=== PATIENT | female | born 1955 | race Caucasian/White ===

== ENCOUNTER → 2017-10-23 18:24 | Outpatient (CLI) | payer OTHER, SELFPAY ==
--- NOTE | 2017-10-23 18:32 | RAD_ITS ---
STUDY: X-RAY - RIGHT ANKLE REASON FOR EXAM: Female, 61 years old. Dropped Piece of wood on right ankle with pain TECHNIQUE: 3 view(s) of the ankle. COMPARISON: None. FINDINGS: Normal visualized distal tibia and fibula. Normal medial and lateral malleoli. Normal tibiotalar articulation and ankle mortise. Normal visualized talus and calcaneus. The visualized subtalar, talonavicular, calcaneocuboid and tarsal articulations are normal. The soft tissue structures are unremarkable. RAD/Ankle min 3 Views IMPRESSION: Normal x-ray examination of the ankle. Electronically Signed: Conner Charlton DO at 19:22 EST Tel , Service support ,
== END ==
PROVIDERS: Family Provider Nurse Practitioner; PCP Nurse Practitioner; Visit Provider Emergency Medicine
DX: M25.571 Pain in right ankle and joints of right foot (principal)
CPT/HCPCS: 73610

== ENCOUNTER → 2017-11-22 12:32 | Outpatient (CLI) | payer OTHER, SELFPAY ==
[2017-11-22 12:58] LABS: D-Dimer Quantitative (DVT/PE) 0.46 FEU/ug/m (0.27-0.49)
== END ==
PROVIDERS: Family Provider Nurse Practitioner; PCP Nurse Practitioner; Visit Provider Nurse Practitioner
DX: R07.9 Chest pain, unspecified (principal)
CPT/HCPCS: 36415; 85379

== ENCOUNTER → 2018-03-08 09:12 | Outpatient (CLI) | payer OTHER, SELFPAY ==
[2018-03-08 10:22] LABS: ALB/GLOB Ratio 1.2 RATIO (0.9-2.4); AST(SGOT) 30 U/L (15-37); Alanine Aminotransfer ALT/SGPT 28 U/L (13-56); Albumin, Serum 3.9 g/dL (3.2-5.0); Alkaline Phosphatase 103 U/L (45-117); Anion Gap 6 (5-15); BUN 16 mg/dL (7-18); BUN/Creat Ratio 21.9 RATIO (10-20); Calcium,Total 8.4 mg/dL (8.5-10.1); Chloride 105 mmol/L (98-107); Creatinine, Serum 0.73 mg/dL (0.55-1.02); EST Glomerular Filtration Rate 86 mL/min (>60); Est Glom Filt Rate - Afr Amer 104 mL/min (>60); Globulin 3.2 g/dL (2.2-4.2); Glucose 64 mg/dL (74-106); Potassium 3.8 mmol/L (3.5-5.1); Protein, Total 7.1 g/dL (6.4-8.2); Sodium Level 139 mmol/L (136-145)
[2018-03-10 14:36] LABS: Creatine Kinase MB 0 % (0-3); Creatine Kinase MM 97 % (97-100); Creatine Kinase,Total,Serum 235 U/L (24-173); Macro II 0 % (Not Observed)
[2018-03-10 15:47] LABS: Creatine Kinase BB 0 % (0); Macro I 3 % (Not Observed)
== END ==
PROVIDERS: Family Provider Nurse Practitioner; PCP Nurse Practitioner; Visit Provider Nurse Practitioner Gerontology
DX: R94.31 Abnormal electrocardiogram [ECG] [EKG] (principal); E86.0 Dehydration
CPT/HCPCS: 36415; 80053; 82550; 82552

== ENCOUNTER 2018-03-13 10:06 | Emergency (ER) | payer OTHER, SELFPAY ==
[2018-03-13 10:07] VITALS: BP 123/68; PULSE 67; RESP 18; TEMP 36.9; O2SAT 98; BMI 18.7
--- NOTE | 2018-03-13 10:22 | MRI_ITS ---
STUDY: MRI BRAIN WITHOUT CONTRAST REASON FOR EXAM: Female, 62 years old. Vertigo. Spinning x 1 month,dizzy TECHNIQUE: Standardized multiplanar fat and water weighted pulse sequences were obtained. COMPARISON: None. FINDINGS: Normal size of the ventricles and extra-axial spaces for the patient's age. There are a limited number of small white matter hyperintensities, distributed throughout the deep white matter tracts of the cerebral hemispheres, consistent with mild chronic white matter ischemic changes. Normal bilateral basal ganglia. Normal thalami. There is no extra-axial fluid accumulation. Normal flow voids within the major intracranial circulation suggesting patency by spin echo criteria. Normal sella turcica, pituitary gland, infundibular stalk, optic chiasm and hypothalamus. Normal tectal plate and pineal gland. Normal midbrain, asya and medulla. Normal cerebellum. Normal basal cisterns. Normal bilateral temporal bones. Normal bilateral internal auditory canals. No demonstrated orbital abnormality, within the constraints of a routine brain study. Normal visualized paranasal sinuses. Normal calvarium and skull base. Normal visualized soft tissue structures. Normal visualized upper cervical spine. MRI/Brain without Contrast IMPRESSION: Involutional changes of the brain, as described above. Electronically Signed: Suad Ruiz MD at 13:13 EDT Tel , Service support ,
--- NOTE | 2018-03-13 13:51 | ED.DCSUM_ITS ---
- ER Visit Summary Date of Service: 03/13/18 Chief Complaint: Vertigo ?1 month History of Present Illness: The patient is a 62 F who presents with vertigo ?1 month. She states her head is continuously moving. She denies double vision, partial loss or loss of vision. She does complain of intermittent change in vision. She states she walks sometimes the right. There is no history of head trauma. She denies trouble with speech or swallowing. She denies paresthesia, anesthesia motor weeks. She denies clumsiness or falling. There is no history of prior head trauma. She does complain of nausea without vomiting diarrhea. She denies any cardiac respiratory symptoms. She denies any urologic symptoms. She had blood work obtained on March 07 and March 08 which were reviewed and not repeated. She states her motion does not improve with her eyes closed. Physical Examination: Vital signs are normal. Head is atraumatic normocephalic. Pupils are equal round reactive. Extraocular muscles are intact. TMs are pearly white with landmarks noted. Nares patent with no drainage. Posterior pharynx without erythema or exudate. Uvula is midline. There is no dysphonia or dysphasia. Trachea is midline. There is no stridor with auscultation of the neck. Heart is regular without murmur, gallop or rub. S1 and S2 are normal. Lungs are clear to auscultation with good movement of air bilaterally. Abdomen soft nontender. Patient is alert and oriented ?3. Motor is 5 over 5. Sensory is intact. DTRs are symmetric with no clonus or Babinski sign. Cranial 2 through 12 are intact. Cerebellar testing is normal. Jair-Hallpike maneuver caused her to feel nauseous to the right. There was no nystagmus. The eye askew test was negative. The H INT test was negative. Test Results: MRI of the brain reveals no acute pathology or any findings to explain patient's symptoms. Emergency Department Course and Treatment: Since patient has negative [place]- Hallpike maneuver and spinning sensation that is continuous for 1 month will obtain an MRI. Blood work was not repeated since she had blood work on the and 08 March. Treatment Plan: Outpatient follow-up with Dr. Moiz Fulton Disposition: Discharged to home Impression: 1. Vertigo of unknown etiology 2. History of hypercholesterolemia This note was generated with Dragon dictation software. It may contain incorrect words, spelling, and punctuation that were not noted in review of the chart prior to signing ED Disposition - Plan for ED Patient: Disposition: Home or Assisted Living Chief Complaint: Dizziness Instructions: ED Dizziness [facility] Referrals: Becka Gallagher [Primary Care Provider] - Moiz Fulton MD [STAFF PHYSICIAN] - 1 Week
[2018-03-13 14:15] VITALS: BP 125/86; PULSE 65; RESP 14; O2SAT 98
== END 2018-03-13 14:22 | disposition home or self-care (01) ==
PROVIDERS: Emergency Provider Emergency Medicine; Family Provider Nurse Practitioner; PCP Nurse Practitioner
DX: R42 Dizziness and giddiness (principal); E78.00 Pure hypercholesterolemia, unspecified; M54.9 Dorsalgia, unspecified; Z87.891 Personal history of nicotine dependence
CPT/HCPCS: 70551; 99283; A4216

== ENCOUNTER → 2018-03-14 11:02 | Outpatient (CLI) | payer OTHER, SELFPAY ==
[2018-03-14 12:35] LABS: Erythrocyte Sedimentation Rate < 1 mm/hr (0-30)
[2018-03-14 12:37] LABS: Alanine Aminotransfer ALT/SGPT 31 U/L (13-56); LDH 259 U/L (84-246)
[2018-03-15 14:07] LABS: Anti-Jo <0.2 AI (0.0-0.9)
[2018-03-15 14:51] LABS: ANTINUCLEAR ANTIBODIES DIRECT Negative (Negative)
[2018-03-16 15:14] LABS: Aldolase 4.4 U/L (3.3-10.3); Cytoplasmic Ab (C-ANCA) <1:20 titer (Neg:<1:20)
[2018-03-16 15:59] LABS: Myoglobin, Serum 45 ng/mL (25-58); Perinuclear Ab (P-ANCA) <1:20 titer (Neg:<1:20)
== END ==
PROVIDERS: Family Provider Nurse Practitioner; PCP Nurse Practitioner; Visit Provider Nurse Practitioner Gerontology
DX: R74.8 Abnormal levels of other serum enzymes (principal)
CPT/HCPCS: 36415; 82085; 83615; 83874; 84460; 85652; 86038; 86235; 86256

== ENCOUNTER → 2018-03-17 13:53 | Outpatient (CLI) | payer OTHER, SELFPAY ==
[2018-03-17 15:33] LABS: Free T3 2.7 pg/mL (2.18-3.98); LDH 280 U/L (84-246); T4 Free Direct 1.06 ng/dL (0.76-1.46); Thyroid Stim Hormone (TSH) 1.33 uIU/mL (0.358-3.74)
== END ==
PROVIDERS: Family Provider Nurse Practitioner; PCP Nurse Practitioner; Visit Provider Nurse Practitioner
DX: R79.9 Abnormal finding of blood chemistry, unspecified (principal)
CPT/HCPCS: 36415; 83615; 84439; 84443; 84481

== ENCOUNTER → 2018-03-20 11:23 | Outpatient (CLI) | payer OTHER, SELFPAY ==
--- NOTE | 2018-03-20 11:25 | CT_ITS ---
STUDY: CT ABDOMEN AND PELVIS WITH CONTRAST REASON FOR EXAM: Female, 62 years old. 3 day history of left lower quadrant pain. Diarrhea. RADIATION DOSAGE (If Supplied By Facility): CTDIvol = ( 10.33 ) mGy, DLP = ( 339.72 ) mGycm TECHNIQUE: Transaxial images were obtained from the dome of the diaphragm to the symphysis pubis with oral contrast. 75mL ml of Isovue 370 contrast was administered. Sagittal and coronal images were reconstructed. Individualized dose optimization techniques were used for this CT. COMPARISON: Comparison is made with prior study dated November 14, 2013. FINDINGS: Minimal degree of increased lung markings at the right lung base suggestive mild left basilar atelectasis. The visualized portions of the heart are within normal limits. Normal liver. The patient is status post cholecystectomy. Minimal degree of central intrahepatic biliary ductal dilatation in keeping with a prior cholecystectomy. Normal spleen. Normal pancreas. Normal bilateral adrenal glands. Normal right kidney. Normal left kidney. Normal visualized stomach. Normal small intestine. A large amount of fecal material is seen in the colon. Scattered sigmoid diverticula. The patient is status post appendectomy. There is scattered atherosclerotic calcification of the abdominal aorta, without a demonstrated aneurysm. Normal inferior vena cava. Normal retroperitoneum. Normal urinary bladder. There is absence of the uterus consistent with a prior hysterectomy. Normal abdominal wall. There are degenerative changes of the visualized lumbar spine. Minimal anterior listhesis of L4 on L5. CT/Abdomen/Pelvis WITH Contrast IMPRESSION: Large amount of fecal material is seen in the colon. Status post cholecystectomy and appendectomy. Electronically Signed: Milad Helms MD at 14:11 EDT Tel [phone], Service support ,
[2018-03-20 12:40] LABS: ALB/GLOB Ratio 1.2 RATIO (0.9-2.4); AST(SGOT) 34 U/L (15-37); Alanine Aminotransfer ALT/SGPT 28 U/L (13-56); Alkaline Phosphatase 108 U/L (45-117); Anion Gap 7 (5-15); BUN 17 mg/dL (7-18); BUN/Creat Ratio 22.3 RATIO (10-20); Calcium,Total 9.3 mg/dL (8.5-10.1); Chloride 106 mmol/L (98-107); Creatinine, Serum 0.76 mg/dL (0.55-1.02); EST Glomerular Filtration Rate 82 mL/min (>60); Est Glom Filt Rate - Afr Amer 99 mL/min (>60); Globulin 3.4 g/dL (2.2-4.2); Glucose 93 mg/dL (74-106); Potassium 3.9 mmol/L (3.5-5.1); Protein, Total 7.4 g/dL (6.4-8.2); Sodium Level 139 mmol/L (136-145)
== END ==
PROVIDERS: Family Provider Nurse Practitioner; PCP Nurse Practitioner; Visit Provider Nurse Practitioner Gerontology
DX: R10.32 Left lower quadrant pain (principal); R74.0 Nonspecific elevation of levels of transaminase and lactic acid dehydrogenase [LDH]
CPT/HCPCS: 36415; 74177; 80053; 83615; Q9967

== ENCOUNTER → 2018-03-24 16:35 | Outpatient (CLI) | payer OTHER, SELFPAY | LOC: OLS.ABSOLU 16:36 → LAB 16:39 | PROVIDERS: Family Provider Nurse Practitioner; PCP Nurse Practitioner; Visit Provider Nurse Practitioner | DX: R74.0 Nonspecific elevation of levels of transaminase and lactic acid dehydrogenase [LDH] (principal) ==

== ENCOUNTER → 2018-04-13 08:16 | Outpatient (CLI) | payer OTHER, SELFPAY | PROVIDERS: Family Provider Nurse Practitioner; PCP Nurse Practitioner; Visit Provider Nurse Practitioner | DX: Z12.31 Encounter for screening mammogram for malignant neoplasm of breast (principal) | CPT/HCPCS: 77063; 77067 ==

== ENCOUNTER 2018-04-13 10:00 | Outpatient (RCR) | payer OTHER, SELFPAY ==
--- NOTE | 2018-03-24 07:53 | HP.PTEVAL_ITS ---
Patient's Visit Information CHANTAL DELA CRUZ is a 62 year old F referred to Physical Therapy by Chantal Gallagher with a diagnosis of vertigo. Date of Evaluation: 03/24/18 Physical Therapist: Robreto Clark DPT, OC - Visit Plan Frequency: 1x/Week Duration: 4-6 Weeks Plan: Weekly x4-6 to progress adaptation exercises which I expect to be helpful. Monitor MSQ if needed. I have recommeneded patient continue with any testing doctor wants to do as well. - Subjective Subjective: February 19 started getting dizzy, Fairly constant, insidious onset. Worse with turning for a short duration. Always has a dizzy feeling. Needs to lean against something and then move on. It is a constant feeling. Lying is down, bending , looking up have not noticed a problem. No falls. No numbness or tingling in the legs. Sleep is OK. 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 Activities are normal at home but has to be careful and slow. - Objective FGA is good.VOR walking is slightly challenging. - B hallpike lesa. - roll test. Oculomotor: Pursuit and saccades are normal. eye convergence normal. - skew eye deviation. - head thrust. VOR causes symptoms slight increase for 30 seconds and worse with VORx2. Recovers within a minute to baseline. - Balance Scores Functional Gait Assessment Score: 29 % Disability: 3.3400 CATSIB Score (Max score 120 seconds): 120 - Goals Goal 1:: Abolish baseline dizzyness. Goal Time Frame: 4-6 Weeks Goal 2:: Pt feel 95% back to normal and be able to turn around without symptoms. Goal Time Frame: 4-6 Weeks Goal 3:: I approp HEPO to minimize future problems Goal Time Frame: 4-6 Weeks - Rehabilitation Potential Physical Therapy Diagnosis: vertigo, possibly vestibualr hypofunction. Rehabilitation Potential: Good - Anticipated Interventions Patient/Client Instruction: Educate patient on: Condition, Plan of Care For the Purpose of:: To improve ability of physical actions for home/community/ work/leisure Other: to decrease dizzyness. Comment: adaptation and habituation as needed. For the Purpose of:: To increase tolerance to activity/condition/position, To improve ability of physical actions for home/community/work/leisure Thank you for the opportunity to evaluate your patient. For Medicare and Medicare HMO plans, please review the plan of care and approve it. It will need to be FAXED BACK to us at [phone] for Medicare purposes. Please let me know if there are questions or concerns regarding this plan of care. Physician Signature: Date:
--- NOTE | 2018-04-13 10:24 | HP.PTDCSUM ---
HP - PT D/C Summary It has been my pleasure to treat CHANTAL DELA CRUZ under orders from Chantal Gallagher, for the diagnosis of vertigo for a total of 3 visit(s). Discharge Date: 04/13/18 Please see the following information for a summary of their discharge status. - Subjective Subjective: Moved last week the dining room table and walked into formerly named [facility] and fell to the floor. Only spun 2x/since then and did not last long. Feeling pretty good in the meantime. Will see doctor soon. Doing exercises but only a little bit becasue it gets to her neck. Exercises were not helping. Feels better despite moving houses for the last week. - Overall Improvement % Improvement: 90 - Objective Objective/Function: - hallpike. balance is good. Feeling good, Much better overall btu not sure our treatment had muich to do with it. - Goals Goal 1:: Abolish baseline dizzyness. Goal Progress: Goal Met Goal 2:: Pt feel 95% back to normal and be able to turn around without symptoms. Goal Progress: Progressing Goal 3:: I approp HEPO to minimize future problems Goal Progress: not needed - Plan Plan: D/C - D/C Information Discharge Comments: Pt has done ex at home but did not seem to be helping. [facility] and has had very little dizzyness since and is 90% better. No symptoms in 4 days. Will schedule with doctor, no more therapy reuired. If there are questions or concerns regarding this patient's physical therapy, please feel free to call me at [phone]. Thank you for the referral of this patient. Sincerely, Roberto Clark, DPT, OC
== END 2018-04-13 19:00 | disposition home or self-care (01) ==
LOC: PT 10:00
PROVIDERS: Family Provider Nurse Practitioner; PCP Nurse Practitioner; Visit Provider Nurse Practitioner
DX: R42 Dizziness and giddiness (principal)
CPT/HCPCS: 97162; 97530

== ENCOUNTER → 2018-04-13 14:39 | Outpatient (CLI) | payer OTHER, SELFPAY | PROVIDERS: Family Provider Nurse Practitioner; PCP Nurse Practitioner; Visit Provider Nurse Practitioner Gerontology | DX: M25.511 Pain in right shoulder (principal) | CPT/HCPCS: 73030 ==

== ENCOUNTER → 2018-05-10 11:10 | Outpatient (CLI) | payer OTHER, SELFPAY ==
[2018-05-10 11:16] LABS: Bacteria 0 SEEN /hpf (None Seen); Mucous, Urine 0 SEEN /hpf (<or=2+); Red Blood Cells-Urine 0 SEEN /hpf (0-5); Squamous Epithelial Cells - UA 0 SEEN /hpf (5-10)
[2018-05-10 12:07] LABS: Immature Platelet Fraction 1.3 % (1.0-7.9); RET-HE 31.5 pg (30-35); Reticulocyte Count 1.04 % (0.5-1.5)
[2018-05-10 12:28] LABS: Color, Urine Yellow (Yellow); Glucose, Dipstick Normal (Normal); Ketone-Dipstick Negative (Negative); Leukocyte Esterase-Dipstick 25 /ul (Negative); Nitrite-Dipstick Negative (Negative); Occult Blood-Urine Negative /ul (Negative); Protein-Dipstick Negative (Negative); Urine Bilirubin Dipstick Negative (Negative); Urine Clarity Sl. Cloudy (Clear); Urine Urobilinogen Normal (Normal)
[2018-05-10 12:34] LABS: White Blood Cells 0-5 SEEN /hpf (0-5)
[2018-05-10 12:50] LABS: Vitamin B12 633 pg/mL (211-911)
[2018-05-10 13:00] LABS: Ferritin 13 ng/mL (8-252); Iron 27 ug/dL (50-170); Iron Binding Capacity,Total 350 ug/dL (250-450); LDH 250 U/L (84-246); PERCENT IRON SATURATION 7.7 % (15.0-55.0)
== END ==
PROVIDERS: Family Provider Nurse Practitioner; PCP Nurse Practitioner; Visit Provider Nurse Practitioner
DX: D64.9 Anemia, unspecified (principal); R31.9 Hematuria, unspecified
CPT/HCPCS: 36415; 81001; 82607; 82728; 82746; 83540; 83550; 83615; 85045

== ENCOUNTER → 2018-05-31 06:35 | Outpatient (CLI) | payer OTHER, SELFPAY ==
[2018-05-31 07:04] LABS: Immature Platelet Fraction 2.2 % (1.0-7.9); RET-HE 33.4 pg (30-35); Reticulocyte Count 0.79 % (0.5-1.5)
[2018-05-31 07:19] LABS: Ferritin 21 ng/mL (8-252); Iron 118 ug/dL (50-170); Iron Binding Capacity,Total 328 ug/dL (250-450)
[2018-06-02 13:10] LABS: LDH 208 IU/L (119-226); LDH Fraction 1 25 % (17-32); LDH Fraction 2 31 % (25-40); LDH Fraction 3 22 % (17-27); LDH Fraction 4 12 % (5-13); LDH Fraction 5 10 % (4-20)
== END ==
PROVIDERS: Family Provider Nurse Practitioner; PCP Nurse Practitioner; Referring Provider Nurse Practitioner; Visit Provider Nurse Practitioner
DX: D50.9 Iron deficiency anemia, unspecified (principal); R74.0 Nonspecific elevation of levels of transaminase and lactic acid dehydrogenase [LDH]; R79.9 Abnormal finding of blood chemistry, unspecified
CPT/HCPCS: 36415; 82728; 83540; 83550; 83615; 83625; 85045

== ENCOUNTER 2018-07-05 17:24 | Emergency (ER) | payer OTHER, SELFPAY ==
[2018-07-05 17:25] VITALS: BP 130/80; PULSE 82; RESP 16; TEMP 36.7; O2SAT 97; BMI 20.2
--- NOTE | 2018-07-05 17:50 | RAD_ITS ---
STUDY: X-RAY - RIGHT KNEE REASON FOR EXAM: Female, 62 years old. Pain, decreased range of motion TECHNIQUE: 4 view(s) of the knee. COMPARISON: None. FINDINGS: Normal visualized distal femur. Normal visualized proximal tibia and fibula. Normal proximal tibiofibular articulation. Normal medial femorotibial compartment. Normal lateral femorotibial compartment. Normal patellofemoral articulation. The soft tissue structures are unremarkable. RAD/Knee 4 or More Views IMPRESSION: Normal x-ray examination of the knee. Electronically Signed: Vaibhav Diane MD at 18:18 EST , Service support ,
--- NOTE | 2018-07-05 17:53 | ED.DCSUM_ITS ---
- ER Visit Summary Date of Service: 07/05/18 Chief Complaint: Right knee injury History of Present Illness: The patient is a 62 F presenting for evaluation secondary to a right knee injury. Patient reports that at about 10:00 this morning she was moving a hospital bed. She reports that it pinned her knee anteriorly against a elevator door. She reports that this was associated with somewhat of a hyperextension injury. Patient now reports pain with ambulation, and some difficulty with completely straightening the knee. She denies any numbness or weakness. Physical Examination: Right lower extremity exam shows a minimal joint effusion of the knee. There is tenderness palpation over the medial portion of the patient's quadriceps tendon insertion on the patella. Patella is well placed, and nontender. There is tenderness to palpation additionally over the anterior medial portion of the tibial plateau. Patient has normal flexion of the knee, she does have an intact extensor mechanism but is not able to fully extend the knee secondary to some pain. Negative Lockman posterior drawer varus and valgus stress tests. Test Results: Bedside ultrasound shows no evidence of violation of the patient's quadriceps tendon. 4 view of the knee per radiology and my personal view is negative Emergency Department Course and Treatment: Patient presented for evaluation secondary to a knee injury. X-rays were negative, ultrasound shows no evidence of tendon rupture. Patient's mechanism seems consistent with a hyperextension injury. She has no evidence of ligamentous laxity. Patient was recommended on a compression sleeve, NSAID analgesia, and ice. Disposition: Discharge Impression: 1. Right knee sprain This note was generated with [employer] dictation software. It may contain incorrect words, spelling, and punctuation that were not noted in review of the chart prior to signing ED Disposition - Plan for ED Patient: Disposition: Home or Assisted Living Chief Complaint: Lower Extremity Injury Diagnosis: Right knee sprain Instructions: ED Sprain Knee Referrals: [facility], [place] [GROUP OF PHYSICIANS] - As Needed
[2018-07-05 18:48] VITALS: PULSE 84; RESP 14; O2SAT 98
== END 2018-07-05 18:49 | disposition home or self-care (01) ==
PROVIDERS: Emergency Provider Emergency Medicine; Family Provider Nurse Practitioner; PCP Nurse Practitioner
DX: S83.91XA Sprain of unspecified site of right knee, initial encounter (principal); X50.1XXA Overexertion from prolonged static or awkward postures, initial encounter; Y93.9 Activity, unspecified; Y92.9 Unspecified place or not applicable; E78.00 Pure hypercholesterolemia, unspecified; Z79.82 Long term (current) use of aspirin; Z79.899 Other long term (current) drug therapy
CPT/HCPCS: 73564; 99282

== ENCOUNTER → 2018-07-12 07:07 | Outpatient (CLI) | payer OTHER, SELFPAY ==
[2018-07-10 08:04] VITALS: BMI 20.2
[2018-07-12 08:31] LABS: Ferritin 17 ng/mL (8-252)
== END ==
PROVIDERS: Family Provider Nurse Practitioner; PCP Nurse Practitioner; Referring Provider Nurse Practitioner; Visit Provider Nurse Practitioner
DX: D50.9 Iron deficiency anemia, unspecified (principal)
CPT/HCPCS: 36415; 82728

== ENCOUNTER → 2018-07-22 07:23 | Outpatient (CLI) | payer OTHER, SELFPAY ==
[2018-07-18 07:58] VITALS: BMI 20.2
--- NOTE | 2018-07-22 07:29 | MRI_ITS ---
STUDY: MRI RIGHT KNEE REASON FOR EXAM: Female, 62 years old. Pain around patella. Hyperextension in May. TECHNIQUE: Standardized fat and water weighted pulse sequences were obtained in all 3 orthogonal planes. COMPARISON: None. FINDINGS: There is tearing of the posterior horn of the medial meniscus. There is intermediate grade cartilage degeneration in the medial joint compartment. There is focal bone marrow edema in the posterior medial tibial plateau posterior placenta and stress reaction although underlying microtrabecular fractures aren't excluded. Normal medial collateral ligamentous complex (MCL). Normal distal semimembranosus, gracilis and semitendinosus tendons. Normal lateral meniscus. Normal hyaline cartilage of the lateral femorotibial compartment. Normal lateral femoral condyle and tibial plateau. Normal proximal tibiofibular articulation. Normal lateral collateral (fibular) ligament. Normal popliteus tendon. Normal biceps femoris tendon. There is mild increased signal in the anterior cruciate ligament without definitive tear possibly representing a sprain. Normal posterior cruciate ligament (PCL). Patellofemoral joint appears within normal limits. Normal hyaline cartilage of the patellofemoral compartment. Normal medial and lateral patellar retinaculum. Normal quadriceps tendon. Normal patellar tendon. Normal Hoffa's fat pad. There is a small joint effusion. There is a small popliteal cyst. The soft tissues are unremarkable. The otherwise visualized osseous structures are unremarkable. MRI/Lower Ext Joint Only (Routine) IMPRESSION: There is tearing of the posterior horn of the medial meniscus. There is bone marrow edema in the posterior medial tibial plateau may represent stress reaction however underlying microtrabecular fractures aren't completely excluded although unlikely. Possible sprain of the anterior cruciate ligament. Small joint effusion and popliteal cyst. Electronically Signed: Remy Clifton, at 11:13 EST Tel , Service support ,
--- OUTSIDE RECORDS SUMMARY | 2018-09-15 18:51 | XMS RPT_ITS ---
:1955 Author Organization OHIP Support Name Relationship Address Phone DELRE, PHILOMENA Unavailable [address] + [place] [address] [facility] Unavailable [address] + [place] [address] DELRE, PHILOMENA Unavailable [address] + [place] [address] [facility] Unavailable [address] + [place] [address] DELRE, PHILOMENA Unavailable [address] + [place] [address] [facility] Unavailable [address] + [place] [address] DELRE, PHILOMENA Unavailable [address] + [place] [address] [facility] Unavailable [address] + [place] [address] DELRE, PHILOMENA Unavailable [address] + [place] [address] [facility] Unavailable [address] + [place] [address] DELRE, PHILOMENA Unavailable [address] + [place] [address] [facility] Unavailable [address] + [place] [address] DELRE, PHILOMENA Unavailable [address] + [place] [address] [facility] Unavailable [address] + [place] [address] DELRE, PHILOMENA Unavailable Unavailable + [facility] Unavailable [address] + [place] [address] DELRE, PHILOMENA Unavailable Unavailable + [facility] Unavailable [address] + [place] [address] DELRE, PHILOMENA Unavailable Unavailable + [facility] Unavailable [address] + [place] [address] DELRE, PHILOMENA Unavailable Unavailable + [facility] Unavailable [address] + [place] [address] DELRE, PHILOMENA Unavailable Unavailable + [facility] Unavailable [address] + [place] [address] DELRE, PHILOMENA Unavailable Unavailable + [facility] Unavailable [address] + [place] [address] DELRE, PHILOMENA Unavailable Unavailable + [facility] Unavailable [address] + [place] [address] DELRE, PHILOMENA Unavailable Unavailable + [facility] Unavailable [address] + [place] [address] DELRE, PHILOMENA Unavailable Unavailable + [facility] Unavailable [address] + [place] [address] DELRE, PHILOMENA Unavailable Unavailable + [facility] Unavailable [address] + [place] [address] DELRE, PHILOMENA Unavailable Unavailable + [facility] Unavailable [address] + [place] [address] DELRE, PHILOMENA Unavailable Unavailable + [facility] Unavailable [address] + [place] [address] DELRE, PHILOMENA Unavailable Unavailable + [facility] Unavailable [address] + [place] [address] DELRE, PHILOMENA Unavailable Unavailable + [facility] Unavailable [address] + [place] [address] DELRE, PHILOMENA Unavailable Unavailable + [facility] Unavailable [address] + [place] [address] DELRE, PHILOMENA Unavailable NA + [place], [place] [facility] Unavailable [address] + [place] [address] DELRE, PHILOMENA Unavailable [address] + [facility] Unavailable [address] + [place] [address] DELRE, PHILOMENA Unavailable [address] + [facility] Unavailable [address] + [place] [address] DELRE, PHILOMENA Unavailable [address] + [facility] Unavailable [address] + [place] [address] Care Team Providers Name Role Phone Jasmin Sow BOLTING MACHINE OPERATOR-C Attending Unavailable [facility] Unavailable Jasmin Sow BOLTING MACHINE OPERATOR-C Attending Unavailable [facility] Unavailable Jasmin Sow BOLTING MACHINE OPERATOR-Mabel Referring Unavailable Dave Fortune Attending Unavailable Anne Cortés Attending Unavailable [facility] Becka Referring Unavailable [facility] Unavailable Pineda Vences Attending Unavailable [facility] Unavailable [facility], Becka Attending Unavailable [facility] Becka Referring Unavailable [facility] Unavailable Jasmin Sow BOLTING MACHINE OPERATOR-C Attending Unavailable Jasmin Sow BOLTING MACHINE OPERATOR-Mabel Referring Unavailable [facility] Unavailable Jasmin Sow BOLTING MACHINE OPERATOR-Mabel Attending Unavailable Jasmin Sow BOLTING MACHINE OPERATOR-Mabel Referring Unavailable [facility] Unavailable [facility], [facility] Unavailable Jose Wren Attending Unavailable [facility] Becka Attending Unavailable [facility], Becka Referring Unavailable [facility] Unavailable Jasmin Sow BOLTING MACHINE OPERATOR-C Attending Unavailable Jasmin Sow BOLTING MACHINE OPERATOR-C Referring Unavailable Ciesa, Becka Primary Care Unavailable Ciesa, Becka Attending Unavailable Ciesa, Becka Referring Unavailable Ciesa, Becka Primary Care Unavailable Jasmin Sow BOLTING MACHINE OPERATOR-C Attending Unavailable Jasmin Sow BOLTING MACHINE OPERATOR-C Referring Unavailable Ciesa, Becka Primary Care Unavailable Ciesa, Becka Attending Unavailable Ciesa, Becka Referring Unavailable Ciesa, Becka Primary Care Unavailable Ciesa, Becka Attending Unavailable Ciesa, Becka Primary Care Unavailable Jasmin Sow BOLTING MACHINE OPERATOR-C Attending Unavailable Jasmin Sow BOLTING MACHINE OPERATOR-C Referring Unavailable Ciesa, Becka Primary Care Unavailable ASSESSMENT, HEALTH RISK Attending Unavailable ASSESSMENT, HEALTH RISK Referring Unavailable Ciesa, Becka Primary Care Unavailable Ciesa, Becka Attending Unavailable Ciesa, Becka Primary Care Unavailable Ciesa, Becka Attending Unavailable Ciesa, Becka Primary Care Unavailable Ciesa, Becka Referring Unavailable Ciesa, Becka Attending Unavailable Ciesa, Becka Primary Care Unavailable Ciesa, Becka Referring Unavailable Ciesa, Becka Primary Care Unavailable Juanito Cottrell Attending Unavailable Gerardo Bhatt Attending Unavailable Ciesa, Becka Referring Unavailable Ciesa, Becka Attending Unavailable Ciesa, Becka Primary Care Unavailable Gerardo Bhatt Attending Unavailable Ciesa, Becka Referring Unavailable Gerardo Bhatt Attending Unavailable Gerardo Bhatt Referring Unavailable Ciesa, Becka Primary Care Unavailable Gerardo Bhatt Attending Unavailable Ciesa, Becka Referring Unavailable PROBLEMS PROBLEMS DATE TYPE CONDITION / CODE ATTENDING STATUS SOURCE 08/08/2018 Unknown S83.91XA - Sprain Gerardo Bhatt Active [place] of unspecified site Community of right knee, Hospital initial encounter / Repository S83.91XA(ICD-10) 07/10/2018 Unknown S89.91XA - Juanito Cottrell Active [facility] Unspecified injury Community of right lower leg, Hospital initial encounter / Repository S89.91XA(ICD-10) 05/10/2018 Unknown D64.9 - Anemia, LeticiaesBecka michel Active [facility] unspecified / Community D64.9(ICD-10) Hospital Repository 04/14/2018 Unknown R42 - Dizziness and CiesaBecka Active [place] giddiness / Community R42(ICD-10) Hospital Repository 03/24/2018 Unknown R74.0 - Nonspecific Ciesa, Becka Active [facility] elevation of levels Community of transaminase and Hospital lactic acid Repository dehydrogenase [LDH] / R74.0(ICD-10) 04/06/2018 Unknown R10.32 - Left lower Jasmin Sow Active [place] quadrant pain / BOLTING MACHINE OPERATOR-C Community R10.32(ICD-10) Hospital Repository 03/17/2018 Unknown R79.9 - Abnormal Becka Gallagher Active [facility] finding of blood [facility] chemistry, Hospital unspecified / Repository R79.9(ICD-10) 03/14/2018 Unknown R74.8 - Abnormal Jasmin Sow Active [facility] levels of other BOLTING MACHINE OPERATOR-C Community serum enzymes / Hospital R74.8(ICD-10) Repository 11/25/2017 Unknown R07.9 - Chest pain, Becka Gallagher Active [place] unspecified / Community R07.9(ICD-10) Hospital Repository 09/30/2017 Unknown R00.2 - CortésAravind [facility] Palpitations / [facility] R00.2(ICD-10) Hospital Repository 09/30/2017 Unknown I34.1 - Moo Active [facility] Nonrheumatic mitral [facility] (valve) prolapse / Hospital I34.1(ICD-10) Repository 09/08/2017 Unknown M25.561 - Pain in Jasmin Sow Active [facility] right knee / BOLTING MACHINE OPERATOR-C [facility] M25.561(ICD-10) Hospital Repository PROCEDURES PROCEDURES No Procedure Records FoundRESULTS RESULTS URGENT CARE VISIT Observed: 07/25/2018 Status: F Source: [place] REPORT 5:55 PM [facility] REPOSITORY [facility] [address] [place], [place] [id number] OFFICE VISIT Date of Service: 07/25/18 MR#: [id number] Acct: [id number] Name: BECKA DELA CRUZ Rep #: [id number] : 1955 Provider: Gerardo ANDERSEN Age/Sex: 62/F Location: [facility] Status: Signed Intake Vital Signs07/25/18 Body Mass Index (BMI) 20.2 07/25/18 Height 5 ft 5 in 07/25/18 Weight: 123 lb 07/25/18 Body Mass Index (BMI) 20.5 07/25/18 Blood Pressure 116/82 H Intake Visit Reasons: F/U RIGHT KNEE/[facility] /WORKERS COMP Range Examiner Required: No Accompanied by: SELF Is patient in pain?: Yes Allergies morphine Allergy (Intermediate, Verified 07/25/18 17:33) Hives Penicillins Allergy (Intermediate, Verified 07/25/18 17:33) Hives Sulfa (Sulfonamide Antibiotics) Allergy (Intermediate, Verified 07/25/18 17:33) Hives adhesive Allergy (Mild, Verified 07/25/18 17:33) BLISTER erythromycin base [Erythromycin Base] Allergy (Mild, Verified 07/25/18 17:33) EYES SWELLING clarithromycin [From Biaxin] Allergy (Verified 07/25/18 17:33) Unknown cyclobenzaprine [From Flexeril] Allergy (Verified 07/25/18 17:33) Unknown hydrocodone bitartrate [From Vicodin] Adverse Reaction (Mild, Verified 07/25/18 17:33) Upset Stomach Medications Rosuvastatin Calcium 5 mg PO QODAY 03/13/18 [History Confirmed 07/25/18] Aspirin [Aspirin, Baby] 81 mg PO DAILY 07/05/18 [History Confirmed 07/25/18] coenzyme Q10 75 mg capsule 75 mg PO DAILY 07/10/18 [History Confirmed 07/25/18] fluticasone 100 mcg-salmeterol 50 mcg/dose blistr powdr for inhalation 1 puff INHALATION BID 07/10/18 [History Confirmed 07/25/18] ibuprofen 200 mg tablet 200 mg PO TID-QID PRN 07/10/18 [History Confirmed 07/25/18] PFSH Medical History Palpitations (Chronic) Tachycardia (Chronic) SOB (shortness of breath) (Chronic) Arthritis (Acute) Asthma (Acute) Cancer (Acute) Dupuytren's disease of palm of left hand (Acute) Hx of melanoma of skin (Acute) Knee pain (Acute) Hernandez's neuroma (Acute) Weight loss (Acute) History of hysterectomy (Chronic 1994) Lentigo (Chronic) Nevus (Chronic) Skin hemangioma (Chronic) Surgical History History of back surgery (Acute) History of carpal tunnel release (Acute) History of cataract surgery (Acute) History of knee surgery (Acute) History of rotator cuff surgery (Acute) Hx of removal of ovary (Acute) bladder tied up (Acute) History of appendectomy (Chronic 1995) History of cholecystectomy (Chronic 2006) History of tonsillectomy (Chronic 1964) History of tubal ligation (Chronic) Family History Mother , age 70 Myocardial infarction CAD (coronary artery disease) Father Melanoma Social History Smoking Status: Former smoker how long ago did patient quit smokin alcohol intake: never substance use type: does not use caffeine: Yes Type: coffee what type of physical activity do you participate in: bicycling frequency: daily duration: 30-45 minutes/day seatbelt use: always do you feel safe at home: Yes HPI HPI Details: BECKA DELA CRUZ, is a 62 F who presents to the office today for follow-up of a work-related injury which occurred on 07/05/2018. Patient comes in today to review her MRI findings which do find a medial meniscus tear of the anterior horn of the right knee. Patient states that she continues to have similar symptoms as previous including increased knee pain at the end of her shift as well as feeling of locking and popping in the same knee. She denies any numbness or tingling or loss of range of motion to the same. No other associated symptoms or alleviating/aggravating factors. ROS Const Constitutional: No chills, fever(s), abnormal sleep pattern or fatigue Resp Respiratory: No shortness of breath or chest congestion Cardio Cardiology: No chest pain at rest, chest pain with exertion or shortness of breath Musc Musculoskeletal: Positive for limited range of motion, stiffness and joint pain; no joint swelling, deformity, numbness, tingling, abnormal walking or muscle weakness Skin Skin: No wounds or lesions Neuro Neurology: No numbness, tingling or abnormal walking Psych Psychiatric: No abnormal sleep pattern Endo Endocrine: No fatigue Exam Const General: cooperative, healthy appearing Musc Musculoskeletal: Yes joint tenderness; no muscle weakness or decreased ROM Skin General: no rashes or lesions noted Neuro General: alert, CN's II-XI intact bilaterally Extrem General: full ROM, normal capillary refill, normal exam except as noted, no joint enlargement Other: Pain to palpation over the anterior and medial aspect of the right knee with no obvious deformity upon palpation. Negative anterior posterior drawer sign as well as negative valgus and varus stress test. Psych Appearance: grossly normal Mental Status: mental status grossly normal Assessment AND Plan Problems 1. Sprain of unspecified site of right knee, initial encounter S83.91XA Plan [employer] 14 filled out releasing patient back to work today with no restrictions again per the patient's request. Patient referred to orthopedics for further evaluation and treatment of her ongoing right knee pain and medial meniscus tear. Form C9 filled out for additional diagnosis of medial meniscus tear of the right knee. Patient advised to continue with ibuprofen and/or Tylenol as needed for pain. Advised of potential red flags and when appropriate to report to the ED. Patient verbalized understanding and agreement with all of the above. Orders Referrals: Coding Level of Care Code Off vis,est,level 3 Diagnoses Sprain of unspecified site of right knee, initial encounter S83.91XA 07/25/18 0843 <Electronically signed by Gerardo ANDERSEN> Date Gerardo ANDERSEN Cosigner Signature: Date (if applicable) CC: LOWER EXT JOINT ONLY Observed: 07/22/2018 Status: F Source: [place] (ROUTINE) 7:30 AM [facility] REPOSITORY [facility] Imaging Services [address] [place] [id number] Lower Ext Joint Only (Routine) MR#: [id number] Acct: [id number] Name: BECKA DELA CRUZ Rep #: [id number] : 1955 F 62 From: Remy Clifton MD PCP: Becka Gallagher NP Status: REG CLI Study: Lower Ext Joint Only (Routine) Date of Exam: 07/22/18 Exam# [id number] Ordering Dr: Gerardo Bhatt STUDY: MRI RIGHT KNEE REASON FOR EXAM: Female, 62 years old. Pain around patella. Hyperextension in May. TECHNIQUE: Standardized fat and water weighted pulse sequences were obtained in all 3 orthogonal planes. COMPARISON: None. FINDINGS: There is tearing of the posterior horn of the medial meniscus. There is intermediate grade cartilage degeneration in the medial joint compartment. There is focal bone marrow edema in the posterior medial tibial plateau posterior placenta and stress reaction although underlying microtrabecular fractures aren't excluded. Normal medial collateral ligamentous complex (MCL). Normal distal semimembranosus, gracilis and semitendinosus tendons. Normal lateral meniscus. Normal hyaline cartilage of the lateral femorotibial compartment. Normal lateral femoral condyle and tibial plateau. Normal proximal tibiofibular articulation. Normal lateral collateral (fibular) ligament. Normal popliteus tendon. Normal biceps femoris tendon. There is mild increased signal in the anterior cruciate ligament without definitive tear possibly representing a sprain. Normal posterior cruciate ligament (PCL). Patellofemoral joint appears within normal limits. Normal hyaline cartilage of the patellofemoral compartment. Normal medial and lateral patellar retinaculum. Normal quadriceps tendon. Normal patellar tendon. Normal Hoffa's fat pad. There is a small joint effusion. There is a small popliteal cyst. The soft tissues are unremarkable. The otherwise visualized osseous structures are unremarkable. MRI/Lower Ext Joint Only (Routine) IMPRESSION: There is tearing of the posterior horn of the medial meniscus. There is bone marrow edema in the posterior medial tibial plateau may represent stress reaction however underlying microtrabecular fractures aren't completely excluded although unlikely. Possible sprain of the anterior cruciate ligament. Small joint effusion and popliteal cyst. Electronically Signed: Remy Clifton, at 11:13 EST Tel , Service support , CC: Becka Gallagher NP; Gerardo ANDERSEN Stonecutter Assistant: Signed URGENT CARE VISIT Observed: 07/18/2018 Status: F Source: [place] REPORT 8:[address] [place] [address] OFFICE VISIT Date of Service: 07/18/18 MR#: [id number] Acct: [id number] Name: BECKA DELA CRUZ Rep #: [id number] : 1955 Provider: Gerardo ANDERSEN Age/Sex: 62/F Location[place] [facility] Status: Signed Intake Vital Signs07/18/18 Body Mass Index (BMI) 20.2 07/18/18 Height 5 ft 5 in 07/18/18 Weight: 123 lb 07/18/18 Body Mass Index (BMI) 20.5 07/18/18 Blood Pressure 116/74 Intake Visit Reasons: RT KNEE F/U / [facility] Range Examiner Required: No Accompanied by: self Is patient in pain?: Yes Allergies morphine Allergy (Intermediate, Verified 07/18/18 07:56) Hives Penicillins Allergy (Intermediate, Verified 07/18/18 07:56) Hives Sulfa (Sulfonamide Antibiotics) Allergy (Intermediate, Verified 07/18/18 07:56) Hives adhesive Allergy (Mild, Verified 07/18/18 07:56) BLISTER erythromycin base [Erythromycin Base] Allergy (Mild, Verified 07/18/18 07:56) EYES SWELLING clarithromycin [From Biaxin] Allergy (Verified 07/18/18 07:56) Unknown cyclobenzaprine [From Flexeril] Allergy (Verified 07/18/18 07:56) Unknown hydrocodone bitartrate [From Vicodin] Adverse Reaction (Mild, Verified 07/18/18 07:56) Upset Stomach Medications Rosuvastatin Calcium 5 mg PO QODAY 03/13/18 [History Confirmed 07/18/18] Aspirin [Aspirin, Baby] 81 mg PO DAILY 07/05/18 [History Confirmed 07/18/18] coenzyme Q10 75 mg capsule 75 mg PO DAILY 07/10/18 [History Confirmed 07/18/18] fluticasone 100 mcg-salmeterol 50 mcg/dose blistr powdr for inhalation 1 puff INHALATION BID 07/10/18 [History Confirmed 07/18/18] ibuprofen 200 mg tablet 200 mg PO TID-QID PRN 07/10/18 [History Confirmed 07/18/18] PFSH Medical History Palpitations (Chronic) Tachycardia (Chronic) SOB (shortness of breath) (Chronic) Arthritis (Acute) Asthma (Acute) Cancer (Acute) Dupuytren's disease of palm of left hand (Acute) Hx of melanoma of skin (Acute) Knee pain (Acute) Hernandez's neuroma (Acute) Weight loss (Acute) History of hysterectomy (Chronic 1994) Lentigo (Chronic) Nevus (Chronic) Skin hemangioma (Chronic) Surgical History History of back surgery (Acute) History of carpal tunnel release (Acute) History of cataract surgery (Acute) History of knee surgery (Acute) History of rotator cuff surgery (Acute) Hx of removal of ovary (Acute) bladder tied up (Acute) History of appendectomy (Chronic 1995) History of cholecystectomy (Chronic 2006) History of tonsillectomy (Chronic 1964) History of tubal ligation (Chronic) Family History Mother , age 70 Myocardial infarction CAD (coronary artery disease) Father Melanoma Social History Smoking Status: Former smoker how long ago did patient quit smokin alcohol intake: never substance use type: does not use caffeine: Yes Type: coffee what type of physical activity do you participate in: bicycling frequency: daily duration: 30-45 minutes/day seatbelt use: always do you feel safe at home: Yes HPI HPI Details: BECKA DELA CRUZ, is a 62 F who presents to the office today for follow-up of a work-related injury which occurred on 07/05/2018. Patient states that her right knee pain has not improved and continues to complain of feeling as if her knee will hyperextend. She did have a negative x-ray upon her initial evaluation at [facility] ED. Patient states that her pain has been moderately controlled with ibuprofen. She denies any numbness or tingling or loss of range of motion to the knee however does continue to have some stiffness particularly after a full shift. No other associated symptoms or alleviating/aggravating factors. ROS Const Constitutional: No chills, fever(s), abnormal sleep pattern or fatigue Resp Respiratory: No shortness of breath or chest congestion Cardio Cardiology: No chest pain at rest, chest pain with exertion or shortness of breath Musc Musculoskeletal: Positive for limited range of motion, stiffness and joint pain; no joint swelling, deformity, numbness, tingling, abnormal walking or muscle weakness Skin Skin: No wounds or lesions Neuro Neurology: No numbness, tingling or abnormal walking Psych Psychiatric: No abnormal sleep pattern Endo Endocrine: No fatigue Exam Const General: cooperative, healthy appearing Musc Musculoskeletal: No muscle weakness Other: full ROM, normal capillary refill, no joint enlargement, normal exam except as noted, normal gait Other: Palpation over the anterior right knee just distal to the knee as well as pain to the anterior medial aspect of the knee. Positive for valgus stress. No obvious deformity upon palpation. Appropriate joint laxity with negative anterior posterior drawer sign as well as negative varus stress. Skin General: no rashes or lesions noted Neuro General: alert, CN's II-XI intact bilaterally Psych Appearance: grossly normal Mental Status: mental status grossly normal Assessment AND Plan Problems 1. Sprain of unspecified site of right knee, initial encounter S83.91XA Plan [employer] 14 put out releasing patient back to work today without restrictions. Form C9 filled out for approval of a right knee MRI as well as Orth O for a positive MRI. Patient advised to continue with ibuprofen or Tylenol as needed for pain. Advised of potential red flags and when appropriate to report to the ED. Patient verbalized understanding and agreement with all the above. Coding Level of Care Code Off vis,est,level 3 Diagnoses Sprain of unspecified site of right knee, initial encounter S83.91XA 07/18/18 0851 <Electronically signed by Gerardo ANDERSEN> Date Gerardo ANDERSEN Cosigner Signature: Date (if applicable) CC: FERRITIN Collected: 07/12/2018 Status: F Source: [place] 7:09 AM [facility] REPOSITORY TYPE CODE TESTS RESULT OUT OF RANGE REFERENCE UNITS LAB L503.6550 8-252 ng/mL Normal FERRITIN 17 Performed By: #### L503.6550 #### [facility] [address] [place], [place], [address] URGENT CARE VISIT Observed: 07/10/2018 Status: F Source: [place] REPORT 8:05 AM [facility] REPOSITORY Now [address] [address] OFFICE VISIT Date of Service: 07/10/18 MR#: [id number] Acct: [id number] Name: BECKA DELA CRUZ Rep #: [id number] : 1955 Provider: Gerardo ANDERSEN Age/Sex: 62/F Location[place] [facility] Status: Signed Intake Vital Signs07/10/18 Body Mass Index (BMI) 20.2 07/10/18 Height 5 ft 5 in Intake Visit Reasons: ED follow up Allergies morphine Allergy (Intermediate, Verified 07/10/18 07:36) Hives Penicillins Allergy (Intermediate, Verified 07/10/18 07:36) Hives Sulfa (Sulfonamide Antibiotics) Allergy (Intermediate, Verified 07/10/18 07:36) Hives adhesive Allergy (Mild, Verified 07/10/18 07:36) BLISTER erythromycin base [Erythromycin Base] Allergy (Mild, Verified 07/10/18 07:36) EYES SWELLING clarithromycin [From Biaxin] Allergy (Verified 07/10/18 07:36) Unknown cyclobenzaprine [From Flexeril] Allergy (Verified 07/10/18 07:36) Unknown hydrocodone bitartrate [From Vicodin] Adverse Reaction (Mild, Verified 07/10/18 07:36) Upset Stomach Medications Rosuvastatin Calcium 5 mg PO QODAY 03/13/18 [History Confirmed 07/10/18] Aspirin [Aspirin, Baby] 81 mg PO DAILY 07/05/18 [History Confirmed 07/10/18] coenzyme Q10 75 mg capsule 75 mg PO DAILY 07/10/18 [History Confirmed 07/10/18] fluticasone 100 mcg-salmeterol 50 mcg/dose blistr powdr for inhalation 1 puff INHALATION BID 07/10/18 [History Confirmed 07/10/18] ibuprofen 200 mg tablet 200 mg PO TID-QID PRN 07/10/18 [History Confirmed 07/10/18] PFSH Medical History Palpitations (Chronic) Tachycardia (Chronic) SOB (shortness of breath) (Chronic) Arthritis (Acute) Asthma (Acute) Cancer (Acute) Dupuytren's disease of palm of left hand (Acute) Hx of melanoma of skin (Acute) Knee pain (Acute) Hernandez's neuroma (Acute) Weight loss (Acute) History of hysterectomy (Chronic 1994) Lentigo (Chronic) Nevus (Chronic) Skin hemangioma (Chronic) Surgical History History of back surgery (Acute) History of carpal tunnel release (Acute) History of cataract surgery (Acute) History of knee surgery (Acute) History of rotator cuff surgery (Acute) Hx of removal of ovary (Acute) bladder tied up (Acute) History of appendectomy (Chronic 1995) History of cholecystectomy (Chronic 2006) History of tonsillectomy (Chronic 1964) History of tubal ligation (Chronic) Family History Mother , age 70 Myocardial infarction CAD (coronary artery disease) Father Melanoma Social History Smoking Status: Former smoker how long ago did patient quit smokin alcohol intake: never substance use type: does not use caffeine: Yes Type: coffee what type of physical activity do you participate in: bicycling frequency: daily duration: 30-45 minutes/day seatbelt use: always do you feel safe at home: Yes HPI HPI Details: BECKA DELA CRUZ, is a 62 F who presents to the office today follow-up of a work-related injury which occurred on 07/05/2018. Patient on that date had a bed hit her right knee into a wall and has since had a right knee pain. She was initially evaluated on 07/05/2018 at [facility] ED and found to have a right knee sprain after negative ultrasound and x-ray. Patient states that her pain has not resolved however she has been able to get around better. She states that she has been working without restrictions since the day of the incident and request to not be on restrictions today. She denies any radiation of the pain or numbness/tingling. She does report however that she has had increased pain with full extension of the right leg. No other associated symptoms or alleviating/triggering factors. ROS Const Constitutional: No chills, fever(s), abnormal sleep pattern or fatigue Resp Respiratory: No shortness of breath or chest congestion Cardio Cardiology: No chest pain at rest, chest pain with exertion or shortness of breath Musc Musculoskeletal: Positive for limited range of motion, stiffness and joint pain; no numbness, tingling, joint swelling, deformity, abnormal walking or muscle weakness Skin Skin: No wounds or lesions Neuro Neurology: No behavioral changes, confusion, numbness, tingling or abnormal walking Psych Psychiatric: No behavioral changes, No confusion, No abnormal sleep pattern Endo Endocrine: No fatigue Exam Const General: cooperative, healthy appearing Resp Effort AND Inspection: normal respiratory effort Auscultation: Bilateral: Clear to Auscultation Cardio Palpation: normal PMI Rate: regular rate Rhythm: regular rhythm Musc Musculoskeletal: Yes joint tenderness; no decreased ROM or muscle weakness Skin General: no rashes or lesions noted Neuro General: alert, CN's II-XI intact bilaterally Extrem General: full ROM, normal capillary refill, no joint enlargement, normal exam except as noted, normal gait Other: Palpation over the anterior right knee just distal to the knee as well as pain to the anterior medial aspect of the knee. Positive for valgus stress. No obvious deformity upon palpation. Appropriate joint laxity with negative anterior posterior drawer sign as well as negative varus stress. Psych Appearance: grossly normal Mental Status: mental status grossly normal Assessment AND Plan Problems 1. Sprain of unspecified site of right knee, initial encounter S83.91XA Status Acute Plan [employer] 14 filled out releasing patient back to work today without restrictions. Patient is to follow back up here in 1 week. Advised to continue with ibuprofen and heating pad several times daily. Advised of potential red flags and appropriate report to the ED. Patient verbalized understanding and agreement with all the above. Medications Discontinued: albuterol sulfate HFA 90 mcg/actuation Dis1 puff Inhalation Q4H PRN 28 days PRN 0RF So continued Reason: Pt no longer taking b AND /Or Wheezing Coding Level of Care Code Off vis,est,level 3 Diagnoses Sprain of unspecified site of right knee, initial encounter S83.91XA 07/10/18 0805 <Electronically signed by Gerardo ANDERSEN> Date Gerardo ANDERSEN Cosigner Signature: Date (if applicable) CC: EMERGENCY DEPARTMENT Observed: 07/06/2018 Status: F Source: [place] SUMMARY 12:43 AM [facility] REPOSITORY [facility] Medical Records Department [address] [place] [address] Emergency Department Summary 07/05/18 1751 MR#: [id number] Acct: [id number] Name: BECKA DELA CRUZ Rep #: [id number] : 1955 62 From: Juanito Cottrell MD PCP: Becka Gallagher NP Status: DEP ER - ER Visit Summary Date of Service: 07/05/18 Chief Complaint: Right knee injury History of Present Illness: The patient is a 62 F presenting for evaluation secondary to a right knee injury. Patient reports that at about 10:00 this morning she was moving a hospital bed. She reports that it pinned her knee anteriorly against a elevator door. She reports that this was associated with somewhat of a hyperextension injury. Patient now reports pain with ambulation, and some difficulty with completely straightening the knee. She denies any numbness or weakness. Physical Examination: Right lower extremity exam shows a minimal joint effusion of the knee. There is tenderness palpation over the medial portion of the patient's quadriceps tendon insertion on the patella. Patella is well placed, and nontender. There is tenderness to palpation additionally over the anterior medial portion of the tibial plateau. Patient has normal flexion of the knee, she does have an intact extensor mechanism but is not able to fully extend the knee secondary to some pain. Negative Lockman posterior drawer varus and valgus stress tests. Test Results: Bedside ultrasound shows no evidence of violation of the patient's quadriceps tendon. 4 view of the knee per radiology and my personal view is negative Emergency Department Course and Treatment: Patient presented for evaluation secondary to a knee injury. X-rays were negative, ultrasound shows no evidence of tendon rupture. Patient's mechanism seems consistent with a hyperextension injury. She has no evidence of ligamentous laxity. Patient was recommended on a compression sleeve, NSAID analgesia, and ice. Disposition: Discharge Impression: 1. Right knee sprain This note was generated with 22seeds dictation software. It may contain incorrect words, spelling, and punctuation that were not noted in review of the chart prior to signing ED Disposition - Plan for ED Patient: Disposition: Home or Assisted Living Chief Complaint: Lower Extremity Injury Diagnosis: Right knee sprain Instructions: ED Sprain Knee Referrals: [facility] [GROUP OF PHYSICIANS] - As Needed What to do if you have Problems For any increased pain, shortness of breath, bleeding, nausea or vomiting, chest pain, or any unexpected problems, contact your Primary Care Provider. Call [facility] ([phone]) or report to the closest Emergency Room. Call 911 if necessary. 07/06/18 0043 <Electronically signed by Juanito Cottrell MD> Date Juanito Cottrell MD Cosigner Signature (If Indicated): Date CC: Bekca Gallagher NP KNEE 4 OR MORE Observed: 07/05/2018 Status: F Source: [place] VIEWS 5:42 PM [facility] REPOSITORY [facility] Imaging Services [address] [place] [address] Knee 4 or More Views MR#: [id number] Acct: [id number] Name: BECKA DELA CRUZ Rep #: [id number] : 1955 F 62 From: Rico Diane MD PCP: Becka Gallagher NP Status: REG ER Study: Knee 4 or More Views Date of Exam: 07/05/18 Exam# [id number] Ordering Dr: Juanito Cottrell MD STUDY: X-RAY - RIGHT KNEE REASON FOR EXAM: Female, 62 years old. Pain, decreased range of motion TECHNIQUE: 4 view(s) of the knee. COMPARISON: None. FINDINGS: Normal visualized distal femur. Normal visualized proximal tibia and fibula. Normal proximal tibiofibular articulation. Normal medial femorotibial compartment. Normal lateral femorotibial compartment. Normal patellofemoral articulation. The soft tissue structures are unremarkable. RAD/Knee 4 or More Views IMPRESSION: Normal x-ray examination of the knee. Electronically Signed: Vaibhav Diane MD at 18:18 EST , Service support , CC: Becka Gallagher NP; Juanito Cottrell Stonecutter Assistant: Signed RETIC PANEL Collected: 05/31/2018 Status: F Source: [place] 6:41 AM [facility] REPOSITORY TYPE CODE TESTS RESULT OUT OF RANGE REFERENCE UNITS LAB L101.0000 0.5-1.5 % Normal RETIC 0.79 LAB L101.0060 3.00-15.90 % Low IM RET FRACTION 1.90 LAB L101.0090 30-35 pg Normal RET-HE 33.4 LAB L101.0110 1.0-7.9 % Normal IPF 2.2 Result Comment: Low PLT + Low IPF suggest a bone marrow production disorder Low PLT + high IPF suggests peripheral destruction (e.g.ITP, TTP, HIT, DIC, autoimmune) or bone marrow recovery Trending of serial IPF measurements is recommended when evaluating for bone marrow respones Value above normal range indicates an increase in RBC cellular response from bone marrow. Performed By: #### L100.9950 #### [facility] [address] [facility] [place], [place], [address] IRON+IRON BINDING Collected: 05/31/2018 Status: F Source: [facility] 6:41 AM [facility] REPOSITORY TYPE CODE TESTS RESULT OUT OF RANGE REFERENCE UNITS LAB L503.6075 250-450 ug/dL TIBC Normal 328 LAB L503.6150 50-170 ug/dL IRON Normal 118 LAB L503.6250 15.0-55.0 % IRON Normal SATURATION 36.0 Performed By: #### L503.6030, L503.6550 #### [facility] [address] [facility]. [place], [place], [address] FERRITIN Collected: 05/31/2018 Status: F Source: [place] 6:41 AM [facility] REPOSITORY TYPE CODE TESTS RESULT OUT OF RANGE REFERENCE UNITS LAB L503.6550 8-252 ng/mL Normal FERRITIN 21 Performed By: #### L503.6030, L503.6550 #### [facility] [address] [place], [address] LDH ISOENZYME Collected: 05/31/2018 Status: F Source: [place] 6:41 AM [facility] REPOSITORY TYPE CODE TESTS RESULT OUT OF REFERENCE UNITS RANGE LAB L3800.095 119-226 IU/L 0 LDH Normal 208 LAB L3800.100 17-32 % 0 LDH FRACTION 1 Normal 25 LAB L3800.110 25-40 % 0 LDH FRACTION 2 Normal 31 LAB L3800.120 17-27 % 0 LDH FRACTION 3 Normal 22 LAB L3800.130 5-13 % 0 LDH FRACTION 4 Normal 12 LAB L3800.140 4-20 % 0 LDH FRACTION 5 Normal 10 LAB L3800.145 . 0 INTERPRETATION Normal Comment Result Comment: The LDH isoenzyme pattern appears normal with a normal total LDH. Performed at: [facility] [address] [id number] Tie Up Worker: Cedrick Smith PhD, Phone: [phone] Performed at: [facility] [address] [id number] Tie Up Worker: Stuart Addison MD, Phone: [phone] Performed By: #### L3800.0900 #### [facility] (refer to report for specific site) refer to report for address and phone number RETIC PANEL Collected: 05/10/2018 Status: F Source: [place] 11:15 AM [facility] REPOSITORY TYPE CODE TESTS RESULT OUT OF RANGE REFERENCE UNITS LAB L101.0000 0.5-1.5 % Normal RETIC 1.04 LAB L101.0060 3.00-15.90 % Low IM RET FRACTION 2.50 LAB L101.0090 30-35 pg Normal RET-HE 31.5 LAB L101.0110 1.0-7.9 % Normal IPF 1.3 Result Comment: Low PLT + Low IPF suggest a bone marrow production disorder Low PLT + high IPF suggests peripheral destruction (e.g.ITP, TTP, HIT, DIC, autoimmune) or bone marrow recovery Trending of serial IPF measurements is recommended when evaluating for bone marrow respones Value above normal range indicates an increase in RBC cellular response from bone marrow. Performed By: #### L100.9950 #### [facility] [address] [place], [address] URINALYSIS, COMPLETE Collected: 05/10/2018 Status: F Source: [place] 11:15 AM [facility] REPOSITORY Order Comment: How was Urine Obtained? CLEAN CATCH TYPE CODE TESTS RESULT OUT OF RANGE REFERENCE UNITS LAB L400.3000 Yellow COLOR Normal Yellow LAB L400.3050 Clear Normal CLARITY Sl. Cloudy LAB L400.3200 Normal mg/dl Normal GLUCOSE, UR Normal LAB L400.3300 Negative mg/dL Normal BILIRUBIN URINE Negative LAB L400.3400 Negative mg/dl Normal KETONE UR Negative LAB L400.3465 1.002-1.030 Normal SP.GR. DIPSTX 1.010 LAB L400.3550 5.0 - 8.0 pH UR Normal 7.0 LAB L400.3600 Negative mg/dl PROT Normal DIPSTX Negative LAB L400.3700 Normal mg/dl Normal UROBILI Normal LAB L400.3750 Negative Normal NITRITE UR Negative LAB L400.3780 Negative /ul Normal OCCULT BLOOD-UR Negative LAB L400.3800 Negative /ul High LEUK 25 ESTERASE LAB L400.4050 0-5 /hpf WBC Normal 0-5 SEEN LAB L400.4100 0-5 /hpf 0 Normal RBC-UA SEEN LAB L400.4150 5-10 /hpf SQUAM 0 Normal EPI SEEN LAB L400.4300 None Seen /hpf 0 Normal BACTERIA SEEN LAB L400.4350 <or=2+ /hpf 0 Normal MUCUS, URINE SEEN Performed By: #### L400.0001 #### [facility] [address] [place], [address] VITAMIN B12 Collected: 05/10/2018 Status: F Source: [place] 11:15 AM [facility] REPOSITORY TYPE CODE TESTS RESULT OUT OF RANGE REFERENCE UNITS LAB L503.0105 211-911 pg/mL Normal Vitamin B12 633 Performed By: #### L503.0105 #### [facility] [address] [place], [address] IRON+IRON BINDING Collected: 05/10/2018 Status: F Source: [facility] 11:15 AM [facility] REPOSITORY Order Comment: Serial Specimen #1, #2 or #3? 1 Is Patient Taking Vitamins or Folic Acid Supplements? N TYPE CODE TESTS RESULT OUT OF RANGE REFERENCE UNITS LAB L503.6075 250-450 ug/dL TIBC Normal 350 LAB L503.6150 50-170 ug/dL Low IRON 27 LAB L503.6250 15.0-55.0 % Low IRON SATURATION 7.7 Performed By: #### L503.6030, L503.6550, L504.2610, L506.0250 #### [facility] [address] [place], [address] FERRITIN Collected: 05/10/2018 Status: F Source: [place] 11:15 AM [facility] REPOSITORY Order Comment: Serial Specimen #1, #2 or #3? 1 Is Patient Taking Vitamins or Folic Acid Supplements? N TYPE CODE TESTS RESULT OUT OF RANGE REFERENCE UNITS LAB L503.6550 8-252 ng/mL Normal FERRITIN 13 Performed By: #### L503.6030, L503.6550, L504.2610, L506.0250 #### [facility] [address] [place], [address] LDH Collected: 05/10/2018 Status: F Source: [place] 11:15 AM [facility] REPOSITORY Order Comment: Serial Specimen #1, #2 or #3? 1 Is Patient Taking Vitamins or Folic Acid Supplements? N TYPE CODE TESTS RESULT OUT OF RANGE REFERENCE UNITS LAB L504.2610 84-246 U/L High LDH 250 Performed By: #### L503.6030, L503.6550, L504.2610, L506.0250 #### [facility] [address] [place], [address] FOLATES, (FOLIC ACID) Collected: 05/10/2018 Status: F Source: [place] 11:15 AM [facility] REPOSITORY Order Comment: Serial Specimen #1, #2 or #3? 1 Is Patient Taking Vitamins or Folic Acid Supplements? N TYPE CODE TESTS RESULT OUT OF RANGE REFERENCE UNITS LAB L506.0250 3.1-55.4 ng/mL Normal FOLATES 11.00 Performed By: #### L503.6030, L503.6550, L504.2610, L506.0250 #### [facility] [address] [place], [place], [address] CBC, EMPLOYEE Collected: 05/08/2018 Status: F Source: [place] 6:15 AM [facility] REPOSITORY TYPE CODE TESTS RESULT OUT OF RANGE REFERENCE UNITS LAB L100.1000 4.4-11.0 K/mm3 Normal WBC 7.0 LAB L100.1200 4.2-5.4 M/mm3 Low RBC 3.83 LAB L100.1300 12.0-15.0 g/dl Low HGB 11.9 LAB L100.1400 37-47 % Low HCT 35.7 LAB L100.1500 81-99 fL Normal MCV 93.2 LAB L100.1600 27.0-32.0 pg Normal MCH 31.1 LAB L100.1700 32-36 g/gl Normal MCHC 33.3 LAB L100.1810 11.6-14.6 % Normal RDW CV 14.2 LAB L100.1820 35.1-43.9 fl High RDW SD 48.1 LAB L100.1900 150-450 K/mm3 Normal PLT 299 LAB L100.2000 6.2-12.0 fl Normal MPV 9.8 LAB L100.2110 47-70 % Normal NEUT% 62.8 LAB L100.2210 19-41 % Normal LY% 28.7 LAB L100.2310 0-10 % Normal MONO% 5.5 LAB L100.2410 0-5 % Normal EO% 2.6 LAB L100.2510 0-1 % Normal BASO% 0.4 LAB L100.2620 2.0-7.7 X10 3/uL Normal Absolute Neut 4.4 LAB L100.2720 0.83-4.51 X10 3/ul Normal Absolute Lymph 2.02 Performed By: #### L100.0200 #### [facility] [place], [address] EMPLOYEE PROFILE Collected: 05/08/2018 Status: F Source: [place] 6:15 AM [facility] REPOSITORY TYPE CODE TESTS RESULT OUT OF RANGE REFERENCE UNITS LAB L501.0100 74-106 mg/dL Normal GLU 89 Result Comment: Please note revised GLUCOSE reference range effective 2017. LAB L501.1000 7-18 mg/dL Normal BUN 18 LAB L501.1100 0.55-1.02 mg/dL Normal CREAT,SERUM 0.71 Result Comment: The validity of the calculated GFR AND GFRAA in patients over 70 years has not been determined. Clinical correlation is essential. LAB L501.1110 >60 mL/min Normal EST GFR 89 Result Comment: Non- GFR Calc LAB L501.1115 >60 mL/min Normal EST GFR - AA 108 Result Comment: GFR Calc LAB L501.1300 10-20 RATIO High BUN/CRE 25.5 LAB L501.1400 2.6-6.0 mg/dL Normal URIC 3.4 Result Comment: The drugs N-Acetylcysteine and Metamizole may falsely depress this assay. LAB L501.1500 6.4-8.2 g/dL Normal T PROT 6.4 LAB L501.1800 3.2-5.0 g/dL Normal ALB 3.4 LAB L501.1950 2.2-4.2 g/dL Normal GLOB 3.0 LAB L501.2000 0.9-2.4 RATIO Normal A/G 1.1 LAB L501.2200 8.5-10.1 mg/dL Low CA 8.2 LAB L501.2300 2.5-4.9 mg/dL Normal PHOS 4.2 LAB L501.4100 15-37 U/L Normal AST 27 LAB L501.4305 45-117 U/L Normal ALK P 99 LAB L501.4405 13-56 U/L Normal ALT 25 LAB L501.4600 0.20-1.00 mg/dL Normal T BILI 0.40 LAB L501.4700 0.00-0.30 mg/dL Normal D BILI 0.12 LAB L501.4900 200 mg/dL Normal CHOL 141 Result Comment: <200 mg/dL Desirable 200-240 mg/dL Borderline >240 mg/dL High Risk LAB L501.5000 mg/dL Normal TRIG 61 Result Comment: The drugs N-Acetylcysteine and Metamizole may falsely depress this assay. Serum Triglycerides Reference Interval Normal <150 mg/dL Borderline high 150 - 199 mg/dL High 200 - 499 mg/dL Very High > or = 500 mg/dL LAB L501.5300 136-145 mmol/L Normal NA 142 LAB L501.5600 3.5-5.1 mmol/L Normal K 3.9 LAB L501.5900 98-107 mmol/L High CL 110 LAB L501.6100 21.0-32.0 mmol/L Normal CO2 24.0 LAB L501.6200 5-15 Normal 8 GAP LAB L501.6400 mg/dL Normal HDL 81 Result Comment: The drugs N-Acetylcysteine and Metamizole may falsely depress this assay. Reference Range HDL <40 mg/dL Low HDL Cholesterol HDL >or= 60 mg/dL High HDL Cholesterol LAB L501.6475 Normal CHOL:HDL 1.70 LAB L501.6500 0-130 mg/dL Normal LDL 48 LAB L501.6600 5-40 mg/dL Normal VLDL 12 LAB L504.2610 84-246 U/L Normal LDH 233 Performed By: #### L500.2900 #### [facility] [address] [facility] [place], [place], [address] URINALYSIS, EMPLOYEE Collected: 05/08/2018 Status: F Source: [place] 6:15 AM [facility] REPOSITORY TYPE CODE TESTS RESULT OUT OF RANGE REFERENCE UNITS LAB L400.3000 Yellow COLOR Normal Yellow LAB L400.3050 Clear Normal CLARITY Sl. Cloudy LAB L400.3200 Normal mg/dl Normal GLUCOSE, UR Normal LAB L400.3300 Negative mg/dL Normal BILIRUBIN URINE Negative LAB L400.3400 Negative mg/dl Normal KETONE UR Negative LAB L400.3465 1.002-1.030 Normal SP.GR. DIPSTX 1.020 LAB L400.3550 5.0 - 8.0 pH UR Normal 6.0 LAB L400.3600 Negative mg/dl PROT Normal DIPSTX Negative LAB L400.3700 Normal mg/dl Normal UROBILI Normal LAB L400.3750 Negative Normal NITRITE UR Negative LAB L400.3780 Negative /ul High 10 OCCULT BLOOD-UR LAB L400.3800 Negative /ul High LEUK ESTERASE 100 Performed By: #### L400.0100 #### [facility] [address] [facility] [place], [address] NICOTINE URINE DRUG Collected: 05/08/2018 Status: F Source: [place] SCREEN 6:15 AM [facility] REPOSITORY TYPE CODE TESTS RESULT OUT OF RANGE REFERENCE UNITS LAB L505.6250 TO BE Normal CONFIRMED Result Comment: CONFIRMATORY TESTING FOR ALL POSITIVE URINE DRUG SCREEN RESULTS WILL ONLY BE SENT OUT UPON PHYSICIAN ORDER. The results of Urine Drug Screen methods provide only preliminary analytical test results. A more specific alternate chemical method must be used in order to obtain a confirmed analytical result. Gas chromatography/mass spectrometery (GC/MS) is the preferred confirmatory method. Clinical consideration and professional judgement should be applied to any drug of abuse test result, particularly when preliminary positive results are used. LAB L505.6270 <200 ng/mL Normal COT DRG Negative SCREEN Result Comment: Cotinine is the first-stage metabolite of Nicotine. Performed By: #### L505.6240 #### [facility] [address] [place], [address] PT D/C SUMMARY (1) Observed: 04/14/2018 Status: F Source: [place] 6:47 AM [facility] REPOSITORY [facility] Physical Therapy [facility] [address] [facility] [address] [facility] [place], [place] [address] Fax REHABILITATION SERVICES DISCHARGE SUMMARY MR#: [id number] Acct: [id number] Name: BECKA DELA CRUZ Rep #: [id number] : 1955 62 From: Roberto Clark DPT, OCS, CSCS Referring Dr.: Becka Gallagher BOLTING MACHINE OPERATOR Status: REG RCR Insurance: [facility] SELF PAY INSURANCE HP - PT D/C Summary It has been my pleasure to treat BECKA DELA CRUZ under orders from Becka Gallagher, for the diagnosis of vertigo for a total of 3 visit(s). Discharge Date: 04/13/18 Please see the following information for a summary of their discharge status. - Subjective Subjective: Moved last week the dining room table and [facility] and fell to the floor. Only spun 2x/since then and did not last long. Feeling pretty good in the meantime. Will see doctor soon. Doing exercises but only a little bit becasue it gets to her neck. Exercises were not helping. Feels better despite moving houses for the last week. - Overall Improvement % Improvement: 90 - Objective Objective/Function: - hallpike. balance is good. Feeling good, Much better overall btu not sure our treatment had muich to do with it. - Goals Goal 1:: Abolish baseline dizzyness. Goal Progress: Goal Met Goal 2:: Pt feel 95% back to normal and be able to turn around without symptoms. Goal Progress: Progressing Goal 3:: I approp HEPO to minimize future problems Goal Progress: not needed - Plan Plan: D/C - D/C Information Discharge Comments: Pt has done ex at home but did not seem to be helping. Hit head on chandelier last week and has had very little dizzyness since and is 90% better. No symptoms in 4 days. Will schedule with doctor, no more therapy reuired. If there are questions or concerns regarding this patient's physical therapy, please feel free to call me at [phone]. Thank you for the referral of this patient. Sincerely, Roberto Clark, MATT, OC <Electronically signed by Roberto VÁZQUEZT, OCS, CSCS> 04/14/18 0647 CC: Becka Gallagher NP EBG Signed SHOULDER MIN 2 VIEWS Observed: 04/13/2018 Status: F Source: [place] 2:42 PM [facility] REPOSITORY [facility] Imaging Services [address] [place] [address] Shoulder min 2 Views MR#: [id number] Acct: [id number] Name: BECKA DELA CRUZ Rep #: [id number] : 1955 F 62 From: Milad Helms MD PCP: Becka Gallagher NP Status: REG CLI Study: Shoulder min 2 Views Date of Exam: 04/13/18 Exam# [id number] Ordering Dr: Jasmin oSw BOLTING MACHINE OPERATOR-Mabel STUDY: X-RAY - RIGHT SHOULDER REASON FOR EXAM: Female, 62 years old. Shoulder pain following injury. TECHNIQUE: 3 view(s) of the shoulder. COMPARISON: None. FINDINGS: Normal glenohumeral articulation. Normal acromioclavicular joint. Normal acromion. Normal humeral head and visualized proximal humerus. The soft tissue structures are unremarkable. Normal visualized pulmonary apex. RAD/Shoulder min 2 Views IMPRESSION: Normal x-ray examination of the shoulder. Electronically Signed: Milad Helms MD at 14:58 EDT Tel [phone], Service support , CC: Becka Gallagher NP; GELA Sow Stonecutter Assistant: Signed SCREENING MAMM (CAD), Observed: 04/13/2018 Status: F Source: JENNIFER BILAT 8:19 AM [facility] REPOSITORY [facility] Imaging Services [address] [place] [id number] SCREENING MAMM (CAD), BILAT MR#: [id number] Acct: [id number] Name: BECKA DELA CRUZ Rep #: [id number] : 1955 F 62 From: Milad Helms MD PCP: Becka Gallagher NP Status: REG CLI Study: SCREENING MAMM (CAD), BILAT Date of Exam: 04/13/18 Exam# [id number] Ordering Dr: Becka Gallagher MAMMOGRAPHY - BILATERAL SCREENING REASON FOR EXAM: Female, 62 years old. Routine annual screening examination. PERTINENT HISTORY: Non-contributory. Remote left stereotactic biopsies. TECHNIQUE: Digital bilateral breast bethany (3D mammographic acquisition) in the CC and MLO projections. 2-D mediolateral oblique (MLO) and craniocaudad (CC) views of both breasts were obtained. CAD: Full Field Digital Mammography with Computer Added Detection was performed. COMPARISON: Comparison is made with prior study dated April 08, 2017 and March 24, 2016. FINDINGS: Breast Composition: The breasts are heterogeneously dense, which may obscure small masses. There are no dominant masses or suspicious calcifications. Once again, 2 tissue clip marker is seen in the left upper mid breast. No other significant abnormalities are identified. There has been no significant change since the prior study. BI/SCREENING MAMM (CAD), BILAT IMPRESSION: Stable bilateral screening mammogram. Yearly follow-up mammogram recommended. (A) ASSESSMENT CATEGORY: BIRADS Category 2: Benign. A letter regarding these results will be sent to the patient by the facility within 30 days. Approximately 10% of breast cancers are not detected by mammography. A normal mammogram should not delay biopsy of a clinically suspicious abnormality. [id number] Electronically Signed: Milad Helms MD at 15:36 EDT Tel [phone], Service support , CC: Becka Gallagher NP Stonecutter Assistant: Signed INITAL EVALUATION (1) Observed: 03/24/2018 Status: F Source: [facility] 7:54 AM [facility] REPOSITORY [facility] Physical Therapy [facility] [address] [place] [address]. [address] [place] [address] Fax REHABILITATION SERVICES INITIAL EVALUATION MR#: [id number] Acct: [id number] Name: BECKA DELA CRUZ Rep #: [id number] : 1955 62 From: Roberto Clark DPT, MAIN, CSCS Referring DrTheresa: Becka Gallagher NP Status: REG RCR Insurance: [facility] [employer] SELF PAY INSURANCE Patient's Visit Information BECKA DELA CRUZ is a 62 year old F referred to Physical Therapy by Becka Gallagher with a diagnosis of vertigo. Date of Evaluation: 03/24/18 Physical Therapist: Roberto Clark DPT, OC - Visit Plan Frequency: 1x/Week Duration: 4-6 Weeks Plan: Weekly x4-6 to progress adaptation exercises which I expect to be helpful. Monitor MSQ if needed. I have recommeneded patient continue with any testing doctor wants to do as well. - Subjective Subjective: February 19 started getting dizzy, Fairly constant, insidious onset. Worse with turning for a short duration. Always has a dizzy feeling. Needs to lean against something and then move on. It is a constant feeling. Lying is down, bending , looking up have not noticed a problem. No falls. No numbness or tingling in the legs. Sleep is OK. 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 Activities are normal at home but has to be careful and slow. - Objective FGA is good.VOR walking is slightly challenging. - B hallpike lesa. - roll test. Oculomotor: Pursuit and saccades are normal. eye convergence normal. - skew eye deviation. - head thrust. VOR causes symptoms slight increase for 30 seconds and worse with VORx2. Recovers within a minute to baseline. - Balance Scores Functional Gait Assessment Score: 29 % Disability: 3.3400 CATSIB Score (Max score 120 seconds): 120 - Goals Goal 1:: Abolish baseline dizzyness. Goal Time Frame: 4-6 Weeks Goal 2:: Pt feel 95% back to normal and be able to turn around without symptoms. Goal Time Frame: 4-6 Weeks Goal 3:: I approp HEPO to minimize future problems Goal Time Frame: 4-6 Weeks - Rehabilitation Potential Physical Therapy Diagnosis: vertigo, possibly vestibualr hypofunction. Rehabilitation Potential: Good - Anticipated Interventions Patient/Client Instruction: Educate patient on: Condition, Plan of Care For the Purpose of:: To improve ability of physical actions for home/community/work/leisure Other: to decrease dizzyness. Comment: adaptation and habituation as needed. For the Purpose of:: To increase tolerance to activity/condition/position, To improve ability of physical actions for home/community/work/leisure Thank you for the opportunity to evaluate your patient. For Medicare and Medicare HMO plans, please review the plan of care and approve it. It will need to be FAXED BACK to us at [phone] for Medicare purposes. Please let me know if there are questions or concerns regarding this plan of care. Physician Signature: Date: <Electronically signed by Roberto Clark DPT, OCS, CSCS> 03/24/18 0754 CC: Becka Gallagher NP EBG Signed For Medicare only, by signing this I certify the plan of care. Physicians Signature Date COMPREHENSIVE METABOLIC Collected: 03/20/2018 Status: F Source: JENNIFER MCDERMOTT 11:43 AM [facility] REPOSITORY Order Comment: LDH-ISOENZYMES Comments: [id number] LDH ISOENZYMES SER RT TYPE CODE TESTS RESULT OUT OF RANGE REFERENCE UNITS LAB L501.0100 74-106 mg/dL Normal GLU 93 Result Comment: Please note revised GLUCOSE reference range effective 2017. LAB L501.1000 7-18 mg/dL Normal BUN 17 LAB L501.1100 0.55-1.02 mg/dL Normal CREAT,SERUM 0.76 Result Comment: The validity of the calculated GFR AND GFRAA in patients over 70 years has not been determined. Clinical correlation is essential. LAB L501.1110 >60 mL/min Normal EST GFR 82 Result Comment: Non- GFR Calc LAB L501.1115 >60 mL/min Normal EST GFR - AA 99 Result Comment: GFR Calc LAB L501.1300 10-20 RATIO High BUN/CRE 22.3 LAB L501.1500 6.4-8.2 g/dL T Normal PROT 7.4 LAB L501.1800 3.2-5.0 g/dL Normal ALB 4.0 LAB L501.1950 2.2-4.2 g/dL Normal GLOB 3.4 LAB L501.2000 0.9-2.4 RATIO Normal A/G 1.2 LAB L501.2200 8.5-10.1 mg/dL CA Normal 9.3 LAB L501.4100 15-37 U/L Normal AST 34 LAB L501.4305 45-117 U/L Normal ALK P 108 LAB L501.4405 13-56 U/L Normal ALT 28 LAB L501.4600 0.20-1.00 mg/dL T Normal BILI 0.40 LAB L501.5300 136-145 mmol/L NA Normal 139 LAB L501.5600 3.5-5.1 mmol/L K Normal 3.9 LAB L501.5900 98-107 mmol/L CL Normal 106 LAB L501.6100 21.0-32.0 mmol/L Normal CO2 26.0 LAB L501.6200 5-15 Normal GAP 7 Performed By: #### L500.4050 #### [facility] Laboratory [address] [place], [address] MISCELLANEOUS LAB Collected: 03/20/2018 Status: F Source: JENNIFER PROCEDURE 11:43 AM [facility] REPOSITORY Order Comment: Comments: [id number] LDH ISOENZYMES SER RT Test(s) Ordered: [id number] LDH ISOENZYMES SER RT TYPE CODE TESTS RESULT OUT OF RANGE REFERENCE UNITS LAB L801.1541 Normal [facility] LAB TEST Result Comment: TEST RESULT FLAG UNITS REF INTERVAL LD Isoenzymes LDH 255 High IU/L 119 - 226 LD Isoenzymes: (LD) Fraction 1 26 % 17 - 32 (LD) Fraction 2 30 % 25 - 40 (LD) Fraction 3 22 % 17 - 27 (LD) Fraction 4 11 % 5 - 13 (LD) Fraction 5 11 % 4 - 20 TESTING PERFORMED AT [facility]. ORIGINAL REPORT ON FILE IN LAB CONTAINS ADDITIONAL TEST SITE INFORMATION. Performed By: #### L801.1541 #### [facility] [address] [place], [address] ABDOMEN/PELVIS WITH Observed: 03/20/2018 Status: F Source: JENNIFER CONTRAST 11:25 AM [facility] REPOSITORY [facility] Imaging Services [address] [place] [address] Abdomen/Pelvis WITH Contrast MR#: [id number] Acct: [id number] Name: BECKA DELA CRUZ Rep #: [id number] : 1955 F 62 From: Milad Helms MD PCP: Becka Gallagher NP Status: REG CLI Study: Abdomen/Pelvis WITH Contrast Date of Exam: 03/20/18 Exam# [id number] Ordering Dr: Jasmin Sow BOLTING MACHINE OPERATOR-C STUDY: CT ABDOMEN AND PELVIS WITH CONTRAST REASON FOR EXAM: Female, 62 years old. 3 day history of left lower quadrant pain. Diarrhea. RADIATION DOSAGE (If Supplied By Facility): CTDIvol = ( 10.33 ) mGy, DLP = ( 339.72 ) mGycm TECHNIQUE: Transaxial images were obtained from the dome of the diaphragm to the symphysis pubis with oral contrast. 75mL ml of Isovue 370 contrast was administered. Sagittal and coronal images were reconstructed. Individualized dose optimization techniques were used for this CT. COMPARISON: Comparison is made with prior study dated November 14, 2013. FINDINGS: Minimal degree of increased lung markings at the right lung base suggestive mild left basilar atelectasis. The visualized portions of the heart are within normal limits. Normal liver. The patient is status post cholecystectomy. Minimal degree of central intrahepatic biliary ductal dilatation in keeping with a prior cholecystectomy. Normal spleen. Normal pancreas. Normal bilateral adrenal glands. Normal right kidney. Normal left kidney. Normal visualized stomach. Normal small intestine. A large amount of fecal material is seen in the colon. Scattered sigmoid diverticula. The patient is status post appendectomy. There is scattered atherosclerotic calcification of the abdominal aorta, without a demonstrated aneurysm. Normal inferior vena cava. Normal retroperitoneum. Normal urinary bladder. There is absence of the uterus consistent with a prior hysterectomy. Normal abdominal wall. There are degenerative changes of the visualized lumbar spine. Minimal anterior listhesis of L4 on L5. CT/Abdomen/Pelvis WITH Contrast IMPRESSION: Large amount of fecal material is seen in the colon. Status post cholecystectomy and appendectomy. Electronically Signed: Milad Helms MD at 14:11 EDT Tel [phone], Service support , CC: Becka Gallagher NP; GELA Sow Stonecutter Assistant: Signed FREE T3 Collected: 03/17/2018 Status: F Source: JENNIFER 2:02 PM [facility] REPOSITORY Order Comment: Serial Specimen #1, #2 or #3? 1 TYPE CODE TESTS RESULT OUT OF RANGE REFERENCE UNITS LAB L501.32811 2.18-3.98 pg/mL Normal FREE T3 2.7 Performed By: #### L501.89100, L501.9520, L504.2610, L506.0400 #### [facility] [address] [place], [address] THYROID STIM HORMONE Collected: 03/17/2018 Status: F Source: JENNIFER (TSH) 2:02 PM [facility] REPOSITORY Order Comment: Serial Specimen #1, #2 or #3? 1 TYPE CODE TESTS RESULT OUT OF RANGE REFERENCE UNITS LAB L501.9520 0.358-3.74 uIU/mL Normal TSH 1.33 Performed By: #### L501.11209, L501.9520, L504.2610, L506.0400 #### [facility] [address] [place], [address] LDH Collected: 03/17/2018 Status: F Source: JENNIFER 2:02 PM [facility] REPOSITORY Order Comment: Serial Specimen #1, #2 or #3? 1 TYPE CODE TESTS RESULT OUT OF RANGE REFERENCE UNITS LAB L504.2610 84-246 U/L High LDH 280 Performed By: #### L501.77515, L501.9520, L504.2610, L506.0400 #### [facility] [address] [place], [address] T4 FREE DIRECT Collected: 03/17/2018 Status: F Source: JENNIFER 2:02 PM [facility] REPOSITORY Order Comment: Serial Specimen #1, #2 or #3? 1 TYPE CODE TESTS RESULT OUT OF RANGE REFERENCE UNITS LAB L506.0400 0.76-1.46 ng/dL Normal T4 FREE 1.06 DIRECT Performed By: #### L501.73141, L501.9520, L504.2610, L506.0400 #### [facility] [address] [place], [place], [address] ERYTHROCYTE SED RATE Collected: 03/14/2018 Status: F Source: JENNIFER 11:06 AM [facility] REPOSITORY TYPE CODE TESTS RESULT OUT OF RANGE REFERENCE UNITS LAB L102.0000 0-30 mm/hr Normal SED RATE < 1 Performed By: #### L101.9900 #### [facility] [address] [place], [address] ALANINE AMINOTRANSFERAS Collected: 03/14/2018 Status: F Source: JENNIFER (SGPT) 11:06 AM [facility] REPOSITORY Order Comment: Serial Specimen #1, #2 or #3? 1 TYPE CODE TESTS RESULT OUT OF RANGE REFERENCE UNITS LAB L501.4405 13-56 U/L Normal ALT 31 Performed By: #### L501.4405, L504.2610 #### [facility] [address] [place], [address] LDH Collected: 03/14/2018 Status: F Source: JENNIFER 11:06 AM [facility] REPOSITORY Order Comment: Serial Specimen #1, #2 or #3? 1 TYPE CODE TESTS RESULT OUT OF RANGE REFERENCE UNITS LAB L504.2610 84-246 U/L High LDH 259 Performed By: #### L501.4405, L504.2610 #### [facility] [address] [place], [place], [address] ANTINUCLEAR ANTIBODIES Collected: 03/14/2018 Status: F Source: JENNIFER DIRECT 11:06 AM [facility] REPOSITORY TYPE CODE TESTS RESULT OUT OF RANGE REFERENCE UNITS LAB L3100.5475 Negative Normal Negative COLLEEN-DIRECT Result Comment: Performed at: [address] [id number] Tie Up Worker: Cedrick Smith PhD, Phone: [phone] Performed By: #### L3100.5475, L3410.0500 #### [facility] (refer to report for specific site) refer to report for address and phone number ANTI-RAGHU Collected: 03/14/2018 Status: F Source: JENNIFER 11:06 AM [facility] REPOSITORY TYPE CODE TESTS RESULT OUT OF RANGE REFERENCE UNITS LAB L3410.0500 0.0-0.9 AI Normal ANTI-RAGHU <0.2 Performed By: #### L3100.5475, L3410.0500 #### [facility] (refer to report for specific site) refer to report for address and phone number ALDOLASE Collected: 03/14/2018 Status: F Source: JENNIFER 11:06 AM [facility] REPOSITORY TYPE CODE TESTS RESULT OUT OF RANGE REFERENCE UNITS LAB L3100.7000 3.3-10.3 U/L Normal ALDOLASE 2030 4.4 Performed By: #### L3100.7000, L3300.1200, L3600.5100 #### [facility] (refer to report for specific site) refer to report for address and phone number ANCA Collected: 03/14/2018 Status: F Source: JENNIFER 11:06 AM [facility] REPOSITORY TYPE CODE TESTS RESULT OUT OF RANGE REFERENCE UNITS LAB L3300.1225 Neg:<1:20 titer CYTOPLASMIC Normal Ab <1:20 LAB L3300.1250 Neg:<1:20 titer PERINUCLEAR Normal Ab <1:20 Result Comment: The presence of positive fluorescence exhibiting P-ANCA or C-ANCA patterns alone is not specific for the diagnosis of Duyen's Granulomatosis (WG) or microscopic polyangiitis. Decisions about treatment should not be based solely on ANCA IFA results. The International ANCA Group Consensus recommends follow up testing of positive sera with both ME- 3 and MPO-ANCA enzyme immunoassays. As many as 5% serum samples are positive only by EIA. Ref. AM J Clin Pathol 1999;111:507-513. LAB L3300.1285 Neg:<1:20 titer Normal Atypical pANCA <1:20 Result Comment: The atypical pANCA pattern has been observed in a significant percentage of patients with ulcerative colitis, primary sclerosing cholangitis and autoimmune hepatitis. Performed By: #### L3100.7000, L3300.1200, L3600.5100 #### [facility] (refer to report for specific site) refer to report for address and phone number MYOGLOBIN, SERUM Collected: 03/14/2018 Status: F Source: JENNIFER 11:06 AM [facility] REPOSITORY TYPE CODE TESTS RESULT OUT OF RANGE REFERENCE UNITS LAB L3600.5100 25-58 ng/mL Normal 45 Myoglobin, Ser Result Comment: Performed at: [facility] [id number] Tie Up Worker: Cedrick Smith PhD, Phone: [phone] Performed By: #### L3100.7000, L3300.1200, L3600.5100 #### [facility] (refer to report for specific site) refer to report for address and phone number EMERGENCY DEPARTMENT Observed: 03/13/2018 Status: F Source: JENNIFER SUMMARY 1:51 PM [facility] REPOSITORY [facility] Medical Records Department [address] [place] [address] Emergency Department Summary 03/13/18 1346 MR#: [id number] Acct: [id number] Name: BECKA DELA CRUZ Rep #: [id number] : 1955 62 From: Jose Wren MD PCP: Becka Gallagher NP Status: REG ER - ER Visit Summary Date of Service: 03/13/18 Chief Complaint: Vertigo 1 month History of Present Illness: The patient is a 62 F who presents with vertigo 1 month. She states her head is continuously moving. She denies double vision, partial loss or loss of vision. She does complain of intermittent change in vision. She states she walks sometimes the right. There is no history of head trauma. She denies trouble with speech or swallowing. She denies paresthesia, anesthesia motor weeks. She denies clumsiness or falling. There is no history of prior head trauma. She does complain of nausea without vomiting diarrhea. She denies any cardiac respiratory symptoms. She denies any urologic symptoms. She had blood work obtained on March 07 and March 08 which were reviewed and not repeated. She states her motion does not improve with her eyes closed. Physical Examination: Vital signs are normal. Head is atraumatic normocephalic. Pupils are equal round reactive. Extraocular muscles are intact. TMs are pearly white with landmarks noted. Nares patent with no drainage. Posterior pharynx without erythema or exudate. Uvula is midline. There is no dysphonia or dysphasia. Trachea is midline. There is no stridor with auscultation of the neck. Heart is regular without murmur, gallop or rub. S1 and S2 are normal. Lungs are clear to auscultation with good movement of air bilaterally. Abdomen soft nontender. Patient is alert and oriented 3. Motor is 5 over 5. Sensory is intact. DTRs are symmetric with no clonus or Babinski sign. Cranial 2 through 12 are intact. Cerebellar testing is normal. Lesa-Hallpike maneuver caused her to feel nauseous to the right. There was no nystagmus. The eye askew test was negative. The H INT test was negative. Test Results: MRI of the brain reveals no acute pathology or any findings to explain patient's symptoms. Emergency Department Course and Treatment: Since patient has negative Lesa-Hallpike maneuver and spinning sensation that is continuous for 1 month will obtain an MRI. Blood work was not repeated since she had blood work on the and 08 March. Treatment Plan: Outpatient follow-up with Dr. Moiz Fulton Disposition: Discharged to home Impression: 1. Vertigo of unknown etiology 2. History of hypercholesterolemia This note was generated with [employer] dictation software. It may contain incorrect words, spelling, and punctuation that were not noted in review of the chart prior to signing ED Disposition - Plan for ED Patient: Disposition: Home or Assisted Living Chief Complaint: Dizziness Instructions: ED Dizziness UKO Referrals: Becka Gallagher [Primary Care Provider] - Moiz Fulton MD [STAFF PHYSICIAN] - 1 Week What to do if you have Problems For any increased pain, shortness of breath, bleeding, nausea or vomiting, chest pain, or any unexpected problems, contact your Primary Care Provider. Call [facility] ([phone]) or report to the closest Emergency Room. Call 911 if necessary. 03/13/18 0364 <Electronically signed by Jose Wren MD> Date Jose Wren MD Cosigner Signature (If Indicated): Date CC: Becka Gallagher NP; Moiz Fulton MD BRAIN WITHOUT Observed: 03/13/2018 Status: F Source: JENNIFER CONTRAST 10:24 AM [facility] REPOSITORY [facility] Imaging Services [address] [place] [address] Brain without Contrast MR#: [id number] Acct: [id number] Name: BECKA DELA CRUZ Rep #: [id number] : 1955 F 62 From: Suad Ruiz MD PCP: Becka Gallagher NP Status: REG ER Study: Brain without Contrast Date of Exam: 03/13/18 Exam# [id number] Ordering Dr: Jose Wren MD STUDY: MRI BRAIN WITHOUT CONTRAST REASON FOR EXAM: Female, 62 years old. Vertigo. Spinning x 1 month,dizzy TECHNIQUE: Standardized multiplanar fat and water weighted pulse sequences were obtained. COMPARISON: None. FINDINGS: Normal size of the ventricles and extra-axial spaces for the patient's age. There are a limited number of small white matter hyperintensities, distributed throughout the deep white matter tracts of the cerebral hemispheres, consistent with mild chronic white matter ischemic changes. Normal bilateral basal ganglia. Normal thalami. There is no extra-axial fluid accumulation. Normal flow voids within the major intracranial circulation suggesting patency by spin echo criteria. Normal sella turcica, pituitary gland, infundibular stalk, optic chiasm and hypothalamus. Normal tectal plate and pineal gland. Normal midbrain, asya and medulla. Normal cerebellum. Normal basal cisterns. Normal bilateral temporal bones. Normal bilateral internal auditory canals. No demonstrated orbital abnormality, within the constraints of a routine brain study. Normal visualized paranasal sinuses. Normal calvarium and skull base. Normal visualized soft tissue structures. Normal visualized upper cervical spine. MRI/Brain without Contrast IMPRESSION: Involutional changes of the brain, as described above. Electronically Signed: Suad Ruiz MD at 13:13 EDT Tel , Service support , CC: Becka Gallagher BOLTING MACHINE OPERATOR; Jose Wren MD Stonecutter Assistant: Signed COMPREHENSIVE METABOLIC Collected: 03/08/2018 Status: F Source: JENNIFER MCDERMOTT 9:16 AM [facility] REPOSITORY TYPE CODE TESTS RESULT OUT OF RANGE REFERENCE UNITS LAB L501.0100 74-106 mg/dL Low GLU 64 Result Comment: Please note revised GLUCOSE reference range effective 2017. LAB L501.1000 7-18 mg/dL Normal BUN 16 LAB L501.1100 0.55-1.02 mg/dL Normal CREAT,SERUM 0.73 Result Comment: The validity of the calculated GFR AND GFRAA in patients over 70 years has not been determined. Clinical correlation is essential. LAB L501.1110 >60 mL/min Normal EST GFR 86 Result Comment: Non- GFR Calc LAB L501.1115 >60 mL/min Normal EST GFR - AA 104 Result Comment: GFR Calc LAB L501.1300 10-20 RATIO High BUN/CRE 21.9 LAB L501.1500 6.4-8.2 g/dL T Normal PROT 7.1 LAB L501.1800 3.2-5.0 g/dL Normal ALB 3.9 LAB L501.1950 2.2-4.2 g/dL Normal GLOB 3.2 LAB L501.2000 0.9-2.4 RATIO Normal A/G 1.2 LAB L501.2200 8.5-10.1 mg/dL Low CA 8.4 LAB L501.4100 15-37 U/L Normal AST 30 LAB L501.4305 45-117 U/L Normal ALK P 103 LAB L501.4405 13-56 U/L Normal ALT 28 LAB L501.4600 0.20-1.00 mg/dL T Normal BILI 0.50 LAB L501.5300 136-145 mmol/L NA Normal 139 LAB L501.5600 3.5-5.1 mmol/L K Normal 3.8 LAB L501.5900 98-107 mmol/L CL Normal 105 LAB L501.6100 21.0-32.0 mmol/L Normal CO2 28.0 LAB L501.6200 5-15 Normal GAP 6 Performed By: #### L500.4050 #### [facility] [address] [place], [address] CPK ISOENZYME (REF. Collected: 03/08/2018 Status: F Source: [place] [facility]) 9:16 AM [facility] REPOSITORY TYPE CODE TESTS RESULT OUT OF RANGE REFERENCE UNITS LAB L3900.2905 24-173 U/L High 235 CPK,TOTAL,SE RUM LAB L3900.2920 Not Observed % Normal Macro II 0 LAB L3900.2950 97-100 % Normal CK-MM 97 LAB L3900.2960 Not Observed % High Macro I 3 Result Comment: Macro CK Type 1 is a complex of CK-BB and IgG created via an antigen-antibody reaction. It can lead to the false- positive diagnosis of acute myocardial infarction by CK-MB interference in some immunoassay techniques. The clinical relevance of Macro CK Type 1 is not clearly established. It is not associated with a particular type of disease and has been observed with various diseases and in apparently healthy individuals. Myositis, including autoimmune myositis, polymyositis, malignancy-associated dermatomyositis, and drug-induced myositis, has been diagnosed in >50% of the patients with Macro CK Type 1. LAB L3900.3000 0-3 % Normal CK-MB 0 LAB L3900.3050 0 % Normal CK-BB 0 Result Comment: Performed at: [facility] [id number] Tie Up Worker: Cedrick Smith PhD, Phone: [phone] Performed By: #### L3900.2850 #### [facility] (refer to report for specific site) refer to report for address and phone number CBC W/DIFF, AUTOMATED Collected: 03/07/2018 Status: F Source: [place] 9:36 AM [facility] REPOSITORY TYPE CODE TESTS RESULT OUT OF RANGE REFERENCE UNITS LAB L100.1000 4.4-11.0 K/mm3 Normal WBC 5.8 LAB L100.1200 4.2-5.4 M/mm3 Normal RBC 4.43 LAB L100.1300 12.0-15.0 g/dl Normal HGB 13.3 LAB L100.1400 37-47 % Normal HCT 41.0 LAB L100.1500 81-99 fL Normal MCV 92.6 LAB L100.1600 27.0-32.0 pg Normal MCH 30.0 LAB L100.1700 32-36 g/gl Normal MCHC 32.4 LAB L100.1810 11.6-14.6 % Normal RDW CV 14.6 LAB L100.1820 35.1-43.9 fl High RDW SD 49.9 LAB L100.1900 150-450 K/mm3 Normal PLT 280 LAB L100.2000 6.2-12.0 fl Normal MPV 10.6 LAB L100.2100 47-70 % Normal NEUT% 57.6 LAB L100.2200 19-41 % Normal LY% 34.4 LAB L100.2300 0-10 % Normal MONO% 5.7 LAB L100.2400 0-5 % Normal EO% 1.4 LAB L100.2500 0-1 % Normal BASO% 0.7 LAB L100.2550 0.0-0.9 % Normal IM GRAN % 0.200 Result Comment: IG% - Immature Granulocytes (promyelocytes, myelocytes and metamyelocytes) > 1% indicates that a LEFT SHIFT is Present. LAB L100.2620 2.0-7.7 X10 3/uL Normal Absolute Neut 3.4 LAB L100.2720 0.83-4.51 X10 3/ul Normal Absolute Lymph 2.00 Performed By: #### L100.0100 #### [facility] [address] [place], [address] COMPREHENSIVE METABOLIC Collected: 03/07/2018 Status: F Source: [facility] 9:36 AM [facility] REPOSITORY Order Comment: 'TROP' Serial specimen #1, #2, #3, or #4: 1 TYPE CODE TESTS RESULT OUT OF RANGE REFERENCE UNITS LAB L501.0100 74-106 mg/dL Normal GLU 87 Result Comment: Please note revised GLUCOSE reference range effective 2017. LAB L501.1000 7-18 mg/dL Normal BUN 18 LAB L501.1100 0.55-1.02 mg/dL Normal CREAT,SERUM 0.74 Result Comment: The validity of the calculated GFR AND GFRAA in patients over 70 years has not been determined. Clinical correlation is essential. LAB L501.1110 >60 mL/min Normal EST GFR 85 Result Comment: Non- GFR Calc LAB L501.1115 >60 mL/min Normal EST GFR - AA 103 Result Comment: GFR Calc LAB L501.1255 ml/min Normal Estimated CRCL 69.74 LAB L501.1300 10-20 RATIO High BUN/CRE 24.4 LAB L501.1500 6.4-8. g/dL Normal 2 T PROT 7.6 LAB L501.1800 3.2-5. g/dL Normal 0 ALB 4.2 LAB L501.1950 2.2-4. g/dL Normal 2 GLOB 3.4 LAB L501.2000 0.9-2. RATIO Normal 4 A/G 1.2 LAB L501.2200 8.5-10 mg/dL Normal .1 CA 8.8 LAB L501.4100 15-37 U/L Normal AST 30 LAB L501.4305 45-117 U/L Normal ALK P 111 LAB L501.4405 13-56 U/L Normal ALT 31 LAB L501.4600 0.20-1 mg/dL Normal .00 T BILI 0.40 LAB L501.5300 136-14 mmol/L Normal 5 NA 141 LAB L501.5600 3.5-5. mmol/L Normal 1 K 4.0 LAB L501.5900 98-107 mmol/L Normal CL 107 LAB L501.6100 21.0-3 mmol/L Normal 2.0 CO2 25.0 LAB L501.6200 5-15 Normal GAP 9 Performed By: #### L500.4050, L500.4100, L501.3620, L501.4010, L501.9520 #### [facility] [address] [place], [place], [id number] LIPID PROFILE Collected: 03/07/2018 Status: F Source: [place] 9:36 AM [facility] REPOSITORY Order Comment: 'TROP' Serial specimen #1, #2, #3, or #4: 1 TYPE CODE TESTS RESULT OUT OF RANGE REFERENCE UNITS LAB L501.4900 200 mg/dL High CHOL 228 Result Comment: <200 mg/dL Desirable 200-240 mg/dL Borderline >240 mg/dL High Risk LAB L501.5000 mg/dL Normal TRIG 71 Result Comment: The drugs N-Acetylcysteine and Metamizole may falsely depress this assay. Serum Triglycerides Reference Interval Normal <150 mg/dL Borderline high 150 - 199 mg/dL High 200 - 499 mg/dL Very High > or = 500 mg/dL LAB L501.6400 mg/dL Normal HDL 91 Result Comment: The drugs N-Acetylcysteine and Metamizole may falsely depress this assay. Reference Range HDL <40 mg/dL Low HDL Cholesterol HDL >or= 60 mg/dL High HDL Cholesterol LAB L501.6500 0-130 mg/dL Normal LDL 123 LAB L501.6600 5-40 mg/dL Normal VLDL 14 Performed By: #### L500.4050, L500.4100, L501.3620, L501.4010, L501.9520 #### [facility] [address] [place], [address] CPK TOTAL, CREATINE Collected: 03/07/2018 Status: F Source: [place] KINASE 9:36 AM [facility] REPOSITORY Order Comment: 'TROP' Serial specimen #1, #2, #3, or #4: 1 TYPE CODE TESTS RESULT OUT OF RANGE REFERENCE UNITS LAB L501.3620 26-192 U/L High CPK TOTAL 289 Performed By: #### L500.4050, L500.4100, L501.3620, L501.4010, L501.9520 #### [facility] [address] [place], [address] TROPONIN-I Collected: 03/07/2018 Status: F Source: [place] 9:36 AM [facility] REPOSITORY Order Comment: 'TROP' Serial specimen #1, #2, #3, or #4: 1 TYPE CODE TESTS RESULT OUT OF RANGE REFERENCE UNITS LAB L501.4010 <0.045 ng/mL Normal < 0.015 TROPONIN-I Result Comment: TROPONIN-I EXPECTED VALUES <0.045 Negative 0.045 - 0.590 Consistent with Cardiac Damage > OR = 0.600 Critical Value Not every elevated troponin is indicative of ND. These values should be used with clinical judgement in examining the patient's clinical picture for diagnosis. To establish a diagnosis of ND versus myocardial injury, there must be a demonstrated rise and/or fall in the troponin values, in addition to ischemic symptoms, EKG changes, new regional wall motion abnormality, and/or angiographical evidence. PLEASE NOTE: REFERENCE RANGES EDITED 18 Performed By: #### L500.4050, L500.4100, L501.3620, L501.4010, L501.9520 #### [facility] [address] [place], [address] THYROID STIM HORMONE Collected: 03/07/2018 Status: F Source: [place] (TSH) 9:36 AM [facility] REPOSITORY Order Comment: 'TROP' Serial specimen #1, #2, #3, or #4: 1 TYPE CODE TESTS RESULT OUT OF RANGE REFERENCE UNITS LAB L501.9520 0.358-3.74 uIU/mL Normal TSH 1.30 Performed By: #### L500.4050, L500.4100, L501.3620, L501.4010, L501.9520 #### [facility] [address] [place], [address] D-DIMER QUANTITATIVE Collected: 11/22/2017 Status: F Source: [place] (DVT/PE) 12:37 PM [facility] REPOSITORY TYPE CODE TESTS RESULT OUT OF RANGE REFERENCE UNITS LAB L300.8000 0.27-0.49 FEU/ug/m Normal D-DIMER 0.46 QUANT Result Comment: NORMAL D-Dimer level (<0.50) indicates no DVT or PE. Performed By: #### L300.8000 #### [facility] [address] [place], [address] ANKLE MIN 3 VIEWS Observed: 10/23/2017 Status: F Source: [place] 6:31 PM [facility] REPOSITORY [facility] Imaging Services [address] [place] [address] Ankle min 3 Views MR#: [id number] Acct: [id number] Name: BECKA DELA CRUZ Rep #: [id number] : 1955 F 61 From: Conner Charlton DO PCP: Becka Gallagher NP Status: REG CLI Study: Ankle min 3 Views Date of Exam: 10/23/17 Exam# [id number] Ordering Dr: Pineda Vences MD STUDY: X-RAY - RIGHT ANKLE REASON FOR EXAM: Female, 61 years old. Dropped Piece of wood on right ankle with pain TECHNIQUE: 3 view(s) of the ankle. COMPARISON: None. FINDINGS: Normal visualized distal tibia and fibula. Normal medial and lateral malleoli. Normal tibiotalar articulation and ankle mortise. Normal visualized talus and calcaneus. The visualized subtalar, talonavicular, calcaneocuboid and tarsal articulations are normal. The soft tissue structures are unremarkable. RAD/Ankle min 3 Views IMPRESSION: Normal x-ray examination of the ankle. Electronically Signed: Conner Charlton DO at 19:22 EST Tel , Service support , CC: Becka Gallagher NP; Pineda Vences MD Stonecutter Assistant: Signed CARDIOLOGY VISIT Observed: 09/23/2017 Status: F Source: [place] REPORT 3:31 PM [facility] REPOSITORY [facility] [place] [address] OFFICE VISIT Date of Service: 09/20/17 MR#: [id number] Acct: [id number] Name: BECKA DELA CRUZ Rep #: [id number] : 1955 Provider: Anne Cortés Age/Sex: 61/F Location: [facility] Status: Signed HPI 3 M FU: Details: BECKA DELA CRUZ, is a 61 F who presents to the office today for presents here today for a cardiovascular follow-up. She recently established with us for concerns over palpitations, shortness of breath with exertion and hyperlipidemia. She did have a 24-hour Holter monitor done which demonstrated sinus rhythm with PACs with ectopic atrial tachycardia. Occasional PVCs. Patient did undergo a stress test which was negative for ischemia. Overall patient is doing well. She still does have palpitations. She states that they do not last long. But they are almost every day. Did review testing that she had done with her earlier this year. She does not have any chest discomfort/tightness/heaviness. She does not have any worsening shortness of breath. She does not have any lightheadedness or dizziness. She does not have any near-syncope or syncope. She does not have any lower extremity edema. Intake Vital Signs09/20/17 Height 5 ft 6 in 09/20/17 Weight: 144 lb 09/20/17 Body Mass Index (BMI) 23.2 09/20/17 Blood Pressure 110/60 09/20/17 Blood Pressure Location Lt brachial Intake Visit Reasons: 3 M Range Examiner Required: No Accompanied by: None Is patient in pain?: No Allergies morphine Allergy (Intermediate, Verified 01/23/17 07:32) Hives Penicillins Allergy (Intermediate, Verified 01/23/17 07:32) Hives Sulfa (Sulfonamide Antibiotics) Allergy (Intermediate, Verified 01/23/17 07:32) Hives adhesive Allergy (Mild, Verified 01/23/17 07:32) BLISTER erythromycin base [Erythromycin Base] Allergy (Mild, Verified 01/23/17 07:32) EYES SWELLING clarithromycin [From Biaxin] Allergy (Verified 09/20/17 10:12) Unknown cyclobenzaprine [From Flexeril] Allergy (Verified 09/20/17 10:12) Unknown hydrocodone bitartrate [From Vicodin] Adverse Reaction (Mild, Verified 01/23/17 07:32) Upset Stomach Medications Albuterol Inhaler [Ventolin Hfa] 1 puff INHALATION Q4H PRN PRN 28 Days inhaler 01/23/17 [Rx Confirmed 09/09/17] Fluticasone/Salmeterol [Advair 100/50 Diskus] 1 puff INHALATION DAILY 06/08/17 [History Confirmed 09/09/17] aspirin 81 mg tablet,delayed release 81 mg PO QDAY 09/09/17 [History Confirmed 09/09/17] coenzyme Q10 100 mg capsule 100 mg PO QDAY 09/09/17 [History Confirmed 09/09/17] lutein 20 mg tablet 20 mg PO QDAY 09/09/17 [History Confirmed 09/09/17] rosuvastatin 5 mg tablet 5 mg PO .qod tab 09/09/17 [History Confirmed 09/09/17] Ejection fraction %: 60 to 64 PFSH Medical History Palpitations (Chronic) Tachycardia (Chronic) SOB (shortness of breath) (Chronic) Lentigo (Chronic) Nevus (Chronic) Skin hemangioma (Chronic) Surgical History History of appendectomy (Chronic 1995) History of cholecystectomy (Chronic 2006) History of hysterectomy (Chronic 1994) History of tonsillectomy (Chronic 1964) History of tubal ligation (Chronic) Family History Mother , age 70 Myocardial infarction CAD (coronary artery disease) Father Melanoma Social History Smoking Status: Former smoker how long ago did patient quit smokin alcohol intake: never substance use type: does not use caffeine: Yes Type: coffee what type of physical activity do you participate in: bicycling frequency: daily duration: 30-45 minutes/day seatbelt use: always do you feel safe at home: Yes ROS Const Const: Negative for weakness, fatigue, fever(s) or headache(s) Eyes Eyes: Negative for blind spots, loss of peripheral vision or transient loss of vision ENT ENT: Negative for headache(s), Negative for dizziness, Negative for tinnitus, Negative for Nosebleed/epistaxis Cardio Chest Pain: No Palpitations: Positive for Yes Edema: None Muscle aches with walking: None Resp Respiratory: Negative for SOB with activity, SOB at rest or SOB orthopnea\SOB lying down GI GI: Negative nausea, vomiting, heartburn or vomiting blood/hematemesis : Negative for hematuria Musc Musc: Negative for muscle aches/ myalgia Neuro Neuro: Negative for weakness, Negative for headache(s), Negative for dizziness, Negative for near syncope, Negative for syncope, Negative for lightheadedness Marcelino Hematologic/Lymphatic: Negative for easy bleeding Endo Endo: Negative for fatigue Cardiology Exam Const Appearance: cooperative, no acute distress and well developed Orientation: alert, awake and oriented x3 Head Head: normocephalic and atraumatic Mouth: moist mucous membranes Eyes General: appearance normal, both eyes and all related structures Conjunctivae: conjunctivae normal Pupils: PERRL EOM: EOM intact bilaterally Neck Neck: normal visual inspection, no lymphadenopathy and no JVD Carotids: Negative bruit Neck Mass: Negative Neck mass Chest Chest inspection: normal inspection of the chest and symmetric chest movement Auscultation: Bilateral: Clear to Auscultation Cardio Palpation: normal PMI Rate: regular rate Rhythm: regular rhythm Heart sounds: S1 normal and S2 normal; negative rub, gallop or murmur GI GI: normal to inspection, soft, no hepatosplenomegaly and bowel sounds present; negative tender Neuro General: alert, awake, oriented x3, CN's II-XI intact bilaterally and moves all extremities Extremities Pulses: Normal: Right Posterior Tibial Pulse, Left Posterior Tibial Pulse, Right Radial Pulse, Left Radial Pulse Lower Extremity Edema: None: Bilateral Psych Psychological: normal affect Assessment AND Plan 1. Palpitations R00.2 Plan - NATHALY Salas Did discuss a trial of low-dose beta-paco to see if this would help with her symptoms. She states that she would rather wait and see. If they worsen she will let our office know. We will continue to monitor. 2. Mitral valve prolapse I34.1 Plan - NATHALY Salas Patient does have equivocal mitral valve prolapse. We will continue to monitor by history, exam and echocardiograms as deemed appropriate. Plan Detail Additional Comments - NATHALY Salas The above patient was discussed with Dr. Manuel, he agrees with plan of care. Thank you for allowing us to participate in patient's plan of care, if you have any questions please do not hesitate to call. This note was generated using a voice recognition system and there may be incorrect words, spelling or punctuation errors that were not noted when reviewing the office note prior to saving. Follow Up 1 Year (PFM) Coding Level of Care Code Off vis,est,level 3 Diagnoses Palpitations R00.2 Mitral valve prolapse I34.1 09/20/17 1205 <Electronically signed by Anne ANDERSEN> Date Anne ANDERSEN 09/23/17 1531<Electronically signed by Ronnie Cooper MD> Cosigner Signature: Date (if applicable) Ronnie Cooper MD CC: Becka Gallagher SUSSY INITAL EVALUATION (1) Observed: 08/30/2017 Status: F Source: [place] - PT 9:58 AM [facility] REPOSITORY [facility] Physical Therapy [facility] [address] [place] [address] Fax REHABILITATION SERVICES INITIAL EVALUATION MR#: [id number] Acct: [id number] Name: BECKA DELA CRUZ Rep #: [id number] : 1955 61 From: Caro Olvera DPT Referring Dr.: GELA Sow Status: REG RCR Insurance: [facility] [employer] SELF PAY INSURANCE Patient's Visit Information BECKA DELA CRUZ is a 61 year old F referred to Physical Therapy by GELA Forte NP.KROBER with a diagnosis of Right Knee Pain. Date of Evaluation: 08/30/17 Physical Therapist: Caro Olvera - Visit Plan Frequency: 2-3x /Week Duration: 3 Weeks Plan: Focus on LE and core s/s - Subjective Subjective: Patient reports right knee pain about 4 months- no specific injury that she rememebers. Swells on her after shifts. Eases: laying down with elevation and helps to pull out the swelling. Pain is located in the whole knee- Pain has radiated to the hip- has had 4 back surgeries (a year ago- cleaned our spinal stenosis- Dr. Joni Hodge). Agg: after standing and walking a full shift for 12 hours. Worst: 8/10 Best: 0/10. Describes pain as achy and just there. Feels like its going to buckle- has not caused a fall. No N/T. Did x-rays on the knee but no MRI- has a referral to Dr. Grover at [facility]. Has already had both knees scoped 2002. Does not have an apt yet but plans to go see him. No x-rays but did do blood work for RA which came back negative. Feels like the knee is getting worse. Sleep:hip wakes her more than the knee. Tends to avoid going up stairs. 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 PMHx/Meds: has changed cholesterol meds- added - Objective Posture: FH, RS. Gait: slightly antalgic- decreased heel strike. Stairs: asc/desc 8 recip with no HR- poor control. HR/TR: able but TR increases back pain. Palpation: tender along medial joint line. ROM: 0-130- pain at end range flexion and IR of the hip. Strength: Ankle: 5/5, Knee: 4+/5, Hip: 4/5 with pain throughout Core: fair. Flex: HS: mild. SLS: 30 sec but reports feeling unstable - Goals Goal 1:: Patient will be I with HEP and progression Goal Time Frame: 4-6 Weeks Goal 2:: Patient will demo 5/5 strength in LE where deficit Goal Time Frame: 4-6 Weeks Goal 3:: Patient will asc/desc 8' recip with no HR and controlled Goal Time Frame: 4-6 Weeks Goal 4:: Patient will ambulate >300 feet with a normalized gait pattern Goal Time Frame: 4-6 Weeks - Rehabilitation Potential Physical Therapy Diagnosis: Patient presents with hypomobility- she has decreased strength and muscular endurance leading to increased pain and decreased ability to perform ADL's Rehabilitation Potential: Good - Anticipated Interventions Patient/Client Instruction: Educate patient on: Benefits of Fitness Program For the Purpose of:: To improve performance and independence with ADL's Therapeutic Exercise to Include: Strength training, Endurance training, Balance training, Agility training, Body mechanics, Dynamic Lumbar Stabilization For the Purpose of:: To improve muscle performance and motor function TENS: Yes Cryotherapy (ice pack, ice massage): Yes Thermo therapy (hot pack): Yes Ultrasound (thermal/non thermal): Yes Vasopneumatic device: Yes For the Purpose of:: To decrease swelling/inflammation Thank you for the opportunity to evaluate your patient. For Medicare and Medicare HMO plans, please review the plan of care and approve it. It will need to be FAXED BACK to us at [phone] for Medicare purposes. Please let me know if there are questions or concerns regarding this plan of care. Physician Signature: Date: <Electronically signed by Caro Olvera DPT> 08/30/17 0958 CC: Becka Gallagher BOLTING MACHINE OPERATOR; GELA Sow ELR Signed For Medicare only, by signing this I certify the plan of care. Physicians Signature Date ERYTHROCYTE SED RATE Collected: 08/25/2017 Status: F Source: [place] 9:08 AM [facility] REPOSITORY TYPE CODE TESTS RESULT OUT OF RANGE REFERENCE UNITS LAB L102.0000 0-30 mm/hr Normal SED RATE 2 Performed By: #### L101.9900 #### [facility] [address] [place], [place], [address] SERUM CREATININE AND Collected: 08/25/2017 Status: F Source: [place] GFR 9:08 AM [facility] REPOSITORY Order Comment: ADD CRP TO SPECIMEN ALREADY IN LAB TYPE CODE TESTS RESULT OUT OF RANGE REFERENCE UNITS LAB L501.1100 0.55-1.02 mg/dL Normal 0.68 CREAT,SERUM Result Comment: The validity of the calculated GFR AND GFRAA in patients over 70 years has not been determined. Clinical correlation is essential. LAB L501.1110 >60 mL/min Normal EST GFR 93 Result Comment: Non- GFR Calc LAB L501.1115 >60 mL/min Normal EST GFR - AA 113 Result Comment: GFR Calc Performed By: #### L501.1105, L505.7010, L501.6710 #### [facility] [address] [place], [place], [address] RHEUMATOID FACTOR Collected: 08/25/2017 Status: F Source: [place] 9:08 AM [facility] REPOSITORY Order Comment: ADD CRP TO SPECIMEN ALREADY IN LAB TYPE CODE TESTS RESULT OUT OF RANGE REFERENCE UNITS LAB L505.7010 <15 IU/mL Normal RHEUMATOID FAC < 10.0 Performed By: #### L501.1105, L505.7010, L501.6710 #### [facility] [address] [place], [place], [address] CRP Collected: 08/25/2017 Status: F Source: [place] 9:08 AM [facility] REPOSITORY Order Comment: ADD CRP TO SPECIMEN ALREADY IN LAB TYPE CODE TESTS RESULT OUT OF RANGE REFERENCE UNITS LAB L501.6710 0.0-3.0 mg/L Normal < 2.90 C-REACTIVE PROT Result Comment: C-Reactive Protein (CRP) provides useful information for the diagnosis, therapy and monitoring of inflammatory processes and associated diseases. For the evaluation of Relative Risk for Cardiovascular Disease, a High Sensitivity CRP (HSCRP) should be ordered. Performed By: #### L501.1105, L505.7010, L501.6710 #### [facility] [address] [place], [place], [id number] ANTINUCLEAR ANTIBODIES Collected: 08/25/2017 Status: F Source: [place] DIRECT 9:08 AM [facility] REPOSITORY TYPE CODE TESTS RESULT OUT OF RANGE REFERENCE UNITS LAB L3100.5475 Negative Normal Negative COLLEEN-DIRECT Result Comment: Performed at: [facility] [address] [id number] Tie Up Worker: Cedrick Smith PhD, Phone: [phone] Performed By: #### L3100.5475 #### [facility] (refer to report for specific site) refer to report for address and phone number ALLERGIES ALLERGIES DATE TYPE / CODE NAME / CODE REACTION SEVERITY SOURCE 07/25/2018 Drug hydrocodone Upset Stomach [place] Jennifer Allergy/416 bitartrate/[id number] [facility] 394755([facility](RXNO) [facility] ED CT) Repository 07/25/2018 Drug Penicillins/[id number] Hives [place] Jennifer Allergy/416 476(RXNORM) [facility] 852763([facility] ED CT) Repository 07/25/2018 Drug Sulfa (Sulfonamide Hives [place] Jennifer Allergy/416 Antibiotics)/[id number] [facility] 992742[facility] 07/25/2018 Drug morphine/[id number] Hives [place] Allergy/416 (RXNORM) [facility] 266250([facility] ED CT) Repository 07/25/2018 Drug erythromycin EYES SWELLING [place] Allergy/416 base/[id number](RXN [facility] 107133([facility] ED CT) Repository 07/25/2018 Drug adhesive/[id number] BLISTER [place] Jennifer Allergy/416 (RXNORM) [facility] 180799([facility] ED CT) Repository 07/25/2018 Drug clarithromycin/F006 Unknown Unknown Jennifer Allergy/416 673217(RXNORM) [facility] 816382([facility] ED CT) Repository 07/25/2018 Drug cyclobenzaprine/F00 Unknown Unknown Jennifer Allergy/035 [id number](RXNORM) [facility] 874370([facility] ED CT) Repository ENCOUNTERS ENCOUNTERS ADMIT/DISCHARGE ACCOUNT ADMITTING ENCOUNTER LOCATION SOURCE NUMBER CLASS 07/25/2018/ [id number] Ambulatory BMSBuilding:B Jennifer 8 9 [facility] Repository 07/22/2018 [id number] Ambulatory Jennifer [facility] 7 [facility] ing:MRI Repository 07/18/2018/ [id number] Ambulatory BMSBuilding:B [facility] 8 1 [facility] Hospital Repository 07/12/2018 [id number] Ambulatory Jennifer [facility] 0 [facility] ing:LAB.FUTUR Repository E 07/12/2018 [id number] Ambulatory Jennifer Jennifer 6 [facility] ing:LAB.FUTUR Repository E 07/10/2018/ [id number] Ambulatory BMSBuilding:B [facility] 8 7 [facility] Hospital Hospital Repository 07/05/2018/ [id number] Emergency Chloride Jennifer 8 6 [facility] ing:ED Repository 05/31/2018 [id number] Ambulatory Jennifer Chloride 7 [facility] ing:LAB.FUTUR Repository E 05/10/2018 [id number] Ambulatory Jennifer Jennifer 1 [facility] ing:MTLAB Repository 05/08/2018 [id number] Ambulatory Chloride Jennifer 3 [facility] ing:EMPH Repository 04/13/2018 [id number] Ambulatory [place] [facility] 5 [facility]HPRAD Repository 04/13/2018/ [id number] Ambulatory Jennifer [place] 8 4 [facility] ing:PT Repository 04/13/2018 [id number] Ambulatory [place] Jennifer 5 [facility] ing:OPBI Repository 03/24/2018 [id number] Ambulatory [place] Jennifer 8 [facility]LAB Repository 03/20/2018 [id number] Ambulatory [place] Chloride 3 [facility] ing:CT Repository 03/17/2018 [id number] Ambulatory Jennifer Jennifer 8 [facility] ing:LAB Repository 03/14/2018 [id number] Ambulatory Jennifer [place] 9 [facility] ing:MTLAB Repository 03/13/2018/ [id number] Emergency [place] Jennifer 8 7 [facility] ing:ED Repository 03/08/2018 [id number] Ambulatory [place]ide Chloride 1 [facility]LAB Repository 03/07/2018 [id number] Ambulatory Jennifer [place] 8 [facility] ing:ONC Repository 11/22/2017 [id number] Ambulatory Jennifer Jennifer 8 [facility] ing:LAB Repository 10/23/2017 [id number] Ambulatory Chloride Chloride 3 [facility] ing:RAD Repository 09/20/2017/ [id number] Ambulatory BMSBuilding:B [place] 8 5 [facility] Hospital Repository 09/20/2017 [id number] Ambulatory BMSBuilding:B [place] 7 [facility] Hospital Repository 08/30/2017/ [id number] Ambulatory Jennifer [place]ide 8 5 [facility] ing:PT Repository 08/25/2017 [id number] Ambulatory Jennifer Jennifer [facility]MTLAB Repository PAYERS PAYERS ENCOUNTER GUARANTOR PAYER SUBSCRIBER SOURCE 07/25/2018 BECKA Michel [id number] Primary NOT GIVENUNK Chloride JENARO Insurance:SELF PAY [facility] [address]Wrz: (330) Number: Effective Repository [phone] () Date:2018-07-25 07/22/2018 BECKA Michel [id number] Primary Insurance:[facility] BECKA PEREZBDOB: Jennifer [facility] [id number] [facility] [address]Xoz: (330) Number: Repository [phone] () [id number] Date:2723-18-49NO [address] [address]YGVDKZZ[place], [place] [address]NX: CHECK WEBSITE 07/22/2018 Secondary NOT GIVENUNK Jennifer Insurance:SELF PAY [facility] Number: Effective Repository Date:2018-07-20 07/18/2018 BECKA Michel [id number] Primary Insurance:[facility] BECKA PEREZBDOB: [employer] [facility] [id number] Hospital [address]Bhk: (330) Number: Repository [phone] () [id number] Date:4611-04-22[address] [address]UECSSCQTM, [place] [address]XV: CHECK WEBSITE 07/18/2018 Secondary NOT GIVENUNK Chloride Insurance:SELF PAY [facility] Number: Effective Repository Date:2018-07-18 07/12/2018 BECKA Michel [id number] Primary Insurance:[facility] BECKA Michel WEBBDOB: JenniferGlucoVistaRIV[facility] [id number] Hospital [address]Gis: (330) Number: Repository [phone] () [id number] Date:6141-06-56CE [address] [address]PQWIPBNME, [place] [address]OY: CHECK WEBSITE 07/12/2018 Secondary NOT GIVENUNK Jennifer Insurance:SELF PAY [facility] Number: Effective Repository Date:2018-06-05 07/12/2018 BECKA Michel [id number] Primary Insurance:[facility] BECKA Michel WEBBDOB: [employer] [facility] TechnologiesR[facility] [id number] Hospital [address]Nra: (330) Number: Repository [phone] () [id number] Date:6296-55-61KC [address] [address]TPUHBIUCH, [place] [address]SW: CHECK WEBSITE 07/12/2018 Secondary NOT GIVENUNK Chloride Insurance:SELF PAY [facility] Number: Effective Repository Date:2018-07-12 07/10/2018 BECKA Michel [id number] Primary Insurance:[facility] BECKA Michel WEBBDOB: Jennifer [facility] [id number] Hospital [address]Uwb: (330) Number: Repository [phone] () [id number] Date:7092-72-51SL [address] [address]UNFFXVCBO, [place] [address]AV: CHECK WEBSITE 07/10/2018 Secondary NOT GIVENUNK Chloride Insurance:SELF PAY [facility] Number: Effective Repository Date:2018-07-10 07/05/2018 BECKA Michel [id number] Primary BECKA Michel WEBBDOB: Jennifer JENARO Insurance:OBW [id number] [facility] [address]Zsz: (330) Number: Repository [phone] () [id number] Date:1014-11-11LX [address]UWPNDJCU, [place] [address]CV: 07/05/2018 Secondary BECKA Michel WEBBDOB: Chloride Insurance:[id number] Number: Repository [id number] Date:4644-59-08GK [address] [address]EZKMUBIRG, [place] [address]KL: CHECK WEBSITE 07/05/2018 Tertiary NOT GIVENUNK Jennifer Insurance:SELF PAY [facility] Number: Effective Repository Date:2018-07-05 05/31/2018 BECKA Michel [id number] Primary Insurance:[facility] BEKCA Michel WEBBDOB: Chloride [facility] [id number] Hospital [address]Iuq: (330) Number: Repository [phone] () [id number] Date:1209-69-41AR [address] [address]APDZNCPSB, [place] [address]KJ: CHECK WEBSITE 05/31/2018 Secondary NOT GIVENUNK Chloride Insurance:SELF PAY [facility] Number: Effective Repository Date:2018-05-11 05/10/2018 BECKA Michel [id number] Primary Insurance:[facility] BECKA PEREZBDOB: Jennifer [employer] [facility] [id number] Hospital [address]Svi: (330) Number: Repository [phone] () [id number] Date:4162-22-71TX [address] [address]WRGLGABGP, [place] [address]KI: CHECK WEBSITE 05/10/2018 Secondary NOT GIVENUNK Jennifer Insurance:SELF PAY [facility] Number: Effective Repository Date:2018-05-10 05/08/2018 BECKA Michel [id number] Primary NOT GIVENUNK Jennifer JENARO Insurance:SELF PAY [facility] [address]Mtd: (330) Number: Effective Repository [phone] () Date:2018-05-08 04/13/2018 BECKA Michel [id number] Primary Insurance:[facility] BECKA PEREZBDOB: Jennifer [employer] [facility] [id number] Hospital [address]Ffn: (330) Number: Repository [phone] () [id number] Date:8554-01-96PQ [address] [address]GDZDFXVGY, [place] [address]OI: CHECK WEBSITE 04/13/2018 Secondary NOT GIVENUNK Jennifer Insurance:SELF PAY [facility] Number: Effective Repository Date:2018-04-13 04/13/2018 BECKA Michel [id number] Primary Insurance:[facility] BECKA PEREZBDOB: Jennifer [employer] [facility] [id number] Hospital [address]Gvs: (330) Number: Repository [phone] () [id number] Date:0446-98-92ZE [address] [address]GWCCMBWUU, [place] [address]IS: CHECK WEBSITE 04/13/2018 Secondary NOT GIVENUNK Jennifer Insurance:SELF PAY [facility] Number: Effective Repository Date:2018-03-14 04/13/2018 BECKA Michel [id number] Primary Insurance:[facility] BECKA Michel WEBBDOB: Jennifer [employer] [facility] [id number] Hospital [address]Lch: (330) Number: Repository [phone] () [id number] Date:7564-68-38GC [address] [address]XTZJBXPWN, [place] [address]JE: CHECK WEBSITE 04/13/2018 Secondary NOT GIVENUNK Jennifer Insurance:SELF PAY [facility] Number: Effective Repository Date:2018-03-15 03/24/2018 BECKA Michel [id number] Primary Insurance:[facility] BECKA Michel WEBBDOB: [facility] [id number] [place] [id number]: (330) Number: Repository [phone] () [id number] Date:6377-39-21YU [address] [address]LYWTNATCN, [place] [address]MY: CHECK WEBSITE 03/24/2018 Secondary NOT GIVENUNK Jennifer Insurance:SELF PAY [facility] Number: Effective Repository Date:2018-03-24 03/20/2018 BECKA Michel [id number] Primary Insurance:[facility] BECKA Michel WEBBDOB: Jennifer [facility] [id number] Hospital [address]Mxf: (330) Number: Repository [phone] () [id number] Date:5077-74-21KR [address] [address]DQNQECKLG, [place] [address]VZ: CHECK WEBSITE 03/20/2018 Secondary NOT GIVENUNK Chloride Insurance:SELF PAY [facility] Number: Effective Repository Date:2018-03-20 03/17/2018 BECKA Michel [id number] Primary Insurance:[facility] BECKA PEREZBDOB: Jennifer [facility] [id number] Hospital [address]Kde: (330) Number: Repository [phone] () [id number] Date:8978-51-21LD [address] [address]ZHYVRAOTG, [place] [address]GF: CHECK WEBSITE 03/17/2018 Secondary NOT GIVENUNK Chloride Insurance:SELF PAY [facility] Number: Effective Repository Date:2018-03-17 03/14/2018 BECKA Michel [id number] Primary Insurance:[facility] BECKA Michel WEBBDOB: [facility] [id number] Ville [id number]: (330) Number: Repository [phone] () [id number] Date:1403-64-72LG [address] [address]BRTFUGRXV, [place] [address]TE: CHECK WEBSITE 03/14/2018 Secondary NOT GIVENUNK Chloride Insurance:SELF PAY [facility] Number: Effective Repository Date:2018-03-14 03/13/2018 BECKA Michel [id number] Primary Insurance:[facility] BECKA Michel WEBBDOB: [facility] [id number] Ville [address]Tel: (330) Number: Repository [phone] () [id number] Date:2754-12-89UF [address] [address]COFOHPPXC, [place] [address]FF: CHECK WEBSITE 03/13/2018 Secondary NOT GIVENUNK Jennifer Insurance:SELF PAY [facility] Number: Effective Repository Date:2018-03-13 03/08/2018 BECKA Michel [id number] Primary Insurance:[facility] BECKA Michel WEBBDOB: [facility] [id number] Ville [id number]: (330) Number: Repository [phone] () [id number] Date:0324-03-88JP [address] [address]VRBEJSVAM, [place] [address]UY: CHECK WEBSITE 03/08/2018 Secondary NOT GIVENUNK Chloride Insurance:SELF PAY [facility] Number: Effective Repository Date:2018-03-08 03/07/2018 BECKA Michel [id number] Primary Insurance:[facility] BECKA Michel WEBBDOB: [facility] [id number] Ville [address]Tel: (330) Number: Repository [phone] () [id number] Date:2608-29-13NT [address] [address]AKALETPRY, [place] [address]CA: CHECK WEBSITE 03/07/2018 Secondary NOT GIVENUNK Jennifer Insurance:SELF PAY [facility] Number: Effective Repository Date:2018-03-07 11/22/2017 BECKA Michel [id number] Primary Insurance:[facility] BECKA PEREZBDOB: Chloride [facility] [id number] Hospital [address]Pre: (330) Number: Repository [phone] () [id number] Date:4573-70-63SX [address] [address]HRPAFJALU, [place] [address]XK: CHECK WEBSITE 11/22/2017 Secondary NOT GIVENUNK Chloride Insurance:SELF PAY [facility] Number: Effective Repository Date:2017-11-22 10/23/2017 BECKA Michel [id number] Primary Insurance:[facility] BECKA Michel WEBBDOB: [employer] [facility] [id number] Hospital [address]Aws: (330) Number: Repository [phone] () [id number] Date:1139-01-06DK [address] [address]CACQCCPWG, [place] [address]TL: CHECK WEBSITE 10/23/2017 Secondary NOT GIVENUNK Jennifer Insurance:SELF PAY [facility] Number: Effective Repository Date:2017-10-23 09/20/2017 BECKA Michel [id number] Primary Insurance:[facility] BECKA PEREZBDOB: [facility] [id number] Hospital [address]Yry: (330) Number: Repository [phone] () [id number] Date:4945-56-07IY [address] [address]DMYEVZYCR, [place] [address]IC: CHECK WEBSITE 09/20/2017 Secondary NOT GIVENUNK Jennifer Insurance:SELF PAY [facility] Number: Effective Repository Date:2017-07-24 09/20/2017 Becka Michel [id number] Primary Insurance:[facility] Becka Michel WebbDOB: Chloride [facility] [id number] Ville [id number]: (330) Number: Repository [phone] () [id number] Date:9898-04-33PD [address] [address]ODADPEAED, [place] [address]RJ: CHECK WEBSITE 09/20/2017 Secondary NOT GIVENUNK Jennifer Insurance:SELF PAY [facility] Number: Effective Repository Date:2017-09-20 08/30/2017 Becka Michel [id number] Primary Insurance:[facility] Becka Michel WebbDOB: [facility] [id number] Ville [id number]: (330) Number: Repository [phone] () [id number] Date:8661-19-70PN [address] [address]BNXSQENFH, [place] [address]DO: CHECK WEBSITE 08/30/2017 Secondary NOT GIVENUNK Chloride Insurance:SELF PAY [facility] Number: Effective Repository Date:2017-08-25 08/25/2017 Becka Michel [id number] Primary Insurance:[facility] Becka Michel WebbDOB: [facility] [id number] [address]Yoy: (330) Number: Repository [phone] () [id number] Date:3624-56-50AK [address] [address]ICQCJHXCQ, [place] [address]GE: CHECK WEBSITE 08/25/2017 Secondary NOT GIVENUNK Jennifer Insurance:SELF PAY [facility] Number: Effective Repository Date:2017-08-25
== END ==
PROVIDERS: Family Provider Nurse Practitioner; PCP Nurse Practitioner; Referring Provider Physician Assistant Surgical; Visit Provider Physician Assistant Surgical
DX: S83.91XA Sprain of unspecified site of right knee, initial encounter (principal)
CPT/HCPCS: 73721

== ENCOUNTER → 2018-08-18 11:44 | Outpatient (CLI) | payer OTHER, SELFPAY ==
[2018-07-25 17:51] VITALS: BMI 20.2
[2018-08-18 12:18] LABS: Hematocrit 36.6 % (37-47); Hemoglobin 12.3 g/dl (12.0-15.0); Mean Corp Hgb Conc 33.6 g/gl (32-36); Mean Corpuscular Hgb 31.4 pg (27.0-32.0); Mean Corpuscular Volume 93.4 fL (81-99); Mean Platelet Vol. 9.9 fl (6.2-12.0); Platelet Count 292 K/mm3 (150-450); RBC Distribution Width CV 13.7 % (11.6-14.6); RBC Distribution Width SD 45.7 fl (35.1-43.9); Red Blood Count 3.92 M/mm3 (4.2-5.4); White Blood Count 6.4 K/mm3 (4.4-11.0)
[2018-08-18 12:25] LABS: Scan Indicated on CBC? Y/N NO
[2018-08-18 12:50] LABS: Vitamin B12 528 pg/mL (211-911)
[2018-08-18 12:56] LABS: Anion Gap 8 (5-15); BUN 14 mg/dL (7-18); BUN/Creat Ratio 18.3 RATIO (10-20); Calcium,Total 8.8 mg/dL (8.5-10.1); Chloride 107 mmol/L (98-107); Creatinine, Serum 0.76 mg/dL (0.55-1.02); EST Glomerular Filtration Rate 81 mL/min (>60); Est Glom Filt Rate - Afr Amer 99 mL/min (>60); Ferritin 17 ng/mL (8-252); Glucose 75 mg/dL (74-106); Iron 138 ug/dL (50-170); Iron Binding Capacity,Total 344 ug/dL (250-450); PERCENT IRON SATURATION 40.1 % (15.0-55.0); Potassium 4.3 mmol/L (3.5-5.1); Sodium Level 142 mmol/L (136-145); Thyroid Stim Hormone (TSH) 1.59 uIU/mL (0.358-3.74)
== END ==
PROVIDERS: Family Provider Nurse Practitioner; PCP Nurse Practitioner; Referring Provider Clinical Nurse Specialist Acute Care; Visit Provider Clinical Nurse Specialist Acute Care
DX: D64.9 Anemia, unspecified (principal); R55 Syncope and collapse
CPT/HCPCS: 36415; 80048; 82607; 82728; 82746; 83540; 83550; 84443; 85027

== ENCOUNTER → 2018-08-23 10:18 | Outpatient (CLI) | payer OTHER, SELFPAY ==
[2018-07-25 17:51] VITALS: BMI 20.2
--- NOTE | 2018-08-23 10:20 | RAD_ITS ---
STUDY: X-RAY - LEFT SHOULDER REASON FOR EXAM: Female, 62 years old. Pain and limited range of motion following the recent injury. TECHNIQUE: 4 view(s) of the shoulder. COMPARISON: Comparison is made with prior examination dated March 22, 2013. FINDINGS: Normal glenohumeral articulation. Normal acromioclavicular joint. Normal acromion. [place]-Sachs deformity of the greater tuberosity of the proximal left humerus. The soft tissue structures are unremarkable. Normal visualized pulmonary apex. RAD/Shoulder min 2 Views IMPRESSION: No acute abnormality is seen. Electronically Signed: Milad Helms MD at 10:48 EST Tel [phone], Service support ,
== END ==
PROVIDERS: Family Provider Nurse Practitioner; PCP Nurse Practitioner; Referring Provider Physician Assistant; Visit Provider Physician Assistant
DX: S49.92XA Unspecified injury of left shoulder and upper arm, initial encounter (principal)
CPT/HCPCS: 73030

== ENCOUNTER → 2018-08-30 07:24 | Outpatient (CLI) | payer OTHER, SELFPAY ==
[2018-08-23 10:58] VITALS: BMI 20.2
[2018-08-28 10:03] VITALS: BMI 20.2
--- NOTE | 2018-08-30 07:28 | MRI_ITS ---
STUDY: MRI LEFT SHOULDER REASON FOR EXAM: Left shoulder contusion/strain from work injury more than 2 months ago. Rotator cuff surgery 2010. TECHNIQUE: Standardized fat and water weighted pulse sequences were obtained in all 3 orthogonal planes. COMPARISON: Radiographs 08/23/2018 and MRI images 07/08/2017. FINDINGS: There is postoperative scarring with micrometallic artifact in the supraspinatus tendon without fluid-filled tendon gap to indicate recurrent tendon tear. Normal infraspinatus tendon. There is mild subscapularis tendinosis (proton density axial images 10, 11) without discrete tendon tear. Normal teres minor tendon. Normal supraspinatus muscle. Normal infraspinatus muscle. Normal subscapularis muscle. Normal teres minor muscle. Normal glenohumeral articulation. There is postoperative artifact in the greater tuberosity. Normal biceps labral complex. Normal intracapsular long biceps tendon. Normal labrum. Normal capsulo- ligamentous complex. There is acromioclavicular arthrosis with hypertrophic changes effacing the subacromial fat (T2 sagittal images 8, 9). There is a Type II morphology (curved), with a neutral orientation. There is a very small volume of subacromial-subdeltoid bursal fluid (T2 coronal images 13-15). Normal visualized coracohumeral and coracoacromial ligaments. Normal deltoid muscle. Normal trapezius muscle. MRI/Upper Ext Joint Only(Routine) IMPRESSION: Postoperative scarring of the supraspinatus tendon without demonstrated recurrent rotator cuff tear. Subscapularis tendinosis. Acromioclavicular arthrosis. Very mild subacromial-subdeltoid bursitis. Electronically Signed: Gunnar Rosa MD at 9:02 EST Tel , Service support ,
== END ==
PROVIDERS: Family Provider Nurse Practitioner; PCP Nurse Practitioner; Referring Provider Physician Assistant; Visit Provider Physician Assistant
DX: S40.012A Contusion of left shoulder, initial encounter (principal); S46.912A Strain of unspecified muscle, fascia and tendon at shoulder and upper arm level, left arm, initial encounter
CPT/HCPCS: 73221

== ENCOUNTER 2018-10-09 09:38 | Day surgery (SDC) | payer OTHER, SELFPAY ==
[2018-09-11 17:36] VITALS: BMI 20.6
[2018-10-03 07:33] VITALS: BMI 20.6
--- NOTE | 2018-10-03 15:47 | EKG12_ITS ---
Test Reason : PRE-OP Blood Pressure : / mmHG Vent. Rate : 062 BPM Atrial Rate : 062 BPM P-R Int : 158 ms QRS Dur : 086 ms QT Int : 430 ms P-R-T Axes : 071 078 070 degrees QTc Int : 436 ms Normal sinus rhythm Normal ECG Confirmed by MAGDALENE GÓMEZ, CORINE ([id number]), associate entertainment editor PAOLO HAMMOND ([id number]) on 10/06/2018 9:08:08 AM Referred By: Juanito Cummins Confirmed By:CORINE DEL CASTILLO MD
[2018-10-03 16:34] LABS: Hematocrit 36.5 % (37-47); Hemoglobin 11.9 g/dl (12.0-15.0); Mean Corp Hgb Conc 32.6 g/gl (32-36); Mean Corpuscular Hgb 31.1 pg (27.0-32.0); Mean Corpuscular Volume 95.3 fL (81-99); Mean Platelet Vol. 10.3 fl (6.2-12.0); Platelet Count 290 K/mm3 (150-450); RBC Distribution Width CV 13.8 % (11.6-14.6); RBC Distribution Width SD 46.1 fl (35.1-43.9); Red Blood Count 3.83 M/mm3 (4.2-5.4); White Blood Count 6.4 K/mm3 (4.4-11.0)
[2018-10-03 16:36] LABS: Scan Indicated on CBC? Y/N NO
[2018-10-03 17:03] LABS: Anion Gap 9 (5-15); BUN 20 mg/dL (7-18); BUN/Creat Ratio 23.1 RATIO (10-20); Chloride 106 mmol/L (98-107); Creatinine, Serum 0.87 mg/dL (0.55-1.02); EST Glomerular Filtration Rate 71 mL/min (>60); Est Glom Filt Rate - Afr Amer 85 mL/min (>60); Glucose 68 mg/dL (74-106); Potassium 3.6 mmol/L (3.5-5.1); Sodium Level 143 mmol/L (136-145)
[2018-10-09] VITALS (7 sets, daily range): BP systolic 89–101; BP diastolic 52–65; PULSE 69–84; RESP 16–18; TEMP 36.1–37.1; O2SAT 97–100; BMI 20.4
[2018-10-09] MEDS: Bupiv/Epi 0.5% Mpf 30 ML Vial (12:00)
[2018-10-09] MEDS: HYDROcodone Bitartrate/Apap 5/325 Tablet PO (13:53)
--- NOTE | 2018-10-09 14:09 | PCM.OPRPT ---
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 Procedure Description: The patient was greeted in the preoperative area. The [right ] knee was marked with surgical marker. Preoperative antibiotics were administered. The patient was then taken to the operating suite and placed in a supine position on operating room table. After adequate anesthesia was obtained and airway was secured a well-padded tourniquet was placed on patient's affected extremity. Leg was then prepped and draped in usual sterile fashion. Surgical timeout was performed and confirmed with all present and surgery was commenced. Standard anteromedial anterolateral portals were made and a 30? arthroscope was then inserted into the knee. [The patellofemoral joint revealed no significant chondromalacia. The medial compartment was entered and a probe was used to probe the medial meniscus. The was a complex, multilayered tear of the posterior horn. There was associated grade 2 and grade 3 chondromalacia of the medial femoral condyle. The notch was entered. The ACL and PCL were probed and noted to be intact. The lateral compartment was entered and there was no significant lateral pathology. A combination of straight and angled meniscal basket punches were used to resect the torn portion of the medial meniscus. The arthroscopic shaver was then utilized to remove the meniscal fragments and shape and smooth the meniscus to a firm and stable rim. The shaver was then used to perform a chondroplasty on the [facility] ]. At this point all instruments were removed. Arthroscopic portals were closed in a standard fashion. 30 cc of 0.5% Marcaine was then injected into the knee. Well-padded nonadherent dressing was applied and secured with an Pasquale wrap. Tourniquet was deflated and patient was taken to the recovery room in stable condition. Type of Anesthesia:: General Anesthesiologist: Jose Ramon Zhang Estimated Blood Loss (mL): minimal - Admit VTE Documentation VTE Present on Admission: No VTE Mechan Device Prophylaxis: SCD's, Thigh High TISH Hose VTE Pharm Prophylaxis ordered?: No Reason prophylaxis not ordered:: Treatment Not Indicated
--- NOTE | 2018-10-09 14:22 | OP.PCM_ITS ---
Report of Operation Date of Procedure: 10/09/18 Pre-Operative Diagnosis: Internal derangement right knee Post-Operative Diagnosis: MMT, grade 3 chondromalacia [facility] Surgery/Procedure Performed:: Diagnostic and operative arthroscopy right knee Description of Surgical Findings:: Primary Surgeon/Physician: Juanito Cummins taxation agent: none taxation agent: Pre-Operative Diagnosis: Medial meniscus tear and arthritis right knee Post-Operative Diagnosis: same Surgery/Procedure Performed: Arthroscopic partial medial meniscectomy and chondroplasty of the medial femoral condyle Estimated Blood Loss: minimal Specimen's Removed: none Type of Anesthesia: general ASA Class: 2 Indications: [ ] Patient has failed conservative measures and at this point has elected to undergo the above procedure. Procedure Description: The patient was greeted in the preoperative area. The [right ] knee was marked with surgical marker. Preoperative antibiotics were administered. The patient was then taken to the operating suite and placed in a supine position on operating room table. After adequate anesthesia was obtained and airway was secured a well-padded tourniquet was placed on patient's affected extremity. Leg was then prepped and draped in usual sterile fashion. Surgical timeout was performed and confirmed with all present and surgery was commenced. Standard anteromedial anterolateral portals were made and a 30? arthroscope was then inserted into the knee. [The patellofemoral joint revealed no significant chondromalacia. The medial compartment was entered and a probe was used to probe the medial meniscus. The was a complex, multilayered tear of the posterior horn. There was associated grade 2 and grade 3 chondromalacia of the medial femoral condyle. The notch was entered. The ACL and PCL were probed and noted to be intact. The lateral compartment was entered and there was no significant lateral pathology. A combination of straight and angled meniscal basket punches were used to resect the torn portion of the medial meniscus. The arthroscopic shaver was then utilized to remove the meniscal fragments and shape and smooth the meniscus to a firm and stable rim. The shaver was then used to perform a chondroplasty on the [facility] ]. At this point all instruments were removed. Arthroscopic portals were closed in a standard fashion. 30 cc of 0.5% Marcaine was then injected into the knee. Well-padded nonadherent dressing was applied and secured with an Pasquale wrap. Tourniquet was deflated and patient was taken to the recovery room in stable condition. Type of Anesthesia:: General Anesthesiologist: Jose Ramon Zhang Estimated Blood Loss (mL): minimal - Admit VTE Documentation VTE Present on Admission: No VTE Mechan Device Prophylaxis: SCD's, Thigh High TISH Hose VTE Pharm Prophylaxis ordered?: No Reason prophylaxis not ordered:: Treatment Not Indicated
== END 2018-10-09 14:30 | disposition home or self-care (01) ==
LOC: SDC 09:41 → AC 10:02
PROVIDERS: Family Provider Nurse Practitioner; PCP Nurse Practitioner; Referring Provider Orthopaedic Surgery; Visit Provider Orthopaedic Surgery
PROC: (CPT 29870; principal; 2018-10-09 11:15)
DX: S83.241A Other tear of medial meniscus, current injury, right knee, initial encounter (principal); W23.0XXA Caught, crushed, jammed, or pinched between moving objects, initial encounter; Y93.9 Activity, unspecified; Y92.9 Unspecified place or not applicable; K21.9 Gastro-esophageal reflux disease without esophagitis; Z85.820 Personal history of malignant melanoma of skin; Z87.891 Personal history of nicotine dependence; Z79.899 Other long term (current) drug therapy; Z79.82 Long term (current) use of aspirin; E78.00 Pure hypercholesterolemia, unspecified
CPT/HCPCS: 01400; 29881; 36415; 80048; 85027; 93005; J7120; J2405

== ENCOUNTER → 2018-11-01 10:29 | Outpatient (CLI) | payer OTHER, SELFPAY ==
[2018-07-10 08:04] VITALS: BMI 20.2
[2018-10-09 09:57] VITALS: BMI 20.4
[2018-11-01 12:01] LABS: ALB/GLOB Ratio 1.4 RATIO (0.9-2.4); AST(SGOT) 28 U/L (15-37); Alanine Aminotransfer ALT/SGPT 26 U/L (13-56); Albumin, Serum 4.2 g/dL (3.2-5.0); Alkaline Phosphatase 102 U/L (45-117); Anion Gap 7 (5-15); BUN 19 mg/dL (7-18); BUN/Creat Ratio 24.4 RATIO (10-20); Calcium,Total 8.7 mg/dL (8.5-10.1); Chloride 105 mmol/L (98-107); Creatinine, Serum 0.78 mg/dL (0.55-1.02); EST Glomerular Filtration Rate 80 mL/min (>60); Est Glom Filt Rate - Afr Amer 97 mL/min (>60); Glucose 94 mg/dL (74-106); Iron 75 ug/dL (50-170); Iron Binding Capacity,Total 340 ug/dL (250-450); Protein, Total 7.2 g/dL (6.4-8.2); Sodium Level 137 mmol/L (136-145)
== END ==
PROVIDERS: Family Provider Nurse Practitioner; PCP Nurse Practitioner; Referring Provider Nurse Practitioner; Visit Provider Nurse Practitioner
DX: E78.00 Pure hypercholesterolemia, unspecified (principal); D50.9 Iron deficiency anemia, unspecified; R79.9 Abnormal finding of blood chemistry, unspecified
CPT/HCPCS: 36415; 80053; 83540; 83550

== ENCOUNTER 2018-12-20 16:19 | Emergency (ER) | payer OTHER, SELFPAY ==
[2018-10-09 09:57] VITALS: BMI 20.4
[2018-12-20 16:20] VITALS: BP 125/97; PULSE 89; RESP 18; TEMP 36.1; O2SAT 99; BMI 20.1
--- NOTE | 2018-12-20 16:34 | CT_ITS ---
STUDY: CT FACIAL BONES WITHOUT CONTRAST REASON FOR EXAM: Female, 62 years old. Head on left side of face. RADIATION DOSAGE (If Supplied By Facility): CTDIvol = ( 29.38 ) mGy, DLP = ( 540.11 ) mGycm TECHNIQUE: The patient was scanned in a multi detector CT scanner. Sagittal and coronal images were reconstructed. Individualized dose optimization techniques were used for this CT. COMPARISON: December 12, 2016. FINDINGS: Normal soft tissue structures. Normal orbital rawls and orbital contents. Normal nasal bones and anterior nasal spine. Normal facial bones. There is no demonstrated fracture. Normal visualized paranasal sinuses. CT/Sinus/Facial Bone IMPRESSION: No acute osseous injury. Electronically Signed: Dasia Montelongo MD at 17:45 EDT Tel , Service support ,
[2018-12-20] MEDS: Ondansetron ODT 4 MG Tablet PO (16:38)
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
== END 2018-12-20 18:11 | disposition home or self-care (01) ==
PROVIDERS: Emergency Provider Emergency Medicine; Family Provider Nurse Practitioner; PCP Nurse Practitioner
DX: S00.83XA Contusion of other part of head, initial encounter (principal); S50.11XA Contusion of right forearm, initial encounter; R40.2410 Glasgow coma scale score 13-15, unspecified time; Y04.2XXA Assault by strike against or bumped into by another person, initial encounter; Y93.9 Activity, unspecified; Y92.9 Unspecified place or not applicable
CPT/HCPCS: 70486; 99283

== ENCOUNTER → 2019-01-17 | Outpatient (CLI) | payer OTHER, SELFPAY ==
[2019-01-08 13:52] VITALS: BMI 20.1
[2019-01-17 10:12] LABS: Absolute Lymphocyte Count 1.75 X10^3/ul (0.83-4.51); Absolute Neutrophil Count 3.4 X10^3/uL (2.0-7.7); Basophil# 0.03 X10^3/uL; Basophil% 0.5 % (0-1); Eosinophil# 0.15 X10^3/uL; Eosinophils% 2.6 % (0-5); Hematocrit 37.5 % (37-47); Hemoglobin 12.7 g/dl (12.0-15.0); Lymphocyte # 1.75 X10^3/ul (4.0); Lymphocyte % 30.5 % (19-41); Mean Corp Hgb Conc 33.9 g/gl (32-36); Mean Corpuscular Volume 91.5 fL (81-99); Mean Platelet Vol. 10.2 fl (6.2-12.0); Monocyte# 0.43 X10^3/uL; Monocyte% 7.5 % (0-10); Neutrophil # 3.36 X10^3/uL (2.7-7.7); Neutrophil % 58.7 % (47-70); POSITIVE COUNT NO; POSITIVE DIFFERENTIAL NO; POSITIVE MORPHOLOGY NO; Platelet Count 294 K/mm3 (150-450); RBC Distribution Width CV 13.5 % (11.6-14.6); RBC Distribution Width SD 44.1 fl (35.1-43.9); White Blood Count 5.7 K/mm3 (4.4-11.0)
[2019-01-17 10:22] LABS: Prothrombin Time (Protime)PT. 12.5 SECONDS (11.7-14.9)
[2019-01-17 10:23] LABS: Partial Thromboplast Time 33.8 Seconds (24.1-36.2)
[2019-01-17 10:27] LABS: ALB/GLOB Ratio 1.1 RATIO (0.9-2.4); AST(SGOT) 29 U/L (15-37); Alanine Aminotransfer ALT/SGPT 26 U/L (13-56); Albumin, Serum 3.6 g/dL (3.2-5.0); Alkaline Phosphatase 92 U/L (45-117); Anion Gap 8 (5-15); BUN 15 mg/dL (7-18); BUN/Creat Ratio 21.3 RATIO (10-20); Calcium,Total 8.6 mg/dL (8.5-10.1); Chloride 107 mmol/L (98-107); EST Glomerular Filtration Rate 90 mL/min (>60); Est Glom Filt Rate - Afr Amer 109 mL/min (>60); Globulin 3.3 g/dL (2.2-4.2); Glucose 89 mg/dL (74-106); Potassium 4.1 mmol/L (3.5-5.1); Protein, Total 6.9 g/dL (6.4-8.2); Sodium Level 141 mmol/L (136-145)
== END | disposition home or self-care (01) ==
LOC: MTLAB 08:01
PROVIDERS: Family Provider Nurse Practitioner; PCP Nurse Practitioner; Referring Provider Nurse Practitioner; Visit Provider Nurse Practitioner
DX: Z01.818 Encounter for other preprocedural examination (principal); D64.9 Anemia, unspecified
CPT/HCPCS: 36415; 80053; 85025; 85610; 85730

== ENCOUNTER 2019-04-03 08:00 | Outpatient (RCR) | payer OTHER, SELFPAY ==
[2019-01-08 13:52] VITALS: BMI 20.1
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
--- NOTE | 2019-07-25 09:49 | HP.PT.NRP ---
HP - Discharge Summary (1) - Patient Information CHANTAL DELA CRUZ was seen in my office for initial evaluation on 02/09/19. The following Plan of Care was established for this patient: Initial Frequency: 1x/Week Initial Duration: 6 Weeks - Anticipated Interventions Patient/Client Instruction: Educate patient on: Benefits of Fitness Program Therapeutic Exercise to Include: Strength training, Endurance training, Coordination, Body mechanics, Postural training, Flexibilty training, Passive ROM, Active ROM, Scapular Strength/Stabilization For the Purpose of:: To improve muscle performance and motor function TENS: Yes Cryotherapy (ice pack, ice massage): Yes Thermo therapy (hot pack): Yes Ultrasound (thermal/non thermal): Yes For the Purpose of:: To decrease pain This patient was last seen in our office . Pertinent comments regarding their Physical therapy will appear below: Patient has not attended in 4 weeks under this chart- d/c and continue with other chart. At this point I will be discontinuing this patient from physical therapy. I would be happy to see this patient again in the future if found appropriate by the physician. Thank you! Caro Olvera DPT
== END 2019-04-03 19:00 | disposition home or self-care (01) ==
LOC: PT 08:00
PROVIDERS: Family Provider Nurse Practitioner; PCP Nurse Practitioner; Referring Provider Orthopaedic Surgery; Visit Provider Orthopaedic Surgery
DX: S40.012D Contusion of left shoulder, subsequent encounter (principal); M75.122 Complete rotator cuff tear or rupture of left shoulder, not specified as traumatic
CPT/HCPCS: 97014; 97110; 97140; 97162; G0283

== ENCOUNTER → 2019-04-17 | Outpatient (CLI) | payer OTHER, SELFPAY ==
[2019-01-08 13:52] VITALS: BMI 20.1
--- NOTE | 2019-04-17 11:15 | BI_ITS ---
MAMMOGRAPHY - BILATERAL SCREENING REASON FOR EXAM: Female, 63 years old. Routine annual screening examination. PERTINENT HISTORY: Non-contributory. Remote left stereotactic breast biopsy. TECHNIQUE: Digital bilateral breast eliza (3D mammographic acquisition) in the CC and MLO projections. 2-D mediolateral oblique (MLO) and craniocaudad (CC) views of both breasts were obtained. CAD: Full Field Digital Mammography with Computer Added Detection was performed. COMPARISON: Comparison is made with prior study dated April 13, 2018 and April 08, 2017. FINDINGS: Breast Composition: The breasts are heterogeneously dense, which may obscure small masses. There are no dominant masses or suspicious calcifications. 2 tissue markers are once again seen in the upper midportion of the left breast. No other significant abnormalities are identified. There has been no significant change since the prior study. BI/SCREEN MAMM (CAD) W/ELIZA BILAT IMPRESSION: Stable bilateral screening mammogram. Yearly follow-up mammogram recommended. (A) ASSESSMENT CATEGORY: BIRADS Category 2: Benign. A letter regarding these results will be sent to the patient by the facility within 30 days. Approximately 10% of breast cancers are not detected by mammography. A normal mammogram should not delay biopsy of a clinically suspicious abnormality. [id number] Electronically Signed: Milad Helms, at 13:36 EDT , Service support ,
== END | disposition home or self-care (01) ==
LOC: OPBI 11:13
PROVIDERS: Family Provider Nurse Practitioner; PCP Nurse Practitioner; Referring Provider Nurse Practitioner; Visit Provider Nurse Practitioner
DX: Z12.31 Encounter for screening mammogram for malignant neoplasm of breast (principal)
CPT/HCPCS: 77063; 77067

== ENCOUNTER → 2019-05-11 11:59 | Outpatient (CLI) | payer OTHER, SELFPAY ==
[2019-01-08 13:52] VITALS: BMI 20.1
[2019-05-11 13:20] LABS: Prothrombin Time (Protime)PT. 13.1 SECONDS (11.7-14.9)
== END ==
PROVIDERS: Family Provider Nurse Practitioner; PCP Nurse Practitioner; Referring Provider Nurse Practitioner; Visit Provider Nurse Practitioner
DX: Z01.818 Encounter for other preprocedural examination (principal)
CPT/HCPCS: 36415; 85610

== ENCOUNTER → 2019-05-21 13:10 | Outpatient (CLI) | payer SELFPAY ==
[2019-01-08 13:52] VITALS: BMI 20.1
--- NOTE | 2019-05-21 13:14 | CT_ITS ---
STUDY: CARDIAC CALCIUM SCORING - CT CHEST REASON FOR EXAM: Female, 63 years old. Screening RADIATION DOSAGE (If Supplied By Facility): CTDIvol = ( 12.19 ) mGy, DLP = ( 219.42 ) mGycm TECHNIQUE: Axial non-enhanced images were acquired through the heart for the sole purpose of measuring coronary artery calcium. Individualized dose optimization techniques were used for this CT. COMPARISON: None. FINDINGS: Please see the patient's medical record for a personalized calcium score. There are mild emphysematous changes noted in the lungs. There is atelectasis of the lung bases. The visualized soft tissues are within normal limits. CT/Limited Chest CT w/CCTA IMPRESSION: Please see the patient's medical record for a person of this calcium score. Mild emphysema. Bibasilar atelectasis. Please go to: [email or web address] , for a description of the calculator. Electronically Signed: Josesito Hernandez, at 14:13 EDT Tel , Service support ,
[2019-05-21 13:24] VITALS: BP 111/71; PULSE 64; RESP 16; O2SAT 97; BMI 20.6
--- NOTE | 2019-05-21 18:29 | CA.SCORE ---
Calcium Scoring Date of Study:: 05/21/19 Coronary Calcium Scoring: High-resolution Computed Tomographic imaging of the chest was performed on 05/21/2019 with particular attention paid to the coronary arteries. Images from the examination were analyzed for the presence and extent of coronary artery calcification , using coronary calcium quantification software. The patient tolerated the procedure well and there were no complications. The results of the coronary calcification analysis are provided below. - Findings Left Main (LM): 11.9 Left Anterior Descending (LAD): 0 Left Circumflex (LCX): 0 Right Coronary Artery (RCA): 0 Total Agatston Score: 11.9 Percentile Ranking: Percentile ranking: Between 50 and 75% of patients with the same gender/similar age had the same/lower scores. Calcium Scoring Interpretation: 0 No identifiable atherosclerotic plaque. Very low cardiovascular disease risk. <5% chance of presence coronary artery disease A Negative Examination 1-10 Minimal Plaque burden. Significant coronary artery disease very unlikely. 11-100 Mild plaque burden. Likely mild or minimal coronary atherosclerosis. 101-400 Moderate plaque burden Moderate non-obstructive coronary artery disease highly likely. Over 400 Extensive plaque burden. High likelihood of at least one significant coronary stenosis (>50% diameter) Calcium Score: 11 - 100 Likely mild or minimal coronary stenosis - Continue cardiovascular risk factor evaluation and care as deemed appropriate.
== END ==
PROVIDERS: Family Provider Nurse Practitioner; PCP Nurse Practitioner; Referring Provider Nurse Practitioner; Visit Provider Nurse Practitioner
DX: Z13.6 Encounter for screening for cardiovascular disorders (principal)
CPT/HCPCS: 75571; 76380

== ENCOUNTER → 2019-08-09 08:36 | Outpatient (CLI) | payer OTHER, SELFPAY ==
[2019-05-21 13:24] VITALS: BMI 20.6
[2019-08-09 10:27] LABS: Absolute Lymphocyte Count 2.26 X10^3/uL (0.83-4.51); Absolute Neutrophil Count 1.9 X10^3/uL (2.0-7.7); Basophil# 0.04 X10^3/uL; Basophil% 0.9 % (0-1); Eosinophil# 0.05 X10^3/uL; Eosinophils% 1.1 % (0-5); Hematocrit 39.8 % (37-47); Hemoglobin 13.2 g/dL (12.0-15.0); Lymphocyte # 2.26 X10^3/ul (4.0); Lymphocyte % 49.6 % (19-41); Mean Corp Hgb Conc 33.2 g/dL (32-36); Mean Corpuscular Volume 93.4 fL (81-99); Mean Platelet Vol. 9.9 fl (6.2-12.0); Monocyte# 0.27 X10^3/uL; Monocyte% 5.9 % (0-10); NRBC Flagged by Analyzer 0 % (0-5); Neutrophil # 1.93 X10^3/uL (2.7-7.7); Neutrophil % 42.3 % (47-70); Platelet Count 328 K/mm3 (150-450); RBC Distribution Width CV 13.7 % (11.6-14.6); RBC Distribution Width SD 46.9 fl (35.1-43.9); Red Blood Count 4.26 M/mm3 (4.2-5.4); White Blood Count 4.6 K/mm3 (4.4-11.0)
[2019-08-09 10:34] LABS: Prothrombin Time (Protime)PT. 13.4 SECONDS (11.7-14.9)
[2019-08-09 11:12] LABS: ALB/GLOB Ratio 1.3 RATIO (0.9-2.4); AST(SGOT) 28 U/L (15-37); Alanine Aminotransfer ALT/SGPT 18 U/L (13-56); Alkaline Phosphatase 97 U/L (45-117); Anion Gap 6 (5-15); BUN 15 mg/dL (7-18); BUN/Creat Ratio 17.9 RATIO (10-20); Calcium,Total 8.7 mg/dL (8.5-10.1); Chloride 111 mmol/L (98-107); Cholesterol 195 mg/dL (200); Creatinine, Serum 0.84 mg/dL (0.55-1.02); EST Glomerular Filtration Rate 73 mL/min (>60); Est Glom Filt Rate - Afr Amer 88 mL/min (>60); Globulin 3.1 g/dL (2.2-4.2); Glucose 86 mg/dL (74-106); High Density Lipoprotein 84 mg/dL; Potassium 4.2 mmol/L (3.5-5.1); Protein, Total 7.1 g/dL (6.4-8.2); Sodium Level 142 mmol/L (136-145); Thyroid Stim Hormone (TSH) 1.72 uIU/mL (0.358-3.74); Triglycerides 110 mg/dL; Very Low Density Lipoprotein 22 mg/dL (5-40)
== END ==
PROVIDERS: Family Provider Nurse Practitioner; PCP Nurse Practitioner; Referring Provider Nurse Practitioner; Visit Provider Nurse Practitioner
DX: Z01.818 Encounter for other preprocedural examination (principal); D50.9 Iron deficiency anemia, unspecified
CPT/HCPCS: 36415; 80053; 80061; 84443; 85025; 85610

== ENCOUNTER 2019-08-10 08:30 | Outpatient (RCR) | payer OTHER, SELFPAY ==
[2019-05-21 13:24] VITALS: BMI 20.6
--- NOTE | 2019-06-08 10:08 | HP.PTEVAL ---
Patient's Visit Information CHANTAL DELA CRUZ is a 63 year old F referred to Physical Therapy by Pineda Dubon MD with a diagnosis of Left Shoulder Surgery. Date of Evaluation: 06/08/19 Physical Therapist: Caro Olvera DPT - Visit Plan Frequency: 1x/Week Duration: 6 Weeks Plan: New Goals will be established as MD lifts restrictions. SLOW SLOW SLOW progression of exercises and PROM. Current Restrictions: Forward elevation: 70 degrees, ER: neutral - Subjective Findings: Evalution Subjective from 02/09/19 for background information: Patient reports left arthroscopic mobilization of the cuff with lysis of adhesion and mobilization and GH debridement- RTC surgery on by Dr. Dubon 02/01/19. Throw against the wall at work August 11, 2017- had 2 MRI's- had a repair in 2010. Right hand dominate. Home after surgery- does have help available- but does live alone. The shoulder at this point is really tender. Worst in last 48 hours: 5/10 Pain in the shoulder itself- no pain radiating. No N/T in the fingers. Describes the pain as dull and achy. Best: 08/31. Agg: nothing specific. Is in the sling 24 hours a day. Eases: pain medication, ices a lot. 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 Reclyner and Bed- goes back and forth- is normally a belly sleeper. 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 6 weeks no driving, 6 weeks 1 day a week therapy, 6 weeks of a sling. Goes back to February 19. No GILBERT, blurred vision, dizziness. PMHx: Asthma- left RTC repair 2010, trigger release on left hand, carpal tunnel on left hand- other surgeries but nothing with the left. Meds: Percoset. Sunjective 06/08/19 Reinjured her shoulder by putting on her bra- had surgery again on 05/28/[address] Dubon. Worst: 03/31 Agg: can be doing nothing Eases: ice best: 08/31. reports pain is dully and achy and in the whole shoulder joint- radiates to the deltoid. wears sling at all times. She reports no GILBERT, blurred vision, dizziness. No change in PMHX/Meds. - Objective Posture: FH, RS, increased guarding of the left UE with a pillow sling. Gait: decreased trunk rotation and arm swing due to sling. Palpation: tender along anterior shoulder. ROM: AROM of the elbow, wrist, fingers: WNL Shoulder:PROM only- flexion: 70 degrees, IR to belly ER: neutral- did not push into pain-SLOW and controlled. Strength: not tested secondary to protocol. - Goals Goal 1:: Patient will be I with HEP and progression Goal Time Frame: 4-6 Weeks Goal 2:: Patient will progress with ROM as allowed by MD protocol in flexion/ER Goal Time Frame: 4-6 Weeks - Rehabilitation Potential Physical Therapy Diagnosis: Patient presents with hypomobility- she has decreased ROM and functional mobility s/p shoulder surgery as expected limiting participation in ADL's. Rehabilitation Potential: Fair - Anticipated Interventions Patient/Client Instruction: Educate patient on: Benefits of Fitness Program Therapeutic Exercise to Include: Strength training, Endurance training, Coordination, Body mechanics, Postural training, Passive ROM, Active ROM Comment: as per MD protocol For the Purpose of:: To improve muscle performance and motor function Manual Therapy Techniques to Include: Mobilization, Passive ROM, Soft tissue mobilization Comment: as needed per protocol For the Purpose of:: To increase ROM TENS: Yes Cryotherapy (ice pack, ice massage): Yes Thermo therapy (hot pack): Yes Thank you for the opportunity to evaluate your patient. For Medicare and Medicare HMO plans, please review the plan of care and approve it. It will need to be FAXED BACK to us at [phone] for Medicare purposes. For Medicare only, by signing this I certify the plan of care. Please let me know if there are questions or concerns regarding this plan of care. Physician Signature: Date:
--- NOTE | 2020-01-22 08:47 | HP.PT.NRP ---
CHANTAL DELA CRUZ was seen in my office for initial evaluation on 06/08/19. The following Plan of Care was established for this patient: Initial Frequency: 1x/Week Initial Duration: 6 Weeks Patient/Client Instruction: Educate patient on: Benefits of Fitness Program Therapeutic Exercise to Include: Strength training, Endurance training, Coordination, Body mechanics, Postural training, Passive ROM, Active ROM For the Purpose of:: To improve muscle performance and motor function Manual Therapy Techniques to Include: Mobilization, Passive ROM, Soft tissue mobilization Comment: as needed per protocol For the Purpose of:: To increase ROM TENS: Yes Cryotherapy (ice pack, ice massage): Yes Thermo therapy (hot pack): Yes This patient was last seen in our office . Pertinent comments regarding their Physical therapy will appear below: New chart- please d/c this chart. At this point I will be discontinuing this patient from physical therapy. I would be happy to see this patient again in the future if found appropriate by the physician. Thank you! Caro Olvera DPT
== END 2019-08-10 19:00 | disposition home or self-care (01) ==
LOC: PT 08:30
PROVIDERS: Family Provider Nurse Practitioner; PCP Nurse Practitioner; Referring Provider Orthopaedic Surgery; Visit Provider Orthopaedic Surgery
DX: M75.122 Complete rotator cuff tear or rupture of left shoulder, not specified as traumatic (principal); S40.012D Contusion of left shoulder, subsequent encounter
CPT/HCPCS: 97161; 97530

== ENCOUNTER 2019-08-31 09:26 | Emergency (ER) | payer OTHER, SELFPAY ==
[2019-05-21 13:24] VITALS: BMI 20.6
[2019-08-31 09:27] VITALS: BP 120/81; PULSE 118; RESP 17; TEMP 37.2; O2SAT 98; BMI 19.3
[2019-08-31] MEDS: Ondansetron 4 MG/2 ML Vial IV (10:05)
[2019-08-31] MEDS: 0.9% Normal Saline 1,000 ML 1000 ML IV (10:05)
[2019-08-31] MEDS: HYDROmorphone 1 MG/ML Syringe IV ×2 (10:05→14:42)
[2019-08-31 10:27] LABS: ALB/GLOB Ratio 1.1 RATIO (0.9-2.4); AST(SGOT) 36 U/L (15-37); Alanine Aminotransfer ALT/SGPT 38 U/L (13-56); Albumin, Serum 4.2 g/dL (3.2-5.0); Alkaline Phosphatase 127 U/L (45-117); Anion Gap 7 (5-15); BUN 20 mg/dL (7-18); Calcium,Total 9.5 mg/dL (8.5-10.1); Chloride 110 mmol/L (98-107); EST Glomerular Filtration Rate 60 mL/min (>60); Est Glom Filt Rate - Afr Amer 72 mL/min (>60); Estimated Creatinine Clearance 51.38 ml/min; Globulin 3.9 g/dL (2.2-4.2); Glucose 134 mg/dL (74-106); Potassium 3.4 mmol/L (3.5-5.1); Protein, Total 8.1 g/dL (6.4-8.2); Sodium Level 140 mmol/L (136-145)
[2019-08-31 10:36] LABS: Absolute Lymphocyte Count 0.39 X10^3/uL (0.83-4.51); Absolute Neutrophil Count 6.5 X10^3/uL (2.0-7.7); Basophil# 0.01 X10^3/uL; Basophil% 0.1 % (0-1); Eosinophil# 0.09 X10^3/uL; Eosinophils% 1.2 % (0-5); Hematocrit 40.7 % (37-47); Hemoglobin 13.7 g/dL (12.0-15.0); Lymphocyte # 0.39 X10^3/ul (4.0); Lymphocyte % 5.3 % (19-41); Mean Corp Hgb Conc 33.7 g/dL (32-36); Mean Corpuscular Hgb 30.8 pg (27.0-32.0); Mean Corpuscular Volume 91.5 fL (81-99); Mean Platelet Vol. 9.3 fl (6.2-12.0); Monocyte# 0.35 X10^3/uL; Monocyte% 4.7 % (0-10); NRBC Flagged by Analyzer 0 % (0-5); Neutrophil # 6.53 X10^3/uL (2.7-7.7); Neutrophil % 88.2 % (47-70); POSITIVE DIFFERENTIAL YES; POSITIVE MORPHOLOGY YES; Platelet Count 397 K/mm3 (150-450); RBC Distribution Width CV 13.3 % (11.6-14.6); RBC Distribution Width SD 45.4 fl (35.1-43.9); Red Blood Count 4.45 M/mm3 (4.2-5.4); White Blood Count 7.4 K/mm3 (4.4-11.0)
[2019-08-31 10:41] LABS: Differential Indicated SCAN CRITERIA MET
[2019-08-31] MEDS: 0.9% Normal Saline 1,000 ML 999 ML IV ×2 (12:16→13:22)
[2019-08-31 13:21] VITALS: BP 117/81; PULSE 87; RESP 16; O2SAT 100
--- NOTE | 2019-08-31 15:24 | ED.DCSUM_ITS ---
- ER Visit Summary Date of Service: 08/31/19 Chief Complaint: Vomiting and diarrhea History of Present Illness: The patient is a 63 F who sees Becka asher. She reports that she has vomiting diarrhea that began 2 days ago. She is vomited multiple times. No blood or emesis. She has had even more frequent diarrhea. No blood in her stools or black tarry stools. She reports that she has been on antibiotics recently. She was on doxycycline from August 20 to August 26. She was on a Z-Joby prior to having surgery on her left shoulder. Patient also reports that she has cramping sharp abdominal pain is 9-10 worsened 4-10 currently. Is worsened by vomiting relieved by nothing. Patient had left rotator cuff repair by Dr. Dubon on August 20. She reports that she has an achy pain in the shoulder Zeta 10 severity. She is supposed to be taking Percocet, but she is unable to keep this down. She denies any fever or chills. Physical Examination: Vitals: Stable. Afebrile. General: Well-nourished and well-developed. Head: Normocephalic atraumatic. Neck: Supple, no lymphadenopathy. No JVD. Nontender. Cardiovascular: Regular rate and rhythm. No murmurs. Respiratory: No respiratory distress. Clear to auscultation bilaterally. Abdominal: Soft, nontender, nondistended, normal bowel sounds. No guarding, rebound, or peritoneal signs. Back: Nontender. Extremities: Nontender, no edema. Incision to the anterior left shoulder is healed well. There is no erythema or warmth to suggest a septic joint. She has minimal pain with palpation or short arc movements. Skin: Normal color, no rash. Neurologic: Alert and oriented ?3. Cranial nerves II through XII are intact. Normal strength and sensation. Psych: Normal affect. Test Results: CBC shows segmented feels 88 lymphocytes 5. Chem-7 shows potassium 3.4, chloride 110, glucose 134, BUN 20. LFTs show total bili 0.1 and alk phos 127. Emergency Department Course and Treatment: Patient had an IV placed. She was given Dilaudid and Zofran IV. She was given 3 years of normal saline. Unfortunately she has not been able to give a stool sample. Treatment Plan: I did discuss the patient with the recent antibiotics there is a risk for C. difficile infection. She will be written for an outpatient test for this. She will be placed on Zofran and Phenergan at home and instructed to follow-up with her primary care physician 1 to 2 days if not improving. Return to the emergency department for any worsening symptoms. Disposition: To home in improved and stable condition. Impression: 1. Vomiting/diarrhea. 2. Status post left rotator cuff repair August 20. This note was generated with [employer] dictation software. It may contain incorrect words, spelling, and punctuation that were not noted in review of the chart prior to signing ED Disposition - Plan for ED Patient: Disposition: Home or Assisted Living Instructions: VOMITING AND DIARRHEA, Nonspecific (Adult) Prescriptions: proMETHazine tablet [Phenergan] 25 mg PO Q6H PRN PRN #10 tab PRN Reason: Nausea Transmission Status: Received by [facility] Ondansetron [Zofran Odt] 4 mg PO Q8H PRN PRN #10 tab PRN Reason: Nausea Transmission Status: Received by [facility] Referrals: Becka Gallagher NP-C [Primary Care Provider] - 1-2 Days if not improving
[2019-08-31 16:14] VITALS: BP 123/78; PULSE 86; PULSE 87; RESP 17; RESP 18; O2SAT 100; O2SAT 98
== END 2019-08-31 16:24 | disposition home or self-care (01) ==
PROVIDERS: Emergency Provider Emergency Medicine; Family Provider Nurse Practitioner; PCP Nurse Practitioner
DX: R11.2 Nausea with vomiting, unspecified (principal); R19.7 Diarrhea, unspecified; Z98.890 Other specified postprocedural states; R51 Headache; R10.9 Unspecified abdominal pain
CPT/HCPCS: 80053; 85025; 96361; 96374; 96375; 96376; 99283; J7030; A4216; J2405

== ENCOUNTER → 2019-09-01 11:00 | Outpatient (CLI) | payer OTHER, SELFPAY ==
[2019-08-31 09:27] VITALS: BMI 19.3
== END ==
PROVIDERS: Family Provider Nurse Practitioner; PCP Nurse Practitioner; Referring Provider Emergency Medicine; Visit Provider Emergency Medicine
DX: R19.7 Diarrhea, unspecified (principal)
CPT/HCPCS: 87493

== ENCOUNTER → 2019-09-10 15:46 | Outpatient (CLI) | payer OTHER, SELFPAY ==
[2019-08-31 09:27] VITALS: BMI 19.3
[2019-09-10 17:33] LABS: Absolute Lymphocyte Count 3.44 X10^3/uL (0.83-4.51); Absolute Neutrophil Count 5.5 X10^3/uL (2.0-7.7); Basophil# 0.03 X10^3/uL; Basophil% 0.3 % (0-1); Eosinophil# 0.05 X10^3/uL; Eosinophils% 0.5 % (0-5); Hematocrit 36.2 % (37-47); Hemoglobin 12.2 g/dL (12.0-15.0); Lymphocyte # 3.44 X10^3/ul (4.0); Lymphocyte % 36.2 % (19-41); Mean Corp Hgb Conc 33.7 g/dL (32-36); Mean Corpuscular Hgb 30.7 pg (27.0-32.0); Monocyte# 0.49 X10^3/uL; Monocyte% 5.2 % (0-10); NRBC Flagged by Analyzer 0 % (0-5); Neutrophil # 5.45 X10^3/uL (2.7-7.7); Neutrophil % 57.3 % (47-70); Platelet Count 393 K/mm3 (150-450); RBC Distribution Width CV 13.5 % (11.6-14.6); RBC Distribution Width SD 45.7 fl (35.1-43.9); Red Blood Count 3.98 M/mm3 (4.2-5.4); White Blood Count 9.5 K/mm3 (4.4-11.0)
[2019-09-13 16:08] LABS: Alkaline Phosphatase, Serum 91 IU/L (39-117); Bone Fraction 42 % (14-68); Liver Fraction 58 % (18-85)
[2019-09-13 17:05] LABS: Intestinal Fraction 0 % (0-18)
== END ==
LOC: LAB.FUTURE 15:48 → MTLAB 15:53
PROVIDERS: PCP Nurse Practitioner; Referring Provider Nurse Practitioner; Visit Provider Nurse Practitioner
DX: R79.9 Abnormal finding of blood chemistry, unspecified (principal)
CPT/HCPCS: 36415; 84075; 84080; 85025

== ENCOUNTER 2019-11-20 09:00 | Outpatient (RCR) | payer OTHER, SELFPAY ==
--- NOTE | 2019-10-09 08:49 | HP.PTEVAL_ITS ---
Patient's Visit Information CHANTAL DELA CRUZ is a 63 year old F referred to Physical Therapy by Pineda Dubon MD with a diagnosis of Left RTC Repair. Date of Evaluation: 10/09/19 Physical Therapist: Caro Olvera DPT - Visit Plan Frequency: 1x/Week Duration: 6 Weeks Plan: Follow MD recommendations- No forward flexion past 70 degrees- ER to 15-20 degrees - Subjective Findings: Patient reports she had her 4th RTC repair on her left shoulder Aug 20, [address] Dubon- has been in a sling since. Saw Dr. Dubon 10/02/2019 has her returning to PT at this time with limitations. Shoulder is okay at this point. Pain at worst: 4-5/10 ice makes the pain go down to 1/10. Agg: pulling her pants up, moving her arm. Best: ice. Sleep: Tylenol PM in her bed and she is okay- on her belly with a pillow under her- not in the sling. 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 - Objective Posture: Guarding of the left UE. Observation: sling on left shoulder. Palpation: tender throughout shoulder- upper trap to the tip of the acromion- to the biciptial groove and down to the elbow. ROM: AROM: elbow: WNL, Cervical: WNL, PROM Shoulder: Flexion: 65 degrees, ER: 15 degrees- painful end feel- did not push into pain. Strength: not tested - Goals Goal 1:: Patient will be I with HEP and progression Goal Time Frame: 4-6 Weeks Goal 2:: Patient will demo ROM as appropriate per MD Goal Time Frame: 4-6 Weeks - Rehabilitation Potential Physical Therapy Diagnosis: Patient presents with hypomobility- she has decreased ROM, strength and muscular endurance s/p multiple surgerical interventions. Rehabilitation Potential: Fair - Anticipated Interventions Patient/Client Instruction: Educate patient on: Benefits of Fitness Program Therapeutic Exercise to Include: Strength training, Endurance training, Body mechanics, Postural training, Flexibilty training, Passive ROM, Active ROM, Scapular Strength/Stabilization For the Purpose of:: To improve muscle performance and motor function Manual Therapy Techniques to Include: Passive ROM TENS: Yes Cryotherapy (ice pack, ice massage): Yes Thermo therapy (hot pack): Yes For the Purpose of:: To decrease pain Thank you for the opportunity to evaluate your patient. For Medicare and Medicare HMO plans, please review the plan of care and approve it. It will need to be FAXED BACK to us at [phone] for Medicare purposes. For Medicare only, by signing this I certify the plan of care. Please let me know if there are questions or concerns regarding this plan of care. Physician S ignature: Date:
--- NOTE | 2020-02-14 14:51 | HP.PT.NRP ---
CHANTAL DELA CRUZ was seen in my office for initial evaluation on 10/09/19. The following Plan of Care was established for this patient: Initial Frequency: 1x/Week Initial Duration: 6 Weeks Patient/Client Instruction: Educate patient on: Benefits of Fitness Program Therapeutic Exercise to Include: Strength training, Endurance training, Body mechanics, Postural training, Flexibilty training, Passive ROM, Active ROM, Scapular Strength/Stabilization For the Purpose of:: To improve muscle performance and motor function Manual Therapy Techniques to Include: Passive ROM TENS: Yes Cryotherapy (ice pack, ice massage): Yes Thermo therapy (hot pack): Yes For the Purpose of:: To decrease pain This patient was last seen in our office . Pertinent comments regarding their Physical therapy will appear below: Patient has been doing I home exercise program and is appropriate to be d/c at this time. At this point I will be discontinuing this patient from physical therapy. I would be happy to see this patient again in the future if found appropriate by the physician. Thank you! Caro Olvera DPT
== END 2019-11-20 19:00 | disposition home or self-care (01) ==
LOC: PT 09:00
PROVIDERS: PCP Nurse Practitioner; Referring Provider Orthopaedic Surgery; Visit Provider Orthopaedic Surgery
DX: M75.122 Complete rotator cuff tear or rupture of left shoulder, not specified as traumatic (principal)
CPT/HCPCS: 97110; 97162; 97164

== ENCOUNTER → 2020-05-05 15:10 | Outpatient (CLI) | payer OTHER, SELFPAY ==
[2019-10-25 15:20] VITALS: BMI 21.9
--- NOTE | 2020-05-05 15:12 | BI_ITS ---
MAMMOGRAPHY - BILATERAL SCREENING REASON FOR EXAM: Female, 64 years old. Routine annual screening examination. PERTINENT HISTORY: Non-contributory. Remote left stereotactic breast biopsy. TECHNIQUE: Digital bilateral breast eliza (3D mammographic acquisition) in the CC and MLO projections. 2-D mediolateral oblique (MLO) and craniocaudad (CC) views of both breasts were obtained. CAD: Full Field Digital Mammography with Computer Added Detection was performed. COMPARISON: Comparison is made with prior study dated 04/17/2019 and 04/13/2018. FINDINGS: Breast Composition: The breasts are heterogeneously dense, which may obscure small masses. There are no dominant masses or suspicious calcifications. Once again, 2 tissue clip markers are seen in the upper deep central portion of the left breast. No other significant abnormalities are identified. There has been no significant change since the prior study. BI/SCREEN MAMM (CAD) W/ELIZA BILAT IMPRESSION: Stable bilateral screening mammogram. Yearly follow-up mammogram recommended. (A) ASSESSMENT CATEGORY: BIRADS Category 2: Benign. A letter regarding these results will be sent to the patient by the facility within 30 days. Approximately 10% of breast cancers are not detected by mammography. A normal mammogram should not delay biopsy of a clinically suspicious abnormality. [id number] Electronically Signed: Milad Helms, at 15:55 EDT , Service support ,
== END ==
PROVIDERS: PCP Nurse Practitioner; Referring Provider Nurse Practitioner; Visit Provider Nurse Practitioner
DX: Z12.31 Encounter for screening mammogram for malignant neoplasm of breast (principal)
CPT/HCPCS: 77063; 77067

== ENCOUNTER → 2020-05-12 16:58 | Outpatient (CLI) | payer OTHER, SELFPAY ==
[2019-10-25 15:20] VITALS: BMI 21.9
--- NOTE | 2020-05-12 17:00 | RAD_ITS ---
STUDY: X-RAY CHEST REASON FOR EXAM: Female, 64 years old. pre op TECHNIQUE: PA and lateral chest. COMPARISON: January 23, 2017. October 16, 2014. FINDINGS: The lungs are clear and expanded. There is no demonstrated pleural abnormality. No pneumothorax. Normal size heart. Normal mediastinum and columba. Normal visualized pulmonary arteries. Normal visualized aortic arch and descending thoracic aorta. Osseous structures unchanged. There is no demonstrated abnormality of the visualized soft tissue structures of the upper abdomen. RAD/Chest PA and Lateral IMPRESSION: No acute cardiopulmonary disease. Lungs are clear. Electronically Signed: Larry Charles MD at 6:58 EDT , Service support ,
== END ==
PROVIDERS: PCP Nurse Practitioner; Referring Provider Nurse Practitioner; Visit Provider Nurse Practitioner
DX: Z01.818 Encounter for other preprocedural examination (principal)
CPT/HCPCS: 71046

== ENCOUNTER → 2020-05-13 09:40 | Outpatient (CLI) | payer OTHER, SELFPAY ==
[2019-10-25 15:20] VITALS: BMI 21.9
[2020-05-13 12:15] LABS: Absolute Lymphocyte Count 1.82 X10^3/uL (0.83-4.51); Absolute Neutrophil Count 2.6 X10^3/uL (2.0-7.7); Basophil# 0.05 X10^3/uL; Eosinophil# 0.04 X10^3/uL; Eosinophils% 0.8 % (0-5); Hematocrit 39.4 % (37-47); Hemoglobin 12.8 g/dL (12.0-15.0); International Normalized Ratio 0.9; Lymphocyte # 1.82 X10^3/ul (4.0); Lymphocyte % 37.7 % (19-41); Mean Corp Hgb Conc 32.5 g/dL (32-36); Mean Corpuscular Hgb 30.9 pg (27.0-32.0); Mean Corpuscular Volume 95.2 fL (81-99); Mean Platelet Vol. 10.3 fl (6.2-12.0); Monocyte# 0.31 X10^3/uL; Monocyte% 6.4 % (0-10); NRBC Flagged by Analyzer 0 % (0-5); Neutrophil # 2.61 X10^3/uL (2.7-7.7); Neutrophil % 54.1 % (47-70); Platelet Count 321 K/mm3 (150-450); RBC Distribution Width CV 13.8 % (11.6-14.6); RBC Distribution Width SD 48.5 fl (35.1-43.9); Red Blood Count 4.14 M/mm3 (4.2-5.4); White Blood Count 4.8 K/mm3 (4.4-11.0)
[2020-05-13 12:30] LABS: ALB/GLOB Ratio 1.2 RATIO (0.9-2.4); AST(SGOT) 27 U/L (15-37); Alanine Aminotransfer ALT/SGPT 28 U/L (13-56); Alkaline Phosphatase 114 U/L (45-117); Anion Gap 4 (5-15); BUN 14 mg/dL (7-18); BUN/Creat Ratio 20.2 RATIO (10-20); Calcium,Total 9.1 mg/dL (8.5-10.1); Chloride 109 mmol/L (98-107); Creatinine, Serum 0.69 mg/dL (0.55-1.02); EST Glomerular Filtration Rate 91 mL/min (>60); Est Glom Filt Rate - Afr Amer 110 mL/min (>60); Globulin 3.3 g/dL (2.2-4.2); Glucose 73 mg/dL (74-106); Protein, Total 7.3 g/dL (6.4-8.2); Sodium Level 141 mmol/L (136-145)
== END ==
PROVIDERS: PCP Nurse Practitioner; Referring Provider Nurse Practitioner; Visit Provider Nurse Practitioner
DX: Z01.818 Encounter for other preprocedural examination (principal)
CPT/HCPCS: 36415; 80053; 85025; 85610

== ENCOUNTER → 2020-05-29 09:50 | Outpatient (CLI) | payer OTHER, SELFPAY ==
[2019-10-25 15:20] VITALS: BMI 21.9
--- NOTE | 2020-05-29 09:55 | BD_ITS ---
STUDY: DUAL ENERGY X-RAY ABSORPTIOMETRY / DXA REASON FOR EXAM: Female, 64 years old. 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 COMPARISON: Comparison is made with prior study dated 03/26/2014. FINDINGS: Lumbar Spine (L1-L4): g/cm2 (1.179) / T-score (-0.2) / Z-score (1.3) Findings are suggestive of normal bone density with a low fracture risk. Left Femur Total: g/cm2 (0.841) / T-score (-1.3) / Z-score (-0.2) Left Femoral Neck: g/cm2 (0.831) / T-score (-1.5) / Z-score (-0.1) Right Femur Total: g/cm2 (0.890) / T-score (-0.9) / Z-score (0.2) Right Femoral Neck: g/cm2 (0.843) / T-score (-1.4) / Z-score (0.0) The T-Scores on the most recent prior examination were: Lumbar Spine (L1-L4): There has been worsening of bone density since the previous examination. Left Femur Total: which represents a worsening of 10%. Right Femur Total: which represents a worsening of 14%. BD/Dexa Bone Density Study IMPRESSION: The patient is considered osteopenic as outlined below according to World Ar[place] Organization (WHO) criteria with a moderate fracture risk. There has been worsening of bone density since the previous examination. Reference Information: The T-score is the number of standard deviations above or below the standard which is normal for young adults at their peak bone mineral density. The World Health Organization (WHO) interprets the T-scores as follows: Above -1 Normal bone density Between -1 and -2.5 Osteopenia Equal to / or below -2.5 Osteoporosis As a practical clinical guideline, osteopenia may be graded as follows: Mild -1 through -1.5 Moderate -1.6 through -2.0 Severe -2.1 through -2.4 The Z-score is the number of standard deviations above or below age-matched controls. A Z-score of less than -1.5 would be considered abnormal. References: 1. NIH Osteoporosis and Related Bone Diseases www osteo.org 2. International Society for Clinical Densitometry www iscd.org 3. National Osteoporosis Foundation www nof.org Electronically Signed: Milad Helms, at 8:55 EDT , Service support ,
== END ==
PROVIDERS: PCP Nurse Practitioner; Referring Provider Nurse Practitioner; Visit Provider Nurse Practitioner
DX: Z78.0 Asymptomatic menopausal state (principal)
CPT/HCPCS: 77080

== ENCOUNTER → 2020-07-30 08:15 | Outpatient (CLI) | payer OTHER, SELFPAY ==
[2019-10-25 15:20] VITALS: BMI 21.9
[2020-07-31 06:47] LABS: SARS-COV-2 TOTAL ABS Nonreactive (Nonreactive)
== END ==
PROVIDERS: PCP Nurse Practitioner; Referring Provider Nurse Practitioner; Visit Provider Nurse Practitioner
DX: Z20.828 Contact with and (suspected) exposure to other viral communicable diseases (principal)
CPT/HCPCS: 36415; 86769

== ENCOUNTER → 2020-08-12 09:57 | Outpatient (CLI) | payer OTHER, SELFPAY ==
[2019-10-25 15:20] VITALS: BMI 21.9
--- NOTE | 2020-08-12 09:59 | RAD_ITS ---
STUDY: X-RAY - LUMBAR SPINE REASON FOR EXAM: Female, 64 years old. Low back pain. TECHNIQUE: 5 view(s) of the lumbar spine were obtained. COMPARISON: 12/06/2016 lumbar spine radiographs. MRI lumbar spine 01/20/2017. CT abdomen and pelvis 02/18/2018. FINDINGS: No fracture or osseous destruction or acute osseous abnormality. Alignment unchanged with mild right scoliosis centered at L3, and mild, 2 mm, degenerative anterolisthesis of L4 and L5. Status post discectomy and fusion at L5-S1, and L4-5 laminotomy, similar to previous. Marked facet degeneration L4-5 and L5-S1 similar to previous. No acute soft tissue abnormality. Calcific atherosclerosis. RAD/L/S Spine Min 4 Views IMPRESSION: No acute findings, no significant change. Degenerative and postoperative changes as above. Electronically Signed: Ken Mortensen, at 8:13 EST Tel , Service support ,
== END ==
PROVIDERS: PCP Nurse Practitioner; Referring Provider Nurse Practitioner; Visit Provider Nurse Practitioner
DX: M54.40 Lumbago with sciatica, unspecified side (principal)
CPT/HCPCS: 72110

== ENCOUNTER → 2020-09-03 17:00 | Outpatient (CLI) | payer OTHER, SELFPAY ==
[2019-10-25 15:20] VITALS: BMI 21.9
[2020-09-03 18:24] LABS: Creatinine, Serum 0.67 mg/dL (0.55-1.02); EST Glomerular Filtration Rate 94 mL/min (>60); Est Glom Filt Rate - Afr Amer 114 mL/min (>60)
== END ==
PROVIDERS: PCP Nurse Practitioner; Referring Provider Nurse Practitioner; Visit Provider Nurse Practitioner
DX: M48.061 Spinal stenosis, lumbar region without neurogenic claudication (principal)
CPT/HCPCS: 36415; 82565

== ENCOUNTER → 2020-09-15 07:10 | Outpatient (CLI) | payer OTHER, SELFPAY ==
[2019-10-25 15:20] VITALS: BMI 21.9
[2020-09-08 11:29] VITALS: BMI 24.5
--- NOTE | 2020-09-15 07:30 | MRI_ITS ---
STUDY: MRI LUMBAR SPINE WITH AND WITHOUT CONTRAST REASON FOR EXAM: Female, 64 years old. SPINAL STENOSIS TECHNIQUE: Standardized fat and water weighted pulse sequences were obtained in the sagittal and axial planes. IV yes yes was administered for the contrast portion of the examination. COMPARISON: X-ray 08/12/2020, MRI 01/20/2017 FINDINGS: T12-L1: Disc desiccation and loss of disc height but no disc protrusion, spinal stenosis, or neural foraminal stenosis. Normal lumbar lordosis. There is a dextroscoliosis of the lumbar spine. Normal conus medullaris that terminates at the T12. L1-2: Mild bilateral facet hypertrophy and ligament flavum hypertrophy. Interval development of 2 mm retrolisthesis of L1 on L2 with a mild bilobed disc protrusion produces mild spinal stenosis and mild bilateral neural foraminal stenosis. L2-3: Mild bilateral facet hypertrophy and moderate ligament flavum hypertrophy. Interval development of 2 mm retrolisthesis of L2 on L3 with a mild bilobed disc protrusion and an inferiorly extending the left paracentral and preforaminal extrusion which produces mild spinal stenosis, mild right lateral recess stenosis, severe left lateral recess stenosis with effacement of the left L3 nerve root and mild bilateral neural foraminal stenosis. L3-4: Disc desiccation and loss of disc height but no disc protrusion, spinal stenosis, or neural foraminal stenosis. L4-5: Severe bilateral facet hypertrophy. Interval development of 5 mm of anterolisthesis of L4 on L5 with a mild broad disc protrusion produces mild spinal stenosis with mild bilateral lateral recess stenosis, moderate right neural foraminal stenosis with abutment of the right L4 nerve root laterally and mild left neural foraminal stenosis. L5-S1: Suspect interbody fusion with some bony bridging with anatomic alignment and no spinal stenosis or neural foraminal stenosis. Normal visualized sacral ala. Normal visualized paraspinous soft tissue structures. There is no demonstrated abnormal enhancement. MRI/Spine Lumbar W/WO Contrast IMPRESSION: Worsening degenerative disc disease as described above. Electronically Signed: Tevin Urena MD at 10:33 EST Tel , Service support ,
== END ==
PROVIDERS: PCP Nurse Practitioner; Referring Provider Nurse Practitioner; Visit Provider Nurse Practitioner
DX: M43.16 Spondylolisthesis, lumbar region (principal); M48.061 Spinal stenosis, lumbar region without neurogenic claudication
CPT/HCPCS: 72158; A9575

== ENCOUNTER → 2020-10-24 13:00 | Outpatient (CLI) | payer OTHER, SELFPAY ==
[2020-09-08 11:29] VITALS: BMI 24.5
[2020-10-24 15:08] LABS: Vitamin D,25 Hydroxy 70.9 ng/mL
== END ==
PROVIDERS: PCP Nurse Practitioner; Referring Provider Nurse Practitioner; Visit Provider Nurse Practitioner
DX: E55.9 Vitamin D deficiency, unspecified (principal)
CPT/HCPCS: 36415; 82306

== ENCOUNTER → 2021-01-13 11:34 | Outpatient (CLI) | payer OTHER, SELFPAY ==
[2020-09-08 11:29] VITALS: BMI 24.5
[2021-01-13 16:18] LABS: Absolute Lymphocyte Count 2.21 X10^3/uL (0.83-4.51); Absolute Neutrophil Count 4.6 X10^3/uL (2.0-7.7); Basophil# 0.04 X10^3/uL; Basophil% 0.6 % (0-1); Eosinophil# 0.05 X10^3/uL; Eosinophils% 0.7 % (0-5); Hemoglobin 12.2 g/dL (12.0-15.0); Lymphocyte # 2.21 X10^3/ul (0.83-4.51); Lymphocyte % 30.5 % (19-41); Mean Corp Hgb Conc 32.1 g/dL (32-36); Mean Corpuscular Hgb 28.8 pg (27.0-32.0); Mean Corpuscular Volume 89.6 fL (81-99); Mean Platelet Vol. 10.3 fl (6.2-12.0); Monocyte# 0.31 X10^3/uL; Monocyte% 4.3 % (0-10); NRBC Flagged by Analyzer 0 % (0-5); Neutrophil # 4.62 X10^3/uL (2.7-7.7); Neutrophil % 63.6 % (47-70); Platelet Count 345 K/mm3 (150-450); RBC Distribution Width CV 14.8 % (11.6-14.6); Red Blood Count 4.24 M/mm3 (4.2-5.4); White Blood Count 7.3 K/mm3 (4.4-11.0)
[2021-01-13 16:30] LABS: Albumin, Serum 3.9 g/dL (3.2-5.0); BUN 15 mg/dL (7-18); BUN/Creat Ratio 20.8 RATIO (10-20); Calcium,Total 9.1 mg/dL (8.5-10.1); Chloride 105 mmol/L (98-107); Creatinine, Serum 0.72 mg/dL (0.55-1.02); EST Glomerular Filtration Rate 87 mL/min (>60); Est Glom Filt Rate - Afr Amer 105 mL/min (>60); Glucose 77 mg/dL (74-106); Potassium 3.9 mmol/L (3.5-5.1); Sodium Level 138 mmol/L (136-145)
[2021-01-13 16:43] LABS: Prothrombin Time (Protime)PT. 12.3 SECONDS (11.7-14.9)
== END ==
PROVIDERS: PCP Nurse Practitioner; Referring Provider Nurse Practitioner; Visit Provider Nurse Practitioner
DX: Z01.818 Encounter for other preprocedural examination (principal)
CPT/HCPCS: 36415; 80069; 85025; 85610

== ENCOUNTER → 2021-02-06 11:01 | Outpatient (CLI) | payer OTHER, SELFPAY ==
[2020-09-08 11:29] VITALS: BMI 24.5
--- NOTE | 2021-02-06 11:03 | RAD_ITS ---
STUDY: X-RAY RIGHT FOOT, FIFTH TOE REASON FOR EXAM: Female, 65 years old. TOE PAIN TECHNIQUE: 3 view(s) of the toe were obtained. COMPARISON: Comparison is made with prior examination dated 11/25/2015. FINDINGS: Normal visualized metatarsus. Normal metatarsophalangeal (M.T.P) joint. Normal interphalangeal joints. Normal phalanges and interphalangeal joints. Soft tissue swelling. RAD/Toe(s) Min 2 Views IMPRESSION: Soft tissue swelling. No fracture is seen. Electronically Signed: Milad Helms MD at 15:32 EDT , Service support ,
== END ==
PROVIDERS: PCP Nurse Practitioner; Referring Provider Nurse Practitioner; Visit Provider Nurse Practitioner
DX: M79.674 Pain in right toe(s) (principal)
CPT/HCPCS: 73660

== ENCOUNTER 2021-03-05 08:00 | Outpatient (RCR) | payer OTHER, SELFPAY ==
[2019-10-25 15:20] VITALS: BMI 21.9
--- NOTE | 2020-08-06 10:28 | HP.PTEVAL2_ITS ---
Patient's Visit Information CHANTAL DELA CRUZ is a 64 year old F referred to Physical Therapy by Dr. Ino Pryor MD with a diagnosis of Low Back Pain. Date of Evaluation: 08/06/20 Physical Therapist: Caro Olvera DPT - Visit Plan Frequency: 2x /Week Duration: 4 Weeks Plan: Aquatic Therapy- focus on core s/s- Left Shoulder RTC repair 06/04/2020 CAUTION!!! - Subjective Subjective: Patient reports that she tweaked it trying to get out of her reclyner due to her shoulder surgery. She thinks she might have blown a disc. This happened middle of June. Had a Torodol injection which did not help. She is using ice- but once the coldness goes away the pain comes back. Sleep: disturbed- better now but hard to get up due to her shoulder and her back. Worst: 8/10 Agg: turning, bending Eases: ice Best: 2/10 Pain is located in the lumbar spine in the middle and off to the left side- radiates to the knee- mostly all the time. She has had 4 back surgeries- last one was 4 years ago- has spinal stenosis and had a clean up- she was unable to feel her feet. The numbness went away immediatly. Dr. Joni Hodge- plans to go see him after PT. Describes the leg pain as tingling. Describes the back pain as sharp/shooting. Is unable to hold her urine for long periods of time since the back injury. Does wear a back brace but is not currently wearing it today. She wears it all day. Neuprene band at night. No fall or tripping. PMHx/Meds: no changes - Objective Objective: Posture: FH, RS- can not correct without verbal and tactile cues- moves slowly and methodically due to pain. Gait: slightly antalgic to start but then becomes normal as she ambulates. ROM: Lumbar: Flexion: hands to knees with pain, Extn: neutral with pain, SB to the right-decreased by 50% with pain, SB left and rotation bilateral: WNL. Hip: WFL pain with IR/ER. Sensation/Reflex: WNL. Strength: Core: poor, hip: 4/5 with pain, Knee: 4+/5, Ankle DF/PF: 4/5. Flex: HS: severe, Gastroc: moderate. Special Test: slump: positive, SLR: positive - Goals Goal 1:: Patient will be I with HEP and progression Goal Time Frame: 4-6 Weeks Goal 2:: Patient will maitain proper posture t/o tx session to demo increased core s/s Goal Time Frame: 4-6 Weeks Goal 3:: Patient will report no peripheralization of pain for 1 week Goal Time Frame: 4-6 Weeks - Rehabilitation Potential Physical Therapy Diagnosis: Patient presents with hypomobility- she had decreased core strength/stabilization, ROM and muscular endurance leading to increased pain with ADL's. Rehabilitation Potential: Fair - Anticipated Interventions Patient/Client Instruction: Educate patient on: Benefits of Fitness Program Therapeutic Exercise to Include: Strength training, Endurance training, Balance training, Body mechanics, Postural training, Flexibilty training, Gait and locomotor training, Neuromotor development, In an aquatic setting, Passive ROM, Active ROM, Dynamic Lumbar Stabilization, Scapular Strength/Stabilization For the Purpose of:: To improve muscle performance and motor function Thank you for the opportunity to evaluate your patient. For Medicare and Medicare HMO plans, please review the plan of care and approve it. It will need to be FAXED BACK to us at [phone] for Medicare purposes. For Medicare only, by signing this I certify the plan of care. Please let me know if there are questions or concerns regarding this plan of care. Physician Signature:___ Date:
--- NOTE | 2020-08-06 10:33 | HP.PTEVAL ---
Patient's Visit Information CHANTAL DELA CRUZ is a 64 year old F referred to Physical Therapy by Dr. Ino Pryor MD with a diagnosis of left shoulder revision arthroscopy with arthroscopic RTC repair and allogra. Date of Evaluation: 08/06/20 Physical Therapist: Caro Olvera DPT - Visit Plan Frequency: 2-3x /Week Duration: 4 Weeks Plan: left shoulder revision arthroscopy with arthroscopic RTC repair and allograft augmentation (06/04). Follow protcol per MD - Subjective Multiple shoulder surgeries on her left- most recent was June [address] Pryor after she opened her truck door this summerFebruary 17- left shoulder revision arthroscopy with arthroscopic RTC repair and allograft augmentation. The repairs have been able to hold it just tears in different spots. Massive tear in the RTC per MD script. Was sent to this MD by Dr. Dubon- Released from sling last week unless in crowds. Overall it does not feel to bad but has moments that it hurts. Worst: 02/28 Agg: nothing specific. Eases: ice Best: 08/31. Describes pain as sharp. The pain is located in the AC joint and anterior 2 [place]. No radiating pain. No N/T in the fingers. No GILBERT, blurred vision or dizziness. 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 Right hand dominate. 07/29 was last MD visit- he was happy with his progress. No x-rays last visit just sent her to therapy and wants her to move her arm a little bit. Reported no restrictions in movement. 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 PMHx/Meds: no change - Objective Posture: FH, RS- can not correct without verbal and tactile cues- moves slowly and methodically due to pain in her lumbar spine. NO SLING. Gait: slightly antalgic to start but then becomes normal as she ambulates due to lumbar spine pain. ROM: Cervical:WNL, Shoulder: pt does not tolerate passive ROM from therapist due to guarding- performed table walk away for flexion measure: 80 degrees, abd: 40 degrees, ER: 50 degrees in sitting, Elbow: WNL, Wrist/Finger dexterity: WNL but does report pain with end range supination. Strength: not tested - Goals Goal 1:: Patient will be I with HEP and progression Goal Time Frame: 4-6 Weeks Goal 2:: Patient will demo full PROM/AAROM/AROM of the shoulder as allowed per protocol Goal Time Frame: 4-6 Weeks Goal 3:: Patient will maintain proper posture t/o tx session to demo increased scap s/s. Goal Time Frame: 4-6 Weeks - Rehabilitation Potential Physical Therapy Diagnosis: Patient presents s/p left shoulder surgery- she has decreased ROM, strength and muscular endurance leading to increased difficulty with ADL's. Rehabilitation Potential: Fair - Anticipated Interventions Patient/Client Instruction: Educate patient on: Benefits of Fitness Program Therapeutic Exercise to Include: Strength training, Endurance training, Body mechanics, Postural training, Flexibilty training, Neuromotor development, Passive ROM, Active ROM, Dynamic Lumbar Stabilization, Scapular Strength/Stabilization For the Purpose of:: To improve muscle performance and motor function TENS: Yes Cryotherapy (ice pack, ice massage): Yes Thermo therapy (hot pack): Yes Ultrasound (thermal/non thermal): Yes For the Purpose of:: To decrease pain Thank you for the opportunity to evaluate your patient. For Medicare and Medicare HMO plans, please review the plan of care and approve it. It will need to be FAXED BACK to us at [phone] for Medicare purposes. For Medicare only, by signing this I certify the plan of care. Please let me know if there are questions or concerns regarding this plan of care. Physician Signature: Date:
--- NOTE | 2020-09-04 08:42 | HP.PTRE(2)_ITS ---
Dr. Ino Pryor MD, It has been my pleasure to treat CHANTAL DELA CRUZ over the last 8 visits for Low Back Pain. Please see the progress note below for an update on the physical therapy plan of care! Subjective: Went and saw the PA at Dr. Joni Hodge's office- Tuesday- they took 2 new x-rays- L4-5 are not sitting on top of each other and she is scheduled for an MRI. Some spinal stenosis and something else but doesn't remember the name. Want to do MRI to see how bad the nerve impingement is. She has had epiderals that did not work- there is a good chance she will have to have surgery. They did not talk about therapy in the mean time. MRI is 09/[address] Hodge on the . Pt would like to continue PT until she has the MRI. The back pain was good until she caught her toe this morning. Today /10- normally sits about a 2/10 all the time. Continues to see weakness in the right LE. Objective/Function/Assessment: Posture: FH, RS- can not correct without verbal and tactile cues- moves slowly and methodically due to pain. Gait: slightly antalgic to start but then becomes normal as she ambulates. ROM: Lumbar: F lexion: hands to knees with pain, Extn: neutral with pain, SB to the right- decreased by 50% with pain, SB left and rotation bilateral: WNL. Hip: WFL pain with IR/ER. Sensation/Reflex: WNL. Strength: Core: poor, hip: 4/5 with pain, Knee: 4+/5, Ankle DF/PF: 4/5. Flex: HS: severe, Gastroc: moderate. Special Test: slump: positive, SLR: positive Plan Plan: Hold until returns to MD for further evaluation of MRI 09/18 Goals Goal 1:: Patient will be I with HEP and progression Goal Time Frame: 4-6 Weeks Goal Progress: Progressing Goal 2:: Patient will maitain proper posture t/o tx session to demo increased core s/s Goal Time Frame: 4-6 Weeks Goal Progress: Not Progressing Goal 3:: Patient will report no peripheralization of pain for 1 week Goal Time Frame: 4-6 Weeks Goal Progress: Not Progressing Anticipated Interventions Patient/Client Instruction: Educate patient on: Benefits of Fitness Program Therapeutic Exercise to Include: Strength training, Endurance training, Balance training, Body mechanics, Postural training, Flexibilty training, Gait and locomotor training, Neuromotor development, In an aquatic setting, Passive ROM, Active ROM, Dynamic Lumbar Stabilization, Scapular Strength/Stabilization For the Purpose of:: To improve muscle performance and motor function Please do not hesitate to contact me at [phone] by phone or if you have questions or concerns regarding this new plan of care! Sincerely, Caro Olvera DPT
--- NOTE | 2020-09-22 10:48 | HP.PTDS(2)_ITS ---
It has been my pleasure to treat CHANTAL DELA CRUZ referred by Dr. Ino Pryor MD, with the diagnosis of Low Back Pain for a total of 8 visit(s). Discharge Date: Please see the following information for a summary of their discharge status. Subjective: Went and saw the PA at Dr. Joni Hodge's office- Tuesday- they took 2 new x-rays- L4-5 are not sitting on top of each other and she is scheduled for an MRI. Some spinal stenosis and something else but doesn't remember the name. Want to do MRI to see how bad the nerve impingement is. She has had epiderals that did not work- there is a good chance she will have to have surgery. They did not talk about therapy in the mean time. MRI is 09/[address] Hodge on the . Pt would like to continue PT until she has the MRI. The back pain was good until she caught her toe this morning. Today /10- normally sits about a 2/10 all the time. Continues to see weakness in the right LE. % Improvement: 0 Objective/Function/Assessment: Posture: FH, RS- can not correct without verbal and tactile cues- moves slowly and methodically due to pain. Gait: slightly antalgic to start but then becomes normal as she ambulates. ROM: Lumbar: Flexion: hands to knees with pain, Extn: neutral with pain, SB to the right- decreased by 50% with pain, SB left and rotation bilateral: WNL. Hip: WFL pain with IR/ER. Sensation/Reflex: WNL. Strength: Core: poor, hip: 4/5 with pain, Knee: 4+/5, Ankle DF/PF: 4/5. Flex: HS: severe, Gastroc: moderate. Special Test: slump: positive, SLR: positive Patient Goals: Improve Mobility, Improve Function, Decrease Pain, Alleviate Pain, Walk Normal, Maneuver Steps, Improve ROM, Sleep Normal Goal 1:: Patient will be I with HEP and progression Goal Progress: Progressing Goal 2:: Patient will maitain proper posture t/o tx session to demo increased core s/s Goal Progress: Not Progressing Goal 3:: Patient will report no peripheralization of pain for 1 week Goal Progress: Not Progressing Plan: Hold until returns to MD for further evaluation of MRI 09/18 If there are questions or concerns regarding this patient's physical therapy, please feel free to call me at [phone]. Thank you for the referral of this patient. Sincerely, KATHIE ToledoT
--- NOTE | 2020-10-21 13:57 | HP.PTEVAL3 ---
Patient's Visit Information CHANTAL DELA CRUZ is a 64 year old F referred to Physical Therapy by Dr. Ino Pryor MD with a diagnosis of S/P LUMBAR FUSION.. Date of Evaluation: 10/21/20 Physical Therapist: Maria R Plummer, PT, Cert MDT - Visit Plan Frequency: 2x /Week Duration: 4-6 Weeks Plan: *PATIENT REPORTS SHE IS STILL UNDER RESTRICTIONS OF NO BENDING, NO TWISTING AND NO LIFTING > 10 LBS UNTIL 12/16/20. NO PUSHING AND NO PULLING ALSO*. L SHLD SURGERY MAY 2020 AND STILL IN PT HERE AT [facility]. POSTURE CORRECTION/STRENGTHENING, INSTRUCTION IN APPROPRIATE BODY MECHANICS AND ACTIVITY MODIFICATIONS. DLS WITH A NEUTRAL SPINE. OSEI LE ROM, STRETCHING AND STRENGTHENING. HEP INSTRUCTION. 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 HAS DONE SOME SCRRENING FOR THE HOSPITAL SINCE THEN THOUGH. 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 Present symptoms: OSEI LOW BACK PAIN, OSEI HIP/THIGH PAIN. PATIENT CURRENTLY DENIES OSEI LE NUMBNESS AND TINGLING BUT USE TO HAVE IT DOWN BOTH LEGS TO HER FEET. Present since: AUG 17 2020. Pain Scale: WORST 8/10, LEAST 2/10. Currently: 2/10. Commenced as a result of: SLIPPED AND FELL ON RAILS TO TRAILS ON DOG POOP. Symptoms at onset: BACK PAIN AND TINGLING IN LEGS. Worse: RISING FROM SITTING, PROLONGED WALKING, PROLONGED STANDING, RIDING IN A CAR, HOUSEWORK, PUTTING SHOES ON. Better: ICE, TYLONOL, PAIN PILL. Disturbed sleep: YES. Previous history/Previous treatment: PATIENT REPORTS THIS IS HER 5TH BACK SURGERY. STATES SHE HAS SPINAL STENOSIS. FUSED AT L5S1 1999. PHYSICAL THERPAY. TRIED 2 ANABEL'S BEFORE 1ST BACK SURGERY WITHOUT BENEFIT. PHYSICAL THERAPY SEVERAL TIMES. NO CHIROPRACTOR. 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 Treatment this episode: S/P SPINE SX BY DR. RIGOBERTO HAMMOND 10/01/20. REVISION OSEI LAMINECTOMY, L3-L5 WITH REVISION PARTIAL FACETECTOMIES AND FORAMINOTOMIES, OSEI L3-L4 AND L4-5. POSTEROLATERAL FUSION L3-5, OSEI LOCAL GRAFT. OSEI LUMBAR FIXATION AND L3-5. Coughing/sneezing/straining: POSTITIVE. Gait: PATIENT REPORTS SHE HASN'T WALKED NORMAL FOR YEARS BUT GAIT IS MORE TIME AND DISTANCE LIMITED NOW. SHE ALSO REPORTS NOT BEING ABLE TO ROTATE HER TRUNK WHEN SHE WALKS NOW. Difficulty initiating urinatin: NO. Accidents: MULTIPLE WORK INJURIES INVOLVING R KNEE, L SHLD AND BACK. Unexplained weight loss: NO. Imaging: PATIENT REPORTS HAVING X-RAYS AFTER HER BACK SURGERY AND IS UNDER THE IMPRESSION THAT SHE IS HEALING NORMALLY WITHOUT COMPLICATIONS. PMH: MITRAL VALVE PROLAPSE, ASTHMA, 06/04/2020 L SHLD SURGERY - CURRENTLY IN PT HERE AT [facility]. OTHER: PATIENT REPORTS AT BACK SURGICAL FOLLOW UP SHE WAS TOLD TO CONTINUE USE OF BACK BRACE UNTIL 12/16/20 FOLLOW UP. SHE IS TO WEAR IT WHEN SHE IS UP AND ABOUT WITH MAYBE THE EXCEPTION OF WALKING ROOM TO ROOM AT HOME. CURRENTLY PATIENT REPROTS SHE IS WEARING HER BACK BRACE ABOUT 60% OF THE DAY. PATIENT REPORTS SHE IS STILL UNDER RESTRICTIONS OF NO BENDING, NO TWISTING AND NO LIFTING > 10 LBS UNTIL 12/16/20. NO PUSHING AND NO PULLING ALSO. - Objective Objective: Sitting/Standing Posture: FAIR. Lordosis: REDUCED. Other Observations: THIS PATIENT AMBULATES INDEP'LY INTO PT WITH DECREASED CADANCE, NO AD AND NO LOB. DECREASED TRUNK ROTATION. INDEP TRANSFERS SIT TO STAND BUT UE DEPENDENT TO DO SO AND SLOW AND GUARDED. Motor deficit: OSEI LE WEAKNESS: HIPS 3-/5, KNEES 4-/5, ANKLES 5/5. Sensory deficit: OSEI LE LIGHT TOUCH SENSATION INTACT AND SYMMETRICAL. ROM deficit: TIGHT OSEI HAMSTRINGS AND GASTROC SOLEUS COMPLEX'S. PATIENT ALSO WITH TIGHT OSEI HIP FLEXORS. Reflexes: UNABLE TO ELICIT OSEI LE DTR'S EXCEPT L QUAD 1/2. Dural Signs: POSITIVE OSEI LE'S. Lumbar mvmt loss: NT. Core strength: POOR. Palpation: INCISION LOOKS GOOD WITHOUT ANY SINGS OF INFECTION. TREATMENT: NEUROMUSCULAR REEDUCATION - RETRAINING OF MVMT AND POSTURE FOR SITTING, LYING AND STANDING ACTIVITIES. HEP: AP'S, QS'S, GS'S, SUPINE OSEI LE DURAL STRETCHING AND SEATED OSEI LE DURAL STRETCHING TOLERATED. CONTINUE USE OF BACK BRACE AND BACK RESTRICTIONS PER DR. RIGOBERTO HAMMOND. - Goals Goal 1:: DECREASE C/O BACK AND HIP/THIGH PAIN Goal Time Frame: 4-6 Weeks Goal 2:: IMRPOVE PERSONAL CARE, LIFTING, WALKING, SITTING, STANDING, SLEEP, SOCIAL LIFE, TRAVEL, HOMEMAKING AND WORK FUNCTION. Goal Time Frame: 4-6 Weeks Goal 3:: INSTRUCT IN PROPHYLAXIS Goal Time Frame: 4-6 Weeks - Anticipated Interventions Patient/Client Instruction: Educate patient on: Condition, Plan of Care For the Purpose of:: To improve self management Therapeutic Exercise to Include: Strength training, Endurance training, Body mechanics, Postural training, Flexibilty training, Gait and locomotor training, Neuromotor development, Dynamic Lumbar Stabilization For the Purpose of:: To decrease pain, To increase ROM, To improve muscle performance and motor function, To increase tolerance to activity/condition/position, To improve ability of physical actions for home/community/work/leisure Thank you for the opportunity to evaluate your patient. For Medicare and Medicare HMO plans, please review the plan of care and approve it. It will need to be FAXED BACK to us at [phone] for Medicare purposes. For Medicare only, by signing this I certify the plan of care. Please let me know if there are questions or concerns regarding this plan of care. Physician Signature: Date:
--- NOTE | 2020-11-13 08:18 | HP.PT.NRP(2) ---
CHANTAL DELA CRUZ was seen in my office for initial evaluation on 08/06/20. The following Plan of Care was established for this patient: Patient had back surgery- dc this chart Initial Frequency: 2x /Week Initial Duration: 4 Weeks Plan from Re-Evaluation: *PATIENT REPORTS SHE IS STILL UNDER RESTRICTIONS OF NO BENDING, NO TWISTING AND NO LIFTING > 10 LBS UNTIL 12/16/20. NO PUSHING AND NO PULLING ALSO*. L SHLD SURGERY MAY 2020 AND STILL IN PT HERE AT [facility]. POSTURE CORRECTION/STRENGTHENING, INSTRUCTION IN APPROPRIATE BODY MECHANICS AND ACTIVITY MODIFICATIONS. DLS WITH A NEUTRAL SPINE. OSEI LE ROM, STRETCHING AND STRENGTHENING. HEP INSTRUCTION. Patient/Client Instruction: Educate patient on: Benefits of Fitness Program Therapeutic Exercise to Include: Strength training, Endurance training, Balance training, Body mechanics, Postural training, Flexibilty training, Gait and locomotor training, Neuromotor development, In an aquatic setting, Passive ROM, Active ROM, Dynamic Lumbar Stabilization, Scapular Strength/Stabilization For the Purpose of:: To improve muscle performance and motor function This patient was last seen in our office . Pertinent comments regarding their Physical therapy will appear below: At this point I will be discontinuing this patient from physical therapy. I would be happy to see this patient again in the future if found appropriate by the physician. Thank you! KATHIE ToledoT
--- NOTE | 2020-11-20 14:08 | HP.PTRE(3) ---
Dr. Ino Pryor MD, It has been my pleasure to treat CHANTAL DELA CRUZ over the last 9 visits for . Please see the progress note below for an update on the physical therapy plan of care! Subjective: PATIENT REPORTS TOLERATING THE LAST BACK SESSION WELL BUT SHE DID NEED TO FURTHER MODIFY THE STANDING HIP EXT EX ON THE LEFT TO GO THROUGH AN EVEN SMALLER ROM. Objective/Function/Assessment: PATIENT WAS SEEN TODAY FOR RE-ASSESSMENT OF PROGRESS TOWARD THE SET PT GOALS AND THE NEED FOR FURTHER PHYSICAL THERAPY VS READINESS FOR DISCHARGE. PATEINT IS MAKING SLOW PROGRESS TOWARD ALL PT GOALS AND IS A GOOD CANDIDATE TO CONTINUE PT BASED ON PROGRESS MADE AND ROOM FOR FURTHER IMPROVEMENT. PATIENT IS AGREEABLE. UPON EXAM TODAY: THIS PATIENT CONTINUES TO AMBULATE INDEP'LY INTO PT WITH DECREASED CADANCE, NO AD AND NO LOB AND DECREASED TRUNK ROTATION. INDEP TRANSFERS SIT TO STAND BUT ONE UE DEPENDENT TO DO SO - LESS GURARDING. Motor deficit: OSEI LE WEAKNESS: HIPS 3+/5, KNEES 4-/5, ANKLES 5/5. Sensory deficit: OSEI LE LIGHT TOUCH SENSATION INTACT AND SYMMETRICAL. ROM deficit: TIGHT OSEI HAMSTRINGS AND GASTROC SOLEUS COMPLEX'S. PATIENT ALSO WITH TIGHT OSEI HIP FLEXORS. Dural Signs: POSITIVE L BUT NEGATIVE RLE NOW. Lumbar mvmt loss: NT. Core strength: POOR Plan Plan: CONSIDER ADDING BRIDGES THROUGH SMALL ROM NEXT VISIT. CONTINUE BACK PT 2X'S A WK X 5 WKS WORKING TOWARD SAME GOALS WITH SAME POC BELOW. PATIENT AGREEABLE. *PATIENT REPORTS SHE IS STILL UNDER RESTRICTIONS OF NO BENDING, NO TWISTING AND NO LIFTING > 10 LBS UNTIL 12/16/20. NO PUSHING AND NO PULLING ALSO*. L SHLD SURGERY MAY 2020 AND STILL IN PT HERE AT [facility]. POSTURE CORRECTION/STRENGTHENING, INSTRUCTION IN APPROPRIATE BODY MECHANICS AND ACTIVITY MODIFICATIONS. DLS WITH A NEUTRAL SPINE. OSEI LE ROM, STRETCHING AND STRENGTHENING. HEP INSTRUCTION. Goals Goal 1:: DECREASE C/O BACK AND HIP/THIGH PAIN Goal Time Frame: 4-6 Weeks Goal Progress: Progressing Goal 2:: IMRPOVE PERSONAL CARE, LIFTING, WALKING, SITTING, STANDING, SLEEP, SOCIAL LIFE, TRAVEL, HOMEMAKING AND WORK FUNCTION. Goal Time Frame: 4-6 Weeks Goal Progress: Progressing Goal 3:: INSTRUCT IN PROPHYLAXIS Goal Time Frame: 4-6 Weeks Goal Progress: Progressing Anticipated Interventions Patient/Client Instruction: Educate patient on: Condition, Plan of Care For the Purpose of:: To improve self management Therapeutic Exercise to Include: Strength training, Endurance training, Body mechanics, Postural training, Flexibilty training, Gait and locomotor training, Neuromotor development, Dynamic Lumbar Stabilization For the Purpose of:: To decrease pain, To increase ROM, To improve muscle performance and motor function, To increase tolerance to activity/condition/position, To improve ability of physical actions for home/community/work/leisure Please do not hesitate to contact me at [phone] by phone or if you have questions or concerns regarding this new plan of care! Sincerely, Maria R Plummer, PT, Cert MDT
--- NOTE | 2021-03-05 08:30 | HP.PTDCS(3) ---
It has been my pleasure to treat CHANTAL DELA CRUZ referred by Dr. Ino Pryor MD, with the diagnosis of S/P LUMBAR FUSION. for a total of 33visit(s). Discharge Date: Please see the following information for a summary of their discharge status. Subjective: Patient reports that she was really tired after last session. Has backed off the Tylenol before surgery. Pain level today 6/10 % Improvement: 80 Objective/Function/Assessment: Patient was able to complete without incidence. No increase in s/s today- decreased weights and focus on body weight movements due to do high pain levels again and pt report of a good workout last session. Progress as tolerated Patient Goals: Improve Mobility, Improve Function, Decrease Pain, Walk Normal, Maneuver Steps, Improve ROM, Sleep Normal, Other Other Goals: TO RETURN TO NORMAL ACTIVITIES AND WORK. Goal 1:: DECREASE C/O BACK AND HIP/THIGH PAIN Goal Progress: Progressing Goal 2:: IMRPOVE PERSONAL CARE, LIFTING, WALKING, SITTING, STANDING, SLEEP, SOCIAL LIFE, TRAVEL, HOMEMAKING AND WORK FUNCTION. Goal Progress: Progressing Goal 3:: INSTRUCT IN PROPHYLAXIS Goal Progress: Progressing Plan: Discharge- pt to have shoulder surgery and I with HEP for lumbar spine If there are questions or concerns regarding this patient's physical therapy, please feel free to call me at [phone]. Thank you for the referral of this patient. Sincerely, KATHIE ToledoT
--- NOTE | 2021-03-05 08:31 | HP.PTDCNRP_ITS ---
CHANTAL DELA CRUZ was seen in my office for initial evaluation on 08/06/20. The following Plan of Care was established for this patient: Initial Frequency: 2-3x /Week Initial Duration: 4 Weeks Patient/Client Instruction: Educate patient on: Benefits of Fitness Program Therapeutic Exercise to Include: Strength training, Endurance training, Body mechanics, Postural training, Flexibilty training, Neuromotor development, Passive ROM, Active ROM, Dynamic Lumbar Stabilization, Scapular St rength/Stabilization For the Purpose of:: To improve muscle performance and motor function TENS: Yes Cryotherapy (ice pack, ice massage): Yes Thermo therapy (hot pack): Yes Ultrasound (thermal/non thermal): Yes For the Purpose of:: To decrease pain This patient was last seen in our office . Pertinent comments regarding their Physical therapy will appear below: Patient to have another shoulder surgery- d/c At this point I will be discontinuing this patient from physical therapy. I would be happy to see this patient again in the future if found appropriate by the physician. Thank you! Caro Olvera DPT
== END 2021-03-05 14:09 | disposition home or self-care (01) ==
LOC: PT 08:00
PROVIDERS: PCP Nurse Practitioner; Referring Provider Orthopaedic Surgery Sports Medicine; Visit Provider Orthopaedic Surgery Sports Medicine
DX: M75.122 Complete rotator cuff tear or rupture of left shoulder, not specified as traumatic (principal); M54.5 Low back pain; M48.00 Spinal stenosis, site unspecified; Z98.1 Arthrodesis status
CPT/HCPCS: 97110; 97112; 97113; 97140; 97162; 97164; 97530

== ENCOUNTER → 2021-05-06 08:02 | Outpatient (CLI) | payer OTHER, SELFPAY ==
--- NOTE | 2021-05-06 08:04 | BI_ITS ---
MAMMOGRAPHY - BILATERAL SCREENING REASON FOR EXAM: Female, 65 years old. Routine annual screening examination. PERTINENT HISTORY: Non-contributory. Remote left stereotactic breast biopsy. TECHNIQUE: Digital bilateral breast eliza (3D mammographic acquisition) in the CC and MLO projections. 2-D mediolateral oblique (MLO) and craniocaudad (CC) views of both breasts were obtained. CAD: Full Field Digital Mammography with Computer Added Detection was performed. COMPARISON: Comparison is made with prior study dated 05/05/2020 and 04/17/2019. FINDINGS: Breast Composition: The breasts are heterogeneously dense, which may obscure small masses. There are no dominant masses or suspicious calcifications. Once again, 2 tissue markers are seen in the upper deep central portion of the left breast. No other significant abnormalities are identified. There has been no significant change since the prior study. BI/SCRN MAMM (CAD)W/ELIZA BILAT IMPRESSION: Stable bilateral screening mammogram. Yearly follow-up mammogram recommended. (A) ASSESSMENT CATEGORY: BIRADS Category 2: Benign. A letter regarding these results will be sent to the patient by the facility within 30 days. Approximately 10% of breast cancers are not detected by mammography. A normal mammogram should not delay biopsy of a clinically suspicious abnormality. [id number] Electronically Signed: Milad Helms MD at 8:57 EDT , Service support ,
== END ==
PROVIDERS: PCP Nurse Practitioner; Referring Provider Nurse Practitioner; Visit Provider Nurse Practitioner
DX: Z12.31 Encounter for screening mammogram for malignant neoplasm of breast (principal)
CPT/HCPCS: 77063; 77067

== ENCOUNTER → 2021-05-15 09:13 | Outpatient (CLI) | payer OTHER, SELFPAY ==
[2021-05-15 12:10] LABS: Absolute Lymphocyte Count 1.93 X10^3/uL (0.83-4.51); Absolute Neutrophil Count 2.7 X10^3/uL (2.0-7.7); Basophil# 0.05 X10^3/uL; Eosinophil# 0.03 X10^3/uL; Eosinophils% 0.6 % (0-5); Hematocrit 38.7 % (37-47); Hemoglobin 12.5 g/dL (12.0-15.0); Lymphocyte # 1.93 X10^3/ul (0.83-4.51); Lymphocyte % 38.1 % (19-41); Mean Corp Hgb Conc 32.3 g/dL (32-36); Mean Corpuscular Hgb 30.4 pg (27.0-32.0); Mean Corpuscular Volume 94.2 fL (81-99); Mean Platelet Vol. 10.2 fl (6.2-12.0); Monocyte# 0.33 X10^3/uL; Monocyte% 6.5 % (0-10); NRBC Flagged by Analyzer 0 % (0-5); Neutrophil % 53.4 % (47-70); Platelet Count 357 K/mm3 (150-450); RBC Distribution Width CV 13.8 % (11.6-14.6); RBC Distribution Width SD 47.6 fl (35.1-43.9); Red Blood Count 4.11 M/mm3 (4.2-5.4); White Blood Count 5.1 K/mm3 (4.4-11.0)
[2021-05-15 12:33] LABS: AST(SGOT) 25 U/L (15-37); Alanine Aminotransfer ALT/SGPT 26 U/L (13-56); Albumin, Serum 3.6 g/dL (3.2-5.0); Alkaline Phosphatase 124 U/L (45-117); Anion Gap 5 (5-15); BUN 11 mg/dL (7-18); BUN/Creat Ratio 17.6 RATIO (10-20); Calcium,Total 8.9 mg/dL (8.5-10.1); Chloride 106 mmol/L (98-107); Cholesterol 210 mg/dL (200); Creatinine, Serum 0.62 mg/dL (0.55-1.02); EST Glomerular Filtration Rate 102 mL/min (>60); Est Glom Filt Rate - Afr Amer 124 mL/min (>60); Globulin 3.7 g/dL (2.2-4.2); Glucose 91 mg/dL (74-106); High Density Lipoprotein 80 mg/dL; Potassium 3.9 mmol/L (3.5-5.1); Protein, Total 7.3 g/dL (6.4-8.2); Sodium Level 138 mmol/L (136-145); Thyroid Stim Hormone (TSH) 1.27 uIU/mL (0.358-3.74); Triglycerides 98 mg/dL; Very Low Density Lipoprotein 20 mg/dL (5-40)
== END ==
PROVIDERS: PCP Nurse Practitioner; Referring Provider Nurse Practitioner; Visit Provider Nurse Practitioner
DX: Z00.00 Encounter for general adult medical examination without abnormal findings (principal); Z13.220 Encounter for screening for lipoid disorders; Z13.0 Encounter for screening for diseases of the blood and blood-forming organs and certain disorders involving the immune mechanism; Z13.29 Encounter for screening for other suspected endocrine disorder
CPT/HCPCS: 36415; 80053; 80061; 84443; 85025

== ENCOUNTER → 2021-05-20 07:15 | Outpatient (CLI) | payer OTHER, SELFPAY ==
--- NOTE | 2021-05-20 07:20 | US_ITS ---
STUDY: THYROID ULTRASOUND REASON FOR EXAM: Female, 65 years old. NECK MASS TECHNIQUE: Ultrasound evaluation of the thyroid was performed with real-time and static gannon-scale imaging. COMPARISON: Comparison is made with prior sonogram of the thyroid gland dated 03/24/2016. FINDINGS: RIGHT LOBE: The right lobe of the thyroid gland measures 3.9 cm x 1.3 cm x 1.8 cm. There is a homogeneous echotexture. There is a 1.5 cm x 1 cm x 1.4 cm hypoechoic nodule inferior pole of the right lobe. This is unchanged. There is also evidence of a 7 mm x 6 mm x 7 mm hypoechoic nodule in the lower pole. LEFT LOBE: The left lobe of the thyroid gland measures 3.6 cm x 1.4 cm x 0.9 cm. There is a homogeneous echotexture. There are no demonstrated solid, cystic or complex lesions. ISTHMUS: The isthmus measures 2 mm. The regional lymph nodes are normal. US/Thyroid IMPRESSION: 1.5 cm x 1 cm x 1.4 cm isoechoic nodule in the inferior pole of the right lobe. This is essentially unchanged. Electronically Signed: Milad Helms MD at 12:36 EDT , Service support ,
== END ==
PROVIDERS: PCP Nurse Practitioner; Referring Provider Nurse Practitioner; Visit Provider Nurse Practitioner
DX: R22.1 Localized swelling, mass and lump, neck (principal)
CPT/HCPCS: 76536

== ENCOUNTER → 2021-05-25 12:18 | Outpatient (CLI) | payer OTHER, SELFPAY ==
[2021-05-28 15:08] LABS: Bone Fraction 53 % (14-68); Liver Fraction 47 % (18-85)
[2021-05-28 16:51] LABS: Alkaline Phosphatase, Serum 125 IU/L (44-121); Intestinal Fraction 0 % (0-18)
== END ==
PROVIDERS: PCP Nurse Practitioner; Referring Provider Nurse Practitioner; Visit Provider Nurse Practitioner
DX: R74.8 Abnormal levels of other serum enzymes (principal)
CPT/HCPCS: 36415; 84075; 84080

== ENCOUNTER → 2021-05-29 15:24 | Outpatient (CLI) | payer OTHER, SELFPAY ==
[2021-05-29 18:09] LABS: Phosphorus 3.4 mg/dL (2.5-4.9)
[2021-06-01 07:55] LABS: PTHIN 56.8 pg/mL (18.4-80.1)
[2021-06-02 19:58] LABS: Vitamin D 1,25-Dihydroxy 47.1 pg/mL (19.9-79.3)
== END ==
PROVIDERS: PCP Nurse Practitioner; Referring Provider Nurse Practitioner; Visit Provider Nurse Practitioner
DX: R74.8 Abnormal levels of other serum enzymes (principal)
CPT/HCPCS: 36415; 82652; 83970; 84100

== ENCOUNTER → 2021-06-11 07:14 | Outpatient (CLI) | payer OTHER, SELFPAY ==
--- NOTE | 2021-06-11 07:18 | NM_ITS ---
CLINICAL: 65-year-old female with reported history of elevation of the serum alkaline phosphatase level. WHOLE BODY 99m Tc MDP RADIONUCLIDE BONE SCINTIGRAPHY COMPARISON: None available FINDINGS: Following the intravenous administration of 24.7 mCi of 99m Tc MDP, whole body bone images reveal: 1. Increased radiopharmaceutical concentration is identified in the acromioclavicular of the right shoulder, sternoclavicular compartments of both shoulders, upper cervical spine posteriorly on the right, 12th thoracic, first-fifth lumbar vertebra, caudal aspect of the right sacroiliac joint, visualized hands, multiple compartments of the right and left knees, forefoot bilaterally, medial compartment of the left ankle. 2. The remaining skeletal structures are scintigraphically unremarkable with normal-appearing renal images and urinary bladder activity identified. Enhanced uptake appears evident in the distal humeral and medial glenoid components of the presumably asymptomatic left shoulder prosthesis most consistent with normal postsurgical change in the absence of pain and discomfort. NM/Bone Scan Whole Body IMPRESSION: 1. The increase in tracer uptake defined in the cervical, thoracic and lumbar spine, bilateral shoulders, right sacroiliac joint, both hands, knees bilaterally, right and left forefoot, the left ankle is most consistent with degenerative arthritis. 2. There is no definitive scintigraphic evidence of diffuse axial skeletal metastatic or metabolic disease on the current examination to provide explanation for the elevation of the serum alkaline phosphatase level. Electronically Signed: Tevin Curtis DO at 21:44 EDT Tel , Service support ,
== END ==
PROVIDERS: PCP Nurse Practitioner; Referring Provider Nurse Practitioner; Visit Provider Nurse Practitioner
DX: R74.8 Abnormal levels of other serum enzymes (principal)
CPT/HCPCS: 78306; A9503

== ENCOUNTER → 2021-06-19 08:37 | Outpatient (CLI) | payer OTHER, SELFPAY ==
[2021-06-19 12:08] LABS: Erythrocyte Sedimentation Rate 4 mm/hr (0-30)
[2021-06-19 12:26] LABS: CRP < 2.90 mg/L (0.0-3.0); Rheumatoid Factor < 10.0 IU/mL (<15); Uric Acid 3.5 mg/dL (2.6-6.0)
[2021-06-20 21:11] LABS: CCP IgG Antibodies 7 units (0-19)
== END ==
PROVIDERS: PCP Nurse Practitioner; Referring Provider Nurse Practitioner; Visit Provider Nurse Practitioner
DX: M19.90 Unspecified osteoarthritis, unspecified site (principal)
CPT/HCPCS: 36415; 84550; 85652; 86140; 86200; 86431

== ENCOUNTER → 2021-06-25 06:30 | Outpatient (CLI) | payer OTHER, SELFPAY ==
--- NOTE | 2021-06-25 06:43 | MRI_ITS ---
STUDY: MRI RIGHT KNEE REASON FOR EXAM: Right knee pain for 6 weeks, right knee surgery in September 2018. TECHNIQUE: Standardized fat and water weighted pulse sequences were obtained in all 3 orthogonal planes. COMPARISON: MRI images 07/22/2018, radiographs 07/05/2018. FINDINGS: There is a partial medial meniscectomy. There is an oblique band of signal in the posterior horn/posterior body of the medial meniscus extending to the inferior articular surface (proton-density sagittal images 33-35; proton-density coronal images 13, 14), more likely recurrent medial meniscal tear rather than scarring since this tracks fluid (T2 coronal images 13, 14). There is peripheral subluxation of the medial meniscus. There is mild arthrosis of the medial femorotibial compartment with mild partial-thickness chondral loss of the medial femoral condyle (T2 sagittal image 17). Normal medial femoral condyle and tibial plateau. Normal medial collateral ligamentous complex (MCL). Normal distal semimembranosus, gracilis and semitendinosus tendons. Normal lateral meniscus. Normal hyaline cartilage of the lateral femorotibial compartment. There is mild subchondral bone edema of the posterior weightbearing lateral femoral condyle (T2 coronal images 11-13), a stress phenomenon. Normal proximal tibiofibular articulation. Normal lateral collateral (fibular) ligament. Normal popliteus tendon. Normal biceps femoris tendon. There is mild intrasubstance mucoid degeneration of the anterior cruciate ligament (T2 sagittal image 12) similar to the prior study. There is an intrasubstance cyst in the posterior cruciate ligament (T2 sagittal image 14), mildly more prominent on the current study. Normal congruent patellofemoral articulation. Normal hyaline cartilage of the patellofemoral compartment. Normal medial and lateral patellar retinaculum. Normal quadriceps tendon. There is mild patellar tendinosis (T2 sagittal image 13). There is mild postoperative scarring in Hoffa''s fat pad. There is a small joint effusion. There is a mildly thickened medial patellar plica (T2 axial images 9, 10). There is a popliteal cyst measuring approximately 3.3 cm in length with extravasation of fluid (T2 coronal images 3-7). There is mild bone edema in the proximal tibia near the insertion sites of the anterior and posterior cruciate ligaments. MRI/Lower Ext Joint Only (Routine) IMPRESSION: Partial medial meniscectomy with signal alteration of the posterior horn/posterior body of the medial meniscus, more likely recurrent medial meniscal tear rather than scarring. Mild arthrosis of the medial femorotibial compartment. Mild subchondral bone edema of the lateral femoral condyle, a stress phenomenon. Mild patellar tendinosis. Small joint effusion. Popliteal cyst with extravasation of fluid. Mildly thickened medial patellar plica. Electronically Signed: Gunnar Rosa MD at 7:57 EDT Tel , Service support ,
== END ==
PROVIDERS: PCP Nurse Practitioner; Referring Provider Orthopaedic Surgery; Visit Provider Orthopaedic Surgery
DX: M17.11 Unilateral primary osteoarthritis, right knee (principal); M23.331 Other meniscus derangements, other medial meniscus, right knee; M22.41 Chondromalacia patellae, right knee
CPT/HCPCS: 73721

== ENCOUNTER → 2021-07-07 10:07 | Outpatient (CLI) | payer OTHER, SELFPAY ==
[2021-07-07 12:45] LABS: Vitamin B12 693 pg/mL (211-911)
[2021-07-07 13:06] LABS: Magnesium 2.4 mg/dL (1.6-2.6)
== END ==
PROVIDERS: PCP Nurse Practitioner; Referring Provider Psychiatry & Neurology Neurology; Visit Provider Psychiatry & Neurology Neurology
DX: R20.0 Anesthesia of skin (principal); R25.2 Cramp and spasm
CPT/HCPCS: 36415; 82607; 82746; 83735

== ENCOUNTER → 2021-07-13 11:41 | Outpatient (CLI) | payer OTHER, SELFPAY ==
[2021-07-13 15:16] LABS: Absolute Lymphocyte Count 2.19 X10^3/uL (0.83-4.51); Absolute Neutrophil Count 5.8 X10^3/uL (2.0-7.7); Basophil# 0.04 X10^3/uL; Basophil% 0.5 % (0-1); Eosinophil# 0.04 X10^3/uL; Eosinophils% 0.5 % (0-5); Hematocrit 37.5 % (37-47); Hemoglobin 12.4 g/dL (12.0-15.0); Lymphocyte # 2.19 X10^3/ul (0.83-4.51); Mean Corp Hgb Conc 33.1 g/dL (32-36); Mean Corpuscular Hgb 30.1 pg (27.0-32.0); Mean Platelet Vol. 10.5 fl (6.2-12.0); Monocyte# 0.37 X10^3/uL; Monocyte% 4.4 % (0-10); NRBC Flagged by Analyzer 0 % (0-5); Neutrophil # 5.76 X10^3/uL (2.7-7.7); Neutrophil % 68.4 % (47-70); Platelet Count 334 K/mm3 (150-450); RBC Distribution Width CV 13.8 % (11.6-14.6); RBC Distribution Width SD 46.5 fl (35.1-43.9); Red Blood Count 4.12 M/mm3 (4.2-5.4); White Blood Count 8.4 K/mm3 (4.4-11.0)
[2021-07-13 15:23] LABS: Prothrombin Time (Protime)PT. 12.4 SECONDS (11.7-14.9)
[2021-07-13 15:35] LABS: Albumin, Serum 3.7 g/dL (3.2-5.0); BUN 19 mg/dL (7-18); BUN/Creat Ratio 28.1 RATIO (10-20); Calcium,Total 9.2 mg/dL (8.5-10.1); Chloride 105 mmol/L (98-107); Creatinine, Serum 0.68 mg/dL (0.55-1.02); EST Glomerular Filtration Rate 93 mL/min (>60); Est Glom Filt Rate - Afr Amer 113 mL/min (>60); Glucose 80 mg/dL (74-106); Phosphorus 4.5 mg/dL (2.5-4.9); Potassium 3.8 mmol/L (3.5-5.1); Sodium Level 138 mmol/L (136-145)
== END ==
PROVIDERS: PCP Nurse Practitioner; Referring Provider Nurse Practitioner; Visit Provider Nurse Practitioner
DX: Z01.818 Encounter for other preprocedural examination (principal)
CPT/HCPCS: 36415; 80069; 85025; 85610

== ENCOUNTER → 2021-07-20 09:34 | Outpatient (CLI) | payer OTHER, SELFPAY ==
[2021-07-20 12:29] LABS: Erythrocyte Sedimentation Rate 5 mm/hr (0-30)
[2021-07-20 12:33] LABS: Absolute Lymphocyte Count 1.93 X10^3/uL (0.83-4.51); Absolute Neutrophil Count 3.4 X10^3/uL (2.0-7.7); Basophil# 0.04 X10^3/uL; Basophil% 0.7 % (0-1); Eosinophil# 0.05 X10^3/uL; Eosinophils% 0.9 % (0-5); Hematocrit 37.2 % (37-47); Hemoglobin 12.1 g/dL (12.0-15.0); Lymphocyte # 1.93 X10^3/ul (0.83-4.51); Lymphocyte % 33.9 % (19-41); Mean Corp Hgb Conc 32.5 g/dL (32-36); Mean Corpuscular Hgb 29.2 pg (27.0-32.0); Mean Corpuscular Volume 89.9 fL (81-99); Mean Platelet Vol. 10.2 fl (6.2-12.0); Monocyte# 0.27 X10^3/uL; Monocyte% 4.7 % (0-10); NRBC Flagged by Analyzer 0 % (0-5); Neutrophil # 3.39 X10^3/uL (2.7-7.7); Neutrophil % 59.4 % (47-70); Platelet Count 335 K/mm3 (150-450); RBC Distribution Width CV 13.7 % (11.6-14.6); Red Blood Count 4.14 M/mm3 (4.2-5.4); White Blood Count 5.7 K/mm3 (4.4-11.0)
[2021-07-20 12:47] LABS: ALB/GLOB Ratio 0.9 RATIO (0.9-2.4); AST(SGOT) 35 U/L (15-37); Alanine Aminotransfer ALT/SGPT 25 U/L (13-56); Albumin, Serum 3.6 g/dL (3.2-5.0); Alkaline Phosphatase 118 U/L (45-117); Anion Gap 6 (5-15); BUN 16 mg/dL (7-18); BUN/Creat Ratio 22.3 RATIO (10-20); CRP 5.96 mg/L (0.0-3.0); Chloride 108 mmol/L (98-107); Creatinine, Serum 0.72 mg/dL (0.55-1.02); EST Glomerular Filtration Rate 87 mL/min (>60); Est Glom Filt Rate - Afr Amer 105 mL/min (>60); Globulin 3.8 g/dL (2.2-4.2); Glucose 89 mg/dL (74-106); Potassium 3.8 mmol/L (3.5-5.1); Protein, Total 7.4 g/dL (6.4-8.2); Sodium Level 140 mmol/L (136-145)
[2021-07-20 13:39] LABS: Hepatitis B Surface Antibody Reactive; Hepatitis B Surface Antigen Non-Reactive (Nonreactive); Hepatitis C Antibody Non-Reactive (Nonreactive)
[2021-07-20 15:24] LABS: Rheumatoid Factor < 10.0 IU/mL (<15)
[2021-07-22 12:07] LABS: ANTINUCLEAR ANTIBODIES DIRECT Negative (Negative)
[2021-07-22 19:42] LABS: CCP IgG Antibodies 2 units (0-19)
== END ==
PROVIDERS: PCP Nurse Practitioner; Referring Provider Internal Medicine Rheumatology; Visit Provider Internal Medicine Rheumatology
DX: M06.4 Inflammatory polyarthropathy (principal); J45.909 Unspecified asthma, uncomplicated; I34.1 Nonrheumatic mitral (valve) prolapse; E78.5 Hyperlipidemia, unspecified; E04.1 Nontoxic single thyroid nodule; Z85.820 Personal history of malignant melanoma of skin
CPT/HCPCS: 36415; 80053; 85025; 85652; 86038; 86140; 86200; 86431; 86706; 86803; 87340

== ENCOUNTER → 2021-07-23 06:31 | Outpatient (CLI) | payer OTHER, SELFPAY ==
--- NOTE | 2021-07-23 06:32 | MRI_ITS ---
HISTORY: Numbness, weakness, gait disorder. TECHNIQUE: Routine MRI of the cervical spine was performed. # of images incl. paperwork: 251. IV Contrast dosage and agent: None. COMPARISON: 04/18/2013. FINDINGS: VERTEBRAE: Vertebral body heights maintained. Mild degenerative endplate changes. No significant bone marrow signal abnormality. ALIGNMENT: No anterior or posterior subluxation. CORD: Morphology and signal within normal limits. SOFT TISSUES: No prevertebral fluid collection. INTERVERTEBRAL DISCS: C2-3, C3-4, C7-T1: No significant posterior disc protrusion, central canal stenosis, or foraminal narrowing. C4-5: Mild posterior disc bulge osteophyte complex resulting in minimal narrowing of the thecal sac, similar to prior. C5-6: Mild posterior disc bulge osteophyte complex with uncovertebral and facet arthropathy resulting in minimal narrowing of the thecal sac and mild bilateral foraminal narrowing. C6-7: Mild posterior disc bulge osteophyte complex with uncovertebral and facet arthropathy, similar to prior. No significant central canal stenosis or foraminal narrowing. MRI/Spine Cervical (Routine) IMPRESSION: Mild degenerative disc disease without significant cervical spinal canal stenosis. at 0808 Reported and signed by: Indy Dempsey MD Electronically Signed: Indy Dempsey MD at 8:07 EST Tel , Service support ,
== END ==
PROVIDERS: PCP Nurse Practitioner; Referring Provider Psychiatry & Neurology Neurology; Visit Provider Psychiatry & Neurology Neurology
DX: R20.0 Anesthesia of skin (principal); R53.1 Weakness; R26.9 Unspecified abnormalities of gait and mobility
CPT/HCPCS: 72141

== ENCOUNTER 2021-08-06 10:48 | Outpatient (RCR) | payer OTHER, SELFPAY | END 2021-08-06 10:50 | disposition home or self-care (01) | LOC: PT 10:48 | PROVIDERS: PCP Nurse Practitioner; Referring Provider Orthopaedic Surgery; Visit Provider Orthopaedic Surgery | DX: Z00.00 Encounter for general adult medical examination without abnormal findings (principal) ==

== ENCOUNTER 2021-09-25 12:41 | Outpatient (CLI) | payer OTHER, SELFPAY ==
--- NOTE | 2021-09-25 12:44 | ECHOD_ITS ---
Reason For Study: MVP Procedure This was a 2D Doppler, Color Flow transthoracic echocardiogram. The exam was of adequate technical quality. Exam performed in department. Left Ventricle Normal LV size. Left ventricular systolic function is normal. The estimated ejection fraction is 65 %. No evidence for diastolic dysfunction. No regional wall motion abnormalities noted. Right Ventricle Normal RV size. Normal systolic function. Atria Normal left atrium. Normal right atrium. No doppler evidence for ASD. Mitral Valve There is no mitral annular calcification. Mild diffuse mitral valve thickening. Mild focal mitral valve calcification of the anterior leaflet. Equivocal mitral valve prolapse. Trivial mitral valve insufficiency. Tricuspid Valve Normal tricuspid valve. Mild tricuspid valve insufficiency. Right ventricular systolic pressure estimated to be 28 mmHg. Aortic Valve Trisinus/trileaflet aortic valve. Normal aortic valve. Pulmonic Valve The pulmonic valve is not well visualized. Mild (1+) pulmonic valve insufficiency. Great Vessels Normal sized aortic root. Pericardium/Pleural No pericardial effusion. MMode/2D Measurements & Calculations LVIDd: 4.2 cm IVSd: 0.83 cm Ao root diam: 3.1 cm LVIDs: 3.0 cm LVPWd: 0.78 cm RVDd: 2.9 cm FS: 29.6 % LAV(MOD-bp): 29.1 ml LA A4 area: 11.4 cm2 LA dimension(2D): 3.2 cm LAV(MOD-bp) Indexed: 17.5 ml/m2 LAV(MOD-sp2): 29.4 ml LAV(MOD-sp4): 28.6 ml RA A4 area: 10.7 cm2 Doppler Measurements & Calculations MV E max elmer: 54.4 cm/sec Lat Peak E' Elmer: 7.6 cm/sec Med Peak E' Elmer: 5.6 cm/sec MV A max elmer: 73.3 cm/sec E/E' lat: 7.2 E/E' med: 9.8 MV E/A: 0.74 Ao V2 max: 106.8 cm/sec LV V1 max: 91.7 cm/sec TR max elmer: 252.1 cm/sec Ao max P.6 mmHg LV V1 max P.4 mmHg TR max P.4 mmHg ECHO/Echo Complete Interpretation Summary Left ventricular systolic function is normal. The estimated ejection fraction is 65 %. Mild diffuse mitral valve thickening. Mild focal mitral valve calcification of the anterior leaflet. Equivocal mitral valve prolapse. Trivial mitral valve insufficiency. Mild tricuspid valve insufficiency. Mild (1+) pulmonic valve insufficiency. Right ventricular systolic pressure estimated to be 28 mmHg. No evidence for diastolic dysfunction. Ordering Physician: Marcus Manuel Referring Physician: CHANTAL SARAH Performed By: Joana Cornejo, OPALCS, RVT
== END 2021-09-25 23:59 | disposition short-term general hospital (02) ==
LOC: CVS 12:42
PROVIDERS: PCP Nurse Practitioner; Referring Provider Internal Medicine Cardiovascular Disease; Visit Provider Internal Medicine Cardiovascular Disease
DX: I34.1 Nonrheumatic mitral (valve) prolapse (principal); R00.2 Palpitations; R00.0 Tachycardia, unspecified
CPT/HCPCS: 93306

== ENCOUNTER 2021-09-26 07:08 | Outpatient (CLI) | payer OTHER, SELFPAY ==
[2021-09-26 08:03] LABS: Absolute Lymphocyte Count 1.74 X10^3/uL (0.83-4.51); Absolute Neutrophil Count 3.3 X10^3/uL (2.0-7.7); Basophil# 0.04 X10^3/uL; Basophil% 0.7 % (0-1); Eosinophil# 0.17 X10^3/uL; Hematocrit 37.1 % (37-47); Hemoglobin 12.5 g/dL (12.0-15.0); Lymphocyte # 1.74 X10^3/ul (0.83-4.51); Lymphocyte % 31.1 % (19-41); Mean Corp Hgb Conc 33.7 g/dL (32-36); Mean Corpuscular Hgb 31.3 pg (27.0-32.0); Mean Corpuscular Volume 92.8 fL (81-99); Mean Platelet Vol. 9.4 fl (6.2-12.0); Monocyte# 0.35 X10^3/uL; Monocyte% 6.3 % (0-10); NRBC Flagged by Analyzer 0 % (0-5); Neutrophil # 3.28 X10^3/uL (2.7-7.7); Neutrophil % 58.7 % (47-70); Platelet Count 363 K/mm3 (150-450); RBC Distribution Width CV 14.7 % (11.6-14.6); RBC Distribution Width SD 50.4 fl (35.1-43.9); White Blood Count 5.6 K/mm3 (4.4-11.0)
[2021-09-26 08:17] LABS: Bilirubin, Direct 0.11 mg/dL (0.00-0.30); Cholesterol 198 mg/dL (200); High Density Lipoprotein 74 mg/dL; Triglycerides 119 mg/dL; Very Low Density Lipoprotein 24 mg/dL (5-40)
[2021-09-26 08:30] LABS: AST(SGOT) 21 U/L (15-37); Alanine Aminotransfer ALT/SGPT 21 U/L (13-56); Albumin, Serum 3.4 g/dL (3.2-5.0); Alkaline Phosphatase 110 U/L (45-117); Anion Gap 3 (5-15); BUN 16 mg/dL (7-18); BUN/Creat Ratio 20.8 RATIO (10-20); Calcium,Total 8.8 mg/dL (8.5-10.1); Chloride 109 mmol/L (98-107); Creatinine, Serum 0.77 mg/dL (0.55-1.02); EST Glomerular Filtration Rate 80 mL/min (>60); Est Glom Filt Rate - Afr Amer 97 mL/min (>60); Globulin 3.5 g/dL (2.2-4.2); Glucose 93 mg/dL (74-106); Potassium 4.2 mmol/L (3.5-5.1); Protein, Total 6.9 g/dL (6.4-8.2); Sodium Level 139 mmol/L (136-145)
== END 2021-09-26 23:59 | disposition home or self-care (01) ==
LOC: LAB 07:12
PROVIDERS: Internal Medicine Cardiovascular Disease; PCP Nurse Practitioner; Referring Provider Internal Medicine Rheumatology; Visit Provider Internal Medicine Rheumatology
DX: M06.4 Inflammatory polyarthropathy (principal); J45.909 Unspecified asthma, uncomplicated; I34.1 Nonrheumatic mitral (valve) prolapse; E78.5 Hyperlipidemia, unspecified; E78.00 Pure hypercholesterolemia, unspecified; K21.9 Gastro-esophageal reflux disease without esophagitis; E04.1 Nontoxic single thyroid nodule; R00.2 Palpitations; R00.0 Tachycardia, unspecified; Z79.899 Other long term (current) drug therapy; Z85.820 Personal history of malignant melanoma of skin
CPT/HCPCS: 36415; 80053; 80061; 82248; 85025

== ENCOUNTER 2021-10-06 09:00 | Outpatient (RCR) | payer OTHER, SELFPAY ==
[2020-09-08 11:29] VITALS: BMI 24.5
--- NOTE | 2021-03-16 15:05 | HP.PTEVAL_ITS ---
Patient's Visit Information CHANTAL DELA CRUZ is a 65 year old F referred to Physical Therapy by KALEY Cueva with a diagnosis of Left Reverse TSA. Date of Evaluation: 03/16/21 Physical Therapist: Caro Olvera DPT - Visit Plan Frequency: 2x /Week Duration: 2 Months Plan: 03/16/2021: Phase 1 and HEP only- GENTLY- DO NOT PUSH THROUGH PAIN - Subjective Left Reverse Total Shoulder by Dr. Dunham on 03/09/2021. Stayed over night at the hospital then came home- lives alone in a single story house with a dog. She has had multiple shoulder surgeries on the left see previous note. She is in the sling for the next 4 weeks- sleeping- and unless she is sitting. She had the ice machine for awhile but she is now just using an ice pack. Once the nerve block wore off she has had a lot of pain. Went back to see MD on Tuesday and they told her it was a mess on the inside and he did a lot of work and it would take time to heal. She has a lot of swelling and black and blue bruise in her left breast. Pain is located along the bicpital groove- radiates down to the mid humerus- and up to the middle trap- no pain in the scapula. Worst: 8/10 Agg: everything Eases: ice, rest Best: 3/10. Describes the pain as dull and achy and sharp/shooting. No N/T in the fingers. Does have mild increase in GILBERT, no blurred vision or dizziness. Is taking pain medication as prescribed- Percoset and Tylenol- no percoset since 3 am. She is driving but not if she is on pain medication. Sleep: disturbed- recliner and bed depending on how she feels. - Objective Posture: FH, RS- sling on left UE with significant guarding. Gait: no arm swing due to sling and limited trunk rotation. Observation: incision healing well- no s/s of infection or open areas. Palpation: tender along incision and anterior shoulder. ROM:AROM: Wrist/Hand: WFL Finger Dexterity: WFL AAROM: Elbow:Extension: 20 degrees from neutral Flexion: 130 degrees PROM: Flexion: 30 degrees, Abd: 20 degrees, IR: to belly, ER: neutral Extn: 10 degrees- guarding and pain in all directions did not push into pain. Strength: not tested due to surgical intervention - Balance/Special Test Scores Quick DASH Score: 86.3625 - Goals Goal 1:: Patient will be I with HEP and progression Goal Time Frame: 4-6 Weeks Goal 2:: Patient will demo functional ROM with no pain Goal Time Frame: 4-6 Weeks Goal 3:: Patient will maintain proper posture t/o tx session to demo increased scap s/s Goal Time Frame: 4-6 Weeks Goal 4:: Patient will reports sleeping through the night for 1 week Goal Time Frame: 4-6 Weeks - Rehabilitation Potential Physical Therapy Diagnosis: Patient presents s/p left Reverse TSA. She has decreased pain free ROM, strength and muscular endurance leading to poor posture and increase pain with ADL's - Anticipated Interventions Patient/Client Instruction: Educate patient on: Benefits of Fitness Program Therapeutic Exercise to Include: Strength training, Endurance training, Body mechanics, Postural training, Flexibilty training, Neuromotor development, Passive ROM, Active ROM, Dynamic Lumbar Stabilization, Scapular Strength/Stabilization For the Purpose of:: To improve muscle performance and motor function Manual Therapy Techniques to Include: Passive ROM, Soft tissue mobilization For the Purpose of:: To increase ROM Cryotherapy (ice pack, ice massage): Yes Thermo therapy (hot pack): Yes Thank you for the opportunity to evaluate your patient. For Medicare and Medicare HMO plans, please review the plan of care and approve it. It will need to be FAXED BACK to us at [phone] for Medicare purposes. For Medicare only, by signing this I certify the plan of care. Please let me know if there are questions or concerns regarding this plan of care. Physician Signature: Date:
--- NOTE | 2021-04-13 09:30 | HP.PTREVAL_ITS ---
Chantal Gallagher, [employer], It has been my pleasure to treat CHANTAL DELA CRUZ over the last 8 visits for Left Reverse TSA. Please see the progress note below for an update on the physical therapy plan of care! Subjective: Pt. reports having similar symptoms. She continues to have occasional pain that radiates from shoulder down her arm to her hand. Pt. reports being HEP compliant maintaining PROM with in pain free ranges. Pt. reports 0/10 pain at rest. Objective/Function: PROM: pt. is able to get ~45deg of flexion and 30deg of abd passively prior to having increased pain. Pt. is to follow up with her physician tomorrow. Pt. has an empty end feel with PROM secondary to pain. Plan Plan: Pt. to see physician tomorrow. COnt. to work on pain free PROM of shoulder at this point in time. Balance/Gait/Functional tests - Balance/Special Test Scores Quick DASH Score: 86.3625 Goals Goal 1:: Patient will be I with HEP and progression Goal Time Frame: 4-6 Weeks Goal 2:: Patient will demo functional ROM with no pain Goal Time Frame: 4-6 Weeks Goal 3:: Patient will maintain proper posture t/o tx session to demo increased scap s/s Goal Time Frame: 4-6 Weeks Goal 4:: Patient will reports sleeping through the night for 1 week Goal Time Frame: 4-6 Weeks Anticipated Interventions Patient/Client Instruction: Educate patient on: Benefits of Fitness Program Therapeutic Exercise to Include: Strength training, Endurance training, Body mechanics, Postural training, Flexibilty training, Neuromotor development, Passive ROM, Active ROM, Dynamic Lumbar Stabilization, Scapular Strength/Stabilization For the Purpose of:: To improve muscle performance and motor function Manual Therapy Techniques to Include: Passive ROM, Soft tissue mobilization For the Purpose of:: To increase ROM Cryotherapy (ice pack, ice massage): Yes Thermo therapy (hot pack): Yes Please do not hesitate to contact me at [phone] by phone or if you have questions or concerns regarding this new plan of care! Sincerely, Jaydon Stephen DPT
--- NOTE | 2021-05-29 09:32 | HP.PTREVAL ---
Chantal Gallagher, SUSSY-C, It has been my pleasure to treat CHANTAL DELA CRUZ over the last 20 visits for Left Reverse TSA. Please see the progress note below for an update on the physical therapy plan of care! Subjective: Pt. reports being 50% better overall. She reports still having higher levels of pain with any stretching over shoulder height and active motion of shoulder height. She reports being HEP compliant without issues. No pain at rest today, but reports increased pain still with overhead movements and upper body dressing. Objective/Function: L shoulder: PROML: flexion 120deg, abd 110deg, ER at side 30deg, IR at 60deg abd 30deg. AROM: flexion 90deg, abd 75deg, functional ER external auditory meatus, functional IR L PSIS. Pt. is still limited mostly secondary to pain. We have progressed into AAROM and light isometrics, but still focusing on increasing PROM and AROM motions. She is progressing, but slowly. Plan Plan: Add in isometrics next visit. Progress PROM end range and AAROM. She continues to be limited with ROM mostly due to pain, but did tolerate increased ROM this date. Cont. to progress ROM, progressing further into tissue resistance. Balance/Gait/Functional tests - Balance/Special Test Scores Quick DASH Score: 61.3625 Goals Goal 1:: Patient will be I with HEP and progression Goal Time Frame: 4-6 Weeks Goal Progress: Progressing Goal 2:: Patient will demo functional ROM with no pain Goal Time Frame: 4-6 Weeks Goal Progress: Progressing Goal 3:: Patient will maintain proper posture t/o tx session to demo increased scap s/s Goal Time Frame: 4-6 Weeks Goal Progress: Progressing Goal 4:: Patient will reports sleeping through the night for 1 week Goal Time Frame: 4-6 Weeks Goal Progress: Progressing Anticipated Interventions Patient/Client Instruction: Educate patient on: Benefits of Fitness Program Therapeutic Exercise to Include: Strength training, Endurance training, Body mechanics, Postural training, Flexibilty training, Neuromotor development, Passive ROM, Active ROM, Dynamic Lumbar Stabilization, Scapular Strength/Stabilization For the Purpose of:: To improve muscle performance and motor function Manual Therapy Techniques to Include: Passive ROM, Soft tissue mobilization For the Purpose of:: To increase ROM Cryotherapy (ice pack, ice massage): Yes Thermo therapy (hot pack): Yes Please do not hesitate to contact me at [phone] by phone or if you have questions or concerns regarding this new plan of care! Sincerely, KATHIE EscobarT
--- NOTE | 2021-08-11 10:40 | HP.PTDCSUM_ITS ---
It has been my pleasure to treat CHANTAL DELA CRUZ referred by GELA Cueva, with the diagnosis of Left Reverse TSA for a total of 34 visit(s). Discharge Date: Please see the following information for a summary of their discharge status. Subjective: Patient reports normally at rest pain level is 1-2/10 and located in the anterior shoulder. When she performs activities the pain can range up to a 5/10 pain is located in the same area. After she stops activity the pain takes 30 min with ice and 60 min without ice to return to baseline. She reports that she is able to complete 80% of ADLs- she is still struggling to reach straight out to the side and above her head. She likes to play golf and is unable to play- she also likes to swim and fish but has not had the opportunity to do this again. Compared to three years ago before the incident she is 60%. Since the reverse total- 60%. L shoulder Pain Intensity (Out of 10): 6 % Improvement: 60 Objective/Function: Posture: can maintain throughout but does guard the left shoulder with activity. Palpation: tender along infraspinatus, AC joint and bicipital groove. AROM: Finger Dexterity: WFL, Shipper/Receiver: full, Sup/Pro: WFL, Elbow: WFL Shoulder: Flexion: 110 degrees Abd: 90 degrees, IR: belt line, ER: 40 degrees. Strength: Shipper/Receiver: Left: 20 Right: 50 Wrist: 5/5, Elbow: 4/5 with compensation Shoulder: tested at neutral Flexion: 4/5, extn: 4/5 with pain, Abd: 4-/5, Add: 4/5, IR/ER: 4/5 Goal 1:: Patient will be I with HEP and progression Goal Progress: Goal Met Goal 2:: Patient will demo functional ROM with no pain Goal Progress: Progressing Goal 3:: Patient will maintain proper posture t/o tx session to demo increased scap s/s Goal Progress: Progressing Goal 4:: Patient will reports sleeping through the night for 1 week Goal Progress: Progressing Plan: Discharge to I home exercise program- encouraged to follow up with PT if questions If there are questions or concerns regarding this patient's physical therapy, please feel free to call me at [phone]. Thank you for the referral of this patient. Sincerely, Caroashutosh Olvera DPT Balance/Gait/Functional tests - Balance/Special Test Scores Lower Extremity Functional Score: 34 Quick DASH Score: 37.5000
--- NOTE | 2021-08-11 10:45 | HP.PTEVAL2_ITS ---
Patient's Visit Information CHANTAL DELA CRUZ is a 65 year old F referred to Physical Therapy by KALEY Cueva C with a diagnosis of Medial Menisectomy. Date of Evaluation: 08/11/21 Physical Therapist: Caro Olvera DPT - Visit Plan Frequency: 2x /Week Duration: 4 Weeks Plan: Focus on LE and core strength/stabilization. HEP Given IE: Bolster extn stretch, quad set, SLR, heel slide, step stretch, weight shift - Subjective Subjective: Patient reports that she had a medial meniscectomy 07/27/[address] Dubon. Went home after surgery- bedroom upstairs- no problems navigating stairs. Went back to see who wanted her to do PT for a few weeks to focus on ROM and quad toning exercises and she goes back 08/18. Was told her knee is still loaded with OA. Worst: 01/29 Agg: really anything can flare it up. Eases: Ice Best: 10/01. Pain is located in the knee- radiates to the ankle- describes the pain as dull and achy when it kicks up it can be sharp. Sleep: disturbed- wakes her up when she rolls over. Has had recent x-rays and everything looks good. Work: not currently working. PMHx/Meds: no changes since last IE - Objective Objective: Posture: FH, RS- can correct but does not maintain. Gait: antalgic- decreased stance on the left LE- poor heel strike due to decreased ROM and reports buckling. Stairs: asc/desc 8 non-recip with 1 HR and poor control with descent and uses UE A for propulsion. HR/TR: able with UE A SLS: weight shift but does not trust it to hold her weight- feels like it may hyper extend Sensation/Reflex: WFL. ROM: 20-90 degrees with pain at end ranges-Strength: Core: fair minus, Hip: 4/5 throughout, Knee: 4/5 pain with testing, Ankle: 5/5. Flex: HS: severe, Gastroc: severe. Sit to Stand: required UE A to rise from chair - Balance/Special Gait Scores TUG Test Time Seconds: 11.96 30 Second Chair Rise Test Seconds: 8 - Goals Goal 1:: Patient will be I with HEP and progression Goal Time Frame: 4-6 Weeks Goal 2:: Patient will ambulate >300 feet with a normalized gait pattern Goal Time Frame: 4-6 Weeks Goal 3:: Patient will asc/desc 8 stairs recip with no HR Goal Time Frame: 4-6 Weeks - Rehabilitation Potential Physical Therapy Diagnosis: Patient presents with hypomobility- she has decreased pain free ROM, LE and core strength/stabilization, flex and muscular endurance leading to abnormal gait and decreased ability to perform ADL's. Rehabilitation Potential: Good - Anticipated Interventions Patient/Client Instruction: Educate patient on: Benefits of Fitness Program Therapeutic Exercise to Include: Strength training, Endurance training, Balance training, Coordination, Agility training, Body mechanics, Postural training, Flexibilty training, Gait and locomotor training, Neuromotor development, Dynamic Lumbar Stabilization, Scapular Strength/Stabilization For the Purpose of:: To improve muscle performance and motor function TENS: Yes Cryotherapy (ice pack, ice massage): Yes Thermo therapy (hot pack): Yes Ultrasound (thermal/non thermal): Yes Thank you for the opportunity to evaluate your patient. For Medicare and Medicare HMO plans, please review the plan of care and approve it. It will need to be FAXED BACK to us at [phone] for Medicare purposes. For Medicare only, by signing this I certify the plan of care. Please let me know if there are questions or concerns regarding this plan of care. Physician Signature: Date:
--- NOTE | 2021-09-09 09:30 | HP.PTREVAL ---
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 Please see the progress note below for an update on the physical therapy plan of care! Subjective: Patient reports normally at rest pain level is 1-2/10 and located in the anterior shoulder. When she performs activities the pain can range up to a 5/10 pain is located in the same area. After she stops activity the pain takes 30 min with ice and 60 min without ice to return to baseline. She reports that she is able to complete 80% of ADLs- she is still struggling to reach straight out to the side and above her head. She likes to play golf and is unable to play- she also likes to swim and fish but has not had the opportunity to do this again. Compared to three years ago before the incident she is 60%. Since the reverse total- 60%. Objective/Function: Posture: can maintain throughout but does guard the left shoulder with activity. Palpation: tender along infraspinatus, AC joint and bicipital groove. AROM: Finger Dexterity: WFL, Water Meter Installer: full, Sup/Pro: WFL, Elbow: WFL Shoulder: Flexion: 110 degrees Abd: 90 degrees, IR: belt line, ER: 40 degrees. Strength: Water Meter Installer: Left: 20 Right: 50 Wrist: 5/5, Elbow: 4/5 with compensation Shoulder: tested at neutral Flexion: 4/5, extn: 4/5 with pain, Abd: 4-/5, Add: 4/5, IR/ER: 4/5 Plan Plan: Discharge to home exercise program- encouraged to follow up with PT if questions Balance/Gait/Functional tests - Balance/Special Test Scores Lower Extremity Functional Score: 36 Quick DASH Score: 37.5000 Goals Goal 1:: Patient will be I with HEP and progression Goal Time Frame: 4-6 Weeks Goal Progress: Goal Met Goal 2:: Patient will demo functional ROM with no pain Goal Time Frame: 4-6 Weeks Goal Progress: Progressing Goal 3:: Patient will maintain proper posture t/o tx session to demo increased scap s/s Goal Time Frame: 4-6 Weeks Goal Progress: Progressing Goal 4:: Patient will reports sleeping through the night for 1 week Goal Time Frame: 4-6 Weeks Goal Progress: Progressing Anticipated Interventions Patient/Client Instruction: Educate patient on: Benefits of Fitness Program Therapeutic Exercise to Include: Strength training, Endurance training, Body mechanics, Postural training, Flexibilty training, Neuromotor development, Passive ROM, Active ROM, Dynamic Lumbar Stabilization, Scapular Strength/Stabilization For the Purpose of:: To improve muscle performance and motor function Manual Therapy Techniques to Include: Passive ROM, Soft tissue mobilization For the Purpose of:: To increase ROM Cryotherapy (ice pack, ice massage): Yes Thermo therapy (hot pack): Yes Please do not hesitate to contact me at [phone] by phone or if you have questions or concerns regarding this new plan of care! Sincerely, KATHIE ToledoT
== END 2021-10-06 19:00 | disposition home or self-care (01) ==
LOC: PT 09:00
PROVIDERS: PCP Nurse Practitioner; Referring Provider Nurse Practitioner; Visit Provider Nurse Practitioner
DX: M23.331 Other meniscus derangements, other medial meniscus, right knee (principal); M17.11 Unilateral primary osteoarthritis, right knee; M22.41 Chondromalacia patellae, right knee
CPT/HCPCS: 97110; 97140; 97162; 97164

== ENCOUNTER 2021-10-22 17:41 | Outpatient (CLI) | payer OTHER, SELFPAY ==
--- NOTE | 2021-10-22 17:44 | MRI_ITS ---
EXAM: MR LUMBAR SPINE WITHOUT AND WITH INTRAVENOUS CONTRAST CLINICAL INDICATION: S/P LUMBAR FUSION, SPINAL STENOSIS LOW BACK PAIN, BILAT LEG PAIN, TECHNIQUE: Multiplanar and multisequence MR images of the lumbar spine without and with intravenous contrast. This report was created using [employer] report [employer] technology. CONTRAST: IV 12ML DOTAREM COMPARISON: PREV MRI 09/15/2020 FINDINGS: VERTEBRAE: Laminectomy changes from L3 to L5. Pedicle screws visualized from L3 to L5. Spinal fixation hardware noted. SPINAL CORD: Unremarkable. Normal position and signal intensity of the conus medullaris. SOFT TISSUES: Unremarkable. DISCS/SPINAL CANAL/NEURAL FORAMINA: L1-L2: L1-2: Loss of intervertebral disc height. There is endplate spondylosis of the vertebral body. Normal central canal and intervertebral neuroforamina. There is bilateral facet arthropathy. Posterior disc herniation. No spinal stenosis. L2-L3: L2-3: Loss of intervertebral disc height. There is endplate spondylosis of the vertebral body. Severe narrowing of the left intervertebral neuroforamina. There is metal artifact but there is likely compression of exiting left L2 nerve root. There is bilateral ligamentum flavum thickening. Central disc herniation. No synovial spinal stenosis. There is bilateral facet arthropathy. L3-L4: Unremarkable. Normal disc height and morphology. Normal spinal canal and lateral recesses. Normal neuroforamina. L4-L5: Unremarkable. Normal disc height and morphology. Normal spinal canal and lateral recesses. Normal neuroforamina. L5-S1: Post fusion changes at L5-S1. Normal spinal canal and lateral recesses. Normal neuroforamina. MRI/Spine Lumbar W/WO Contrast IMPRESSION: 1. Post fusion changes at L5-S1. 2. Laminectomy changes from L3 to L5. Pedicle screws visualized from L3 to L5. Spinal fixation hardware noted. 3. L1-2: Loss of intervertebral disc height. There is endplate spondylosis of the vertebral body. Normal central canal and intervertebral neuroforamina. There is bilateral facet arthropathy. Posterior disc herniation. No spinal stenosis. 4. L2-3: Loss of intervertebral disc height. There is endplate spondylosis of the vertebral body. Severe narrowing of the left intervertebral neuroforamina. There is metal artifact but there is likely compression of exiting left L2 nerve root. There is bilateral ligamentum flavum thickening. Central disc herniation. No synovial spinal stenosis. There is bilateral facet arthropathy. Electronically Signed: Elijah Guidry MD at 20:38 EST ,
== END 2021-10-22 23:59 | disposition home or self-care (01) ==
LOC: MRI 17:42
PROVIDERS: PCP Nurse Practitioner; Visit Provider Nurse Practitioner Acute Care
DX: M48.061 Spinal stenosis, lumbar region without neurogenic claudication (principal); Z98.1 Arthrodesis status
CPT/HCPCS: 72158; A9575

== ENCOUNTER 2021-12-04 13:34 | Outpatient (CLI) | payer OTHER, SELFPAY ==
[2021-12-04 15:27] LABS: Absolute Neutrophil Count 3.5 X10^3/uL (2.0-7.7); Basophil# 0.05 X10^3/uL; Basophil% 0.8 % (0-1); Eosinophil# 0.14 X10^3/uL; Eosinophils% 2.2 % (0-5); Hematocrit 34.2 % (37-47); Hemoglobin 11.6 g/dL (12.0-15.0); Lymphocyte % 34.7 % (19-41); Mean Corp Hgb Conc 33.9 g/dL (32-36); Mean Corpuscular Hgb 31.4 pg (27.0-32.0); Mean Corpuscular Volume 92.4 fL (81-99); Mean Platelet Vol. 9.8 fl (6.2-12.0); Monocyte# 0.39 X10^3/uL; Monocyte% 6.2 % (0-10); NRBC Flagged by Analyzer 0 % (0-5); Neutrophil # 3.54 X10^3/uL (2.7-7.7); Neutrophil % 55.8 % (47-70); Platelet Count 352 K/mm3 (150-450); RBC Distribution Width CV 14.4 % (11.6-14.6); RBC Distribution Width SD 48.3 fl (35.1-43.9); White Blood Count 6.3 K/mm3 (4.4-11.0)
[2021-12-04 16:03] LABS: ALB/GLOB Ratio 1.2 RATIO (0.9-2.4); AST(SGOT) 27 U/L (15-37); Alanine Aminotransfer ALT/SGPT 26 U/L (13-56); Albumin, Serum 3.7 g/dL (3.2-5.0); Alkaline Phosphatase 113 U/L (45-117); Anion Gap 4 (5-15); BUN 14 mg/dL (7-18); BUN/Creat Ratio 19.6 RATIO (10-20); Calcium,Total 8.7 mg/dL (8.5-10.1); Chloride 107 mmol/L (98-107); Creatinine, Serum 0.71 mg/dL (0.55-1.02); EST Glomerular Filtration Rate 87 mL/min (>60); Est Glom Filt Rate - Afr Amer 106 mL/min (>60); Globulin 3.2 g/dL (2.2-4.2); Glucose 99 mg/dL (74-106); Potassium 3.8 mmol/L (3.5-5.1); Protein, Total 6.9 g/dL (6.4-8.2); Sodium Level 138 mmol/L (136-145)
== END 2021-12-04 23:59 | disposition home or self-care (01) ==
LOC: MTLAB 13:35
PROVIDERS: PCP Nurse Practitioner; Referring Provider Internal Medicine Rheumatology; Visit Provider Internal Medicine Rheumatology
DX: M06.4 Inflammatory polyarthropathy (principal); Z79.899 Other long term (current) drug therapy; J45.909 Unspecified asthma, uncomplicated; I34.1 Nonrheumatic mitral (valve) prolapse; E78.5 Hyperlipidemia, unspecified; K21.9 Gastro-esophageal reflux disease without esophagitis; E04.1 Nontoxic single thyroid nodule; Z85.820 Personal history of malignant melanoma of skin
CPT/HCPCS: 36415; 80053; 85025

== ENCOUNTER → 2021-12-29 | Outpatient (CLI) | payer MEDICARE, SELFPAY ==
[2021-12-29 10:13] LABS: Absolute Lymphocyte Count 1.66 X10^3/uL (0.83-4.51); Absolute Neutrophil Count 1.7 X10^3/uL (2.0-7.7); Basophil# 0.03 X10^3/uL; Basophil% 0.8 % (0-1); Eosinophil# 0.11 X10^3/uL; Hemoglobin 11.7 g/dL (12.0-15.0); Lymphocyte # 1.66 X10^3/ul (0.83-4.51); Lymphocyte % 44.6 % (19-41); Mean Corp Hgb Conc 32.5 g/dL (32-36); Mean Corpuscular Hgb 30.6 pg (27.0-32.0); Mean Corpuscular Volume 94.2 fL (81-99); Mean Platelet Vol. 9.5 fl (6.2-12.0); Monocyte# 0.26 X10^3/uL; NRBC Flagged by Analyzer 0 % (0-5); Neutrophil # 1.65 X10^3/uL (2.7-7.7); Neutrophil % 44.3 % (47-70); Platelet Count 346 K/mm3 (150-450); RBC Distribution Width CV 14.3 % (11.6-14.6); RBC Distribution Width SD 49.1 fl (35.1-43.9); Red Blood Count 3.82 M/mm3 (4.2-5.4); White Blood Count 3.7 K/mm3 (4.4-11.0)
[2021-12-29 10:53] LABS: Vitamin D,25 Hydroxy 47.9 ng/mL
[2021-12-29 11:21] LABS: ALB/GLOB Ratio 1.1 RATIO (0.9-2.4); AST(SGOT) 24 U/L (15-37); Alanine Aminotransfer ALT/SGPT 24 U/L (13-56); Albumin, Serum 3.5 g/dL (3.2-5.0); Alkaline Phosphatase 105 U/L (45-117); Anion Gap 9 (5-15); BUN 17 mg/dL (7-18); BUN/Creat Ratio 23.6 RATIO (10-20); Calcium,Total 8.8 mg/dL (8.5-10.1); Chloride 107 mmol/L (98-107); Cholesterol 197 mg/dL (200); Creatinine, Serum 0.72 mg/dL (0.55-1.02); EST Glomerular Filtration Rate 86 mL/min (>60); Est Glom Filt Rate - Afr Amer 105 mL/min (>60); Globulin 3.3 g/dL (2.2-4.2); Glucose 86 mg/dL (74-106); High Density Lipoprotein 67 mg/dL; Potassium 4.1 mmol/L (3.5-5.1); Protein, Total 6.8 g/dL (6.4-8.2); Sodium Level 140 mmol/L (136-145); Thyroid Stim Hormone (TSH) 2.04 uIU/mL (0.358-3.74); Triglycerides 91 mg/dL; Very Low Density Lipoprotein 18 mg/dL (5-40)
== END | disposition home or self-care (01) ==
LOC: MTLAB 07:43
PROVIDERS: PCP Internal Medicine; Referring Provider Internal Medicine; Visit Provider Internal Medicine
DX: E78.00 Pure hypercholesterolemia, unspecified (principal); E55.9 Vitamin D deficiency, unspecified; D64.9 Anemia, unspecified
CPT/HCPCS: 36415; 80053; 80061; 82306; 84443; 85025

== ENCOUNTER → 2022-02-03 | Outpatient (CLI) | payer MEDICARE, SELFPAY ==
[2022-02-03 09:58] LABS: Absolute Lymphocyte Count 1.27 X10^3/uL (0.83-4.51); Absolute Neutrophil Count 8.8 X10^3/uL (2.0-7.7); Basophil# 0.04 X10^3/uL; Basophil% 0.4 % (0-1); Eosinophil# 0.04 X10^3/uL; Eosinophils% 0.4 % (0-5); Hematocrit 35.5 % (37-47); Hemoglobin 11.8 g/dL (12.0-15.0); Lymphocyte # 1.27 X10^3/ul (0.83-4.51); Lymphocyte % 11.7 % (19-41); Mean Corp Hgb Conc 33.2 g/dL (32-36); Mean Corpuscular Hgb 31.6 pg (27.0-32.0); Mean Corpuscular Volume 94.9 fL (81-99); Mean Platelet Vol. 9.8 fl (6.2-12.0); Monocyte# 0.66 X10^3/uL; Monocyte% 6.1 % (0-10); NRBC Flagged by Analyzer 0 % (0-5); Neutrophil # 8.79 X10^3/uL (2.7-7.7); Platelet Count 332 K/mm3 (150-450); RBC Distribution Width CV 14.8 % (11.6-14.6); RBC Distribution Width SD 51.8 fl (35.1-43.9); Red Blood Count 3.74 M/mm3 (4.2-5.4); White Blood Count 10.8 K/mm3 (4.4-11.0)
[2022-02-03 10:18] LABS: Erythrocyte Sedimentation Rate 10 mm/hr (0-30)
[2022-02-03 10:33] LABS: ALB/GLOB Ratio 1.1 RATIO (0.9-2.4); AST(SGOT) 22 U/L (15-37); Alanine Aminotransfer ALT/SGPT 26 U/L (13-56); Albumin, Serum 3.6 g/dL (3.2-5.0); Alkaline Phosphatase 114 U/L (45-117); Anion Gap 8 (5-15); BUN 8 mg/dL (7-18); BUN/Creat Ratio 10.8 RATIO (10-20); Calcium,Total 8.8 mg/dL (8.5-10.1); Chloride 102 mmol/L (98-107); Creatinine, Serum 0.74 mg/dL (0.55-1.02); EST Glomerular Filtration Rate 84 mL/min (>60); Est Glom Filt Rate - Afr Amer 102 mL/min (>60); Globulin 3.3 g/dL (2.2-4.2); Glucose 103 mg/dL (74-106); Potassium 3.7 mmol/L (3.5-5.1); Protein, Total 6.9 g/dL (6.4-8.2); Sodium Level 136 mmol/L (136-145)
== END | disposition home or self-care (01) ==
LOC: MTLAB 07:43
PROVIDERS: PCP Nurse Practitioner; Referring Provider Internal Medicine Rheumatology; Visit Provider Internal Medicine Rheumatology
DX: M06.4 Inflammatory polyarthropathy (principal); Z79.899 Other long term (current) drug therapy; J45.909 Unspecified asthma, uncomplicated; I34.1 Nonrheumatic mitral (valve) prolapse; E78.5 Hyperlipidemia, unspecified; K21.9 Gastro-esophageal reflux disease without esophagitis; E04.1 Nontoxic single thyroid nodule; Z85.820 Personal history of malignant melanoma of skin
CPT/HCPCS: 36415; 80053; 85025; 85652

== ENCOUNTER → 2022-02-03 | Outpatient (CLI) | payer MEDICARE, SELFPAY ==
--- NOTE | 2022-02-03 09:03 | CT_ITS ---
STUDY: CT ABDOMEN AND PELVIS WITHOUT CONTRAST REASON FOR EXAM: Female, 66 years old. Left-sided abdominal pain/flank pain. RADIATION DOSAGE (If Supplied By Facility): CTDIvol = ( 8.03 ) mGy, DLP = ( 324.36 ) mGycm TECHNIQUE: Transaxial images were obtained from the dome of the diaphragm to the symphysis pubis without oral contrast, and without intravenous contrast. Sagittal and coronal images were reconstructed. Individualized dose optimization techniques were used for this CT. COMPARISON: Comparison is made with prior study dated 03/20/2018. FINDINGS: The visualized lung bases are unremarkable. The visualized portions of the heart are within normal limits. Normal liver. The patient is status post cholecystectomy. Normal spleen. Normal pancreas. Normal bilateral adrenal glands. Normal right kidney. Normal left kidney. Normal visualized stomach. Normal small intestine. There are multiple colonic diverticula consistent with diverticulosis. The patient is status post appendectomy. There is diffuse atherosclerotic calcification of the abdominal aorta, without a demonstrated aneurysm. Normal inferior vena cava. Normal retroperitoneum. Normal urinary bladder. There is absence of the uterus consistent with a prior hysterectomy. There is a small umbilical hernia containing fat. The patient is status post intraventricular screw and fanny fixation at the L3-L4 and L4-L5 levels. Disc space narrowing and spondylosis at the T11-T12, T12-L1 and L1-L2 levels. CT/Abdomen/Pelvis without Cont IMPRESSION: Status post cholecystectomy, appendectomy and hysterectomy. Sigmoid diverticulosis. No obstructive uropathy is seen. Electronically Signed: Milad Helms MD at 9:44 EDT ,
== END | disposition home or self-care (01) ==
PROVIDERS: PCP Nurse Practitioner; Visit Provider Internal Medicine
DX: R10.9 Unspecified abdominal pain (principal)
CPT/HCPCS: 36415; 74176; 80053; 85025; 85652

== ENCOUNTER → 2022-03-31 | Outpatient (CLI) | payer MEDICARE, SELFPAY ==
[2022-03-31 10:00] LABS: Absolute Neutrophil Count 2.9 X10^3/uL (2.0-7.7); Basophil# 0.04 X10^3/uL; Basophil% 0.8 % (0-1); Eosinophil# 0.07 X10^3/uL; Eosinophils% 1.4 % (0-5); Hematocrit 36.1 % (37-47); Hemoglobin 11.9 g/dL (12.0-15.0); Lymphocyte % 35.5 % (19-41); Mean Corpuscular Hgb 31.5 pg (27.0-32.0); Mean Corpuscular Volume 95.5 fL (81-99); Mean Platelet Vol. 9.7 fl (6.2-12.0); Monocyte# 0.31 X10^3/uL; Monocyte% 6.1 % (0-10); NRBC Flagged by Analyzer 0 % (0-5); Neutrophil # 2.85 X10^3/uL (2.7-7.7); Neutrophil % 56.2 % (47-70); Platelet Count 324 K/mm3 (150-450); RBC Distribution Width CV 14.7 % (11.6-14.6); RBC Distribution Width SD 51.3 fl (35.1-43.9); Red Blood Count 3.78 M/mm3 (4.2-5.4); White Blood Count 5.1 K/mm3 (4.4-11.0)
[2022-03-31 10:26] LABS: ALB/GLOB Ratio 1.2 RATIO (0.9-2.4); AST(SGOT) 24 U/L (15-37); Alanine Aminotransfer ALT/SGPT 21 U/L (13-56); Albumin, Serum 3.7 g/dL (3.2-5.0); Alkaline Phosphatase 101 U/L (45-117); Anion Gap 6 (5-15); BUN 15 mg/dL (7-18); BUN/Creat Ratio 23.1 RATIO (10-20); Calcium,Total 8.8 mg/dL (8.5-10.1); Chloride 106 mmol/L (98-107); Creatinine, Serum 0.65 mg/dL (0.55-1.02); EST Glomerular Filtration Rate 97 mL/min (>60); Est Glom Filt Rate - Afr Amer 118 mL/min (>60); Globulin 3.1 g/dL (2.2-4.2); Glucose 96 mg/dL (74-106); Potassium 4.1 mmol/L (3.5-5.1); Protein, Total 6.8 g/dL (6.4-8.2); Sodium Level 139 mmol/L (136-145)
== END | disposition home or self-care (01) ==
LOC: MTLAB 09:27
PROVIDERS: PCP Nurse Practitioner; Referring Provider Internal Medicine Rheumatology; Visit Provider Internal Medicine Rheumatology
DX: M06.4 Inflammatory polyarthropathy (principal); Z79.899 Other long term (current) drug therapy; J45.909 Unspecified asthma, uncomplicated; I34.1 Nonrheumatic mitral (valve) prolapse; E78.5 Hyperlipidemia, unspecified; K21.9 Gastro-esophageal reflux disease without esophagitis; E04.1 Nontoxic single thyroid nodule; Z85.820 Personal history of malignant melanoma of skin
CPT/HCPCS: 36415; 80053; 85025

== ENCOUNTER → 2022-04-15 | Outpatient (CLI) | payer OTHER, MEDICARE, SELFPAY ==
--- NOTE | 2022-04-15 15:19 | BI_ITS ---
MAMMOGRAPHY - BILATERAL SCREENING REASON FOR EXAM: Female, 66 years old. Routine annual screening examination. PERTINENT HISTORY: Non-contributory. Remote left stereotactic breast biopsies. TECHNIQUE: Digital bilateral breast eliza (3D mammographic acquisition) in the CC and MLO projections. 2-D mediolateral oblique (MLO) and craniocaudad (CC) views of both breasts were obtained. CAD: Full Field Digital Mammography with Computer Added Detection was performed. COMPARISON: Comparison is made with prior examination dated 05/06/2021 05/05/2020. FINDINGS: Breast Composition: The breasts are heterogeneously dense, which may obscure small masses. There are no dominant masses or suspicious calcifications. Once again, tissue markers are seen in the deep upper central portion of the left breast. No other significant abnormalities are identified. There has been no significant change since the prior study. BI/SCRN MAMM (CAD)W/ELIZA BILAT IMPRESSION: Stable bilateral screening mammogram. Yearly follow-up mammogram recommended. (A) ASSESSMENT CATEGORY: BIRADS Category 2: Benign. A letter regarding these results will be sent to the patient by the facility within 30 days. Approximately 10% of breast cancers are not detected by mammography. A normal mammogram should not delay biopsy of a clinically suspicious abnormality. [id number] Electronically Signed: Milad Helms MD at 8:34 EDT ,
--- NOTE | 2022-04-15 15:36 | BD_ITS ---
STUDY: DUAL ENERGY X-RAY ABSORPTIOMETRY / DXA REASON FOR EXAM: Female, 66 years old. [id number]. Patient is postmenopausal. TECHNIQUE: Bone Mineral Density (BMD) measurements of lumbar spine and bilateral hips were obtained. COMPARISON: Comparison is made with prior study 05/29/2020. FINDINGS: Lumbar Spine (L1-L4): g/cm2 (1.088) / T-score (1.0) / Z-score (2.7) Findings are suggestive of normal bone density with a low fracture risk. Left Femur Total: g/cm2 (0.759) / T-score (-1.5) / Z-score (-0.3) Left Femoral Neck: g/cm2 (0.642) / T-score (-1.9) / Z-score (-0.3) Right Femur Total: g/cm2 (0.786) / T-score (-1.3) / Z-score (0.0) Right Femoral Neck: g/cm2 (0.665) / T-score (-1.7) / Z-score (-0.1) The T-Scores on the most recent prior examination were: Lumbar Spine (L1-L4): There has been improvement of bone density since the previous examination. Left Femur Total: which represents a worsening of 2.7%. Right Femur Total: which represents a worsening of 5%. BD/Dexa Bone Density Study IMPRESSION: The patient is considered osteopenic as outlined below according to World [employer] Organization (WHO) criteria with a moderate fracture risk. There has been worsening of bone density since the previous examination. Reference Information: The T-score is the number of standard deviations above or below the standard which is normal for young adults at their peak bone mineral density. The World Health Organization (WHO) interprets the T-scores as follows: Above -1 Normal bone density Between -1 and -2.5 Osteopenia Equal to / or below -2.5 Osteoporosis As a practical clinical guideline, osteopenia may be graded as follows: Mild -1 through -1.5 Moderate -1.6 through -2.0 Severe -2.1 through -2.4 The Z-score is the number of standard deviations above or below age-matched controls. A Z-score of less than -1.5 would be considered abnormal. References: 1. NIH Osteoporosis and Related Bone Diseases www osteo.org 2. International Society for Clinical Densitometry www iscd.org 3. National Osteoporosis Foundation www nof.org Electronically Signed: Milad Helms MD at 14:24 EDT ,
[2022-04-15 16:29] LABS: Absolute Lymphocyte Count 2.82 X10^3/uL (0.83-4.51); Absolute Neutrophil Count 4.5 X10^3/uL (2.0-7.7); Basophil# 0.04 X10^3/uL; Basophil% 0.5 % (0-1); Eosinophil# 0.08 X10^3/uL; Hematocrit 34.4 % (37-47); Hemoglobin 11.6 g/dL (12.0-15.0); Lymphocyte # 2.82 X10^3/ul (0.83-4.51); Lymphocyte % 36.2 % (19-41); Mean Corp Hgb Conc 33.7 g/dL (32-36); Mean Corpuscular Hgb 31.9 pg (27.0-32.0); Mean Corpuscular Volume 94.5 fL (81-99); Mean Platelet Vol. 9.9 fl (6.2-12.0); Monocyte# 0.32 X10^3/uL; Monocyte% 4.1 % (0-10); NRBC Flagged by Analyzer 0 % (0-5); Neutrophil % 57.9 % (47-70); Platelet Count 351 K/mm3 (150-450); RBC Distribution Width CV 14.8 % (11.6-14.6); RBC Distribution Width SD 51.7 fl (35.1-43.9); Red Blood Count 3.64 M/mm3 (4.2-5.4); White Blood Count 7.8 K/mm3 (4.4-11.0)
[2022-04-15 17:15] LABS: ALB/GLOB Ratio 1.2 RATIO (0.9-2.4); AST(SGOT) 24 U/L (15-37); Alanine Aminotransfer ALT/SGPT 26 U/L (13-56); Albumin, Serum 3.7 g/dL (3.2-5.0); Alkaline Phosphatase 105 U/L (45-117); Anion Gap 6 (5-15); BUN 13 mg/dL (7-18); BUN/Creat Ratio 17.2 RATIO (10-20); Calcium,Total 8.7 mg/dL (8.5-10.1); Chloride 106 mmol/L (98-107); Creatinine, Serum 0.76 mg/dL (0.55-1.02); EST Glomerular Filtration Rate 81 mL/min (>60); Est Glom Filt Rate - Afr Amer 98 mL/min (>60); Ferritin 21 ng/mL (8-252); Globulin 3.2 g/dL (2.2-4.2); Glucose 135 mg/dL (74-106); Iron 54 ug/dL (50-170); Iron Binding Capacity,Total 330 ug/dL (250-450); PERCENT IRON SATURATION 16.4 % (15.0-55.0); Potassium 3.8 mmol/L (3.5-5.1); Protein, Total 6.9 g/dL (6.4-8.2); Sodium Level 139 mmol/L (136-145)
== END | disposition home or self-care (01) ==
PROVIDERS: Nurse Practitioner Family; PCP Internal Medicine; Referring Provider Internal Medicine; Visit Provider Internal Medicine
DX: Z12.31 Encounter for screening mammogram for malignant neoplasm of breast (principal); Z78.0 Asymptomatic menopausal state; D64.9 Anemia, unspecified; E61.1 Iron deficiency
CPT/HCPCS: 36415; 77063; 77067; 77080; 80053; 82728; 83540; 83550; 85025

== ENCOUNTER → 2022-06-08 | Outpatient (CLI) | payer MEDICARE, SELFPAY ==
[2022-06-08 12:38] LABS: Absolute Lymphocyte Count 1.71 X10^3/uL (0.83-4.51); Absolute Neutrophil Count 2.8 X10^3/uL (2.0-7.7); Basophil# 0.03 X10^3/uL; Basophil% 0.6 % (0-1); Eosinophil# 0.05 X10^3/uL; Hematocrit 35.6 % (37-47); Hemoglobin 11.6 g/dL (12.0-15.0); Lymphocyte # 1.71 X10^3/ul (0.83-4.51); Lymphocyte % 35.3 % (19-41); Mean Corp Hgb Conc 32.6 g/dL (32-36); Mean Corpuscular Hgb 31.7 pg (27.0-32.0); Mean Corpuscular Volume 97.3 fL (81-99); Mean Platelet Vol. 9.8 fl (6.2-12.0); Monocyte# 0.24 X10^3/uL; NRBC Flagged by Analyzer 0 % (0-5); Neutrophil # 2.79 X10^3/uL (2.7-7.7); Neutrophil % 57.7 % (47-70); Platelet Count 350 K/mm3 (150-450); RBC Distribution Width CV 13.5 % (11.6-14.6); RBC Distribution Width SD 48.6 fl (35.1-43.9); Red Blood Count 3.66 M/mm3 (4.2-5.4); White Blood Count 4.8 K/mm3 (4.4-11.0)
[2022-06-08 13:04] LABS: ALB/GLOB Ratio 1.3 RATIO (0.9-2.4); AST(SGOT) 23 U/L (15-37); Alanine Aminotransfer ALT/SGPT 22 U/L (13-56); Albumin, Serum 3.8 g/dL (3.2-5.0); Alkaline Phosphatase 99 U/L (45-117); Anion Gap 7 (5-15); BUN 11 mg/dL (7-18); BUN/Creat Ratio 16.6 RATIO (10-20); Chloride 106 mmol/L (98-107); Creatinine, Serum 0.66 mg/dL (0.55-1.02); EST Glomerular Filtration Rate 95 mL/min (>60); Est Glom Filt Rate - Afr Amer 115 mL/min (>60); Globulin 2.9 g/dL (2.2-4.2); Glucose 95 mg/dL (74-106); Protein, Total 6.7 g/dL (6.4-8.2); Sodium Level 140 mmol/L (136-145)
== END | disposition home or self-care (01) ==
PROVIDERS: PCP Internal Medicine; Referring Provider Internal Medicine Rheumatology; Visit Provider Internal Medicine Rheumatology
DX: M06.4 Inflammatory polyarthropathy (principal); J45.909 Unspecified asthma, uncomplicated; I34.1 Nonrheumatic mitral (valve) prolapse; E78.5 Hyperlipidemia, unspecified; K21.9 Gastro-esophageal reflux disease without esophagitis; E04.1 Nontoxic single thyroid nodule; Z85.820 Personal history of malignant melanoma of skin; Z79.899 Other long term (current) drug therapy
CPT/HCPCS: 36415; 80053; 85025

== ENCOUNTER → 2022-08-10 | Outpatient (CLI) | payer MEDICARE, SELFPAY ==
--- NOTE | 2022-08-10 12:45 | US_ITS ---
STUDY: THYROID ULTRASOUND REASON FOR EXAM: Female, 66 years old. THYROID NODULE TECHNIQUE: Ultrasound evaluation of the thyroid was performed with real-time and static gannon-scale imaging. COMPARISON: 05/20/2021 FINDINGS: RIGHT LOBE: The right lobe of the thyroid gland measures 4.0 x 1.3 x 1.7 cm. There is a homogeneous echotexture. Nodule 1: Enlarging (from 15 x 14 mm to 18 x 14 x 12 mm) solid isoechoic wider than tall ill-defined marginated nodule with no echogenic foci (TR 3) and follow-up ultrasound is recommended in one year. Nodule 2: Enlarging (from 7 x 6 x 7 mm to 10 x 8 x 5 mm) solid hypoechoic wider than tall smoothly marginated nodule with no echogenic foci (TR 4) in the posterior right lobe and follow-up ultrasound is recommended in one year. LEFT LOBE: The left lobe of the thyroid gland measures 3.8 x 1.5 x 1.0 cm. There is a homogeneous echotexture. There are no demonstrated solid, cystic or complex lesions. ISTHMUS: The isthmus measures 2 mm thick. . The regional lymph nodes are normal. US/Thyroid IMPRESSION: Enlarging nodules in the right lobe and follow-up ultrasound is recommended in one year. Electronically Signed: Tevin Urena MD at 21:27 EST ,
== END | disposition home or self-care (01) ==
LOC: US 12:43
PROVIDERS: PCP Internal Medicine; Referring Provider Internal Medicine; Visit Provider Internal Medicine
DX: E04.1 Nontoxic single thyroid nodule (principal)
CPT/HCPCS: 76536

== ENCOUNTER → 2022-09-07 | Outpatient (CLI) | payer MEDICARE, SELFPAY ==
[2022-09-07 10:02] LABS: Absolute Lymphocyte Count 1.88 X10^3/uL (0.83-4.51); Absolute Neutrophil Count 2.6 X10^3/uL (2.0-7.7); Basophil# 0.04 X10^3/uL; Basophil% 0.8 % (0-1); Eosinophil# 0.11 X10^3/uL; Eosinophils% 2.2 % (0-5); Hematocrit 38.4 % (37-47); Hemoglobin 12.4 g/dL (12.0-15.0); Lymphocyte # 1.88 X10^3/ul (0.83-4.51); Mean Corp Hgb Conc 32.3 g/dL (32-36); Mean Corpuscular Hgb 31.1 pg (27.0-32.0); Mean Corpuscular Volume 96.2 fL (81-99); Mean Platelet Vol. 9.7 fl (6.2-12.0); Monocyte# 0.43 X10^3/uL; Monocyte% 8.5 % (0-10); NRBC Flagged by Analyzer 0 % (0-5); Neutrophil # 2.61 X10^3/uL (2.7-7.7); Neutrophil % 51.3 % (47-70); Platelet Count 372 K/mm3 (150-450); RBC Distribution Width CV 13.8 % (11.6-14.6); RBC Distribution Width SD 49.2 fl (35.1-43.9); Red Blood Count 3.99 M/mm3 (4.2-5.4); White Blood Count 5.1 K/mm3 (4.4-11.0)
[2022-09-07 10:28] LABS: ALB/GLOB Ratio 1.1 RATIO (0.9-2.4); AST(SGOT) 18 U/L (15-37); Alanine Aminotransfer ALT/SGPT 21 U/L (13-56); Albumin, Serum 3.7 g/dL (3.2-5.0); Alkaline Phosphatase 106 U/L (45-117); Anion Gap 8 (5-15); BUN 17 mg/dL (7-18); BUN/Creat Ratio 23.4 RATIO (10-20); Bilirubin, Direct 0.08 mg/dL (0.00-0.30); Calcium,Total 8.9 mg/dL (8.5-10.1); Chloride 107 mmol/L (98-107); Cholesterol 190 mg/dL (200); Creatinine, Serum 0.73 mg/dL (0.55-1.02); EST Glomerular Filtration Rate 85 mL/min (>60); Est Glom Filt Rate - Afr Amer 103 mL/min (>60); Globulin 3.3 g/dL (2.2-4.2); Glucose 83 mg/dL (74-106); High Density Lipoprotein 80 mg/dL; Potassium 4.1 mmol/L (3.5-5.1); Sodium Level 142 mmol/L (136-145); Thyroid Stim Hormone (TSH) 2.19 uIU/mL (0.358-3.74); Triglycerides 96 mg/dL; Very Low Density Lipoprotein 19 mg/dL (5-40)
== END | disposition home or self-care (01) ==
LOC: MTLAB 07:11
PROVIDERS: Internal Medicine Cardiovascular Disease; PCP Internal Medicine; Referring Provider Internal Medicine; Visit Provider Internal Medicine
DX: Z79.899 Other long term (current) drug therapy (principal); M06.4 Inflammatory polyarthropathy; E78.00 Pure hypercholesterolemia, unspecified; D50.9 Iron deficiency anemia, unspecified; E04.1 Nontoxic single thyroid nodule; R00.0 Tachycardia, unspecified
CPT/HCPCS: 36415; 80053; 80061; 82248; 84443; 85025

== ENCOUNTER 2022-09-17 10:00 | Outpatient (RCR) | payer MEDICARE, SELFPAY ==
--- NOTE | 2022-08-10 08:56 | HP.PTEVAL ---
Patient's Visit Information CHANTAL DELA CRUZ is a 66 year old F referred to Physical Therapy by GELA More with a diagnosis of s/p l FUSION AND DPONDYLOLOSTHESIS L3-L5. Date of Evaluation: 08/10/22 Physical Therapist: DOUG Kelley - Visit Plan Frequency: 1x/Week Duration: 6 Weeks Plan: Pt to call in and schedule and appt in 3 weeks for 1 hour to progress the below HEP and start to learn some machines through [employer] for neutral spine core stability and LE strengthening with ab brace and postural exercises. HEP: PT, PT with leg lifts, PT with ball Squeeze, Pt with hip march, stretching with strap HS, standing heel and toe raises, SKC, bridges, LAQ for nerve root flossing - Subjective Pt had her first back surgery 22 years ago. They fused her bone together 22 years ago from L2-L5 and then on 07-19-22 then removed the segmental fixation B L3-L5 and then refused her with external fixation and spacer. Pt is 3 weeks and [address] gave her restrictions of 10# lifting restrictions, bending, or twisting. She is wearing a brace. She has started to wean the brace a little and puts it back on when she is tired. She puts it on when she is up and wears it about 6-7 hours a day. She is walking 20 min to 1/2 hour a day and does not pay for it after it. The inclines get her. She does have [employer] and can come and use the equipment or the pool. She has been through PT before in the water and feels good starting that on her own. She goes back to the Dr in 3 months. She is not able to afford coming to therapy more than a few times so we have to space it out. She sleeps about 3 hours and wakes up and moves around and then goes back to sleep for an hour and that is due to pain and stiffness. She is only on Tylenol. She has a one story house. Steps to the basement and uses the railing to hold onto for safety. - Pain LBP Pain Intensity (Out of 10): 2 - Objective Gait: walks with decrease stance time on the L LE. LE MMT: R hip flex 7.6# and L hip flex 6.8#. R Knee ext 21.7# and L knee ext 17.1#. R knee flex 11.6# and L knee flex 9.9#. Pt struggles with walking on her heels on the L. She is able to walk on her toes without an issue. Posture: sits with upright posture during treatment sessions. - Balance/Special Test Scores Oswestry Low Back Score: 25 - Goals Goal 1:: I HEP Goal Time Frame: 6-8 Weeks Goal 2:: Decrease pain to less than 1/10 with ADL's Goal Time Frame: 6-8 Weeks - Rehabilitation Potential Rehabilitation Potential: Good - Anticipated Interventions Patient/Client Instruction: Educate patient on: Condition, Plan of Care For the Purpose of:: To decrease pain, To increase ROM, To improve nutrient delivery to tissue, To improve muscle performance and motor function, To improve ability to perform ADL's, To increase tolerance to activity/condition/position, To improve performance and independence with ADL's, To improve ability of physical actions for home/community/work/leisure, To improve gait and locomotor functions, To improve health of tissue, To decrease soft tissue restriction, To increase flexibility/ROM Therapeutic Exercise to Include: Strength training, Postural training, Flexibilty training, Gait and locomotor training, Neuromotor development, In an aquatic setting, Active ROM, Dynamic Lumbar Stabilization, Scapular Strength/Stabilization For the Purpose of:: To decrease pain, To increase ROM, To improve nutrient delivery to tissue, To improve muscle performance and motor function, To improve ability to perform ADL's, To increase tolerance to activity/condition/position, To improve performance and independence with ADL's, To decrease level of supervision to perform tasks, To improve ability of physical actions for home/community/work/leisure, To improve gait and locomotor functions, To improve health of tissue, To decrease soft tissue restriction, To increase flexibility/ROM, To improve health and function Functional Training to Include: Gait training For the Purpose of:: To improve gait and locomotor functions Thank you for the opportunity to evaluate your patient. For Medicare and Medicare HMO plans, please review the plan of care and approve it. It will need to be FAXED BACK to us at [phone] for Medicare purposes. For Medicare only, by signing this I certify the plan of care. Please let me know if there are questions or concerns regarding this plan of care. Physician Signature: Date:
--- NOTE | 2022-09-17 10:48 | HP.PTDCSUM_ITS ---
It has been my pleasure to treat CHANTAL DELA CRUZ referred by GELA More, with the diagnosis of s/p l FUSION AND DPONDYLOLOSTHESIS L3-L5 for a total of 3 visit(s). Discharge Date: 09/17/22 Please see the following information for a summary of their discharge status. Subjective: Pt reports that she has a sore back once in awhile (depending on wha t she does). Her gym routine is going well. Pt 07-19-22. RTD in October. LBP Pain Intensity (Out of 10): 0 % Improvement: 80 Objective/Function: Pt wants to go heavier with weights but advised her to go low weight and make sure holding her core tight and slowly progress. Pt needs to be I due to high insurance. Goal 1:: I HEP Goal Progress: Goal Met Goal 2:: Decrease pain to less than 1/10 with ADL's Goal Progress: Goal Met Plan: DC PT Discharge Comments: DC PT to HEP and gym routine If there are questions or concerns regarding this patient's physical therapy, dilia paredes feel free to call me at [phone]. Thank you for the referral of this patient. Sincerely, Sapna Amos, MPT Balance/Gait/Functional tests - Balance/Special Test Scores Oswestry Low Back Score: 12
== END 2022-09-17 13:12 | disposition home or self-care (01) ==
LOC: PT 10:00
PROVIDERS: PCP Internal Medicine; Referring Provider Nurse Practitioner Acute Care; Visit Provider Nurse Practitioner Acute Care
DX: Z98.1 Arthrodesis status (principal); M43.16 Spondylolisthesis, lumbar region
CPT/HCPCS: 97110; 97161

== ENCOUNTER → 2022-12-09 | Outpatient (CLI) | payer MEDICARE, SELFPAY ==
[2022-12-09 12:16] LABS: Absolute Lymphocyte Count 1.67 X10^3/uL (0.83-4.51); Absolute Neutrophil Count 4.1 X10^3/uL (2.0-7.7); Basophil# 0.05 X10^3/uL; Basophil% 0.8 % (0-1); Eosinophil# 0.05 X10^3/uL; Eosinophils% 0.8 % (0-5); Hematocrit 38.3 % (37-47); Hemoglobin 12.5 g/dL (12.0-15.0); Lymphocyte # 1.67 X10^3/ul (0.83-4.51); Lymphocyte % 26.7 % (19-41); Mean Corp Hgb Conc 32.6 g/dL (32-36); Mean Corpuscular Hgb 31.6 pg (27.0-32.0); Mean Corpuscular Volume 96.7 fL (81-99); Mean Platelet Vol. 10.2 fl (6.2-12.0); Monocyte# 0.36 X10^3/uL; Monocyte% 5.8 % (0-10); NRBC Flagged by Analyzer 0 % (0-5); Neutrophil # 4.06 X10^3/uL (2.7-7.7); Neutrophil % 64.8 % (47-70); Platelet Count 364 K/mm3 (150-450); RBC Distribution Width CV 14.2 % (11.6-14.6); RBC Distribution Width SD 50.1 fl (35.1-43.9); Red Blood Count 3.96 M/mm3 (4.2-5.4); White Blood Count 6.3 K/mm3 (4.4-11.0)
[2022-12-09 12:51] LABS: ALB/GLOB Ratio 1.2 RATIO (0.9-2.4); AST(SGOT) 29 U/L (15-37); Alanine Aminotransfer ALT/SGPT 30 U/L (13-56); Albumin, Serum 3.9 g/dL (3.2-5.0); Alkaline Phosphatase 113 U/L (45-117); Anion Gap 3 (5-15); BUN 17 mg/dL (7-18); BUN/Creat Ratio 22.3 RATIO (10-20); Calcium,Total 9.3 mg/dL (8.5-10.1); Chloride 106 mmol/L (98-107); Creatinine, Serum 0.76 mg/dL (0.55-1.02); EST Glomerular Filtration Rate 81 mL/min (>60); Est Glom Filt Rate - Afr Amer 98 mL/min (>60); Globulin 3.3 g/dL (2.2-4.2); Glucose 71 mg/dL (74-106); Potassium 3.9 mmol/L (3.5-5.1); Protein, Total 7.2 g/dL (6.4-8.2); Sodium Level 137 mmol/L (136-145)
== END | disposition home or self-care (01) ==
LOC: MTLAB 09:58
PROVIDERS: PCP Internal Medicine; Referring Provider Internal Medicine Rheumatology; Visit Provider Internal Medicine Rheumatology
DX: M06.4 Inflammatory polyarthropathy (principal); Z79.899 Other long term (current) drug therapy
CPT/HCPCS: 36415; 80053; 85025

== ENCOUNTER → 2023-03-03 | Outpatient (CLI) | payer MEDICARE, SELFPAY ==
[2023-03-03 12:34] LABS: Absolute Lymphocyte Count 1.95 X10^3/uL (0.83-4.51); Absolute Neutrophil Count 4.2 X10^3/uL (2.0-7.7); Basophil# 0.06 X10^3/uL; Basophil% 0.9 % (0-1); Eosinophil# 0.06 X10^3/uL; Eosinophils% 0.9 % (0-5); Hematocrit 39.3 % (37-47); Hemoglobin 12.8 g/dL (12.0-15.0); Lymphocyte # 1.95 X10^3/ul (0.83-4.51); Lymphocyte % 29.1 % (19-41); Mean Corp Hgb Conc 32.6 g/dL (32-36); Mean Corpuscular Hgb 30.8 pg (27.0-32.0); Mean Corpuscular Volume 94.7 fL (81-99); Mean Platelet Vol. 10.1 fl (6.2-12.0); Monocyte# 0.38 X10^3/uL; Monocyte% 5.7 % (0-10); NRBC Flagged by Analyzer 0 % (0-5); Neutrophil # 4.24 X10^3/uL (2.7-7.7); Neutrophil % 63.3 % (47-70); Platelet Count 336 K/mm3 (150-450); RBC Distribution Width SD 45.1 fl (35.1-43.9); Red Blood Count 4.15 M/mm3 (4.2-5.4); White Blood Count 6.7 K/mm3 (4.4-11.0)
[2023-03-03 13:13] LABS: ALB/GLOB Ratio 1.2 RATIO (0.9-2.4); AST(SGOT) 30 U/L (15-37); Alanine Aminotransfer ALT/SGPT 26 U/L (13-56); Albumin, Serum 3.8 g/dL (3.2-5.0); Alkaline Phosphatase 111 U/L (45-117); Anion Gap 6 (5-15); BUN 13 mg/dL (7-18); BUN/Creat Ratio 16.7 RATIO (10-20); Calcium,Total 9.1 mg/dL (8.5-10.1); Chloride 104 mmol/L (98-107); Creatinine, Serum 0.78 mg/dL (0.55-1.02); EST Glomerular Filtration Rate 79 mL/min (>60); Est Glom Filt Rate - Afr Amer 95 mL/min (>60); Globulin 3.3 g/dL (2.2-4.2); Glucose 93 mg/dL (74-106); Protein, Total 7.1 g/dL (6.4-8.2); Sodium Level 137 mmol/L (136-145)
== END | disposition home or self-care (01) ==
LOC: MTLAB 09:50
PROVIDERS: PCP Internal Medicine; Visit Provider Internal Medicine Rheumatology
DX: M06.4 Inflammatory polyarthropathy (principal); Z79.899 Other long term (current) drug therapy
CPT/HCPCS: 36415; 80053; 85025

== ENCOUNTER → 2023-05-17 | Outpatient (CLI) | payer MEDICARE, SELFPAY ==
--- NOTE | 2023-05-17 09:02 | BI_ITS ---
MAMMOGRAPHY - BILATERAL SCREENING REASON FOR EXAM: Female, 67 years old. Routine annual screening examination. PERTINENT HISTORY: Non-contributory. Remote left stereotactic breast biopsy. TECHNIQUE: Digital bilateral breast eliza (3D mammographic acquisition) in the CC and MLO projections. 2-D mediolateral oblique (MLO) and craniocaudad (CC) views of both breasts were obtained. CAD: Full Field Digital Mammography with Computer Added Detection was performed. COMPARISON: Comparison is made with prior study April 15, 2022 and May 06, 2021. FINDINGS: Breast Composition: The breasts are heterogeneously dense, which may obscure small masses. There are no dominant masses or suspicious calcifications. 2 tissue clip markers are once again seen in the deep upper central portion of the left breast. No other significant abnormalities are identified. There has been no significant change since the prior study. BI/SCRN MAMM (CAD)W/ELIZA BILAT IMPRESSION: Stable bilateral screening mammogram. Yearly follow-up mammogram recommended. (A) ASSESSMENT CATEGORY: BIRADS Category 2: Benign. A letter regarding these results will be sent to the patient by the facility within 30 days. Approximately 10% of breast cancers are not detected by mammography. A normal mammogram should not delay biopsy of a clinically suspicious abnormality. [id number] Electronically Signed: Milad Helms MD at 10:14 EDT ,
== END | disposition home or self-care (01) ==
LOC: OPBI 09:01
PROVIDERS: PCP Internal Medicine; Referring Provider Nurse Practitioner Family; Visit Provider Nurse Practitioner Family
DX: Z12.31 Encounter for screening mammogram for malignant neoplasm of breast (principal)
CPT/HCPCS: 77063; 77067

== ENCOUNTER → 2023-06-08 | Outpatient (CLI) | payer MEDICARE, SELFPAY ==
[2023-06-08 10:21] LABS: Absolute Lymphocyte Count 2.06 X10^3/uL (0.83-4.51); Absolute Neutrophil Count 2.2 X10^3/uL (2.0-7.7); Basophil# 0.05 X10^3/uL; Basophil% 1.1 % (0-1); Eosinophil# 0.09 X10^3/uL; Eosinophils% 1.9 % (0-5); Hematocrit 38.6 % (37-47); Hemoglobin 12.6 g/dL (12.0-15.0); Lymphocyte # 2.06 X10^3/ul (0.83-4.51); Lymphocyte % 43.6 % (19-41); Mean Corp Hgb Conc 32.6 g/dL (32-36); Mean Corpuscular Volume 94.8 fL (81-99); Mean Platelet Vol. 9.9 fl (6.2-12.0); Monocyte# 0.35 X10^3/uL; Monocyte% 7.4 % (0-10); NRBC Flagged by Analyzer 0 % (0-5); Neutrophil # 2.17 X10^3/uL (2.7-7.7); Platelet Count 332 K/mm3 (150-450); RBC Distribution Width SD 48.3 fl (35.1-43.9); Red Blood Count 4.07 M/mm3 (4.2-5.4); White Blood Count 4.7 K/mm3 (4.4-11.0)
[2023-06-08 11:27] LABS: ALB/GLOB Ratio 1.1 RATIO (0.9-2.4); AST(SGOT) 23 U/L (15-37); Alanine Aminotransfer ALT/SGPT 26 U/L (13-56); Albumin, Serum 3.5 g/dL (3.2-5.0); Alkaline Phosphatase 108 U/L (45-117); Anion Gap 6 (5-15); BUN 15 mg/dL (7-18); BUN/Creat Ratio 20.1 RATIO (10-20); Calcium,Total 8.8 mg/dL (8.5-10.1); Chloride 111 mmol/L (98-107); Creatinine, Serum 0.75 mg/dL (0.55-1.02); EST Glomerular Filtration Rate 83 mL/min (>60); Est Glom Filt Rate - Afr Amer 100 mL/min (>60); Globulin 3.2 g/dL (2.2-4.2); Glucose 89 mg/dL (74-106); Protein, Total 6.7 g/dL (6.4-8.2); Sodium Level 142 mmol/L (136-145)
== END | disposition home or self-care (01) ==
LOC: MTLAB 07:43
PROVIDERS: PCP Internal Medicine; Referring Provider Internal Medicine Rheumatology; Visit Provider Internal Medicine Rheumatology
DX: M06.4 Inflammatory polyarthropathy (principal); Z79.899 Other long term (current) drug therapy
CPT/HCPCS: 36415; 80053; 85025

== ENCOUNTER → 2023-07-05 | Outpatient (CLI) | payer MEDICARE, SELFPAY ==
[2023-07-05 10:05] LABS: Absolute Lymphocyte Count 2.31 X10^3/uL (0.83-4.51); Absolute Neutrophil Count 3.5 X10^3/uL (2.0-7.7); Basophil# 0.05 X10^3/uL; Basophil% 0.8 % (0-1); Eosinophil# 0.07 X10^3/uL; Eosinophils% 1.1 % (0-5); Hematocrit 38.6 % (37-47); Hemoglobin 12.7 g/dL (12.0-15.0); Lymphocyte # 2.31 X10^3/ul (0.83-4.51); Lymphocyte % 36.5 % (19-41); Mean Corp Hgb Conc 32.9 g/dL (32-36); Mean Corpuscular Hgb 31.1 pg (27.0-32.0); Mean Corpuscular Volume 94.4 fL (81-99); Mean Platelet Vol. 9.7 fl (6.2-12.0); Monocyte% 6.3 % (0-10); NRBC Flagged by Analyzer 0 % (0-5); Neutrophil # 3.49 X10^3/uL (2.7-7.7); Neutrophil % 55.1 % (47-70); Platelet Count 337 K/mm3 (150-450); RBC Distribution Width CV 14.1 % (11.6-14.6); RBC Distribution Width SD 49.1 fl (35.1-43.9); Red Blood Count 4.09 M/mm3 (4.2-5.4); White Blood Count 6.3 K/mm3 (4.4-11.0)
[2023-07-05 10:55] LABS: ALB/GLOB Ratio 1.2 RATIO (0.9-2.4); AST(SGOT) 26 U/L (15-37); Alanine Aminotransfer ALT/SGPT 27 U/L (13-56); Albumin, Serum 3.7 g/dL (3.2-5.0); Alkaline Phosphatase 108 U/L (45-117); Anion Gap 5 (5-15); BUN 13 mg/dL (7-18); BUN/Creat Ratio 16.2 RATIO (10-20); Calcium,Total 8.5 mg/dL (8.5-10.1); Chloride 107 mmol/L (98-107); Cholesterol 183 mg/dL (200); EST Glomerular Filtration Rate 76 mL/min (>60); Est Glom Filt Rate - Afr Amer 92 mL/min (>60); Free T3 2.8 pg/mL (2.18-3.98); Globulin 3.2 g/dL (2.2-4.2); Glucose 83 mg/dL (74-106); High Density Lipoprotein 84 mg/dL; Potassium 4.1 mmol/L (3.5-5.1); Protein, Total 6.9 g/dL (6.4-8.2); Sodium Level 141 mmol/L (136-145); T4 Free Direct 1.02 ng/dL (0.76-1.46); Thyroid Stim Hormone (TSH) 2.46 uIU/mL (0.358-3.74); Triglycerides 105 mg/dL; Very Low Density Lipoprotein 21 mg/dL (5-40)
== END | disposition home or self-care (01) ==
LOC: MTLAB 07:36
PROVIDERS: PCP Internal Medicine; Referring Provider Internal Medicine; Visit Provider Internal Medicine
DX: E78.00 Pure hypercholesterolemia, unspecified (principal); E04.1 Nontoxic single thyroid nodule
CPT/HCPCS: 36415; 80053; 80061; 84439; 84443; 84481; 85025

== ENCOUNTER → 2023-07-29 | Outpatient (CLI) | payer MEDICARE, SELFPAY ==
--- NOTE | 2023-07-29 07:23 | MRI_ITS ---
STUDY: MRI UPPER EXTREMITY RIGHT HUMERUS WITH T WITHOUT CONTRAST REASON FOR EXAM: Female, 67 years old. Right upper arm ulnar side soft tissue lumps area between marker capsules. TECHNIQUE: Standardized fat and water weighted pulse sequences were obtained in all 3 orthogonal planes, pre-and post contrast administration. IV 13 mL Clariscan was administered for the contrast portion of the examination. COMPARISON: None. FINDINGS: Skin markers were placed along the posterior aspects of the mid to distal right upper arm at the site of clinical concern. Between the skin markers, there is mild prominence of the subcutaneous fat, but no discrete soft tissue mass, fluid collection, or drainable abscess (sagittal T2 series 4 images 16-22). An unencapsulated subcutaneous lipoma cannot be excluded. Normal remainder of the subcutis adipose space. There is no demonstrated solid or cystic mass within the subcutaneous adipose space. Normal visualized muscles and fascia. There is no demonstrated intramuscular mass lesion or hematoma. Normal visualized neurovascular bundles. There is no demonstrated enhancing abnormality. Normal humerus. MRI/Upper Ext No Joint W/WO Cont IMPRESSION: Mild prominence of the posterior subcutaneous fat from the mid to distal right upper arm, with no discrete soft tissue mass, fluid collection, or drainable abscess. An unencapsulated subcutaneous lipoma cannot be excluded. No demonstrated enhancing abnormality. Electronically Signed: Eran Benitez MD at 10:30 EST ,
== END | disposition home or self-care (01) ==
LOC: MRI 07:21
PROVIDERS: PCP Internal Medicine; Referring Provider Plastic Surgery; Visit Provider Plastic Surgery
DX: D48.19 Other specified neoplasm of uncertain behavior of connective and other soft tissue (principal)
CPT/HCPCS: 73220; A9575

== ENCOUNTER → 2023-08-02 | Outpatient (CLI) | payer MEDICARE, SELFPAY ==
[2023-08-02 17:42] LABS: Absolute Lymphocyte Count 1.87 X10^3/uL (0.83-4.51); Absolute Neutrophil Count 4.5 X10^3/uL (2.0-7.7); Basophil# 0.05 X10^3/uL; Basophil% 0.7 % (0-1); Eosinophil# 0.04 X10^3/uL; Eosinophils% 0.6 % (0-5); Hematocrit 37.2 % (37-47); Hemoglobin 12.1 g/dL (12.0-15.0); Lymphocyte # 1.87 X10^3/ul (0.83-4.51); Lymphocyte % 27.4 % (19-41); Mean Corp Hgb Conc 32.5 g/dL (32-36); Mean Corpuscular Hgb 30.7 pg (27.0-32.0); Mean Corpuscular Volume 94.4 fL (81-99); Mean Platelet Vol. 9.8 fl (6.2-12.0); Monocyte# 0.39 X10^3/uL; Monocyte% 5.7 % (0-10); NRBC Flagged by Analyzer 0 % (0-5); Neutrophil # 4.46 X10^3/uL (2.7-7.7); Neutrophil % 65.5 % (47-70); Platelet Count 316 K/mm3 (150-450); RBC Distribution Width CV 13.6 % (11.6-14.6); RBC Distribution Width SD 46.6 fl (35.1-43.9); Red Blood Count 3.94 M/mm3 (4.2-5.4); White Blood Count 6.8 K/mm3 (4.4-11.0)
[2023-08-02 18:16] LABS: ALB/GLOB Ratio 1.2 RATIO (0.9-2.4); AST(SGOT) 28 U/L (15-37); Alanine Aminotransfer ALT/SGPT 25 U/L (13-56); Alkaline Phosphatase 103 U/L (45-117); Anion Gap 5 (5-15); BUN 12 mg/dL (7-18); BUN/Creat Ratio 16.9 RATIO (10-20); Chloride 107 mmol/L (98-107); Creatinine, Serum 0.71 mg/dL (0.55-1.02); EST Glomerular Filtration Rate 87 mL/min (>60); Est Glom Filt Rate - Afr Amer 106 mL/min (>60); Globulin 3.2 g/dL (2.2-4.2); Glucose 78 mg/dL (74-106); Potassium 3.8 mmol/L (3.5-5.1); Protein, Total 7.2 g/dL (6.4-8.2); Sodium Level 140 mmol/L (136-145)
== END | disposition home or self-care (01) ==
LOC: MTLAB 13:10
PROVIDERS: PCP Internal Medicine; Referring Provider Internal Medicine Rheumatology; Visit Provider Internal Medicine Rheumatology
DX: M06.4 Inflammatory polyarthropathy (principal); Z79.899 Other long term (current) drug therapy; M48.061 Spinal stenosis, lumbar region without neurogenic claudication; M17.0 Bilateral primary osteoarthritis of knee
CPT/HCPCS: 36415; 80053; 85025

== ENCOUNTER → 2023-10-14 | Outpatient (CLI) | payer MEDICARE, SELFPAY ==
[2023-10-14 12:29] LABS: Absolute Lymphocyte Count 1.29 X10^3/uL (0.83-4.51); Absolute Neutrophil Count 3.7 X10^3/uL (2.0-7.7); Basophil# 0.04 X10^3/uL; Basophil% 0.7 % (0-1); Eosinophil# 0.13 X10^3/uL; Eosinophils% 2.3 % (0-5); Hematocrit 35.4 % (37-47); Hemoglobin 11.6 g/dL (12.0-15.0); Lymphocyte # 1.29 X10^3/ul (0.83-4.51); Lymphocyte % 23.1 % (19-41); Mean Corp Hgb Conc 32.8 g/dL (32-36); Mean Corpuscular Hgb 31.2 pg (27.0-32.0); Mean Corpuscular Volume 95.2 fL (81-99); Monocyte# 0.36 X10^3/uL; Monocyte% 6.4 % (0-10); NRBC Flagged by Analyzer 0 % (0-5); Neutrophil # 3.74 X10^3/uL (2.7-7.7); Platelet Count 314 K/mm3 (150-450); RBC Distribution Width CV 13.2 % (11.6-14.6); RBC Distribution Width SD 46.1 fl (35.1-43.9); Red Blood Count 3.72 M/mm3 (4.2-5.4); White Blood Count 5.6 K/mm3 (4.4-11.0)
[2023-10-14 12:57] LABS: ALB/GLOB Ratio 1.2 RATIO (0.9-2.4); AST(SGOT) 23 U/L (15-37); Alanine Aminotransfer ALT/SGPT 24 U/L (13-56); Albumin, Serum 3.7 g/dL (3.2-5.0); Alkaline Phosphatase 98 U/L (45-117); Anion Gap 5 (5-15); BUN 11 mg/dL (7-18); BUN/Creat Ratio 17.4 RATIO (10-20); Chloride 109 mmol/L (98-107); Creatinine, Serum 0.63 mg/dL (0.55-1.02); EST Glomerular Filtration Rate 100 mL/min (>60); Est Glom Filt Rate - Afr Amer 121 mL/min (>60); Glucose 88 mg/dL (74-106); Potassium 3.8 mmol/L (3.5-5.1); Protein, Total 6.7 g/dL (6.4-8.2); Sodium Level 139 mmol/L (136-145)
== END | disposition home or self-care (01) ==
LOC: MTLAB 09:49
PROVIDERS: PCP Internal Medicine; Referring Provider Internal Medicine Rheumatology; Visit Provider Internal Medicine Rheumatology
DX: M06.4 Inflammatory polyarthropathy (principal); Z79.899 Other long term (current) drug therapy; M17.0 Bilateral primary osteoarthritis of knee
CPT/HCPCS: 36415; 80053; 85025

== ENCOUNTER → 2023-10-21 | Outpatient (CLI) | payer MEDICARE, SELFPAY ==
[2023-10-21 09:32] LABS: Absolute Lymphocyte Count 1.58 X10^3/uL (0.83-4.51); Absolute Neutrophil Count 3.8 X10^3/uL (2.0-7.7); Basophil# 0.06 X10^3/uL; Eosinophil# 0.17 X10^3/uL; Eosinophils% 2.8 % (0-5); Hematocrit 38.9 % (37-47); Hemoglobin 12.8 g/dL (12.0-15.0); Lymphocyte # 1.58 X10^3/ul (0.83-4.51); Lymphocyte % 26.1 % (19-41); Mean Corp Hgb Conc 32.9 g/dL (32-36); Mean Corpuscular Volume 94.2 fL (81-99); Mean Platelet Vol. 9.4 fl (6.2-12.0); Monocyte% 6.6 % (0-10); NRBC Flagged by Analyzer 0 % (0-5); Neutrophil # 3.83 X10^3/uL (2.7-7.7); Neutrophil % 63.2 % (47-70); Platelet Count 358 K/mm3 (150-450); RBC Distribution Width CV 13.2 % (11.6-14.6); RBC Distribution Width SD 45.5 fl (35.1-43.9); Red Blood Count 4.13 M/mm3 (4.2-5.4); White Blood Count 6.1 K/mm3 (4.4-11.0)
[2023-10-21 09:55] LABS: Anion Gap 3 (5-15); BNP,B-Type NATRIURETIC PEPTIDE 15.9 pg/mL (0-100); BUN 11 mg/dL (7-18); BUN/Creat Ratio 15.1 RATIO (10-20); Calcium,Total 9.3 mg/dL (8.5-10.1); Chloride 109 mmol/L (98-107); Creatinine, Serum 0.73 mg/dL (0.55-1.02); EST Glomerular Filtration Rate 85 mL/min (>60); Est Glom Filt Rate - Afr Amer 102 mL/min (>60); Glucose 94 mg/dL (74-106); Potassium 4.3 mmol/L (3.5-5.1); Sodium Level 137 mmol/L (136-145)
== END | disposition home or self-care (01) ==
LOC: LAB 09:14
PROVIDERS: PCP Internal Medicine; Referring Provider Nurse Practitioner Gerontology; Visit Provider Nurse Practitioner Gerontology
DX: R06.09 Other forms of dyspnea (principal)
CPT/HCPCS: 36415; 80048; 83880; 85025

== ENCOUNTER → 2023-11-11 | Outpatient (CLI) | payer MEDICARE, SELFPAY ==
[2023-11-12 08:11] LABS: HSV 1 IgG < 0.91 index (0.00-0.90)
== END | disposition home or self-care (01) ==
LOC: MTLAB 10:13
PROVIDERS: PCP Internal Medicine; Referring Provider Nurse Practitioner Family; Visit Provider Nurse Practitioner Family
DX: A60.1 Herpesviral infection of perianal skin and rectum (principal)
CPT/HCPCS: 36415; 86695; 86696

== ENCOUNTER 2023-11-15 08:00 | Outpatient (RCR) | payer MEDICARE, SELFPAY ==
--- NOTE | 2023-09-27 12:21 | HP.OTEVAL_ITS ---
Patient's Visit Information Visit Information Visit Information: CHANTAL DELA CRUZ is a 67 year old F, referred to Occupational Therapy by Dr. Farshad Maya MD, with a diagnosis of right 1st carpometacarpal OA. Date of Evaluation: 09/27/23 Occupational Therapist: Anne Cano, MELCHOR/Hunter, CHT Subjective Subjective: This 67 year old female was seen for OT eval with dx of right unilateral primary osteoarthritis of first carpometacarpl joint. pt states she was struggling with right thumb pain for years and after conservative methods were not successful. Pt states sx was on 08/29/23. pt states she is feeling good and happy she had sx. however she states she is limited with use of her right with all ADLs and IADLs at this time. pt 4 weeks and 1 days s/p from right CMC arthroplasty arrives with TSS with need of slight adj. to increase comfort and compliance with her orthosis use. ADLs Comments: pt at this is unable to use her right hand with ADLs and IADLs. pt is using left hand as much as possible for her dressing and bathing. Pt is very active exercise program as well as Aquatic therapy multiples a week. Pain right hand: Current Pain Intensity: 3 Pain Intensity Range: 2 and 4 ROM Wrist: right 50/45 left 65/60 CMC: right 10 left 5 MP: right 35 left 60 IP: right 45 left 65 Palmar Abduction: right 45 left 45 Opposition: Kapandji opposition scale right 8 left 10 ROM Comments: min swelling in right hand Strength Sewing Department Supervisor: right NT left 55# Lateral Pinch: right NT left 10# Tripod Pinch: right NT left 6# Strength Comments: will test right tier lift operator strength at later date Sensation Sensation Comments: denies sensation changes Quick DASH-Disab of Arm,Shoulder& Hand Quick DASH Score: 73.3325 Goals Goal:100% adherence to protocol: Yes Comment: Dr. Maya CMC arthroplasty guidelines Goal:Daily scar massage when approriate: Yes Goal:ROM equal to unaffected hand: Yes Goal:Sewing Department Supervisor/Pinch strength at least 75% of unaffected hand: Yes Goal:No pain with affected hand use: Yes Goal:Full use of affected hand in daily activities including work: Yes Goal:Decrease scar hypersensitivity: Yes Rehabilitation General Assessment: Pt arrives 4 weeks and 1 days s/p from a right CMC arthroplasty. Pt demo with newly healing structures limiting right wrist/thumb ROM and weakness. Pt demo need for skilled OT services 1-2x week for 4-6 weeks to return pt to her PLOF. Today therapist reviewed Dr. Maya CMC arthroplasty guidelines. therapist ed. pt mtg edema and scar mtg. Today therapist ed. pt on use of elastomer to decrease hypertrophic scar. pt demo understanding of use. Pt demo understanding to POC- pt due to concerns with cost will be seen every other week - but has agreed to contact therapist if she has questions or concerns. Rehabilitation Potential: Good Anticipated Interventions Anticipated Interventions: Early Active Motion, A/AAROM/PROM, Strengthening, Scar Care, Triggerpoint Release, Sensory Retraining, Modalities, Orthoses, Joint Protection/Energy Conservation, Ergonomic Education, Fine Motor Coord/Ravi, Education re assistive Equipment, Education re Diagnosis and Home Program Visit Plan Frequency: 1-2x /Week Duration: 6 Weeks General Plan: Dr. Maya CMC arthroplasty guide 2weeks s/p custom thumb spica IPJ free scar care, full finger ROM, full wrist ROM , MP and IPJ motion of thumb, Opposition to small finger while supporting CMC to prevent rocking at base of thumb and hand flat 4wks s/p PROM cmc motion 5-6wks pre-sean thumb orthotic daytime use -custom orthosis use and night and with heavy activity until 12 weeks s/p 6-7wks strengthening at [address] morrow full finger & wrist motion- hand flat and opposition to small finger between DIPJ & PIPJ Discontinue custom orthosis use at 12 weeks TEXT: Thank you for the opportunity to evaluate your patient. For Medicare and Medicare HMO plans, please review the plan of care and approve it. It will need to be FAXED BACK to us at [phone] for Medicare purposes. Please let me know if there are questions or concerns regarding this plan of care. Physician Signature: Date:
--- NOTE | 2023-11-15 08:29 | HP.OTREVAL ---
Re-Evaluation Intro: Dr. Farshad Maya MD, It has been my pleasure to treat CHANTAL DELA CRUZ over the last 4 visits for right 1st carpometacarpal OA. Please see the progress note below for an update on the occupational therapy plan of care! Subjective Subjective: pt arrives to OT 11 weeks s/p from a cmc arthroplasty- pt is doing well. 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 Plan Plan Plan: will continue with light strenghtening Goals Goals Patient Goals: Regain Mobility, Decrease Pain, Improve Fine Motor Skills, Use Hand/Wrist/Arm Normally Again and Resume Former Household Responsibilities (Cooking,Cleaning,Yard, etc.) Goal:100% adherence to protocol: Yes Goal:Daily scar massage when approriate: Yes Goal:ROM equal to unaffected hand: Yes Goal:Motor Grader Operator/Pinch strength at least 75% of unaffected hand: Yes Goal:No pain with affected hand use: Yes Goal:Full use of affected hand in daily activities including work: Yes Goal:Decrease scar hypersensitivity: Yes Anticipated Interventions Anticipated Interventions Anticipated Interventions: Early Active Motion, A/AAROM/PROM, Strengthening, Scar Care, Triggerpoint Release, Sensory Retraining, Modalities, Orthoses, Joint Protection/Energy Conservation, Ergonomic Education, Fine Motor Coord/Ravi, Education re assistive Equipment, Education re Diagnosis and Home Program Re-Evaluation Ending Re-evaluation ending: Please do not hesitate to contact me at [phone] by phone or if you have questions or concerns regarding this new plan of care! Sincerely, Anne Cano, OTR/L, CHT
--- NOTE | 2024-01-23 17:30 | HP.OTDCSUM_ITS ---
Discharge Summary D/C Summary: It has been my pleasure to treat CHANTAL DELA CRUZ under orders from Dr. Farshad Maya MD, for the diagnosis of right 1st carpometacarpal OA for a total of 4 visit(s). Please see the following information for a summary of their discharge status. Objective Objective/Function: right wrist 60/50 right MP 45 right IP 50 opposition to LF PIP right supervisor billposting strength 40# right lateral pinch 10# pt has made great gains with therapy- and has met OT goals pt advised to cont to progress to her PLOF as tolerated. Goals Patient Goals: Regain Mobility, Decrease Pain, Improve Fine Motor Skills, Use Hand/Wrist/Arm Normally Again and Resume Former Household Responsibilities (Cooking,Cleaning,Yard, etc.) Goal:100% adherence to protocol: Yes Goal:Daily scar massage when approriate: Yes Goal:ROM equal to unaffected hand: Yes Goal:Manager Market Development/Pinch strength at least 75% of unaffected hand: Yes Goal:No pain with affected hand use: Yes Goal:Full use of affected hand in daily activities including work: Yes Goal:Decrease scar hypersensitivity: Yes Plan Plan: will continue with light strenghtening D/C Information d/c sentence: If there are questions or concerns regarding this patient's occupational therapy, please fell free to call me at [phone]. Thank you for the referral of this patient. Sincerely, Anne Cano, OTR/L, CHT
== END 2023-11-15 19:00 | disposition home or self-care (01) ==
LOC: OT 08:00
PROVIDERS: PCP Internal Medicine; Referring Provider Orthopaedic Surgery; Visit Provider Orthopaedic Surgery
DX: M18.11 Unilateral primary osteoarthritis of first carpometacarpal joint, right hand (principal)
CPT/HCPCS: 97110; 97140; 97166; 97530

== ENCOUNTER → 2023-11-21 | Outpatient (CLI) | payer MEDICARE, SELFPAY ==
--- NOTE | 2023-11-21 07:02 | ECHOD_ITS ---
Reason For Study: SHORTNESS OF BREATH Procedure This was a 2D Doppler, Color Flow transthoracic echocardiogram. Exam performed in department. Left Ventricle Normal LV size. Left ventricular systolic function is normal. The estimated ejection fraction is 65 %. Stage 1 diastolic dysfunction. No regional wall motion abnormalities noted. Right Ventricle Normal RV size. Normal systolic function. Atria Normal left atrium. Normal right atrium. Mitral Valve Normal mitral valve. Tricuspid Valve Normal tricuspid valve. Mild tricuspid valve insufficiency. Pulmonary artery systolic pressure is 26 mmHg. Aortic Valve Trisinus/trileaflet aortic valve. Pulmonic Valve Normal pulmonic valve. Great Vessels Normal aortic root. The pulmonary artery is normal size. Normal inferior vena cava. Pericardium/Pleural No pericardial effusion. MMode/2D Measurements & Calculations LVIDd: 4.6 cm IVSd: 0.92 cm LVOT diam: 2.0 cm LVIDs: 2.9 cm LVPWd: 0.77 cm LVOT area: 3.1 cm2 RVDd: 3.0 cm FS: 37.7 % Ao root diam: 3.3 cm LAV(MOD-bp): 41.1 ml LVAd ap4: 21.6 cm2 LAV(MOD-bp) Indexed: 23.8 ml/m2 LVLd ap4: 6.8 cm LAV(MOD-sp2): 40.6 ml EDV(MOD-sp4): 56.3 ml LAV(MOD-sp4): 41.2 ml EDV(sp4-el): 58.1 ml LVAs ap4: 11.9 cm2 LVLs ap4: 5.8 cm ESV(MOD-sp4): 21.3 ml ESV(sp4-el): 20.7 ml EF(MOD-sp4): 62.2 % EF(sp4-el): 64.4 % LVAd ap2: 22.4 cm2 SV(MOD-sp4): 35.0 ml SV(MOD-sp2): 39.9 ml LVLd ap2: 6.8 cm EDV(MOD-sp2): 61.9 ml EDV(sp2-el): 62.5 ml LVAs ap2: 12.3 cm2 LVLs ap2: 5.8 cm ESV(MOD-sp2): 21.9 ml ESV(sp2-el): 22.1 ml EF(MOD-sp2): 64.5 % SV(sp4-el): 37.4 ml LA dimension(2D): 3.3 cm LA A4 area: 14.2 cm2 RA A4 area: 9.9 cm2 TAPSE: 2.4 cm Time Measurements MV dec time: 0.21 sec Doppler Measurements & Calculations MV E max elmer: 76.1 cm/sec Lat Peak E' Elmer: 10.5 cm/sec Med Peak E' Elmer: 8.2 cm/sec MV A max elmer: 88.7 cm/sec E/E' lat: 7.2 E/E' med: 9.3 MV E/A: 0.86 Ao V2 max: 103.4 cm/sec LV V1 max: 101.5 cm/sec MV dec slope: 369.8 cm/sec2 Ao max P.3 mmHg LV V1 max P.1 mmHg Ao V2 mean: 70.2 cm/sec LV V1 mean P.9 mmHg Ao mean P.3 mmHg LV V1 mean: 63.1 cm/sec Ao V2 VTI: 23.7 cm LV V1 VTI: 20.9 cm AV (velocity ratio): 0.88 TRISHA(I,D): 2.7 cm2 TRISHA(V,D): 3.0 cm2 SV(LVOT): 64.6 ml PA V2 max: 98.6 cm/sec TR max elmer: 234.5 cm/sec PA max PG (full): 1.9 mmHg TR max P.0 mmHg ECHO/Echo Complete Interpretation Summary Normal LV size. Left ventricular systolic function is normal. The estimated ejection fraction is 65 %. Stage 1 diastolic dysfunction. Pulmonary artery systolic pressure is 26 mmHg. Ordering Physician: Jasmin Sow Referring Physician: Florencia Herrera M.D. Performed By: Ese Hu RDCS
--- NOTE | 2023-11-21 10:13 | STRESSREP ---
Stress Test Report Pharmacologic myocardial perfusion stress test. 67-year-old lady with a history of dyspnea Resting EKG demonstrates sinus rhythm with a rate of 76 bpm. Resting blood pressure is 124/70 mmHg. 0.4 mg of regadenoson was infused per usual protocol followed by rapid intravenous saline flush injection. Continuous EKG monitoring was performed. The maximum heart rate was 100 bpm which was 64% of max impacted heart rate the maximum workload was 1 metabolic equivalent. At rest there were no ST or T wave changes noted to suggest ischemia and at peak infusion nonspecific ST changes were noted which did not meet the criteria for ischemia. No clinical angina is noted. The final blood pressure was 126/68 mmHg. Myocardial perfusion protocol. 11.7 mCi of technetium 99m sestamibi was injected at rest. 0.4 mg of regadenoson was infused per usual protocol. At peak infusion 36 mCi of technetium 99m sestamibi was injected stress images were obtained stress and rest images were reconstructed and compared in the short axis vertical long and horizontal long axis. Gated images were also obtained. Perfusion SPECT analysis: Review of the stress images demonstrate normal uptake of tracer noted in all areas of the myocardium. The resting images similar demonstrated normal uptake of tracer noted in all areas of the myocardium. No areas of reversibility are noted to suggest ischemia and no previous infarct is noted. Gated SPECT analysis: The gated ejection fraction is 82%. Conclusion: Normal pharmacologic myocardial perfusion stress test. Preserved ejection fraction.
== END | disposition home or self-care (01) ==
LOC: CVS 06:59
PROVIDERS: PCP Internal Medicine; Referring Provider Nurse Practitioner Gerontology; Visit Provider Nurse Practitioner Gerontology
DX: R06.02 Shortness of breath (principal)
CPT/HCPCS: 78452; 93017; 93306; A9500; A4216; J2785

== ENCOUNTER → 2024-01-17 | Outpatient (CLI) | payer MEDICARE, SELFPAY ==
[2024-01-17 12:35] LABS: Absolute Lymphocyte Count 1.89 X10^3/uL (0.83-4.51); Absolute Neutrophil Count 4.2 X10^3/uL (2.0-7.7); Basophil# 0.06 X10^3/uL; Basophil% 0.9 % (0-1); Eosinophil# 0.25 X10^3/uL; Eosinophils% 3.7 % (0-5); Hematocrit 38.8 % (37-47); Hemoglobin 12.8 g/dL (12.0-15.0); Lymphocyte # 1.89 X10^3/ul (0.83-4.51); Mean Corpuscular Hgb 31.3 pg (27.0-32.0); Mean Corpuscular Volume 94.9 fL (81-99); Mean Platelet Vol. 9.8 fl (6.2-12.0); Monocyte# 0.37 X10^3/uL; Monocyte% 5.5 % (0-10); NRBC Flagged by Analyzer 0 % (0-5); Neutrophil # 4.16 X10^3/uL (2.7-7.7); Neutrophil % 61.8 % (47-70); Platelet Count 367 K/mm3 (150-450); RBC Distribution Width CV 14.9 % (11.6-14.6); RBC Distribution Width SD 52.3 fl (35.1-43.9); Red Blood Count 4.09 M/mm3 (4.2-5.4); White Blood Count 6.7 K/mm3 (4.4-11.0)
[2024-01-17 12:47] LABS: AST(SGOT) 25 U/L (15-37); Alanine Aminotransfer ALT/SGPT 21 U/L (13-56); Albumin, Serum 3.7 g/dL (3.2-5.0); Alkaline Phosphatase 89 U/L (45-117); Anion Gap 9 (5-15); BUN 13 mg/dL (7-18); Calcium,Total 9.2 mg/dL (8.5-10.1); Chloride 106 mmol/L (98-107); Creatinine, Serum 0.65 mg/dL (0.55-1.02); EST Glomerular Filtration Rate 96 mL/min (>60); Est Glom Filt Rate - Afr Amer 117 mL/min (>60); Globulin 3.6 g/dL (2.2-4.2); Glucose 90 mg/dL (74-106); Potassium 3.6 mmol/L (3.5-5.1); Protein, Total 7.3 g/dL (6.4-8.2); Sodium Level 140 mmol/L (136-145)
== END | disposition home or self-care (01) ==
LOC: MTLAB 09:49
PROVIDERS: PCP Internal Medicine; Referring Provider Internal Medicine Rheumatology; Visit Provider Internal Medicine Rheumatology
DX: M06.4 Inflammatory polyarthropathy (principal); Z79.899 Other long term (current) drug therapy
CPT/HCPCS: 36415; 80053; 85025

== ENCOUNTER → 2024-03-13 | Outpatient (CLI) | payer MEDICARE, SELFPAY ==
[2024-03-13 11:53] LABS: Absolute Lymphocyte Count 1.84 X10^3/uL (0.83-4.51); Absolute Neutrophil Count 4.2 X10^3/uL (2.0-7.7); Basophil# 0.06 X10^3/uL; Basophil% 0.9 % (0-1); Eosinophil# 0.09 X10^3/uL; Eosinophils% 1.4 % (0-5); Hematocrit 39.7 % (37-47); Hemoglobin 12.9 g/dL (12.0-15.0); Lymphocyte # 1.84 X10^3/ul (0.83-4.51); Mean Corp Hgb Conc 32.5 g/dL (32-36); Mean Corpuscular Volume 95.4 fL (81-99); Mean Platelet Vol. 9.7 fl (6.2-12.0); Monocyte# 0.38 X10^3/uL; Monocyte% 5.8 % (0-10); NRBC Flagged by Analyzer 0 % (0-5); Neutrophil # 4.19 X10^3/uL (2.7-7.7); Neutrophil % 63.6 % (47-70); Platelet Count 356 K/mm3 (150-450); RBC Distribution Width CV 13.3 % (11.6-14.6); RBC Distribution Width SD 46.8 fl (35.1-43.9); Red Blood Count 4.16 M/mm3 (4.2-5.4); White Blood Count 6.6 K/mm3 (4.4-11.0)
[2024-03-13 12:16] LABS: ALB/GLOB Ratio 1.2 RATIO (0.9-2.4); AST(SGOT) 28 U/L (15-37); Alanine Aminotransfer ALT/SGPT 24 U/L (13-56); Alkaline Phosphatase 92 U/L (45-117); Anion Gap 7 (5-15); BUN 12 mg/dL (7-18); BUN/Creat Ratio 15.3 RATIO (10-20); Calcium,Total 9.2 mg/dL (8.5-10.1); Chloride 104 mmol/L (98-107); Creatinine, Serum 0.79 mg/dL (0.55-1.02); EST Glomerular Filtration Rate 78 mL/min (>60); Est Glom Filt Rate - Afr Amer 94 mL/min (>60); Globulin 3.2 g/dL (2.2-4.2); Glucose 89 mg/dL (74-106); Protein, Total 7.2 g/dL (6.4-8.2); Sodium Level 137 mmol/L (136-145)
== END | disposition home or self-care (01) ==
LOC: MTLAB 09:44
PROVIDERS: PCP Internal Medicine; Referring Provider Internal Medicine Rheumatology; Visit Provider Internal Medicine Rheumatology
DX: M06.4 Inflammatory polyarthropathy (principal); Z79.899 Other long term (current) drug therapy
CPT/HCPCS: 36415; 80053; 85025

== ENCOUNTER → 2024-04-17 | Outpatient (CLI) | payer MEDICARE, SELFPAY ==
--- NOTE | 2024-04-17 08:23 | BD_ITS ---
STUDY: DUAL ENERGY X-RAY ABSORPTIOMETRY / DXA REASON FOR EXAM: Female, 68 years old. Z78.0 TECHNIQUE: Bone Mineral Density (BMD) measurements of lumbar spine and bilateral hips were obtained. COMPARISON: Comparison is made with prior study April 15, 2022. FINDINGS: Lumbar Spine (L1-L4): g/cm2 (0.929) / T-score (-1.0) / Z-score (0.9) Findings are suggestive of osteopenia with a low fracture risk. Left Femur Total: g/cm2 (0.789) / T-score (-1.3) / Z-score (0.1) Left Femoral Neck: g/cm2 (0.672) / T-score (-1.6) / Z-score (0.0) Right Femur Total: g/cm2 (0.815) / T-score (-1.0) / Z-score (0.3) Right Femoral Neck: g/cm2 (0.668) / T-score (-1.6) / Z-score (0.0) The T-Scores on the most recent prior examination were: Lumbar Spine (L1-L4): There has been worsening of bone density since the previous examination. Left Femur Total: which represents an improvement of 4%. Right Femur Total: which represents an improvement of 3.7%. BD/Dexa Bone Density Study IMPRESSION: The patient is considered osteopenic as outlined below according to World Ar[place] Organization (WHO) criteria with a moderate fracture risk. There has been improvement of bone density since the previous examination. Reference Information: The T-score is the number of standard deviations above or below the standard which is normal for young adults at their peak bone mineral density. The World Health Organization (WHO) interprets the T-scores as follows: Above -1 Normal bone density Between -1 and -2.5 Osteopenia Equal to / or below -2.5 Osteoporosis As a practical clinical guideline, osteopenia may be graded as follows: Mild -1 through -1.5 Moderate -1.6 through -2.0 Severe -2.1 through -2.4 The Z-score is the number of standard deviations above or below age-matched controls. A Z-score of less than -1.5 would be considered abnormal. References: 1. NIH Osteoporosis and Related Bone Diseases www osteo.org 2. International Society for Clinical Densitometry www iscd.org 3. National Osteoporosis Foundation www nof.org Electronically Signed: Milad Helms MD at 15:16 EDT ,
== END | disposition home or self-care (01) ==
PROVIDERS: PCP Internal Medicine; Referring Provider Internal Medicine; Visit Provider Internal Medicine
DX: Z78.0 Asymptomatic menopausal state (principal)
CPT/HCPCS: 77080

== ENCOUNTER → 2024-05-10 | Outpatient (CLI) | payer MEDICARE, SELFPAY ==
--- NOTE | 2024-05-10 14:39 | RAD_ITS ---
STUDY: X-RAY - ACUTE ABDOMINAL SERIES REASON FOR EXAM: Female, 68 years old. ABD PAIN TECHNIQUE: Single view of the chest. Supine, and erect view(s) of the abdomen were obtained. COMPARISON: CT of the abdomen and pelvis dated February 03, 2022 FINDINGS: The lungs are clear and expanded. Borderline cardiomegaly. Normal mediastinum and columba. Normal visualized pulmonary arteries. Normal visualized aortic arch and descending thoracic aorta. Normal bowel gas pattern with air seen to the rectum. Moderate amount of feces in the colon. Post surgical changes of fusion of the lower lumbar spine. RAD/Acute Abdomen Inc Chest IMPRESSION: Borderline cardiomegaly with no acute abnormality of the visualized chest, abdomen or pelvis. Electronically Signed: Eyad Nelson MD at 15:54 EDT ,
[2024-05-10 18:00] LABS: Absolute Lymphocyte Count 2.24 X10^3/uL (0.83-4.51); Absolute Neutrophil Count 4.8 X10^3/uL (2.0-7.7); Basophil# 0.06 X10^3/uL; Basophil% 0.8 % (0-1); Eosinophil# 0.07 X10^3/uL; Eosinophils% 0.9 % (0-5); Hematocrit 36.7 % (37-47); Hemoglobin 12.1 g/dL (12.0-15.0); Lymphocyte # 2.24 X10^3/ul (0.83-4.51); Lymphocyte % 29.4 % (19-41); Mean Corpuscular Hgb 31.3 pg (27.0-32.0); Mean Corpuscular Volume 95.1 fL (81-99); Mean Platelet Vol. 9.9 fl (6.2-12.0); Monocyte% 5.3 % (0-10); NRBC Flagged by Analyzer 0 % (0-5); Neutrophil # 4.82 X10^3/uL (2.7-7.7); Neutrophil % 63.3 % (47-70); Platelet Count 350 K/mm3 (150-450); RBC Distribution Width CV 14.2 % (11.6-14.6); RBC Distribution Width SD 49.4 fl (35.1-43.9); Red Blood Count 3.86 M/mm3 (4.2-5.4); White Blood Count 7.6 K/mm3 (4.4-11.0)
[2024-05-10 18:10] LABS: ALB/GLOB Ratio 1.2 RATIO (0.9-2.4); AST(SGOT) 35 U/L (15-37); Alanine Aminotransfer ALT/SGPT 26 U/L (13-56); Alkaline Phosphatase 101 U/L (45-117); Anion Gap 8 (5-15); BUN 12 mg/dL (7-18); BUN/Creat Ratio 15.6 RATIO (10-20); Calcium,Total 9.6 mg/dL (8.5-10.1); Chloride 105 mmol/L (98-107); Creatinine, Serum 0.77 mg/dL (0.55-1.02); EST Glomerular Filtration Rate 79 mL/min (>60); Est Glom Filt Rate - Afr Amer 96 mL/min (>60); Globulin 3.3 g/dL (2.2-4.2); Glucose 80 mg/dL (74-106); Potassium 3.6 mmol/L (3.5-5.1); Protein, Total 7.3 g/dL (6.4-8.2); Sodium Level 139 mmol/L (136-145)
== END | disposition home or self-care (01) ==
LOC: MTLAB 14:37
PROVIDERS: PCP Internal Medicine; Referring Provider Internal Medicine; Visit Provider Internal Medicine
DX: R10.84 Generalized abdominal pain (principal); R19.7 Diarrhea, unspecified
CPT/HCPCS: 36415; 74022; 80053; 84443; 85025; 86140

== ENCOUNTER → 2024-05-25 | Outpatient (CLI) | payer MEDICARE, SELFPAY ==
--- NOTE | 2024-05-25 08:52 | RAD_ITS ---
STUDY: X-RAY - ACUTE ABDOMINAL SERIES REASON FOR EXAM: Female, 68 years old. ACUTE ABDOMINAL SERIES -- Abdominal pain, diffuse TECHNIQUE: Single view of the chest. Supine, and erect view(s) of the abdomen were obtained. COMPARISON: 05/10/2024 FINDINGS: The lungs are clear and expanded. Normal size heart. Normal mediastinum and columba. Normal visualized pulmonary arteries. Normal visualized aortic arch and descending thoracic aorta. There is a non-specific bowel gas pattern. The soft tissue structures of the abdomen and pelvis are unremarkable. Status post fixation in the upper lumbar spine. RAD/Acute Abdomen Inc Chest IMPRESSION: Normal x-ray examination of the chest, abdomen, and pelvis. Electronically Signed: Tevin Urena MD at 15:32 EDT ,
[2024-05-25 15:23] LABS: Absolute Lymphocyte Count 1.99 X10^3/uL (0.83-4.51); Absolute Neutrophil Count 4.3 X10^3/uL (2.0-7.7); Basophil# 0.04 X10^3/uL; Basophil% 0.6 % (0-1); Eosinophil# 0.05 X10^3/uL; Eosinophils% 0.8 % (0-5); Hematocrit 34.1 % (37-47); Hemoglobin 11.3 g/dL (12.0-15.0); Lymphocyte # 1.99 X10^3/ul (0.83-4.51); Lymphocyte % 29.9 % (19-41); Mean Corp Hgb Conc 33.1 g/dL (32-36); Mean Corpuscular Hgb 31.6 pg (27.0-32.0); Mean Corpuscular Volume 95.3 fL (81-99); Mean Platelet Vol. 10.2 fl (6.2-12.0); Monocyte# 0.32 X10^3/uL; Monocyte% 4.8 % (0-10); NRBC Flagged by Analyzer 0 % (0-5); Neutrophil # 4.25 X10^3/uL (2.7-7.7); Neutrophil % 63.7 % (47-70); Platelet Count 309 K/mm3 (150-450); RBC Distribution Width CV 13.9 % (11.6-14.6); RBC Distribution Width SD 48.5 fl (35.1-43.9); Red Blood Count 3.58 M/mm3 (4.2-5.4); White Blood Count 6.7 K/mm3 (4.4-11.0)
[2024-05-25 15:53] LABS: Vitamin D,25 Hydroxy 39.1 ng/mL
[2024-05-25 16:06] LABS: ALB/GLOB Ratio 1.3 RATIO (0.9-2.4); AST(SGOT) 29 U/L (15-37); Alanine Aminotransfer ALT/SGPT 21 U/L (13-56); Albumin, Serum 3.8 g/dL (3.2-5.0); Alkaline Phosphatase 90 U/L (45-117); Anion Gap 5 (5-15); BUN 9 mg/dL (7-18); BUN/Creat Ratio 12.5 RATIO (10-20); Chloride 108 mmol/L (98-107); Creatinine, Serum 0.72 mg/dL (0.55-1.02); EST Glomerular Filtration Rate 86 mL/min (>60); Est Glom Filt Rate - Afr Amer 104 mL/min (>60); Globulin 2.9 g/dL (2.2-4.2); Glucose 153 mg/dL (74-106); Potassium 3.6 mmol/L (3.5-5.1); Protein, Total 6.7 g/dL (6.4-8.2); Sodium Level 140 mmol/L (136-145)
== END | disposition home or self-care (01) ==
PROVIDERS: PCP Internal Medicine; Referring Provider Internal Medicine; Visit Provider Internal Medicine
DX: E55.9 Vitamin D deficiency, unspecified (principal); R10.9 Unspecified abdominal pain
CPT/HCPCS: 36415; 74022; 80053; 82306; 85025

== ENCOUNTER → 2024-06-01 | Outpatient (CLI) | payer MEDICARE, SELFPAY ==
--- NOTE | 2024-06-01 11:30 | MRI_ITS ---
STUDY: BILATERAL BREAST MR WITHOUT AND WITH CONTRAST REASON FOR EXAM: Female, 68 years old. Dense breasts on mammography. TECHNIQUE: Multi-sequence multi-echo imaging of both breasts was performed with a dedicated breast coil. T1-weighted and T2-weighted images were performed before the administration of contrast. T1-weighted images were also performed after the intravenous administration of 13 cc of Clariscan contrast.. COMPARISON: Screening mammogram dated May 17, 2023 and April 15, 2022 FINDINGS: RIGHT BREAST: Scattered fibroglandular densities with no significant background enhancement. No abnormal enhancing masses or areas of non-mass enhancement in the right breast. LEFT BREAST: Scattered fibroglandular densities with no significant background. No abnormal enhancing masses or areas of non-mass enhancement in the left breast. No enlarged or abnormal lymph nodes. No abnormality in the visualized regions of the chest or liver. MRI/Breast Bilateral W/O and W IMPRESSION: No abnormality on the breast MRI without and with contrast. CATEGORY: BIRADS Category 2: Benign. A letter regarding these results will be sent to the patient by the facility within 30 days. Electronically Signed: Eyad Nelson MD at 19:30 EDT ,
== END | disposition home or self-care (01) ==
LOC: MRI 11:07
PROVIDERS: PCP Internal Medicine; Referring Provider Internal Medicine; Visit Provider Internal Medicine
DX: R92.30 Dense breasts, unspecified (principal); R92.2 Inconclusive mammogram
CPT/HCPCS: 77049; A9575; A4216; C8908

== ENCOUNTER → 2024-06-12 | Outpatient (CLI) | payer MEDICARE, SELFPAY ==
[2024-06-14 17:08] LABS: Endomysial Antibody IgA Negative (Negative); Immunoglobulin A 106 mg/dL (87-352); t-Transglutaminase IgA <2 U/mL (0-3)
== END | disposition home or self-care (01) ==
LOC: MTLAB 16:29
PROVIDERS: PCP Internal Medicine; Referring Provider Internal Medicine Gastroenterology; Visit Provider Internal Medicine Gastroenterology
DX: R19.7 Diarrhea, unspecified (principal)
CPT/HCPCS: 36415; 82784; 83516; 86255

== ENCOUNTER → 2024-06-15 | Outpatient (CLI) | payer MEDICARE, SELFPAY ==
[2024-06-15 15:18] LABS: Erythrocyte Sedimentation Rate 1 mm/hr (0-30)
[2024-06-18 16:09] LABS: Fats, Neutral Normal (.); Fats, Total Normal (.)
[2024-06-19 02:08] LABS: Pancreatic Elastase, Fecal 743 (>200)
== END | disposition home or self-care (01) ==
PROVIDERS: PCP Internal Medicine; Referring Provider Internal Medicine; Visit Provider Internal Medicine
DX: R10.84 Generalized abdominal pain (principal); R19.7 Diarrhea, unspecified
CPT/HCPCS: 82653; 82705; 85652

== ENCOUNTER 2024-08-25 07:16 | Emergency (ER) | payer MEDICARE, SELFPAY ==
[2024-08-25 07:17] VITALS: BP 149/80; PULSE 94; RESP 15; TEMP 36.2; O2SAT 99; BMI 25.0
--- NOTE | 2024-08-25 07:37 | CT_ITS ---
STUDY: CT ABDOMEN AND PELVIS WITH CONTRAST REASON FOR EXAM: Female, 68 years old. Left sided and lower abd pain RADIATION DOSAGE (If Supplied By Facility): CTDIvol = ( 13.46 ) mGy, DLP = ( 608.56 ) mGycm TECHNIQUE: Transaxial images were obtained from the dome of the diaphragm to the symphysis pubis without oral contrast. IV 100mL Isovue-370 was administered. Sagittal and coronal images were reconstructed. Individualized dose optimization techniques were used for this CT. COMPARISON: 03/05/2022 FINDINGS: The visualized lung bases are unremarkable. The visualized portions of the heart are within normal limits. Normal liver. There is non-visualization of the gallbladder, which may be secondary to either contraction or a prior cholecystectomy. Normal spleen. Normal pancreas. Normal bilateral adrenal glands. Normal right kidney. Normal left kidney. Normal visualized stomach. Normal small intestine. Retained stool noted in the colon with a few scattered colonic diverticula. In the mid and distal sigmoid colon however there is diffuse submucosal thickening and pericolonic inflammatory stranding. There is slight caliber change. Findings suggest a focal colitis likely due to diverticulitis but an underlying lesion cannot be excluded and further evaluation with colonoscopy is recommended once the acute inflammation has resolved. There is diffuse atherosclerotic calcification of the abdominal aorta, without a demonstrated aneurysm. Normal inferior vena cava. Normal retroperitoneum. Normal urinary bladder. There is absence of the uterus consistent with a prior hysterectomy. There is a small umbilical hernia containing fat. Stable degenerative and postsurgical changes in the lumbar spine. No demonstrated pelvic fracture. CT/Abdomen/Pelvis W IV Cont ONLY IMPRESSION: Abnormal submucosal thickening and edema in the mid and distal sigmoid colon with pericolonic inflammatory stranding. Findings likely represent focal colitis, perhaps due to diverticulitis but an underlying lesion cannot be excluded. Recommend further evaluation with colonoscopy once the acute inflammation has resolved. No free intraperitoneal fluid, air, or suspicious adenopathy Stable degenerative and postsurgical changes in the lumbar spine Electronically Signed: Vaibhav Diane MD at 9:02 EST ,
--- NOTE | 2024-08-25 07:40 | ED.VIS.GI ---
HPI HPI - GI History of Present Illness Chief Complaint: Abd Pain Informant: patient Abdominal Pain/Flank Pain Onset: Month(s) Context: Gradual Onset Timing: Intermittent Quality: Cramping Maximum Severity: Mild Nausea/Vomiting/Emesis GI Symptom: Negative for Nausea or Vomiting Diarrhea/Melena/Hematochezia GI Symptom: Negative for Diarrhea, Melena or Hematochezia Associated Symptoms Associated Symptoms: Negative for Dysuria, Frequency, Hematuria or Urgency Narrative Narrative: 38-year-old female acute on chronic abdominal pain for the last 6 months. She has had a prior cholecystectomy, appendectomy and total hysterectomy. Close prior back surgery. She sees GI Dr. Kunz for this pain that possibly may be irritable bowel. She is able to have bowel movements. She is urinating normally. She has had no weight loss. No fever. She says for the last 6 months she is about an hour or 2 after she eats she gets crampy left-sided flank pain and bilateral lower quadrant. After she has a bowel movement generally gets better. Pain comes and goes. She states she may not have it for several weeks and then have it for multiple days in a row. It usually does not last very long. Usually less than an hour. 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 Hypercholesteremia Vitamin D deficiency Thyroid nodule DDD (degenerative disc disease) Anemia Leukopenia Rheumatoid arthritis GERD (gastroesophageal reflux disease) Nonrheumatic mitral (valve) prolapse Concussion with no loss of consciousness Postconcussion syndrome Contusion of left forearm Bruise of face Contusion of head Contusion of left shoulder Left shoulder strain Sprain of unspecified site of right knee, initial encounter Hernandez's neuroma Dupuytren's disease of palm of left hand Hx of melanoma of skin Asthma Knee pain Weight loss Cancer Arthritis Nevus Skin hemangioma Lentigo Palpitations Tachycardia SOB (shortness of breath) Home Medications ?Medication ?Instructions ?Recorded ?Last Taken ?Type albuterol sulfate 90 mcg/actuation 2 puff inhalation Q6H PRN 07/07/21 Unknown History aerosol inhaler folic acid 1 mg tablet 2 mg PO DAILY 09/14/21 Unknown History hydroxychloroquine 200 mg tablet 200 mg PO DAILY 04/20/22 Unknown History leucovorin calcium 25 mg tablet 25 mg PO QWEEK 10/20/22 Unknown History methotrexate (PF) 7.5 mg/0.15 mL 0.5 mg subcut QWEEK 06/22/23 Unknown History subcutaneous auto-injector aspirin 81 mg tablet,delayed 81 mg PO .qod 10/21/23 Unknown History release ciprofloxacin HCl 500 mg tablet 500 mg PO BID 10 days #20 tabs 08/25/24 Unknown Rx (Cipro) metronidazole 500 mg tablet 500 mg PO TID 10 days #30 tabs 08/25/24 Unknown Rx Allergy/AdvReac Type Severity Reaction Status Date / Time morphine Allergy Intermediate Hives Verified 08/05/24 09:05 Penicillins Allergy Intermediate Hives Verified 08/05/24 09:05 Sulfa (Sulfonamide Allergy Intermediate Hives Verified 08/05/24 09:05 Antibiotics) adhesive Allergy Mild BLISTER Verified 08/05/24 09:05 erythromycin base Allergy Mild EYES Verified 08/05/24 09:05 (Erythromycin Base) SWELLING amoxicillin Allergy Unknown Unknown Verified 08/05/24 09:05 clarithromycin (From Biaxin) Allergy Unknown Verified 08/05/24 09:05 cyclobenzaprine (From Allergy Unknown Verified 08/05/24 09:05 Flexeril) hydrocodone bitartrate (From AdvReac Mild Upset Verified 08/05/24 09:05 Vicodin) Stomach Family History Mother , age 70 Myocardial infarction CAD (coronary artery disease) Father Melanoma Brother Nonrheumatic aortic (valve) stenosis Surgical History History of left shoulder replacement (~02/2021) S/P left rotator cuff repair History of cataract surgery History of rotator cuff surgery bladder tied up History of back surgery History of knee surgery Hx of removal of ovary History of carpal tunnel release History of hysterectomy (~1994) History of tonsillectomy (~1964) History of appendectomy (~1995) History of cholecystectomy (~2006) History of tubal ligation Social History Smoking Status: Former smoker Tobacco: How many years used: 35 how long ago did patient quit smokin alcohol intake: never details: rarely consumes alcohol substance use type: does not use caffeine: Yes Type: coffee what type of physical activity do you participate in: bicycling frequency: daily duration: 30-45 minutes/day seatbelt use: always do you feel safe at home: Yes additional social history: does take aspirin every other day, rarely takes ibuprofen ROS ROS ED ROS Narrative Abdominal pain. Denies vomiting. Denies fever. Denies diarrhea. Denies dysuria. Denies weight loss. Constitutional Constitutional ED: Denies chills or fever(s) ENT ENT ED: Denies ear pain Cardiovascular Cardiovascular: Denies chest pain Respiratory/Chest Respiratory/Chest: Denies cough or dyspnea Gastrointestinal Gastrointestinal: Reports abdominal pain; Denies constipation, diarrhea, melena, nausea or vomiting Genitourinary Genitourinary ED: Denies dysuria or hematuria Musculoskeletal Musculoskeletal: Denies arthralgias or back pain Integumentary Denies abscess Neurologic Neurologic: Denies headache(s) Psychiatric Psychiatric: Denies anxiety Endocrine Endocrinology: Denies polydipsia Hematologic/Lymphatic Hematologic/Lymphatic: Denies easy bleeding Allergic/Immunologic Allergic/Immunologic ED: Denies mouth swelling, tongue swelling or urticaria EXAM Physical Exam Narrative Exam Narrative: 68-year-old female vital signs are stable. And afebrile. No acute distress. H EENT exam is unremarkable. Moist mucous membranes. Pupils round reactive light. Neck nontender. Lungs clear to auscultation bilaterally. Heart regular rate and rhythm rate about 90 no murmur. Chest wall ribs nontender. Abdomen is soft, nondistended, normal bowel sounds without peritoneal signs. Currently she weighs no significant abdominal pain or reproducible pain. There are multiple abdominal scars on her abdomen. All well-healed. No distention. Moving all 4 extremities. Nontender no edema. Back nontender. Well-healed lumbar midline surgical scar. neurologically she is awake and alert. No focal motor deficits. Answering questions following commands. Const Vital Signs: 08/25/24 07:17 08/25/24 09:17 Temperature 97.2 F L Temperature Source Temporal Pulse Rate 94 77 Respiratory Rate 15 16 Blood Pressure 149/80 H 124/70 H Blood Pressure Mean 103 88 Pulse Ox 99 99 Oxygen Delivery Method Room Air Positive well nourished and well developed; Negative for cachectic, contractures or unkempt General Appearance ED: well developed and NAD; Negative for unkempt, cachectic, contractures or pallor Nutritional Appearance: Negative for cachectic HEENT Reports moist mucous membranes normocephalic and atraumatic; Negative for trauma or tenderness Eyes PERRL and EOMs intact bilaterally General Eye ED: Negative for pale conjunctiva or scleral icterus Neck no lymphadenopathy, supple and no JVD General: Negative for tenderness Resp normal respiratory effort and clear to auscultation bilaterally Effort and Inspection: Negative for respiratory distress Auscultation: Negative for rales, rhonchi or wheezes Cardio regular rate, regular rhythm, S1 normal heart sound, S2 normal heart sound and no murmurs Rate: Negative for bradycardia or tachycardic Rhythm: Negative for abnormal rhythm GI non-tender, non-distended and no masses Inspection: Negative for abdominal distention Auscultation: normoactive bowel sounds Palpation: soft; Negative for tender, guarding, mass, pulsatile mass or rebound tenderness present Back/Spine no CVA tenderness General Back: Negative for CVA tenderness Cervical Spine: Negative for cervical spine tenderness Thoracic Spine / Upper Back: Negative for thoracic spinal tenderness Lumbar Spine / Lower Back: Negative for lumbar spinal tenderness Coccyx: Negative for other Extremity full ROM General Extremety ED: Negative for edema or tenderness General Extremity: Negative for edema Neuro CN's II-XII intact bilaterally and moves all extremities Sensorium / Orientation: alert, oriented to person, oriented to place and oriented to time; Negative for orientation impaired or confused Motor Exam: strength 5/5 throughout Psych mental status grossly normal and thought process normal Appearance: Negative for unkempt Skin no wounds General Skin Exam: Negative for jaundice or pallor Lesions: no lesions Rashes: no rashes Trauma: Negative for abrasion MDM MDM MDM Narrative Medical decision making narrative: 68-year-old female with left flank and lower quadrant abdominal pain has been intermittent for 6 months. She has had multiple prior abdominal surgeries. This may be from your tissue or occasions. CAT scan labs are pending. Repeat exam patient is doing well at 10:20 AM. We went over her test results. Given that she has colitis it may be bacterial and could even be from diverticulitis should be started on Cipro and Flagyl for 10 days. She has an allergy to penicillin so I did not want to use Augmentin. She is a follow-up appointment in a week with her GI doctor Dr. Cedrick Kunz. They can discuss further treatment. If she needs antibiotics longer. And follow-up colonoscopy. Patient is comfortable with the plan. Currently she is doing well. She will be given a dose of Cipro and Flagyl prior to being discharged. History & Record Review Discussion w/independent historian: Patient Additional record(s) reviewed:: Prior inpatient record, Prior outpatient record, Prior ED visit and Prior labs Lab Data Attestation: I reviewed the patient's lab results. Lab results narrative: CBC unremarkable. White count of 6. H&H 12 and 36. Platelets 407. Electrolytes show a gap of 6. Normal BUN and creatinine 11 and 0.79. Liver enzymes are normal. Lipase is normal at 35. UA is normal. No white or red cells. No bacteria nor nitrates. CAT scan consistent with colitis of the sigmoid. Possible diverticulitis. Labs: Laboratory Results - last 24 hr 08/25/24 08/25/24 07:32 08:45 WBC 6.8 RBC 3.81 L Hgb 12.0 Hct 36.3 L MCV 95.3 MCH 31.5 MCHC 33.1 RDW Std Deviation 46.5 H RDW Coeff of Luis Armando 13.3 Plt Count 407 MPV 9.6 Immature Gran % (Auto) 0.300 Neut % (Auto) 64.6 Lymph % (Auto) 27.2 [place] % (Auto) 6.2 Eos % (Auto) 1.0 Baso % (Auto) 0.7 Absolute Neuts (auto) 4.4 Absolute Lymphs (auto) 1.84 Nucleated RBC % 0 Sodium 136 Potassium 3.7 Chloride 106 Carbon Dioxide 24.0 Anion Gap 6 BUN 11 Creatinine 0.79 Estim Creat Clear Calc 63.89 Est GFR (MDRD) Af Amer 94 Est GFR (MDRD) Non-Af 78 BUN/Creatinine Ratio 14.0 Glucose 99 Calcium 9.1 Total Bilirubin 0.50 AST 17 ALT 20 Alkaline Phosphatase 99 Total Protein 7.3 Albumin 3.5 Globulin 3.8 Albumin/Globulin Ratio 0.9 Lipase 35 Urine Color Straw Urine Clarity Clear Urine pH 7.0 Ur Specific Sontag 1.005 Urine Protein Negative Urine Glucose (UA) Normal Urine Ketones Negative Urine Occult Blood Negative Urine Nitrite Negative Urine Bilirubin Negative Urine Urobilinogen Normal Ur Leukocyte Esterase Negative Urine RBC 0 SEEN Urine WBC 0 SEEN Ur Squamous Epith Cells 0 SEEN Urine Bacteria 0 SEEN Urine Mucus 0 SEEN Radiography Diagnostic Testing: Clinical Impression(s) from Imaging Studies Abdomen/Pelvis CT 08/25/24 07:37 IMPRESSION: Abnormal submucosal thickening and edema in the mid and distal sigmoid colon with pericolonic inflammatory stranding. Findings likely represent focal colitis, perhaps due to diverticulitis but an underlying lesion cannot be excluded. Recommend further evaluation with colonoscopy once the acute inflammation has resolved. No free intraperitoneal fluid, air, or suspicious adenopathy Stable degenerative and postsurgical changes in the lumbar spine Electronically Signed: Vaibhav Diane MD at 9:02 EST Reading Location ID and State: [address] [place] [address] , Service support , Discharge Plan Triage Chief Complaint: Abd Pain ED Provider: Anastacio Vences Dx/Rx/DC Orders Clinical Impression: Colitis, Abdominal pain Instructions: ED Understanding Colitis Prescriptions: New ciprofloxacin HCl [Cipro] 500 mg tablet 500 mg PO BID 10 Days Qty: 20 0RF metronidazole 500 mg tablet 500 mg PO TID 10 Days Qty: 30 0RF No Action folic acid 1 mg tablet 2 mg PO DAILY albuterol sulfate 90 mcg/actuation HFA aerosol inhaler 2 puff inhalation Q6H PRN leucovorin calcium 25 mg tablet 25 mg PO QWEEK hydroxychloroquine 200 mg tablet 200 mg PO DAILY aspirin 81 mg tablet,delayed release (DR/EC) 81 mg PO .qod methotrexate (PF) 7.5 mg/0.15 mL auto-injector 0.5 mg subcut QWEEK Primary Care Provider: Florencia Herrera Referrals: Florencia Herrera DO [Primary Care Provider] - Cedrick Kunz MD [Non-Staff] - Keep Rodolfo appointment Activity Restrictions/Additional Instructions: Cipro twice a day. Flagyl 3 times a day. Motrin and/or Tylenol for pain. Keep your scheduled appointment Dr. Kunz. All your labs and urinalysis look good. Your CAT scan showed sigmoid colitis possibly from diverticulitis. For that reason we will start you on the antibiotics. Follow-up with Dr. Kunz. He may want to do a follow-up colonoscopy when you are feeling better and the inflammation is improved. Print Language: Arabic Disposition Disposition: Home, Self Care
[2024-08-25 07:54] LABS: Absolute Lymphocyte Count 1.84 X10^3/uL (0.83-4.51); Absolute Neutrophil Count 4.4 X10^3/uL (2.0-7.7); Basophil# 0.05 X10^3/uL; Basophil% 0.7 % (0-1); Eosinophil# 0.07 X10^3/uL; Hematocrit 36.3 % (37-47); Lymphocyte # 1.84 X10^3/ul (0.83-4.51); Lymphocyte % 27.2 % (19-41); Mean Corp Hgb Conc 33.1 g/dL (32-36); Mean Corpuscular Hgb 31.5 pg (27.0-32.0); Mean Corpuscular Volume 95.3 fL (81-99); Mean Platelet Vol. 9.6 fl (6.2-12.0); Monocyte# 0.42 X10^3/uL; Monocyte% 6.2 % (0-10); NRBC Flagged by Analyzer 0 % (0-5); Neutrophil # 4.36 X10^3/uL (2.7-7.7); Neutrophil % 64.6 % (47-70); Platelet Count 407 K/mm3 (150-450); RBC Distribution Width CV 13.3 % (11.6-14.6); RBC Distribution Width SD 46.5 fl (35.1-43.9); Red Blood Count 3.81 M/mm3 (4.2-5.4); White Blood Count 6.8 K/mm3 (4.4-11.0)
[2024-08-25 08:10] LABS: ALB/GLOB Ratio 0.9 RATIO (0.9-2.4); AST(SGOT) 17 U/L (15-37); Alanine Aminotransfer ALT/SGPT 20 U/L (13-56); Albumin, Serum 3.5 g/dL (3.2-5.0); Alkaline Phosphatase 99 U/L (45-117); Anion Gap 6 (5-15); BUN 11 mg/dL (7-18); Calcium,Total 9.1 mg/dL (8.5-10.1); Chloride 106 mmol/L (98-107); Creatinine, Serum 0.79 mg/dL (0.55-1.02); EST Glomerular Filtration Rate 78 mL/min (>60); Est Glom Filt Rate - Afr Amer 94 mL/min (>60); Estimated Creatinine Clearance 63.89 ml/min; Globulin 3.8 g/dL (2.2-4.2); Glucose 99 mg/dL (74-106); Lipase 35 U/L (13-75); Potassium 3.7 mmol/L (3.5-5.1); Protein, Total 7.3 g/dL (6.4-8.2); Sodium Level 136 mmol/L (136-145)
[2024-08-25 09:00] LABS: Bacteria 0 SEEN /hpf (None Seen); Mucous, Urine 0 SEEN /hpf (<or=2+); Red Blood Cells-Urine 0 SEEN /hpf (0-5); Squamous Epithelial Cells - UA 0 SEEN /hpf (5-10); White Blood Cells 0 SEEN /hpf (0-5)
[2024-08-25 09:10] LABS: Color, Urine Straw (Yellow); Glucose, Dipstick Normal (Normal); Ketone-Dipstick Negative (Negative); Leukocyte Esterase-Dipstick Negative /ul (Negative); Nitrite-Dipstick Negative (Negative); Occult Blood-Urine Negative /ul (Negative); Protein-Dipstick Negative (Negative); Specific Gravity, Urine 1.005 (1.002-1.030); Urine Bilirubin Dipstick Negative (Negative); Urine Clarity Clear (Clear); Urine Urobilinogen Normal (Normal)
[2024-08-25 09:17] VITALS: BP 124/70; PULSE 77; RESP 16; O2SAT 99
[2024-08-25 10:38] VITALS: BP 124/70; PULSE 77; RESP 16; TEMP 36.2; O2SAT 99
[2024-08-25] MEDS: metroNIDAZOLE 500 MG Tablet PO (10:42)
[2024-08-25] MEDS: Ciprofloxacin 500 MG Tablet PO (10:42)
== END 2024-08-25 10:48 | disposition home or self-care (01) ==
PROVIDERS: Emergency Provider Emergency Medicine; PCP Internal Medicine; Visit Provider Emergency Medicine
DX: R10.9 Unspecified abdominal pain (principal); K52.9 Noninfective gastroenteritis and colitis, unspecified; Z90.710 Acquired absence of both cervix and uterus; E78.00 Pure hypercholesterolemia, unspecified; Z87.891 Personal history of nicotine dependence; Z90.49 Acquired absence of other specified parts of digestive tract; Z96.612 Presence of left artificial shoulder joint
CPT/HCPCS: 74177; 80053; 81001; 83690; 85025; 99283; Q9967; A4216

== ENCOUNTER → 2024-08-28 | Outpatient (CLI) | payer MEDICARE, SELFPAY ==
[2024-08-28 15:22] LABS: Absolute Lymphocyte Count 1.72 X10^3/uL (0.83-4.51); Absolute Neutrophil Count 5.6 X10^3/uL (2.0-7.7); Basophil# 0.04 X10^3/uL; Basophil% 0.5 % (0-1); Eosinophil# 0.04 X10^3/uL; Eosinophils% 0.5 % (0-5); Hematocrit 35.8 % (37-47); Hemoglobin 11.5 g/dL (12.0-15.0); Lymphocyte # 1.72 X10^3/ul (0.83-4.51); Mean Corp Hgb Conc 32.1 g/dL (32-36); Mean Corpuscular Hgb 30.7 pg (27.0-32.0); Mean Corpuscular Volume 95.5 fL (81-99); Mean Platelet Vol. 9.4 fl (6.2-12.0); Monocyte# 0.42 X10^3/uL; Monocyte% 5.4 % (0-10); NRBC Flagged by Analyzer 0 % (0-5); Neutrophil # 5.59 X10^3/uL (2.7-7.7); Neutrophil % 71.5 % (47-70); Platelet Count 426 K/mm3 (150-450); RBC Distribution Width CV 13.2 % (11.6-14.6); RBC Distribution Width SD 46.3 fl (35.1-43.9); Red Blood Count 3.75 M/mm3 (4.2-5.4); White Blood Count 7.8 K/mm3 (4.4-11.0)
[2024-08-28 19:11] LABS: ALB/GLOB Ratio 1.2 RATIO (0.9-2.4); AST(SGOT) 30 U/L (15-37); Alanine Aminotransfer ALT/SGPT 28 U/L (13-56); Albumin, Serum 4.1 g/dL (3.2-5.0); Alkaline Phosphatase 94 U/L (45-117); Anion Gap 6 (5-15); BUN 14 mg/dL (7-18); BUN/Creat Ratio 13.6 RATIO (10-20); Calcium,Total 9.4 mg/dL (8.5-10.1); Chloride 103 mmol/L (98-107); Creatinine, Serum 1.03 mg/dL (0.55-1.02); EST Glomerular Filtration Rate 57 mL/min (>60); Est Glom Filt Rate - Afr Amer 69 mL/min (>60); Globulin 3.4 g/dL (2.2-4.2); Glucose 98 mg/dL (74-106); Potassium 3.5 mmol/L (3.5-5.1); Protein, Total 7.5 g/dL (6.4-8.2); Sodium Level 135 mmol/L (136-145)
== END | disposition home or self-care (01) ==
LOC: MTLAB 13:03
PROVIDERS: PCP Internal Medicine; Referring Provider Internal Medicine Rheumatology; Visit Provider Internal Medicine Rheumatology
DX: M06.4 Inflammatory polyarthropathy (principal); Z79.899 Other long term (current) drug therapy
CPT/HCPCS: 36415; 80053; 85025

== ENCOUNTER → 2024-11-20 | Outpatient (CLI) | payer MEDICARE, SELFPAY ==
[2024-11-20 18:14] LABS: Absolute Lymphocyte Count 2.13 X10^3/uL (0.83-4.51); Absolute Neutrophil Count 4.1 X10^3/uL (2.0-7.7); Basophil# 0.05 X10^3/uL; Basophil% 0.7 % (0-1); Eosinophil# 0.04 X10^3/uL; Eosinophils% 0.6 % (0-5); Hematocrit 37.3 % (37-47); Hemoglobin 12.3 g/dL (12.0-15.0); Lymphocyte # 2.13 X10^3/ul (0.83-4.51); Lymphocyte % 31.8 % (19-41); Mean Corpuscular Hgb 31.6 pg (27.0-32.0); Mean Corpuscular Volume 95.9 fL (81-99); Mean Platelet Vol. 9.8 fl (6.2-12.0); Monocyte# 0.39 X10^3/uL; Monocyte% 5.8 % (0-10); NRBC Flagged by Analyzer 0 % (0-5); Neutrophil # 4.07 X10^3/uL (2.7-7.7); Neutrophil % 60.8 % (47-70); Platelet Count 360 K/mm3 (150-450); RBC Distribution Width CV 14.5 % (11.6-14.6); Red Blood Count 3.89 M/mm3 (4.2-5.4); White Blood Count 6.7 K/mm3 (4.4-11.0)
[2024-11-20 21:37] LABS: ALB/GLOB Ratio 1.7 RATIO (0.9-2.4); AST(SGOT) 32 U/L (<=31); Alanine Aminotransfer ALT/SGPT 23 U/L (<=34); Albumin, Serum 4.5 g/dL (3.4-4.8); Alkaline Phosphatase 102 U/L (35-104); Anion Gap 12 (5-15); BUN 13 mg/dL (4-19); BUN/Creat Ratio 17.3 RATIO (10-20); Calcium,Total 9.3 mg/dL (7.6-11.0); Carbon Dioxide 24.2 mmol/L (21.0-32.0); Chloride 104 mmol/L (98-108); Creatinine, Serum 0.76 mg/dL (0.70-1.20); EST Glomerular Filtration Rate 86 (>60); Globulin 2.6 g/dL (2.2-4.2); Glucose 110 mg/dL (70-99); Potassium 3.8 mmol/L (3.3-5.1); Protein, Total 7.2 g/dL (5.9-8.4); Sodium Level 139 mmol/L (133-145)
== END | disposition home or self-care (01) ==
LOC: MTLAB 14:52
PROVIDERS: PCP Internal Medicine; Referring Provider Internal Medicine Rheumatology; Visit Provider Internal Medicine Rheumatology
DX: M06.4 Inflammatory polyarthropathy (principal); Z79.899 Other long term (current) drug therapy
CPT/HCPCS: 36415; 80053; 85025

== ENCOUNTER → 2024-11-26 | Outpatient (CLI) | payer MEDICARE, SELFPAY | END | disposition home or self-care (01) | LOC: MTLAB 16:37 | PROVIDERS: PCP Internal Medicine; Referring Provider Internal Medicine; Visit Provider Internal Medicine | DX: R63.5 Abnormal weight gain (principal) | CPT/HCPCS: 36415; 84443 ==

== ENCOUNTER → 2024-12-06 | Outpatient (CLI) | payer MEDICARE, SELFPAY ==
--- NOTE | 2024-12-06 13:05 | RAD_ITS ---
EXAM: Left ribs. CLINICAL HISTORY: Left anterior rib pain. COMPARISON: None TECHNIQUE: Four views were obtained. FINDINGS: No evidence of fracture. Status post left shoulder replacement. The lungs are clear. RAD/Ribs Unil 2V No CXR IMPRESSION: No evidence of rib fracture. Reading Location: [place] [id number]
== END | disposition home or self-care (01) ==
PROVIDERS: PCP Internal Medicine; Referring Provider Physician Assistant Surgical; Visit Provider Physician Assistant Surgical
DX: S29.9XXA Unspecified injury of thorax, initial encounter (principal)
CPT/HCPCS: 71100

== ENCOUNTER → 2025-01-21 | Outpatient (CLI) | payer MEDICARE, SELFPAY ==
[2025-01-21 15:27] LABS: Absolute Lymphocyte Count 2.04 X10^3/uL (0.83-4.51); Absolute Neutrophil Count 3.2 X10^3/uL (2.0-7.7); Basophil# 0.04 X10^3/uL; Basophil% 0.7 % (0-1); Eosinophil# 0.08 X10^3/uL; Eosinophils% 1.4 % (0-5); Hematocrit 34.9 % (37-47); Hemoglobin 11.7 g/dL (12.0-15.0); Lymphocyte # 2.04 X10^3/ul (0.83-4.51); Lymphocyte % 35.5 % (19-41); Mean Corp Hgb Conc 33.5 g/dL (32-36); Mean Corpuscular Hgb 32.1 pg (27.0-32.0); Mean Corpuscular Volume 95.9 fL (81-99); Mean Platelet Vol. 10.5 fl (6.2-12.0); Monocyte# 0.39 X10^3/uL; Monocyte% 6.8 % (0-10); NRBC Flagged by Analyzer 0 % (0-5); Neutrophil # 3.19 X10^3/uL (2.7-7.7); Neutrophil % 55.4 % (47-70); Platelet Count 338 K/mm3 (150-450); RBC Distribution Width CV 13.5 % (11.6-14.6); RBC Distribution Width SD 48.2 fl (35.1-43.9); Red Blood Count 3.64 M/mm3 (4.2-5.4); White Blood Count 5.8 K/mm3 (4.4-11.0)
[2025-01-21 15:33] LABS: AST(SGOT) 42 U/L (<=31); Alanine Aminotransfer ALT/SGPT 28 U/L (<=34); Albumin, Serum 4.3 g/dL (3.4-4.8); Alkaline Phosphatase 104 U/L (35-104); Anion Gap 12 (5-15); BUN 10 mg/dL (4-19); BUN/Creat Ratio 15.7 RATIO (10-20); Calcium,Total 9.3 mg/dL (7.6-11.0); Chloride 103 mmol/L (98-108); Creatinine, Serum 0.66 mg/dL (0.70-1.20); EST Glomerular Filtration Rate 96 (>60); Globulin 2.2 g/dL (2.2-4.2); Glucose 91 mg/dL (70-99); Protein, Total 6.6 g/dL (5.9-8.4); Sodium Level 139 mmol/L (133-145); Total Bilirubin 0.39 mg/dL (0.00-1.30)
== END | disposition home or self-care (01) ==
LOC: MTLAB 11:13
PROVIDERS: PCP Internal Medicine; Referring Provider Internal Medicine Rheumatology; Visit Provider Internal Medicine Rheumatology
DX: M06.4 Inflammatory polyarthropathy (principal); Z79.899 Other long term (current) drug therapy
CPT/HCPCS: 36415; 80053; 85025

== ENCOUNTER → 2025-02-07 | Outpatient (CLI) | payer MEDICARE, SELFPAY ==
--- NOTE | 2025-02-07 08:19 | US_ITS ---
PROCEDURE: LIVER 02/07/2025 REASON FOR EXAM: ELEVATED LI ENZYMES COMPARISON: None FINDINGS: Liver: Diffusely echogenic suggesting fatty infiltration. Gallbladder: Surgically absent. Common bile duct: Normal measuring 4 mm. . Pancreas: Normal Other: Visualized portions of the right kidney are unremarkable. No right upper quadrant ascites. US/Liver IMPRESSION: Fatty infiltration of the liver. The liver is not enlarged. Status post cholecystectomy. Reading Location: [place] [address]
== END | disposition home or self-care (01) ==
PROVIDERS: PCP Internal Medicine; Referring Provider Internal Medicine Rheumatology; Visit Provider Internal Medicine Rheumatology
DX: M06.4 Inflammatory polyarthropathy (principal); Z79.899 Other long term (current) drug therapy; M48.061 Spinal stenosis, lumbar region without neurogenic claudication; M17.0 Bilateral primary osteoarthritis of knee
CPT/HCPCS: 76705

== ENCOUNTER → 2025-02-25 | Outpatient (CLI) | payer MEDICARE, SELFPAY ==
[2025-02-25 16:10] LABS: AST(SGOT) 33 U/L (<=31); Alanine Aminotransfer ALT/SGPT 19 U/L (<=34); Albumin, Serum 4.5 g/dL (3.4-4.8); Alkaline Phosphatase 118 U/L (35-104); Bilirubin, Direct 0.11 mg/dL (0.00-0.30); Globulin 2.6 g/dL (2.2-4.2)
== END | disposition home or self-care (01) ==
LOC: MTLAB 12:58
PROVIDERS: PCP Internal Medicine; Referring Provider Internal Medicine; Visit Provider Internal Medicine
DX: K76.0 Fatty (change of) liver, not elsewhere classified (principal); R79.89 Other specified abnormal findings of blood chemistry
CPT/HCPCS: 36415; 80076; 83036

== ENCOUNTER → 2025-03-08 | Outpatient (CLI) | payer MEDICARE, SELFPAY ==
--- NOTE | 2025-03-08 07:50 | US_ITS ---
PROCEDURE: ELASTOGRAPHY PARENCHYMA/ORGAN 03/08/2025 REASON FOR EXAM: FATTY LIVER TECHNIQUE: ELASTOGRAPHY PARENCHYMA/ORGAN COMPARISON: None FINDINGS: Elastography was performed. 10.5 kPA. Velocity is 1.9 m/sec. Fatty infiltration of the liver. US/Elastography Parenchyma/Organ IMPRESSION: Metavir score: F2/F3 Reading Location: [place] [address]
== END | disposition home or self-care (01) ==
LOC: US 07:48
PROVIDERS: PCP Internal Medicine; Referring Provider Internal Medicine; Visit Provider Internal Medicine
DX: K76.0 Fatty (change of) liver, not elsewhere classified (principal)
CPT/HCPCS: 76981

== ENCOUNTER → 2025-03-20 | Outpatient (CLI) | payer MEDICARE, SELFPAY ==
[2025-03-20 17:49] LABS: Hematocrit 37.2 % (37-47); Hemoglobin 12.8 g/dL (12.0-15.0); Immature Granulocytes Count 0.020 X10^3/uL (0.0-0.0); Mean Corp Hgb Conc 34.4 g/dL (32-36); Mean Corpuscular Volume 95.6 fL (81-99); Mean Platelet Vol. 10.3 fl (6.2-12.0); NRBC Flagged by Analyzer 0 % (0-5); Platelet Count 363 K/mm3 (150-450); RBC Distribution Width CV 13.9 % (11.6-14.6); RBC Distribution Width SD 48.8 fl (35.1-43.9); Red Blood Count 3.89 M/mm3 (4.2-5.4); White Blood Count 7.9 K/mm3 (4.4-11.0)
[2025-03-20 19:03] LABS: AST(SGOT) 32 U/L (<=31); Alanine Aminotransfer ALT/SGPT 21 U/L (<=34); Albumin, Serum 4.6 g/dL (3.4-4.8); Alkaline Phosphatase 116 U/L (35-104); Anion Gap 13 (5-15); BUN 14 mg/dL (4-19); BUN/Creat Ratio 16.3 RATIO (10-20); Calcium,Total 9.6 mg/dL (7.6-11.0); Carbon Dioxide 23.7 mmol/L (21.0-32.0); Chloride 103 mmol/L (98-108); Ferritin 43 ng/mL (22-378); Globulin 2.6 g/dL (2.2-4.2); Glucose 92 mg/dL (70-99); Potassium 3.8 mmol/L (3.3-5.1)
[2025-03-22 12:08] LABS: ANTINUCLEAR ANTIBODIES DIRECT Negative (Negative); Alpha Antitrypsin Serum 161 mg/dL (101-187)
[2025-03-22 15:08] LABS: Anti-Smooth Muscle ABS 5 Units (0-19)
== END | disposition home or self-care (01) ==
PROVIDERS: PCP Internal Medicine; Referring Provider Internal Medicine Gastroenterology; Visit Provider Internal Medicine Rheumatology
DX: M06.4 Inflammatory polyarthropathy (principal); Z79.899 Other long term (current) drug therapy; M48.061 Spinal stenosis, lumbar region without neurogenic claudication; M17.0 Bilateral primary osteoarthritis of knee
CPT/HCPCS: 36415; 80053; 82103; 82728; 83516; 85025; 86038

== ENCOUNTER → 2025-03-29 | Outpatient (CLI) | payer MEDICARE, SELFPAY ==
[2025-04-02 21:07] LABS: QNTFERON TB Mitogen Value > 10.00 IU/mL (.); QNTFERON TB Nil Value 0.06 IU/mL (.); QNTFERON TB1+ Ag Value 0.08 IU/mL (.); QNTFERON TB2+ Ag Value 0.07 IU/mL (.); QNTIFERON TB Positive Criteria Negative (Negative)
== END | disposition home or self-care (01) ==
PROVIDERS: PCP Internal Medicine; Referring Provider Internal Medicine Rheumatology; Visit Provider Internal Medicine Rheumatology
DX: M06.4 Inflammatory polyarthropathy (principal); Z79.899 Other long term (current) drug therapy
CPT/HCPCS: 36415; 86480

== ENCOUNTER → 2025-06-17 | Outpatient (CLI) | payer MEDICARE, SELFPAY ==
[2025-06-17 17:43] LABS: Hematocrit 34.3 % (37-47); Hemoglobin 11.4 g/dL (12.0-15.0); Immature Granulocytes Count 0.010 X10^3/uL (0.0-0.0); Mean Corp Hgb Conc 33.2 g/dL (32-36); Mean Corpuscular Volume 93.0 fL (81-99); Mean Platelet Vol. 10.3 fl (6.2-12.0); NRBC Flagged by Analyzer 0 % (0-5); Platelet Count 327 K/mm3 (150-450); RBC Distribution Width CV 13.5 % (11.6-14.6); RBC Distribution Width SD 46.8 fl (35.1-43.9); Red Blood Count 3.69 M/mm3 (4.2-5.4); White Blood Count 6.6 K/mm3 (4.4-11.0)
[2025-06-17 18:21] LABS: AST(SGOT) 28 U/L (<=31); Alanine Aminotransfer ALT/SGPT 19 U/L (<=34); Albumin, Serum 4.2 g/dL (3.4-4.8); Alkaline Phosphatase 110 U/L (35-104); Anion Gap 11 (5-15); BUN 17 mg/dL (4-19); BUN/Creat Ratio 23.7 RATIO (10-20); Calcium,Total 9.3 mg/dL (7.6-11.0); Carbon Dioxide 23.8 mmol/L (21.0-32.0); Chloride 105 mmol/L (98-108); Globulin 2.4 g/dL (2.2-4.2); Glucose 93 mg/dL (70-99); Potassium 4.4 mmol/L (3.3-5.1)
== END | disposition home or self-care (01) ==
LOC: MTLAB 13:57
PROVIDERS: PCP Internal Medicine; Referring Provider Internal Medicine Rheumatology; Visit Provider Internal Medicine Rheumatology
DX: M06.4 Inflammatory polyarthropathy (principal); Z79.899 Other long term (current) drug therapy
CPT/HCPCS: 36415; 80053; 85025

== ENCOUNTER → 2025-07-17 | Outpatient (CLI) | payer MEDICARE, SELFPAY ==
--- NOTE | 2025-07-17 09:15 | BI_ITS ---
EXAM: SCRN MAMM (CAD)W/ELIZA BILAT DATE: 07/17/2025 CLINICAL HISTORY: F, Age 69 y/o , SCREENING No family history. History of prior left stereotactic breast biopsy. TECHNIQUE: Procedure Code: [id number] Modality: MG Procedure: SCRN MAMM (CAD)W/ELIZA BILAT COMPARISON: Prior exam(s) dated May 17, 2023.. FINDINGS: TISSUE DENSITY: The breasts are heterogeneously dense, which may obscure small masses. Bilateral Breast Mammographic Findings: No significant masses, calcifications or other abnormalities are identified. Tissue clip markers in the central slightly upper lateral aspect of the left breast in keeping with prior biopsy. No suspicious masses, areas of developing architectural distortion, or suspicious calcifications. There has been no significant interval change. BI/SCRN MAMM (CAD)W/ELIZA BILAT IMPRESSION: Stable bilateral screening mammogram. OVERALL FINAL ASSESSMENT BI-RADS 2: BENIGN RECOMMENDATION: Routine annual follow-up in 1 Year Additional Recommendation none A letter with findings and recommendations will be mailed to the patient. Reading Location: [place] [id number]
== END | disposition home or self-care (01) ==
LOC: OPBI 09:06
PROVIDERS: PCP Internal Medicine; Referring Provider Internal Medicine; Visit Provider Internal Medicine
DX: Z12.31 Encounter for screening mammogram for malignant neoplasm of breast (principal)
CPT/HCPCS: 77063; 77067

== ENCOUNTER → 2025-08-06 | Outpatient (CLI) | payer MEDICARE, SELFPAY ==
[2025-08-06 15:18] LABS: Hematocrit 35.1 % (37-47); Hemoglobin 11.7 g/dL (12.0-15.0); Mean Corp Hgb Conc 33.3 g/dL (32-36); Mean Corpuscular Volume 91.9 fL (81-99); Mean Platelet Vol. 10.2 fl (6.2-12.0); Platelet Count 363 K/mm3 (150-450); RBC Distribution Width CV 13.9 % (11.6-14.6); RBC Distribution Width SD 46.9 fl (35.1-43.9); Red Blood Count 3.82 M/mm3 (4.2-5.4); White Blood Count 7.0 K/mm3 (4.4-11.0)
[2025-08-06 15:53] LABS: AST(SGOT) 28 U/L (<=31); Alanine Aminotransfer ALT/SGPT 17 U/L (<=34); Albumin, Serum 4.3 g/dL (3.4-4.8); Alkaline Phosphatase 108 U/L (35-104); Anion Gap 12 (5-15); BUN 14 mg/dL (4-19); BUN/Creat Ratio 19.7 RATIO (10-20); Calcium,Total 9.2 mg/dL (7.6-11.0); Carbon Dioxide 23.6 mmol/L (21.0-32.0); Chloride 103 mmol/L (98-108); Cholesterol 209 mg/dL (<=200); Free T3 3.0 pg/mL (2.18-3.98); Globulin 2.4 g/dL (2.2-4.2); Glucose 95 mg/dL (70-99); Low Density Lipoprotein Calc. 114 mg/dL; Potassium 4.2 mmol/L (3.3-5.1); Triglycerides 138 mg/dL; Very Low Density Lipoprotein 28 mg/dL (5-40); cholesterol:hdl ratio screen 2.92
[2025-08-09 12:08] LABS: Vitamin D 1,25-Dihydroxy 54.3 pg/mL (24.8-81.5)
== END | disposition home or self-care (01) ==
LOC: MTLAB 13:26
PROVIDERS: PCP Internal Medicine; Referring Provider Internal Medicine; Visit Provider Internal Medicine
DX: K76.0 Fatty (change of) liver, not elsewhere classified (principal); E04.1 Nontoxic single thyroid nodule; E55.9 Vitamin D deficiency, unspecified; Z86.39 Personal history of other endocrine, nutritional and metabolic disease
CPT/HCPCS: 36415; 80053; 80061; 82652; 84439; 84481; 85027